=== PATIENT | female | born 1935 | race Caucasian/White ===

== ENCOUNTER 2016-07-10 03:19 | Emergency (ER) | payer MEDICARE ==
[~2016-07-10] VITALS: Ht 149.9 cm; Wt 46.3 kg
[~2016-07-10 03:19] MED LIST: AMLO5TAB2 PO; ASPI325T11 PO; ASPI325T4 PO; CLOP75TA PO; HYDR-2666 PO; LEVO100T5 PO; LEVO88TA4 PO; METO25TA9 PO; NAPR220C4 PO; NITR0.4T SL; POLY17PO5 PO; SIMV40TA3 PO
[2016-07-10 03:57] LABS: BASO % 0 % (0-3); EOS % 5 % (0-3); HEMATOCRIT 32.5 % (36.0-47.0); LYMPH # 1.6 x10^3/uL (1.0-4.8); LYMPH % 15 % (24-48); MEAN CORPUSCULAR HEMOGLOBIN 25 pg (25-35); MEAN CORPUSCULAR HGB CONC 31 g/dL (31-37); MEAN CORPUSCULAR VOLUME 81 fL (79-100); MONO % 12 % (0-9); NEUT % 67 % (31-73); PLATELET COUNT 172 x10^3/uL (140-400); RED BLOOD COUNT 4.02 x10^6/uL (3.50-5.40); RED CELL DISTRIBUTION WIDTH 19.8 % (11.5-14.5); WHITE BLOOD COUNT 10.2 x10^3/uL (4.0-11.0)
[2016-07-10] MEDS ORDERED: IPRATRPIUM/ALBUTEROL 0.5/2.5MG 3 ML NEBU. NEB ONE (04:00)
[2016-07-10 04:09] LABS: CALCIUM 8.9 mg/dL (8.5-10.1); GFR 53.3; POTASSIUM 4.2 mmol/L (3.5-5.1)
--- NOTE | 2016-07-10 04:34 | PHYS DOC ---
Past Medical History Past Medical History: CAD, CHF, COPD, High Cholesterol, Hypertension, Hypothyroid, HI Past Surgical History: Coronary Bypass Surgery Additional Past Surgical Histo: cardiac stents May 2016 Smoking: Cigarettes Alcohol Use: None Drug Use: None Adult General Chief Complaint Chief Complaint: SHORTNESS OF BREATH HPI HPI Patient is a 81 year old female who presents with 2 days of cough with clear sputum, dyspnea, and orthopnea. She also notes mild bilateral lower extremity edema along the same timeline. Symptoms are gradually worsening and constant. She is using her home oxygen more but it helps her breathing. She denies fever or chills, chest pain, palpitations, diaphoresis, hemoptysis, leg pain, abdominal pain, nausea or vomiting, diarrhea. States she is not taking Lasix currently. She has followed up with pulmonology and her primary care doctor since discharge, but she has not seen cardiology. Review of Systems Review of Systems Constitutional: Denies fever or chills [] Eyes: Denies change in visual acuity, redness, or eye pain [] HENT: Denies nasal congestion or sore throat [] Respiratory: Has cough and shortness of breath [] Cardiovascular: No additional information not addressed in HPI [] GI: Denies abdominal pain, nausea, vomiting, bloody stools or diarrhea [] : Denies dysuria or hematuria [] Musculoskeletal: Denies back pain or joint pain [] Integument: Denies rash or skin lesions [] Neurologic: Denies headache, focal weakness or sensory changes [] Endocrine: Denies polyuria or polydipsia [] Current Medications Current Medications Current Medications Medications (Trade) Dose Ordered Sig/[facility] Start Time Stop Time Status Last Admin Dose Admin Albuterol/ Ipratropium (Duoneb) 3 ml 1X ONCE 07/10/16 04:00 07/10/16 04:01 DC 07/10/16 03:44 3 ML Furosemide (Lasix) 40 mg 1X ONCE 07/10/16 05:30 07/10/16 05:31 Allergies Allergies Allergies Coded Allergies Type Severity Reaction Last Updated Verified diphenhydramine Allergy Intermediate rash 05/08/16 Yes hydralazine Allergy Mild Nausea and Vomiting 05/31/16 Yes Physical Exam Physical Exam Constitutional: Well developed, well nourished, no acute distress, non-toxic appearance. [] HENT: Normocephalic, atraumatic, bilateral external ears normal, oropharynx moist, no oral exudates, nose normal. [] Eyes: PERRLA, EOMI. [] Neck: Normal range of motion, supple, no stridor. [] Cardiovascular:Heart rate regular rhythm [] Lungs & Thorax: Bibasilar crackles, upper bilateral wheezing, normal respiratory effort [] Abdomen: Bowel sounds normal, soft, no tenderness. [] Skin: Warm, dry, no erythema, no rash. [] Back: No tenderness, no CVA tenderness. [] Extremities: No tenderness, ROM intact, 2+ bilateral lower extremity edema. [] Neurologic: Alert and oriented X 3, normal motor function, normal sensory function, no focal deficits noted. [] Psychologic: Affect normal, judgement normal, mood normal. [] Current Patient Data Vital Signs Vital Signs Date Time Temp Pulse Resp B/P Pulse Ox O2 Delivery O2 Flow Rate FiO2 07/10/16 03:42 97.4 93 24 210/85 96 Nasal Cannula 2.0 97.4 Lab Values Laboratory Tests Test 07/10/16 03:32 White Blood Count 10.2x10^3/uL (4.0-11.0) Red Blood Count 4.02x10^6/uL (3.50-5.40) Hemoglobin 10.0g/dL (12.0-15.5) L Hematocrit 32.5% (36.0-47.0) L Mean Corpuscular Volume 81fL (79-100) Mean Corpuscular Hemoglobin 25pg (25-35) Mean Corpuscular Hemoglobin Concent 31g/dL (31-37) Red Cell Distribution Width 19.8% (11.5-14.5) H Platelet Count 172x10^3/uL (140-400) Neutrophils (%) (Auto) 67% (31-73) Lymphocytes (%) (Auto) 15% (24-48) L Monocytes (%) (Auto) 12% (0-9) H Eosinophils (%) (Auto) 5% (0-3) H Basophils (%) (Auto) 0% (0-3) Neutrophils # (Auto) 6.9x10^3uL (1.8-7.7) Lymphocytes # (Auto) 1.6x10^3/uL (1.0-4.8) Monocytes # (Auto) 1.3x10^3/uL (0.0-1.1) H Eosinophils # (Auto) 0.5x10^3/uL (0.0-0.7) Basophils # (Auto) 0.0x10^3/uL (0.0-0.2) Sodium Level 135mmol/L (136-145) L Potassium Level 4.2mmol/L (3.5-5.1) Chloride Level 99mmol/L (98-107) Carbon Dioxide Level 27mmol/L (21-32) Anion Gap 9 (6-14) Blood Urea Nitrogen 23mg/dL (7-20) H Creatinine 1.0mg/dL (0.6-1.0) Estimated GFR (Cockcroft-Gault) 53.3 Glucose Level 144mg/dL (70-99) H Calcium Level 8.9mg/dL (8.5-10.1) Troponin I Quantitative 0.017ng/mL (0.000-0.055) FX-Ies-D-Type Natriuretic Peptide 2512pg/mL (0-449) H Laboratory Tests 07/10/16 03:32 Laboratory Tests 07/10/16 03:32 EKG EKG EKG as interpreted by me as normal sinus rhythm with PVCs, rate 93, no ST-T changes, normal intervals, no ectopy Radiology/Procedures Radiology/Procedures Chest x-ray as interpreted by me with small bilateral pleural effusions Course & Med Decision Making Course & Med Decision Making Pertinent Labs and Imaging studies reviewed. (See chart for details) She has lower elevation of proBNP from prior, but she has return of small bilateral pleural effusions. She feels better after neb. Discussed she needs to restart her diuretic. I offered admission for this, but she would prefer to follow up closely as an outpatient. Will give dose of IV Lasix prior to departure. Smoking cessation discussed. Return precautions given. She and daughter understand and agree with plan. Dragon Disclaimer Dragon Disclaimer This electronic medical record was generated, in whole or in part, using a voice recognition dictation system. Departure Departure Impression: Primary Impression: Acute congestive heart failure Disposition: 01 HOME, SELF-CARE Condition: STABLE Referrals: MORGAN ROE Jr, MD (PCP) Patient Instructions: Heart Failure, [id number] Additional Instructions: Follow up with your primary care doctor within 2 days as you need to restart your lasix prescription. Follow up with your Director Corporate Security within 1 week. Return for any concerns. Problem Qualifiers Primary Impression: Acute congestive heart failure Congestive heart failure type: diastolic Qualified Code: I50.31 - Acute diastolic (congestive) heart failure Marco Antonio MANN MD Jul 10, 2016 04:34
[2016-07-10 05:18] VITALS: BP 158/86
[2016-07-10] MEDS ORDERED: FUROSEMIDE 40 MG/4 ML VIAL IVP ONE (05:30)
--- NOTE | 2016-07-10 06:34 | EKG ---
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
--- NOTE | 2016-07-10 07:33 | RAD ---
Indication cough and shortness of breath. A single view of the chest was obtained. Comparison is made to a study 06/15/2016. Postoperative changes are noted. Vascular stent is noted. There is mild cardiomegaly. There are small bilateral pleural effusions. A consolidated pneumonia is not seen. IMPRESSION: Small bilateral pleural effusions
== END 2016-07-10 05:34 | disposition home or self-care (01) ==
LOC: ER 03:19
DX: I11.0 Hypertensive heart disease with heart failure (principal); I50.9 Heart failure, unspecified; E78.00 Pure hypercholesterolemia, unspecified; E03.9 Hypothyroidism, unspecified; I25.10 Atherosclerotic heart disease of native coronary artery without angina pectoris; J44.9 Chronic obstructive pulmonary disease, unspecified; I25.2 Old myocardial infarction; Z95.1 Presence of aortocoronary bypass graft; Z95.5 Presence of coronary angioplasty implant and graft; F17.210 Nicotine dependence, cigarettes, uncomplicated; Z88.8 Allergy status to other drugs, medicaments and biological substances
CPT/HCPCS: 36415; 71010; 80048; 83880; 84484; 85027; 93005; 94640; 96374; 99285; J1940; J7620

== ENCOUNTER 2017-02-08 06:32 | Observation (INO) | payer BC, MEDICARE ==
[~2017-02-08] VITALS: Ht 149.9 cm; Wt 44.0 kg
[2017-02-08] VITALS (13 sets, daily range): BP systolic 152–179; BP diastolic 56–77
[~2017-02-08 06:32] MED LIST changes: -ASPI325T4 PO; +ASPI325T8 PO; -HYDR-2666 PO; +HYDR-2758 PO; +POLY17PO29 PO; -POLY17PO5 PO
[2017-02-08] MEDS ORDERED: IV NORMAL SALINE 1000ML BAG 1,000 ML IV SCH (06:44)
[2017-02-08] MEDS ORDERED: CLOP75TA PO (06:58)
[2017-02-08] MEDS ORDERED: LEVO75TA5 PO (06:58)
[2017-02-08] MEDS ORDERED: LIDOCAINE 2% 20 ML VIAL. ONE (07:28)
[2017-02-08] MEDS ORDERED: IODIXANOL 320 MG/ML 100 ML VIAL. ONE (07:29)
[2017-02-08 07:37] LABS: HEMOGLOBIN 14.5 g/dL (12.0-15.5); RED BLOOD COUNT 4.47 x10^6/uL (3.50-5.40); RED CELL DISTRIBUTION WIDTH 13.9 % (11.5-14.5); WHITE BLOOD COUNT 8.1 x10^3/uL (4.0-11.0)
[2017-02-08 07:45] LABS: CALCIUM 9.2 mg/dL (8.5-10.1); CREATININE 1.1 mg/dL (0.6-1.0); GFR 47.8; POTASSIUM 4.2 mmol/L (3.5-5.1)
[2017-02-08] MEDS ORDERED: fentaNYL PF VIAL 100 MCG/2 ML VIAL ONE ×2 (08:06→08:45)
[2017-02-08] MEDS ORDERED: MIDAZOLAM HCL/PF 2 MG/2 ML VIAL. ONE ×2 (08:06→08:45)
[2017-02-08] MEDS ORDERED: dilTIAZem IV PUSH 25 MG/5 ML VIAL ONE (08:28)
[2017-02-08] MEDS ORDERED: NITROGLYCERIN 4 MG/20 ML SYRINGE for CATH LAB. ONE (08:28)
[2017-02-08] MEDS ORDERED: HEPARIN for IV BOLUS 10,000 UNIT/10 ML VIAL. ONE (08:28)
[2017-02-08] MEDS ORDERED: NITROGLYCERIN 200 MCG/2 ML SYRINGE FOR CATH/VASC LAB. ONE ×2 (08:43→09:41)
[2017-02-08] MEDS ORDERED: VERAPAMIL 5 MG/2 ML VIAL. ONE (08:43)
[2017-02-08] MEDS ORDERED: HEPARIN for IV BOLUS 10,000 UNIT/10 ML VIAL. IART ONE (09:15)
[2017-02-08] MEDS ORDERED: IODIXANOL 320 MG/ML 100 ML VIAL. IART ONE (09:15)
[2017-02-08] MEDS ORDERED: VERAPAMIL 5 MG/2 ML VIAL. IART ONE (09:15)
[2017-02-08] MEDS ORDERED: HEPARIN for IV BOLUS 10,000 UNIT/10 ML VIAL. IV ONE (09:15)
[2017-02-08] MEDS ORDERED: LIDOCAINE 2% 20 ML VIAL. IJ ONE (09:15)
[2017-02-08] MEDS ORDERED: fentaNYL PF VIAL 100 MCG/2 ML VIAL IV ONE (09:15)
[2017-02-08] MEDS ORDERED: NITROGLYCERIN 200 MCG/2 ML SYRINGE FOR CATH/VASC LAB. IART ONE ×2 (09:15)
[2017-02-08] MEDS ORDERED: MIDAZOLAM HCL/PF 2 MG/2 ML VIAL. IV ONE (09:15)
--- NOTE | 2017-02-08 09:35 | PDOC ---
MODERATE SEDATION ASSESSMENT RISKS/ALTERNATIVES Risks/Alternatives Risks and alternatives of this type of sedation and procedure discussed with: RISK/ALTERNATIVES: Patient H & P ON CHART H & P H & P on chart and reviewed for co-morbid conditions and appropriate labs. H&P ON CHART: Yes STATUS PREG STATUS ASSESSED: N/A MEDS/ALLERGIES REVIEWED Meds/Allergies Reviewed Medications and Allergies including time and route of recently administered narcotics and sedatives. MEDS/ALLERGIES REVIEWED: Yes ASA RATING ASA RATING: II AIRWAY ASSESSMENT Airway Assessment Airway patency, oral function limitations, presence of caps, crowns, dentures, partials, and ability to extend neck assessed. AIRWAY ASSESSMENT: Yes MALLAMPATI SCORE MALLAMPATI SCORE: II PRE-SEDATION ASSESSMENT PRE-SEDATION ASSESSMENT: Yes ANGEL SHIELDS MD Feb 08, 2017 09:35
[2017-02-08] MEDS ORDERED: ACETAMINOPHEN 325 MG TABLET. PO PRN (09:45)
--- NOTE | 2017-02-08 11:15 | CARD ---
APPROVED REPORT Patient StatusOUT-PATIENT Quarry Boss: Figueroa Buckner RT (R) Procedure(s) performed: 1. Aortogram with bilateral lower extremity runoff 2. Successful orbital atherectomy/drug coated balloon angioplasty to right superficial femoral arter y via right posterior tibial access Moderate Sedation: 120 Min INDICATION FOR PROCEDURE The indication(s) include : Peripheral vascular disease with claudication. PROCEDURE NARRATIVE After explaining the risks, benefits and alternative options, informed consent was obtained from praveen ent. Patient was brought to the [facility] and her right groin was prepped and draped in the usu al fashion. 15 mL of 2% lidocaine was infiltrated into the skin and subcutaneous tissues for local an esthesia. Arterial access was obtained in the right common femoral artery and a 5 Citizen [place] sheath was i nserted. 5 [place] pigtail catheter was used to perform aortogram with bilateral lower extremity runof f. The following findings were noted. FINDINGS 1. Widely patent aortobifemoral bypass graft. 2. Possible previous endarterectomy bilateral common femoral arteries without any significant stenos is. 3. The left superficial femoral artery showed 80% stenosis in the proximal segment, 60% stenosis in the midsegment and 90% stenosis in the distal segment. The right superficial femoral artery showed ca lcified 90% stenosis in the midsegment and 70% stenosis in the distal segment 4. The right popliteal artery did not show any significant stenosis. The left popliteal artery showe d long 90% stenosis. 5. There is three-vessel runoff below the knee right lower extremity. There is three-vessel runoff b elow the knee left otitis media as well but the left tibioperoneal trunk showed 80% stenosis. INTERVENTION Since patient stated that her symptoms are worse in her right lower extremity, we decided to interven e on the right superficial femoral artery first and plan for staged intervention left lower extremity in 2-4 weeks. Her right foot was then prepped and draped in the usual fashion. Arterial access was obtained in the right posterior tibial artery under vascular ultrasound guidance and 6 Citizen [place] sheath was inserted. The stenosis in the mid and distal segments of the right superficial femoral artery wer e crossed with a 0.014 inch viper guidewire. Multiple orbital atherectomy passes were then performed using CSI 1.5 Stealth atherectomy catheter. The lesions were then dilated with a 4 x 1 20 mm Peterson A rmada balloon. The midsegment stenosis was then successfully treated with a 4.0 x 1 50 mm DigePrinttronic I npact drug-coated balloon. Follow-up angiorrhaphy showed resolution of the stenosis to 0% with good d istal flow. Patient tolerated the procedure well. Hemostasis in the right posterior tibial artery was achieved using TR band. Attempt at achieving hemostasis right groin using manual compression was not successful and hence this was achieved using FemoStop that will be removed at a later time per joel col. There were no immediate complications. Conclusion 1. Severe bilateral lower extremity peripheral vascular disease as described above with patent aorto bifemoral bypass graft. 2. Successful orbital atherectomy/drug coated balloon angioplasty of right superficial femoral arter y. Recommendations Plan for staged atherectomy/METAL MOVER to left superficial femoral, popliteal and tibioperoneal trunk at lat er date.
[2017-02-08] MEDS ORDERED: PROTAMINE 50 MG/5 ML VIAL. IV ONE (11:30)
[2017-02-08] MEDS: IV 1/2 NORMAL SALINE 1,000 ML IV SCH ×2 (12:00→22:00)
[2017-02-08] MEDS ORDERED: NITROGLYCERIN SUBLINGUAL 0.4 MG BOTTLE OF 25. SL PRN (15:15)
[2017-02-08] MEDS ORDERED: HYDROcodone/APAP 5/325MG 1 TAB TABLET PO PRN ×2 (15:15)
[2017-02-08] MEDS ORDERED: ATORVASTATIN CALCIUM 20 MG TABLET PO SCH (21:00)
[2017-02-08] MEDS ORDERED: TEMAZEPAM 15 MG CAPSULE PO PRN (21:30)
[2017-02-09 03:29] VITALS: BP 113/62
[2017-02-09 07:00] VITALS: BP 176/69
[2017-02-09] MEDS ORDERED: LEVOTHYROXINE 75 MCG TABLET PO SCH (07:30)
[2017-02-09] MEDS ORDERED: ASPIRIN ENTERIC COATED 325 MG TABLET.DR. PO SCH (08:00)
[2017-02-09] MEDS: IV 1/2 NORMAL SALINE 1,000 ML IV SCH (08:00)
[2017-02-09] MEDS ORDERED: CLOPIDOGREL BISULFATE 75 MG TABLET PO SCH (09:00)
[2017-02-09] MEDS ORDERED: POLYETHYLENE GLYCOL 3350 17 GM PACKET. PO SCH (09:00)
[2017-02-09] MEDS ORDERED: amLODIPine BESYLATE 5 MG TABLET PO SCH (09:00)
[2017-02-09] MEDS ORDERED: METOPROLOL SUCC 24HR ER 50 MG TAB.ER.24H. PO SCH (09:00)
--- NOTE | 2017-02-09 10:39 | DISCH ---
DISCHARGE INSTRUCTIONS Condition on Discharge Condition on Discharge: Stable Activity After Discharge Activity Instructions for Disc: Activity as tolerated, Avoid exertion (see diagnosis specific handout. ) Bathing Instructions: Shower-keep dressing dry (may leave open to air) Diet after Discharge Diet after Discharge: Cardiac Wound Incision Care Wound/Incision Care: No wound care needed Contacting the DRMatthew after DC Call your doctor for: Concerns you may have NONA DIEGO APRN Feb 09, 2017 10:39
[2017-02-09 11:00] VITALS: BP 182/65
[2017-02-09] MEDS ORDERED: amLODIPine BESYLATE 5 MG TABLET PO ONE (12:00)
[2017-02-09 12:18] VITALS: BP 182/65
--- NOTE | 2017-02-09 14:35 | PDOC3 ---
Discharge Summary Visit Information Date of Admission: Feb 08, 2017 Date of Discharge: Feb 09, 2017 Admitting Diagnosis: peripheral vascular disease with claudication Final Diagnosis Peripheral vascular disease Coronary artery disease Subclavian stenosis Hypertension Hyperlipidemia Brief Hospital Course Allergies Allergies Coded Allergies Type Severity Reaction Last Updated Verified diphenhydramine Allergy Intermediate rash 05/08/16 Yes hydralazine Allergy Mild Nausea and Vomiting 05/31/16 Yes Vital Signs Vital Signs Date Time Temp Pulse Resp B/P (MAP) Pulse Ox O2 Delivery O2 Flow Rate FiO2 02/09/17 12:18 83 182/65 02/09/17 08:00 Room Air 91.0 02/09/17 07:00 98.1 18 93 98.1 Lab Results Laboratory Tests Test 02/08/17 07:15 White Blood Count 8.1 x10^3/uL (4.0-11.0) Red Blood Count 4.47 x10^6/uL (3.50-5.40) Hemoglobin 14.5 g/dL (12.0-15.5) Hematocrit 43.0 % (36.0-47.0) Mean Corpuscular Volume 96 fL (79-100) Mean Corpuscular Hemoglobin 33 pg (25-35) Mean Corpuscular Hemoglobin Concent 34 g/dL (31-37) Red Cell Distribution Width 13.9 % (11.5-14.5) Platelet Count 136 x10^3/uL (140-400) Prothrombin Time 13.0 SEC (11.7-14.0) Prothromb Time International Ratio 1.0 (0.8-1.1) Activated Partial Thromboplast Time 50 SEC (24-38) Sodium Level 138 mmol/L (136-145) Potassium Level 4.2 mmol/L (3.5-5.1) Chloride Level 102 mmol/L (98-107) Carbon Dioxide Level 30 mmol/L (21-32) Anion Gap 6 (6-14) Blood Urea Nitrogen 23 mg/dL (7-20) Creatinine 1.1 mg/dL (0.6-1.0) Estimated GFR (Cockcroft-Gault) 47.8 Glucose Level 99 mg/dL (70-99) Calcium Level 9.2 mg/dL (8.5-10.1) Brief Hospital Course Ms. Guallpa is a 81 old female who was seen in our office recently for claudication was referred to [facility] for aortogram. This showed significant stenoses involving the right superficial femoral artery, left superficial femoral artery, left popliteal artery and tibioperoneal trunk. Since her symptoms were worse in her right lower extremity, we proceeded with orbital atherectomy/drug coated balloon angioplasty to right superficial femoral artery via right posterior tibial access. She remained hemodynamically stable and symptom-free during her hospital stay and her right groin and right posterior tibial access looked good at the time of discharge. She'll follow-up with our office in 2-4 weeks. We will consider staged EMR IMPLEMENTATION SPECIALIST to left lower extremity at a later date. Discharge Information Condition at Discharge: Stable Follow Up: Months (one) Disposition/Orders: D/C to Home Scheduled Amlodipine Besylate (Amlodipine Besylate), 1 TAB PO DAILY, (Reported) Aspirin (Aspirin Ec), 325 MG PO DAILYWBKFT Clopidogrel Bisulfate (Clopidogrel), 75 MG PO DAILY, (Reported) Levothyroxine Sodium (Levothyroxine Sodium), 75 MCG PO DAILYAC, (Reported) Metoprolol Succinate (Metoprolol Succinate ( Xl )), 50 MG PO DAILY, (Reported) Polyethylene Glycol 3350 (Miralax), 1 PACKET PO DAILY, (Reported) Simvastatin (Simvastatin), 1 TAB PO QHS, (Reported) Scheduled PRN Hydrocodone Bit/Acetaminophen (Hydrocodone-Apap 5-325 ), 1 TAB PO PRN Q6HRS PRN for PAIN, (Reported) Hydrocodone Bit/Acetaminophen (Hydrocodone-Apap 5-325 ), 2 TAB PO PRN Q6HRS PRN for PAIN, (Reported) Nitroglycerin (Nitrostat), 0.4 MG SL PRN Q5MIN PRN for CHEST PAIN, (Reported) ANGEL SHIELDS MD Feb 09, 2017 14:35
== END 2017-02-09 12:33 | disposition home or self-care (01) ==
LOC: CCL 06:32 → 2 SOUTH 12:46
PROVIDERS: ADMIT Internal Medicine Cardiovascular Disease; ATTEND Internal Medicine Cardiovascular Disease
DX: I73.9 Peripheral vascular disease, unspecified (principal); I25.10 Atherosclerotic heart disease of native coronary artery without angina pectoris; I10 Essential (primary) hypertension; E78.5 Hyperlipidemia, unspecified; I70.8 Atherosclerosis of other arteries
CPT/HCPCS: 36415; 37227; 75630; 76937; 80048; 85027; 85610; 85730; 96374; C1724; C1725; C1769; C1887; C1892; C2623; G0378; G0379; J1644; J2001; J2250; J2720; J3010; J3490; J7030; 99152; 99153

== ENCOUNTER → 2017-08-19 | Outpatient (CLI) | payer BC | END | disposition home or self-care (01) | LOC: US 12:09 | DX: I73.9 Peripheral vascular disease, unspecified (principal); I25.708 Atherosclerosis of coronary artery bypass graft(s), unspecified, with other forms of angina pectoris; I34.0 Nonrheumatic mitral (valve) insufficiency; I42.2 Other hypertrophic cardiomyopathy; I51.9 Heart disease, unspecified; I74.3 Embolism and thrombosis of arteries of the lower extremities | CPT/HCPCS: 93306; 93925 ==

== ENCOUNTER 2017-09-20 06:21 | Observation (INO) | payer BC ==
[2017-09-20 07:02] LABS: HEMATOCRIT 46.1 % (36.0-47.0); HEMOGLOBIN 15.1 g/dL (12.0-15.5); MEAN CORPUSCULAR HEMOGLOBIN 31 pg (25-35); MEAN CORPUSCULAR HGB CONC 33 g/dL (31-37); MEAN CORPUSCULAR VOLUME 95 fL (79-100); PLATELET COUNT 166 x10^3/uL (140-400); RED BLOOD COUNT 4.83 x10^6/uL (3.50-5.40); RED CELL DISTRIBUTION WIDTH 14.4 % (11.5-14.5); WHITE BLOOD COUNT 9.6 x10^3/uL (4.0-11.0)
[2017-09-20 07:16] LABS: ANION GAP 10 (6-14); BLOOD UREA NITROGEN 21 mg/dL (7-20); CALCIUM 8.8 mg/dL (8.5-10.1); CARBON DIOXIDE 28 mmol/L (21-32); CHLORIDE 101 mmol/L (98-107); CREATININE 1.1 mg/dL (0.6-1.0); GFR 47.7; GLUCOSE 96 mg/dL (70-99); POTASSIUM 3.7 mmol/L (3.5-5.1); PROTHROMBIN TIME PATIENT 12.7 SEC (11.7-14.0); SODIUM 139 mmol/L (136-145)
[2017-09-20] MEDS ORDERED: IODIXANOL 320 MG/ML 100 ML VIAL. (07:16)
[2017-09-20] MEDS ORDERED: LIDOCAINE 2% 20 ML VIAL. (07:16)
[2017-09-20 07:17] LABS: PARTIAL THROMBOPLASTIN TIME 41 SEC (24-38)
[2017-09-20] MEDS ORDERED: fentaNYL PF VIAL 250 MCG/5 ML VIAL (08:06)
[2017-09-20] MEDS ORDERED: MIDAZOLAM HCL/PF 5 MG/5 ML VIAL. (08:06)
[2017-09-20] MEDS ORDERED: HEPARIN for IV BOLUS 10,000 UNIT/10 ML VIAL. ×2 (08:31→08:53)
[2017-09-20] MEDS ORDERED: NITROGLYCERIN 200 MCG/2 ML SYRINGE FOR CATH/VASC LAB. (09:00)
[2017-09-20] MEDS: fentaNYL PF VIAL 100 MCG/2 ML VIAL IV ×2 (09:15→11:15)
[2017-09-20] MEDS: MIDAZOLAM HCL/PF 5 MG/5 ML VIAL. IV (09:15)
[2017-09-20] MEDS: HEPARIN for IV BOLUS 10,000 UNIT/10 ML VIAL. IV (09:15)
[2017-09-20] MEDS: IODIXANOL 320 MG/ML 100 ML VIAL. IART (09:15)
[2017-09-20] MEDS: LIDOCAINE 2% 20 ML VIAL. IJ (09:15)
[2017-09-20] MEDS: NITROGLYCERIN 4 MG/20 ML SYRINGE for CATH LAB. IV (09:15)
[2017-09-20] MEDS: NITROGLYCERIN 200 MCG/2 ML SYRINGE FOR CATH/VASC LAB. IART (09:15)
[2017-09-20] MEDS: fentaNYL PF VIAL 250 MCG/5 ML VIAL IV (10:33)
[2017-09-20] MEDS: IV 1/2 NORMAL SALINE 1,000 ML IV ×2 (11:05→20:14)
[2017-09-20] MEDS ORDERED: NITROGLYCERIN SUBLINGUAL 0.4 MG BOTTLE OF 25. SL (11:15)
[2017-09-20] MEDS ORDERED: MAGNESIUM HYDROXIDE 2,400 MG/30 ML ORAL.SUSP. PO (11:15)
[2017-09-20] MEDS ORDERED: ACETAMINOPHEN 325 MG TABLET. PO (11:15)
[2017-09-20] MEDS: MIDAZOLAM HCL/PF 2 MG/2 ML VIAL. IV (11:15)
[2017-09-20 15:46] LABS: ISTAT ACT 233 sec (92-181)
[2017-09-20] MEDS ORDERED: HYDROcodone/APAP 5/325MG 1 TAB TABLET PO (16:30)
[2017-09-20] MEDS: HYDROcodone/APAP 5/325MG 1 TAB TABLET PO (16:34)
[2017-09-20 17:14] LABS: ISTAT ACT 184 sec (92-181)
[2017-09-20] MEDS: IV NORMAL SALINE 500ML BAG 500 ML IV (18:00)
[2017-09-20] MEDS: NITROGLYCERIN SUBLINGUAL 0.4 MG BOTTLE OF 25. SL (18:36)
[2017-09-20] MEDS: ATORVASTATIN CALCIUM 20 MG TABLET PO (20:13)
[2017-09-21] MEDS: IV 1/2 NORMAL SALINE 1,000 ML IV (04:50)
[2017-09-21] MEDS ORDERED: CLOPIDOGREL BISULFATE 75 MG TABLET PO (08:00)
[2017-09-21] MEDS ORDERED: ASPIRIN ENTERIC COATED 325 MG TABLET.DR. PO (08:00)
[2017-09-21] MEDS: ASPIRIN ENTERIC COATED 325 MG TABLET.DR. PO (08:55)
[2017-09-21] MEDS: LEVOTHYROXINE 75 MCG TABLET PO (08:55)
[2017-09-21] MEDS: METOPROLOL SUCC 24HR ER 50 MG TAB.ER.24H. PO (08:56)
[2017-09-21] MEDS: CLOPIDOGREL BISULFATE 75 MG TABLET PO (08:56)
[2017-09-21] MEDS: amLODIPine BESYLATE 5 MG TABLET PO (08:57)
[2017-09-21] MEDS: POLYETHYLENE GLYCOL 3350 17 GM PACKET. PO (09:00)
[2017-09-21 14:19] LABS: ISTAT ACT 631 sec (92-181)
== END 2017-09-21 16:09 | disposition home or self-care (01) ==
LOC: CCL 06:21 → 2 SOUTH 09:02 → 2 NORTH 09:02 → 2 SOUTH 09:02
DX: I73.9 Peripheral vascular disease, unspecified (principal); I70.8 Atherosclerosis of other arteries; I25.10 Atherosclerotic heart disease of native coronary artery without angina pectoris; I10 Essential (primary) hypertension; E78.5 Hyperlipidemia, unspecified; Z79.82 Long term (current) use of aspirin; Z79.02 Long term (current) use of antithrombotics/antiplatelets
CPT/HCPCS: 36415; 37227; 37229; 75630; 80048; 85027; 85347; 85610; 85730; 96365; 96375; 99152; 99153; 99406; C1725; C1769; C1877; C1892; G0378; G0379; J1644; J2250; J3010; J3490; J7030; J7040

== ENCOUNTER 2017-11-01 06:24 | Observation (INO) | payer BC ==
[2017-11-01 06:45] LABS: HEMATOCRIT 43.9 % (36.0-47.0); HEMOGLOBIN 14.8 g/dL (12.0-15.5); MEAN CORPUSCULAR HEMOGLOBIN 32 pg (25-35); MEAN CORPUSCULAR HGB CONC 34 g/dL (31-37); MEAN CORPUSCULAR VOLUME 95 fL (79-100); PLATELET COUNT 173 x10^3/uL (140-400); RED BLOOD COUNT 4.63 x10^6/uL (3.50-5.40); RED CELL DISTRIBUTION WIDTH 15.8 % (11.5-14.5); WHITE BLOOD COUNT 11.9 x10^3/uL (4.0-11.0)
[2017-11-01 06:54] LABS: INR 0.9 (0.8-1.1); PROTHROMBIN TIME PATIENT 11.5 SEC (11.7-14.0)
[2017-11-01 06:58] LABS: ANION GAP 11 (6-14); BLOOD UREA NITROGEN 27 mg/dL (7-20); CALCIUM 8.6 mg/dL (8.5-10.1); CARBON DIOXIDE 25 mmol/L (21-32); CHLORIDE 101 mmol/L (98-107); GFR 53.2; GLUCOSE 117 mg/dL (70-99); POTASSIUM 4.3 mmol/L (3.5-5.1); SODIUM 137 mmol/L (136-145)
[2017-11-01] MEDS ORDERED: LIDOCAINE 2% 20 ML VIAL. (07:07)
[2017-11-01] MEDS ORDERED: IODIXANOL 320 MG/ML 100 ML VIAL. ×2 (07:07→08:47)
[2017-11-01] MEDS ORDERED: fentaNYL PF VIAL 100 MCG/2 ML VIAL ×2 (08:00→10:03)
[2017-11-01] MEDS ORDERED: NITROGLYCERIN 200 MCG/2 ML SYRINGE FOR CATH/VASC LAB. (08:00)
[2017-11-01] MEDS ORDERED: HEPARIN for IV BOLUS 10,000 UNIT/10 ML VIAL. ×2 (08:00→08:16)
[2017-11-01] MEDS ORDERED: MIDAZOLAM HCL/PF 2 MG/2 ML VIAL. ×2 (08:00→10:03)
[2017-11-01] MEDS ORDERED: CONTRAST GIVEN. MC (08:15)
[2017-11-01] MEDS ORDERED: NITROGLYCERIN 4 MG/20 ML SYRINGE for CATH LAB. ×2 (08:39→09:00)
[2017-11-01] MEDS ORDERED: dilTIAZem IV PUSH 25 MG/5 ML VIAL (08:39)
[2017-11-01] MEDS: dilTIAZem INJ 10 MG, NITROGLYCERIN 4MG SYRINGE 4 MG, HEPARIN SODIUM 10,000 UNIT, VIPERS... INT CAT (09:00)
[2017-11-01] MEDS: LIDOCAINE 2% 20 ML VIAL. IJ (10:09)
[2017-11-01] MEDS: fentaNYL PF VIAL 100 MCG/2 ML VIAL IV ×2 (10:10→10:30)
[2017-11-01] MEDS: HEPARIN for IV BOLUS 10,000 UNIT/10 ML VIAL. IV (10:12)
[2017-11-01] MEDS: IODIXANOL 320 MG/ML 100 ML VIAL. IART (10:13)
[2017-11-01] MEDS: MIDAZOLAM HCL/PF 2 MG/2 ML VIAL. IV (10:13)
[2017-11-01] MEDS: NITROGLYCERIN 200 MCG/2 ML SYRINGE FOR CATH/VASC LAB. IART (10:14)
[2017-11-01] MEDS ORDERED: ACETAMINOPHEN 325 MG TABLET. PO (10:30)
[2017-11-01] MEDS: IV 1/2 NORMAL SALINE 1,000 ML IV ×2 (11:14→19:11)
[2017-11-01] MEDS ORDERED: PNEUMOCOCCAL VAX SCREEN BY RX. MC (11:45)
[2017-11-01] MEDS: ISOSORBIDE MONONITRATE ER 30 MG TAB.ER.24H PO (12:06)
[2017-11-01] MEDS: oxyCODONE/APAP 5/325 1 TAB TABLET PO (21:12)
[2017-11-01] MEDS: SIMVASTATIN 40 MG TABLET. PO (21:12)
[2017-11-01] MEDS: FAMOTIDINE 20 MG TABLET. PO (21:12)
[2017-11-02] MEDS: LEVOTHYROXINE 75 MCG TABLET PO (06:07)
[2017-11-02] MEDS: PNEUMOC CONJ VACC 23-VALENT 0.5 ML VIAL. VAX IM (08:14)
[2017-11-02] MEDS: CLOPIDOGREL BISULFATE 75 MG TABLET PO (08:14)
[2017-11-02] MEDS: METOPROLOL SUCC 24HR ER 25 MG TAB.ER.24H. PO (08:14)
[2017-11-02] MEDS: ASPIRIN ENTERIC COATED 325 MG TABLET.DR. PO (08:14)
[2017-11-02] MEDS: POLYETHYLENE GLYCOL 3350 17 GM PACKET. PO (08:15)
[2017-11-02] MEDS: amLODIPine BESYLATE 5 MG TABLET PO (08:15)
[2017-11-02] MEDS: oxyCODONE/APAP 5/325 1 TAB TABLET PO (10:17)
== END 2017-11-02 11:32 | disposition home or self-care (01) ==
LOC: CCL 06:24 → 2 NORTH 07:15
DX: I70.292 Other atherosclerosis of native arteries of extremities, left leg (principal); I25.10 Atherosclerotic heart disease of native coronary artery without angina pectoris; I50.32 Chronic diastolic (congestive) heart failure; E78.5 Hyperlipidemia, unspecified; I11.0 Hypertensive heart disease with heart failure; G89.29 Other chronic pain; I77.1 Stricture of artery; E11.9 Type 2 diabetes mellitus without complications; J44.9 Chronic obstructive pulmonary disease, unspecified; Z82.49 Family history of ischemic heart disease and other diseases of the circulatory system; Z23 Encounter for immunization; Z95.820 Peripheral vascular angioplasty status with implants and grafts
CPT/HCPCS: 36415; 37227; 80048; 85027; 85610; 90471; 90732; 96365; 96375; 99152; 99153; 99406; C1724; C1725; C1769; C1771; C1877; C1892; G0269; G0378; G0379; J1644; J2250; J3010; J3490; J7030

== ENCOUNTER → 2018-03-31 | Outpatient (CLI) | payer BC ==
[2017-11-02 08:15] VITALS: BP 157/63
[~2018-03-31] MED LIST changes: -AMLO5TAB2 PO; +AMLO5TAB7 PO; +FAMO-63 PO; +IOHEXOL 300 MG/ML 100ML VIAL. IV ONE; +LEVO75TA5 PO; +METO-239 PO; -METO25TA9 PO
[2018-03-31 11:33] LABS: CREATININE 0.9 mg/dL (0.6-1.0); GFR 60.1
--- NOTE | 2018-04-01 09:15 | RAD ---
CT angiography of the abdomen, pelvis, and lower extremities 03/31/2018 Indication: Atherosclerosis with lower extremity gangrene. Comparison study: CTA of the abdomen and pelvis December 09, 2011 Discussion: Imaging of the abdomen and pelvis was obtained following the administration of IV contrast. 3-D reconstructions of abdominal, pelvic, large vasculature appear uninterrupted workstation reviewed. Findings: Inferior thoracic aorta demonstrates irregular soft and calcified plaque with mild luminal narrowing. There is severe diffuse atherosclerotic vascular disease. Small penetrating ulcers noted posteriorly involving the distal descending thoracic aorta. There is high-grade stenosis of the splenic artery which arises directly from the abdominal aorta. This supplies the left gastric artery and left hepatic artery. The celiac artery is also highly stenosis which supplies blood flow to the right liver, and gastroduodenal arcade. Mild narrowing is seen at the ostium of the SMA. There is a small focal aneurysm versus dissection seen in the proximal SMA with associated moderate narrowing. The right renal artery is patent. There is moderate stenosis of the left renal artery near the ostium. The inferior mesenteric artery is not visualized. There is an aortobifemoral bypass graft. The graft appears to be widely patent. Right common femoral artery is patent. The right profunda artery is patent. There is high-grade stenosis in the proximal right SFA. Multiple tandem high-grade stenoses possibly some spectral segment occlusions are seen throughout the proximal right superficial femoral artery. There is occlusion of the right SFA in the mid thigh just above a superficial femoral artery stent that extends just above the knee. Areas of reconstitution are present within the stent. The popliteal artery is reconstituted but is extremely small in caliber. The anterior tibial and dorsalis pedis artery are small but appear grossly patent. The peroneal artery appears smaller grossly patent. The posterior tibial artery is not visualized likely chronically occluded. Left common femoral artery is patent. Left profunda artery is patent there is similar multifocal near occlusion seen throughout the proximal left SFA. The left SFA is occluded in the mid thigh which extends to a popliteal artery stent. The proximal infra geniculate popliteal artery is occluded. There is reconstitution of the more distal popliteal artery which supplies the anterior tibial artery which and dorsalis pedis artery which appear to be patent. The posterior tibial artery is patent to the foot. The peroneal artery appears to be occluded in the mid leg. Nonvascular findings: Multifocal scarring is seen in the lung bases bilaterally. There is a small subpleural nodular opacity in the right lower lobe measuring [address] surveillance recommended. Cholelithiasis noted. Small renal cyst noted on the left. 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 There is no bowel obstruction. No pneumoperitoneum or significant free fluid is seen in the abdomen or pelvis. Mildly increased stool is noted throughout the colon. Correlate with evidence of constipation. Degenerative changes of the spine are noted. No acute osseous abnormality is seen. Impression: 1. Severe diffuse atherosclerotic vascular disease 2. Patent aorto femoral bypass graft. Severe femoropopliteal disease including multifocal short segment high-grade stenoses and occlusions of the superficial femoral artery and popliteal arteries occlusions include previously stented portions of these vessels as described above in detail. 3. Occlusion of the right posterior tibial artery. Occlusion of the left peroneal artery 4. Variant celiac axis anatomy is described above including multifocal high-grade stenoses. 5. Moderate stenoses of the proximal superior mesenteric artery. Nonvisualization of the inferior mesenteric artery. Correlate with clinical evidence of mesenteric ischemia. 6. Moderate left renal artery stenosis. Interval left inferior renal infarct, which appears chronic. 7. 8 mm noncalcified pulmonary nodule, right lower lobe. 3-6 month follow-up CT chest recommended. PQRS Compliance Statement: One or more of the following individualized dose reduction techniques were utilized for this examination: 1. Automated exposure control 2. Adjustment of the mA and/or kV according to patient size 3. Use of iterative reconstruction technique
== END | disposition home or self-care (01) ==
LOC: CT 15:15
PROVIDERS: ATTEND Registered Nurse Medical-Surgical
DX: I70.263 Atherosclerosis of native arteries of extremities with gangrene, bilateral legs (principal); E11.22 Type 2 diabetes mellitus with diabetic chronic kidney disease; I13.0 Hypertensive heart and chronic kidney disease with heart failure and stage 1 through stage 4 chronic kidney disease, or unspecified chronic kidney disease; I50.32 Chronic diastolic (congestive) heart failure; N18.1 Chronic kidney disease, stage 1; F17.210 Nicotine dependence, cigarettes, uncomplicated
CPT/HCPCS: 36415; 75635; 82565; Q9967

== ENCOUNTER 2018-05-31 05:44 | Inpatient (IN) | payer BC ==
[~2018-05-31] VITALS: Ht 149.9 cm; Wt 56.3 kg
[~2018-05-31 05:44] MED LIST changes: -HYDR-2758 PO; +HYDR-2761 PO; -IOHEXOL 300 MG/ML 100ML VIAL. IV ONE; +VENTOLIN HFA18 GM INH
[2018-05-31] MEDS ORDERED: HEPARIN SODIUM 5,000 UNIT in IV NORMAL SALINE 500ML BAG 500 ML IRR ONE (06:00)
[2018-05-31 06:39] LABS: BASO # 0.1 x10^3/uL (0.0-0.2); BASO % 1 % (0-3); EOS # 0.3 x10^3/uL (0.0-0.7); EOS % 3 % (0-3); HEMATOCRIT 43.1 % (36.0-47.0); HEMOGLOBIN 14.4 g/dL (12.0-15.5); LYMPH # 1.3 x10^3/uL (1.0-4.8); LYMPH % 13 % (24-48); MEAN CORPUSCULAR HEMOGLOBIN 32 pg (25-35); MEAN CORPUSCULAR HGB CONC 34 g/dL (31-37); MEAN CORPUSCULAR VOLUME 94 fL (79-100); MONO # 1.2 x10^3/uL (0.0-1.1); MONO % 12 % (0-9); NEUT # 7.1 x10^3uL (1.8-7.7); NEUT % 72 % (31-73); PLATELET COUNT 164 x10^3/uL (140-400); RED BLOOD COUNT 4.57 x10^6/uL (3.50-5.40); RED CELL DISTRIBUTION WIDTH 14.8 % (11.5-14.5)
[2018-05-31] MEDS ORDERED: IOHEXOL 300 MG/ML 100ML VIAL. ONE (06:45)
[2018-05-31] MEDS ORDERED: SURGICEL FIBRILLAR 1X2 EACH. ONE (06:45)
[2018-05-31 06:51] LABS: CALCIUM 9.1 mg/dL (8.5-10.1); CREATININE 0.9 mg/dL (0.6-1.0); GFR 60.1; POTASSIUM 4.1 mmol/L (3.5-5.1)
[2018-05-31 06:53] LABS: PROTHROMBIN TIME PATIENT 12.7 SEC (11.7-14.0)
[2018-05-31] MEDS ORDERED: PROPOFOL 20 ML IV ONE (07:00)
[2018-05-31] MEDS ORDERED: fentaNYL PF VIAL 100 MCG/2 ML VIAL ONE ×2 (07:00→10:14)
[2018-05-31] MEDS ORDERED: HYDROmorphone 2 MG/ML VIAL IV PRN (07:00)
[2018-05-31] MEDS ORDERED: ROCURONIUM 50 MG/5 ML VIAL. ONE (07:00)
[2018-05-31] MEDS ORDERED: IV RINGERS,LACTATED 1000ML 1,000 ML IV SCH (07:00)
[2018-05-31] MEDS ORDERED: fentaNYL PF VIAL 100 MCG/2 ML VIAL IV PRN ×2 (07:00)
[2018-05-31] MEDS ORDERED: ONDANSETRON PF 4 MG/2 ML VIAL. IV PRN ×2 (07:00→07:45)
[2018-05-31] MEDS ORDERED: LIDOCAINE 1% PF 2 ML VIAL. ID PRN (07:00)
[2018-05-31] MEDS ORDERED: LIDOCAINE 2% PF Vial for OR 5 ML VIAL. ONE (07:00)
[2018-05-31] MEDS ORDERED: PROCHLORPERAZINE 10 MG/2 ML VIAL. IV PRN ×2 (07:00→07:45)
[2018-05-31] MEDS ORDERED: LIDOCAINE 1% PF 30ML 48 ML, SODIUM BICARBONATE VIAL 12 MEQ in TOTAL VOLUME SYRINGE 60 ML ID ONE (07:07)
[2018-05-31] MEDS ORDERED: GELATIN SPONGE SIZE 100. ONE (07:19)
[2018-05-31] MEDS ORDERED: PAPAVERINE 60 MG/2 ML VIAL FOR OR ONLY. ONE (07:19)
[2018-05-31] MEDS ORDERED: THROMBIN TOPICAL 20,000 UNIT SPRAY.SYRN KIT TP ONE (07:19)
[2018-05-31] MEDS ORDERED: MAG HYDROX/ALUMINUM HYD/SIMETH 30 ML ORAL.SUSP PO PRN (07:45)
[2018-05-31] MEDS ORDERED: diphenhydrAMINE HCL 25 MG CAPSULE PO PRN (07:45)
[2018-05-31] MEDS ORDERED: 0.9 % SODIUM CHLORIDE 10 ML DISP.SYRIN. IV PRN (07:45)
[2018-05-31] MEDS ORDERED: LABETALOL 20 MG/4 ML DISP.SYRIN. IVP PRN (07:45)
[2018-05-31] MEDS ORDERED: CALCIUM CARBONATE 500 MG TAB.CHEW PO PRN (07:45)
[2018-05-31] MEDS ORDERED: NALOXONE 0.4 MG/ML VIAL. IV PRN (07:45)
[2018-05-31] MEDS ORDERED: ceFAZolin SODIUM 1 GM in IV DEXTROSE 5% 50 ML IV SCH (07:45)
[2018-05-31] MEDS ORDERED: HEPARIN for IV BOLUS 10,000 UNIT/10 ML VIAL. ONE (08:19)
[2018-05-31] MEDS ORDERED: PHENYLEPHRINE in 0.9% NACL PF 1 MG/10 ML SYRINGE. IV ONE (08:19)
[2018-05-31] MEDS ORDERED: DEXAMETHASONE SOD PHOS 20 MG/5 ML VIAL. ONE (08:19)
[2018-05-31] MEDS ORDERED: DESFLURANE > 120 MINUTES IH ONE (08:19)
[2018-05-31] MEDS ORDERED: ePHEDrine PF IN SALINE 50 MG/5 ML DISP.SYRIN IV ONE (08:28)
[2018-05-31] MEDS: SENNOSIDES/DOCUSATE 8.6/50MG TABLET. PO SCH ×2 (09:00→20:15)
[2018-05-31] MEDS: METOPROLOL SUCC 24HR ER 25 MG TAB.ER.24H. PO SCH (09:00)
[2018-05-31] MEDS ORDERED: GLYCOPYRROLATE 1 MG/5 ML VIAL. ONE (09:08)
[2018-05-31] MEDS ORDERED: NEOSTIGMINE METHYLSULFATE 5 MG/5 ML SYRINGE. ONE (09:08)
[2018-05-31] MEDS ORDERED: PROTAMINE 50 MG/5 ML VIAL. IV ONE ×2 (10:41→10:53)
--- NOTE | 2018-05-31 11:46 | PDOC ---
BRIEF OPERATIVE NOTE Date: May 31, 2018 Pre-Op Diagnosis PVD with Left leg claudication Post-Op Diagnosis same Procedure Performed Left femoral to popliteal bypass using greater saphenous vein Surgeon Dr. Hatfield Cone Cleaner Pelon Bagley NP Anesthesia Type: General Blood Loss 150cc Specimens Obtained none Findings Doppler DP and PT Complications none Operative Note see dictated note PELON BAGLEY SHANK CARRIER May 31, 2018 11:46
--- NOTE | 2018-05-31 11:52 | RAD ---
Right femur, single view, 05/31/2018: HISTORY: Postop evaluation, incorrect needle count Multiple surgical clips are present medially from the level of the groin down below the knee. A vascular stent is present extending from the mid thigh down to the proximal popliteal level. No retained surgical instrument, needle or radiopaque sponge is identified. Electronically signed by: Judah Proctor MD (05/31/2018 11:48 AM) [facility]
--- NOTE | 2018-05-31 12:23 | OP ---
DATE OF SURGERY: 05/31/2018 PREOPERATIVE DIAGNOSIS: Ischemic rest pain, right foot. POSTOPERATIVE DIAGNOSIS: Ischemic rest pain, right foot. PROCEDURE PERFORMED: Right femoral to tibioperoneal trunk bypass graft using ipsilateral greater saphenous vein. SURGEON: Surinder Hatfield M.D. VOCATIONAL PLACEMENT SPECIALIST: Claudia Rocha, certified nurse practitioner. INDICATIONS: This is an 82-year-old female with severe peripheral vascular disease. She has had previous aortofemoral bypass graft and percutaneous interventions of her infrainguinal vessels. She represents with ischemic rest pain of her right foot and her previously performed right leg intervention with angioplasty and stent placements have failed. This was confirmed by CT angiography. Reviewing her previous arteriographic evaluation, she did have a below-knee popliteal, which appeared to be an excellent target vessel and recommendation was for vascular reconstruction. She has similar symptoms in the left leg and similar findings. DESCRIPTION OF PROCEDURE: The patient was given a general anesthetic. Jefferson catheter was placed in the urinary bladder and she was prepped and draped in a sterile fashion. A curvilinear incision was begun at the inguinal ligament extending down the medial aspect of the right leg, exposing the saphenous vein in its entirety. This was taken all the way down to the below knee position. Side branches were isolated, ligated with 3-0 silk suture, clipped distally and divided. Saphenofemoral junction was clamped. The vessel was amputated and the stump was oversewn with a running 5-0 Prolene suture. Distal vessel was clamped and divided. The vein was distended with heparinized saline solution. Retrograde valve lysis was performed with a Rocha valvulotome. The below-knee popliteal artery was isolated, doubly surrounded with vessel loops. The common femoral artery and the previously placed bypass graft were isolated. The circumflex femoral branch was isolated. The superficial femoral artery was isolated and the patient received 5000 units of intravenous heparin. Clamps were placed on the common femoral artery and the superficial femoral artery. A longitudinal arteriotomy was begun on the superficial femoral artery and extended up into the common femoral artery. There was some intimal hyperplasia in the proximal superficial femoral artery, which was gently removed with fine pickups, a right angle clamp and a Nunda dissector. Once a lumen was widely patent, any additional debris was flushed. The vein was trimmed and spatulated. End-to-side anastomosis was completed here with a running 6-0 Prolene suture. There was excellent pulsatile flow through the vein conduit. The vein was then brought down the below knee position. Popliteal artery was occluded proximally and distally. Longitudinal arteriotomy was made with an 11 blade, extended with Pemberton scissors. The vein was trimmed and spatulated. End-to-side anastomosis was completed here with a running 6-0 Prolene suture. A 2 mm dilator was passed through the distal vessel prior to completion of the anastomosis. The suture line was completed and blood flow was instituted in the right lower extremity. There was no Doppler signal in the posterior tibial artery prior to yarsani of blood flow and there was excellent Doppler signal once blood flow had been reinitiated. Some fibrillar Surgicel was utilized to assist with hemostasis. The wound was closed in layers with 2-0 Vicryl in deep subcutaneous tissue and a running 2-0 Vicryl approximating the subcuticular tissues. Steri-Strips and sterile dressings were applied and the patient was moved from the operating room to recovery in satisfactory stable condition. Estimated blood loss was 150 mL. No blood replacement required. Prevena wound VAC placed on the right groin. SURINDER HATFIELD MD DR: NIXON/ramila JOB#: [id number] / [id number]
[2018-05-31] MEDS: MORPHINE SULFATE 2 MG/ML VIAL. IV PRN ×3 (13:06→18:04)
[2018-05-31 13:30] VITALS: BP 126/58
[2018-05-31 15:24] VITALS: BP 129/57
[2018-05-31] MEDS: IV NORMAL SALINE 1000ML BAG 1,000 ML IV SCH (15:27)
[2018-05-31] MEDS: ceFAZolin SODIUM 1 GM in IV DEXTROSE 5% 50 ML IV SCH ×2 (18:05→22:07)
[2018-05-31 19:00] VITALS: BP 128/60
[2018-05-31] MEDS: SIMVASTATIN 40 MG TABLET. PO SCH (20:15)
[2018-05-31] MEDS: HYDROcodone/APAP 5/325MG 1 TAB TABLET PO PRN (20:15)
[2018-05-31 23:00] VITALS: BP 147/63
[2018-06-01] MEDS: IV NORMAL SALINE 1000ML BAG 1,000 ML IV SCH ×2 (00:02→11:00)
[2018-06-01] MEDS: HYDROcodone/APAP 5/325MG 1 TAB TABLET PO PRN ×3 (00:14→15:44)
[2018-06-01 03:20] VITALS: BP 123/43
[2018-06-01 04:30] LABS: BASO % 0 % (0-3); EOS % 0 % (0-3); HEMATOCRIT 30.3 % (36.0-47.0); HEMOGLOBIN 10.4 g/dL (12.0-15.5); LYMPH # 1.2 x10^3/uL (1.0-4.8); LYMPH % 12 % (24-48); MEAN CORPUSCULAR HEMOGLOBIN 32 pg (25-35); MEAN CORPUSCULAR HGB CONC 34 g/dL (31-37); MEAN CORPUSCULAR VOLUME 94 fL (79-100); MONO # 1.8 x10^3/uL (0.0-1.1); MONO % 17 % (0-9); NEUT # 7.8 x10^3uL (1.8-7.7); NEUT % 72 % (31-73); PLATELET COUNT 148 x10^3/uL (140-400); RED BLOOD COUNT 3.22 x10^6/uL (3.50-5.40); RED CELL DISTRIBUTION WIDTH 14.5 % (11.5-14.5); WHITE BLOOD COUNT 10.9 x10^3/uL (4.0-11.0)
[2018-06-01 04:50] LABS: CREATININE 0.9 mg/dL (0.6-1.0); GFR 60.1; MAGNESIUM 1.7 mg/dL (1.8-2.4); PHOSPHORUS 3.1 mg/dL (2.6-4.7)
[2018-06-01] MEDS: ceFAZolin SODIUM 1 GM in IV DEXTROSE 5% 50 ML IV SCH (04:55)
[2018-06-01 07:00] VITALS: BP 152/53
[2018-06-01] MEDS: NITROGLYCERIN SUBLINGUAL 0.4 MG BOTTLE OF 25. SL PRN (07:10)
--- NOTE | 2018-06-01 07:44 | EKG ---
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 Electronically Signed On 06-01-2018 9:54:50 INDOOR LANDSCAPE ARCHITECT by Fan Sumner
[2018-06-01] MEDS: ASPIRIN ENTERIC COATED 325 MG TABLET.DR. PO SCH (08:22)
[2018-06-01] MEDS: LEVOTHYROXINE 75 MCG TABLET PO SCH (08:22)
[2018-06-01] MEDS: CLOPIDOGREL BISULFATE 75 MG TABLET PO SCH (08:22)
[2018-06-01] MEDS: FAMOTIDINE 20 MG TABLET. PO SCH (08:23)
[2018-06-01] MEDS: amLODIPine BESYLATE 5 MG TABLET PO SCH (08:23)
[2018-06-01] MEDS: METOPROLOL SUCC 24HR ER 25 MG TAB.ER.24H. PO SCH (08:24)
[2018-06-01] MEDS: ELECTROLYTE (NON-ICU) PROTOCOL MC SCH (09:00)
[2018-06-01] MEDS: SENNOSIDES/DOCUSATE 8.6/50MG TABLET. PO SCH ×2 (09:00→20:28)
--- NOTE | 2018-06-01 09:50 | PDOC ---
Provider Note Provider Note Vascular S: Patient sitting up in chair, complains of right leg incisional pain. Complained of chest pain, relieved with Nitro. Tolerating diet. Dr. Kaur present during examination. Nurse at bedside. O: Awake and alert VSS, afebrile RLE: dressings intact, mild drainage noted, Prevena to groin. Biphasic Doppler DP and PT. Foot warm. Lab reviewed A/P: Left leg claudication POD #1 Left femoral to popliteal bypass with greater saphenous vein. Progressing as expected. Chest pain-resolved with Nirto, will check cardiac enzymes, Hospitalist consulted for admission, discussed with Nurse to notify them of this event. D/C escobedo Saline lock IV Ambulate today Repeat labs in am PELON BAGLEY APRN Jun 01, 2018 09:50
[2018-06-01] MEDS: oxyCODONE IR 5 MG TABLET PO PRN ×2 (10:16→20:28)
[2018-06-01 11:19] VITALS: BP 140/52
--- NOTE | 2018-06-01 11:43 | HP ---
ADMIT DATE: 06/01/2018 CHIEF COMPLAINT: Vascular disease. HISTORY OF PRESENT ILLNESS: The patient is a pleasant elderly female who presented last night with a right lower extremity arterial occlusion. She went for an emergent femoral popliteal bypass. She rates her symptoms at 9/10. She has associated pain that has been occurring for several days. She tried to increase her home meds, but that was not working. Moving made it worse. She is now postop. She has been admitted to the telemetry floor. She is being examined in room 202. PAST MEDICAL HISTORY: Vascular disease and she has had bypass surgery on her heart. She has had bypass surgery on her lower extremities. She has had endarterectomies on her neck. She has also had AAA repair and cardiac stents, myocardial infarction, hypertension, hyperlipidemia, chronic pain, arthritis, GERD, hypothyroidism. ALLERGIES: DIPHENHYDRAMINE AND HYDRALAZINE. FAMILY HISTORY: Coronary artery disease. Her dad at 58. SOCIAL HISTORY: She does not drink, smoke or take drugs. MEDICATIONS: She is on Plavix, simvastatin, Nitrostat, metoprolol, amlodipine, aspirin, hydrocodone, Pepcid, and Synthroid. REVIEW OF SYSTEMS: GENERAL: No history of weight change, weakness or fevers. SKIN: No bruising, hair changes or rashes. EYES: No blurred, double or loss of vision. NOSE AND THROAT: No history of nosebleeds, hoarseness or sore throat. HEART: No history of palpitations, chest pain or shortness of breath on exertion. LUNGS: Denies cough, hemoptysis, wheezing or shortness of breath. GASTROINTESTINAL: Denies changes in appetite, nausea, vomiting, diarrhea or constipation. GENITOURINARY: No history of frequency, urgency, hesitancy or nocturia. NEUROLOGIC: Denies history of numbness, tingling, tremor or weakness. PSYCHIATRIC: No history of panic, anxiety or depression. ENDOCRINE: No history of heat or cold intolerance, polyuria or polydipsia. EXTREMITIES: She complains of right leg pain, although it is improving. PHYSICAL EXAMINATION: VITAL SIGNS: Temperature 98, pulse 69, respirations 16, blood pressure 140/52, O2 sat 100% on room air. GENERAL: She is alert, cooperative. HEART: Normal S1, S2. LUNGS: Clear to auscultation. ABDOMEN: Soft, positive bowel sounds. EXTREMITIES: The right leg has extensive wound. There is clean, dry and intact bandaging. ENDOCRINE: No thyromegaly. LYMPHATICS: No cervical nodes. HEMATOPOIETIC: No bruising. NEUROLOGICAL: She is moving all extremities. PSYCHIATRIC: She is stable and smiling. LABORATORY DATA: Hemoglobin is 10.4, white count 10.9, platelets 148. Electrolytes: Sodium 133, potassium 5, chloride 102, bicarbonate 26, BUN 19, creatinine 0.9, glucose 119. PTT is 42. ASSESSMENT AND PLAN: Postop day 1 right femoral popliteal bypass with hyponatremia, hypocalcemia, hyperglycemia and coagulopathy The patient is being admitted. We have consulted the vascular surgeon who did the emergent surgery and we certainly appreciate their input. For now, we are going to do wound care, PT, OT, home meds, frequent labs. Suspect she will need to go to jail after this. PROGNOSIS: Guarded. JOEY JONES DO DR: RIMA/ramila JOB#: [id number] / [id number]
[2018-06-01 15:00] VITALS: BP 143/58
[2018-06-01 19:00] VITALS: BP 173/67
[2018-06-01] MEDS: SIMVASTATIN 40 MG TABLET. PO SCH (20:28)
[2018-06-01 22:35] VITALS: BP 142/62
[2018-06-02] MEDS: HYDROcodone/APAP 5/325MG 1 TAB TABLET PO PRN ×4 (00:25→21:27)
[2018-06-02 02:50] VITALS: BP 97/37
[2018-06-02 04:54] LABS: BASO % 0 % (0-3); EOS # 0.1 x10^3/uL (0.0-0.7); EOS % 1 % (0-3); HEMOGLOBIN 9.6 g/dL (12.0-15.5); LYMPH # 1.3 x10^3/uL (1.0-4.8); LYMPH % 13 % (24-48); MEAN CORPUSCULAR HEMOGLOBIN 32 pg (25-35); MEAN CORPUSCULAR HGB CONC 34 g/dL (31-37); MEAN CORPUSCULAR VOLUME 94 fL (79-100); MONO # 1.6 x10^3/uL (0.0-1.1); MONO % 16 % (0-9); NEUT # 6.9 x10^3uL (1.8-7.7); NEUT % 69 % (31-73); PLATELET COUNT 138 x10^3/uL (140-400); RED BLOOD COUNT 2.99 x10^6/uL (3.50-5.40); RED CELL DISTRIBUTION WIDTH 14.7 % (11.5-14.5); WHITE BLOOD COUNT 9.9 x10^3/uL (4.0-11.0)
[2018-06-02 05:07] LABS: CALCIUM 8.6 mg/dL (8.5-10.1); GFR 53.2; POTASSIUM 4.5 mmol/L (3.5-5.1)
[2018-06-02 07:00] VITALS: BP 131/67
[2018-06-02] MEDS: amLODIPine BESYLATE 5 MG TABLET PO SCH (08:00)
[2018-06-02] MEDS: SENNOSIDES/DOCUSATE 8.6/50MG TABLET. PO SCH ×2 (08:00→21:26)
[2018-06-02] MEDS: LEVOTHYROXINE 75 MCG TABLET PO SCH (08:00)
[2018-06-02] MEDS: FAMOTIDINE 20 MG TABLET. PO SCH (08:00)
[2018-06-02] MEDS: ASPIRIN ENTERIC COATED 325 MG TABLET.DR. PO SCH (08:01)
[2018-06-02] MEDS: CLOPIDOGREL BISULFATE 75 MG TABLET PO SCH (08:01)
[2018-06-02] MEDS: METOPROLOL SUCC 24HR ER 25 MG TAB.ER.24H. PO SCH (08:02)
[2018-06-02] MEDS: ELECTROLYTE (NON-ICU) PROTOCOL MC SCH (08:34)
[2018-06-02 11:00] VITALS: BP 144/60
--- NOTE | 2018-06-02 11:09 | PDOC ---
PROGRESS NOTES Chief Complaint Chief Complaint S/P R Fem pop History of Present Illness History of Present Illness POD 2 R Fem pop. Patient seen and examined this morning. She is doing better and states she will be ready to go home once she gets a little more PT. Discussed possibility of rehab, but patient expressed no interest and it was clear she wanted to only be discharged home. She states she has a very small home and could get out in case of a fire. Her daughter lives nearby and can check on her. Vitals Vitals Vital Signs Date Time Temp Pulse Resp B/P (MAP) Pulse Ox O2 Delivery O2 Flow Rate FiO2 06/02/18 08:02 81 131/67 06/02/18 08:01 18 Nasal Cannula 2.0 06/02/18 07:00 98.1 94 98.1 Physical Exam General: Alert, Oriented X3 Heart: Regular rate, Normal S1, Normal S2, No murmurs Lungs: Clear Abdomen: Normal bowel sounds Extremities: No clubbing, No edema Skin: No rashes Labs LABS Laboratory Tests Test 06/01/18 15:05 06/01/18 21:00 06/02/18 04:00 Troponin I Quantitative < 0.017 ng/mL (0.000-0.055) 0.018 ng/mL (0.000-0.055) White Blood Count 9.9 x10^3/uL (4.0-11.0) Red Blood Count 2.99 x10^6/uL (3.50-5.40) Hemoglobin 9.6 g/dL (12.0-15.5) Hematocrit 28.0 % (36.0-47.0) Mean Corpuscular Volume 94 fL (79-100) Mean Corpuscular Hemoglobin 32 pg (25-35) Mean Corpuscular Hemoglobin Concent 34 g/dL (31-37) Red Cell Distribution Width 14.7 % (11.5-14.5) Platelet Count 138 x10^3/uL (140-400) Neutrophils (%) (Auto) 69 % (31-73) Lymphocytes (%) (Auto) 13 % (24-48) Monocytes (%) (Auto) 16 % (0-9) Eosinophils (%) (Auto) 1 % (0-3) Basophils (%) (Auto) 0 % (0-3) Neutrophils # (Auto) 6.9 x10^3uL (1.8-7.7) Lymphocytes # (Auto) 1.3 x10^3/uL (1.0-4.8) Monocytes # (Auto) 1.6 x10^3/uL (0.0-1.1) Eosinophils # (Auto) 0.1 x10^3/uL (0.0-0.7) Basophils # (Auto) 0.0 x10^3/uL (0.0-0.2) Sodium Level 136 mmol/L (136-145) Potassium Level 4.5 mmol/L (3.5-5.1) Chloride Level 102 mmol/L (98-107) Carbon Dioxide Level 29 mmol/L (21-32) Anion Gap 5 (6-14) Blood Urea Nitrogen 22 mg/dL (7-20) Creatinine 1.0 mg/dL (0.6-1.0) Estimated GFR (Cockcroft-Gault) 53.2 Glucose Level 117 mg/dL (70-99) Calcium Level 8.6 mg/dL (8.5-10.1) Magnesium Level 1.9 mg/dL (1.8-2.4) Review of Systems Review of Systems General: denies lethargy GI: denies nausea/vomiting Lung: denies soa Heart: denies chest pain Assessment and Plan Assessmemt and Plan Assessment: 1. S/p R FEM pop Plan: 1. PT/OT 2. Discharge home when ok with vascular, likely tomorrow 3. labs 4. home meds 5. appreciate subspecialty input Comment Review of Relevant I have reviewed the following items corwin (where applicable) has been applied. Labs Laboratory Tests Test 06/01/18 04:10 06/01/18 15:05 06/01/18 21:00 06/02/18 04:00 White Blood Count 10.9 x10^3/uL (4.0-11.0) 9.9 x10^3/uL (4.0-11.0) Red Blood Count 3.22 x10^6/uL (3.50-5.40) 2.99 x10^6/uL (3.50-5.40) Hemoglobin 10.4 g/dL (12.0-15.5) 9.6 g/dL (12.0-15.5) Hematocrit 30.3 % (36.0-47.0) 28.0 % (36.0-47.0) Mean Corpuscular Volume 94 fL (79-100) 94 fL (79-100) Mean Corpuscular Hemoglobin 32 pg (25-35) 32 pg (25-35) Mean Corpuscular Hemoglobin Concent 34 g/dL (31-37) 34 g/dL (31-37) Red Cell Distribution Width 14.5 % (11.5-14.5) 14.7 % (11.5-14.5) Platelet Count 148 x10^3/uL (140-400) 138 x10^3/uL (140-400) Neutrophils (%) (Auto) 72 % (31-73) 69 % (31-73) Lymphocytes (%) (Auto) 12 % (24-48) 13 % (24-48) Monocytes (%) (Auto) 17 % (0-9) 16 % (0-9) Eosinophils (%) (Auto) 0 % (0-3) 1 % (0-3) Basophils (%) (Auto) 0 % (0-3) 0 % (0-3) Neutrophils # (Auto) 7.8 x10^3uL (1.8-7.7) 6.9 x10^3uL (1.8-7.7) Lymphocytes # (Auto) 1.2 x10^3/uL (1.0-4.8) 1.3 x10^3/uL (1.0-4.8) Monocytes # (Auto) 1.8 x10^3/uL (0.0-1.1) 1.6 x10^3/uL (0.0-1.1) Eosinophils # (Auto) 0.0 x10^3/uL (0.0-0.7) 0.1 x10^3/uL (0.0-0.7) Basophils # (Auto) 0.0 x10^3/uL (0.0-0.2) 0.0 x10^3/uL (0.0-0.2) Sodium Level 133 mmol/L (136-145) 136 mmol/L (136-145) Potassium Level 5.0 mmol/L (3.5-5.1) 4.5 mmol/L (3.5-5.1) Chloride Level 102 mmol/L (98-107) 102 mmol/L (98-107) Carbon Dioxide Level 26 mmol/L (21-32) 29 mmol/L (21-32) Anion Gap 5 (6-14) 5 (6-14) Blood Urea Nitrogen 19 mg/dL (7-20) 22 mg/dL (7-20) Creatinine 0.9 mg/dL (0.6-1.0) 1.0 mg/dL (0.6-1.0) Estimated GFR (Cockcroft-Gault) 60.1 53.2 Glucose Level 119 mg/dL (70-99) 117 mg/dL (70-99) Calcium Level 8.0 mg/dL (8.5-10.1) 8.6 mg/dL (8.5-10.1) Phosphorus Level 3.1 mg/dL (2.6-4.7) Magnesium Level 1.7 mg/dL (1.8-2.4) 1.9 mg/dL (1.8-2.4) Troponin I Quantitative < 0.017 ng/mL (0.000-0.055) < 0.017 ng/mL (0.000-0.055) 0.018 ng/mL (0.000-0.055) Laboratory Tests Test 06/01/18 15:05 06/01/18 21:00 06/02/18 04:00 Troponin I Quantitative < 0.017 ng/mL (0.000-0.055) 0.018 ng/mL (0.000-0.055) White Blood Count 9.9 x10^3/uL (4.0-11.0) Red Blood Count 2.99 x10^6/uL (3.50-5.40) Hemoglobin 9.6 g/dL (12.0-15.5) Hematocrit 28.0 % (36.0-47.0) Mean Corpuscular Volume 94 fL (79-100) Mean Corpuscular Hemoglobin 32 pg (25-35) Mean Corpuscular Hemoglobin Concent 34 g/dL (31-37) Red Cell Distribution Width 14.7 % (11.5-14.5) Platelet Count 138 x10^3/uL (140-400) Neutrophils (%) (Auto) 69 % (31-73) Lymphocytes (%) (Auto) 13 % (24-48) Monocytes (%) (Auto) 16 % (0-9) Eosinophils (%) (Auto) 1 % (0-3) Basophils (%) (Auto) 0 % (0-3) Neutrophils # (Auto) 6.9 x10^3uL (1.8-7.7) Lymphocytes # (Auto) 1.3 x10^3/uL (1.0-4.8) Monocytes # (Auto) 1.6 x10^3/uL (0.0-1.1) Eosinophils # (Auto) 0.1 x10^3/uL (0.0-0.7) Basophils # (Auto) 0.0 x10^3/uL (0.0-0.2) Sodium Level 136 mmol/L (136-145) Potassium Level 4.5 mmol/L (3.5-5.1) Chloride Level 102 mmol/L (98-107) Carbon Dioxide Level 29 mmol/L (21-32) Anion Gap 5 (6-14) Blood Urea Nitrogen 22 mg/dL (7-20) Creatinine 1.0 mg/dL (0.6-1.0) Estimated GFR (Cockcroft-Gault) 53.2 Glucose Level 117 mg/dL (70-99) Calcium Level 8.6 mg/dL (8.5-10.1) Magnesium Level 1.9 mg/dL (1.8-2.4) Medications Current Medications Heparin Sodium (Porcine) 5000 unit/Sodium Chloride 505 ml @ 505 mls/hr 1X ONCE IRR Last administered on 05/31/18at 08:53; Start 05/31/18 at 06:00; Stop 05/31/18 at 06:59; Status DC Ondansetron HCl (Zofran) 4 mg PRN Q6HRS PRN IV NAUSEA/VOMITING; Start at 07:00; Stop 05/31/18 at 18:00; Status DC Fentanyl Citrate (Fentanyl 2ml Vial) 25 mcg PRN Q5MIN PRN IV MILD PAIN; Start 05/31/18 at 07:00; Stop 05/31/18 at 18:00; Status DC Fentanyl Citrate (Fentanyl 2ml Vial) 50 mcg PRN Q5MIN PRN IV MODERATE TO SEVERE PAIN; Start 05/31/18 at 07:00; Stop 05/31/18 at 18:00; Status DC Morphine Sulfate (Morphine Sulfate) 1 mg PRN Q10MIN PRN IV SEVERE PAIN Last administered on 05/31/18at 18:04; Start 05/31/18 at 07:00; Stop 05/31/18 at 18 :00; Status DC Ringer's Solution 1,000 ml @ 30 mls/hr Q24H IV Last administered on at 06:33; Start 05/31/18 at 07:00; Stop 05/31/18 at 18:59; Status DC Lidocaine HCl (Xylocaine-Mpf 1% 2ml Vial) 2 ml PRN 1X PRN ID IV START; Start 05/31/18 at 07:00; Stop 05/31/18 at 18:00; Status DC Hydromorphone HCl (Dilaudid) 0.5 mg PRN Q10MIN PRN IV SEV PAIN, Second choice; Start 05/31/18 at 07:00; Stop 05/31/18 at 18:00; Status DC Prochlorperazine Edisylate (Compazine) 5 mg PACU PRN PRN IV NAUSEA, MRX1; Start 05/31/18 at 07:00; Stop 05/31/18 at 18:00; Status DC Cefazolin Sodium/ Dextrose 50 ml @ 100 mls/hr 1X PREOP PRN IV PRIOR TO PROCEDURE Last administered on 05/31/18at 08:00; Start 05/31/18 at 06:00; Stop 05/31/18 at 18:00; Status DC Iohexol (Omnipaque 300 Mg/ml) 100 ml STK-MED ONCE .ROUTE ; Start 05/31/18 at 06 :45; Stop 05/31/18 at 06:46; Status DC Cellulose (Surgicel Fibrillar 1x2) 1 each STK-MED ONCE .ROUTE Last administered on 05/31/18at 10:48; Start 05/31/18 at 06:45; Stop 05/31/18 at 06 :46; Status DC Propofol 20 ml @ As Directed STK-MED ONCE IV ; Start 05/31/18 at 07:00; Stop 05/31/18 at 07:01; Status DC Lidocaine HCl (Lidocaine Pf 2% Vial) 5 ml STK-MED ONCE .ROUTE ; Start 05/31/18 at 07:00; Stop 05/31/18 at 07:01; Status DC Fentanyl Citrate (Fentanyl 2ml Vial) 100 mcg STK-MED ONCE .ROUTE ; Start at 07:00; Stop 05/31/18 at 07:01; Status DC Rocuronium [place] (Zemuron) 50 mg STK-MED ONCE .ROUTE ; Start 05/31/18 at 07: 00; Stop 05/31/18 at 07:01; Status DC Cefazolin Sodium 1 gm/Sodium Chloride 500 ml @ 500 mls/hr 1X ONCE IRR Last administered on 05/31/18at 08:51; Start 05/31/18 at 07:30; Stop 05/31/18 at 08 :29; Status DC Lidocaine HCl 48 ml/Sodium Bicarbonate 12 meq/Miscellaneous 60 ml @ 60 mls/hr 1X ONCE ID ; Start 05/31/18 at 07:07; Stop 05/31/18 at 08:06; Status DC Gelatin (Gelfoam Size 100) 1 each STK-MED ONCE .ROUTE ; Start 05/31/18 at 07: 19; Stop 05/31/18 at 07:20; Status DC Papaverine HCl 60 mg STK-MED ONCE .ROUTE ; Start 05/31/18 at 07:19; Stop 05/31 at 07:20; Status DC Thrombin 20,000 unit STK-MED ONCE TP ; Start 05/31/18 at 07:19; Stop 05/31/18 at 07:20; Status DC Amlodipine Besylate (Norvasc) 5 mg DAILY PO Last administered on 06/02/18at 08: 00; Start 06/01/18 at 09:00 Aspirin (Ecotrin) 325 mg DAILYWBKFT PO Last administered on 06/02/18at 08:01; Start 06/01/18 at 08:00 Clopidogrel Bisulfate (Plavix) 75 mg DAILY PO Last administered on 06/02/18at 08:01; Start 06/01/18 at 09:00 Famotidine (Pepcid) 20 mg DAILY PO Last administered on 06/02/18at 08:00; Start 06/01/18 at 09:00 Acetaminophen/ Hydrocodone Bitart (Lortab 5/325) 1 tab PRN Q6HRS PRN PO PAIN MILD Last administered on 06/02/18 08:01; Start 05/31/18 at 07:45 Acetaminophen/ Hydrocodone Bitart (Lortab 5/325) 2 tab PRN Q6HRS PRN PO PAIN MODERATE Last administered on 06/02/18at 00:25; Start 05/31/18 at 07:45 Levothyroxine Sodium (Synthroid) 75 mcg DAILYAC PO Last administered on at 08:00; Start 06/01/18 at 07:30 Metoprolol Succinate (Toprol Xl) 50 mg DAILY PO Last administered on 08:02; Start 05/31/18 at 09:00 Nitroglycerin (Nitrostat) 0.4 mg PRN Q5MIN PRN SL CHEST PAIN Last administered on 06/01/18 07:10; Start 05/31/18 at 07:45 Simvastatin (Zocor) 40 mg QHS PO Last administered on 06/01/18at 20:28; Start 05/31/18 at 21:00 Oxycodone HCl (Roxicodone) 5 mg PRN Q3HRS PRN PO PAIN SEVERE Last administered on 06/01/18at 20:28; Start 05/31/18 at 07:45 Al Hydroxide/Mg Hydroxide (Mylanta Plus Xs) 30 ml PRN Q3HRS PRN PO HEARTBURN / GAS; Start 05/31/18 at 07:45 Calcium Carbonate/ Glycine (Tums) 500 mg PRN Q3HRS PRN PO INDIGESTION; Start 05/31/18 at 07:45 Diphenhydramine HCl (Benadryl) 25 mg PRN Q6HRS PRN PO ITCHING; Start 05/31/18 at 07:45 Info (Non-Icu Electrolyte Protocol) 1 ea DAILY MC Last administered on at 09:00; Start 06/01/18 at 09:00 Naloxone HCl (Narcan) 0.1 mg PRN Q2MIN PRN IV ADMIN; Start 05/31/18 at 07:45 Sodium Chloride (Normal Saline Flush) 3 ml QSHIFT PRN IV AFTER MEDS AND BLOOD DRAWS; Start 05/31/18 at 07:45 Sodium Chloride 1,000 ml @ 100 mls/hr Q10H IV Last administered on 06/01/18at 00:02; Start 05/31/18 at 15:00; Stop 06/01/18 at 17:47; Status DC Morphine Sulfate (Morphine Sulfate) 2 mg PRN Q1HR PRN IV PAIN MILD; Start at 07:45 Senna/Docusate Sodium (Senna Plus) 1 tab BID PO Last administered on at 08:00; Start 05/31/18 at 09:00 Ondansetron HCl (Zofran) 4 mg PRN Q6HRS PRN IV NAUESA, 1ST CHOICE; Start 05/31 at 07:45 Prochlorperazine Edisylate (Compazine) 5 mg PRN Q6HRS PRN IV N/V, 2nd Choice, MR X1; Start 05/31/18 at 07:45 Cefazolin Sodium 1 gm/Dextrose 50 ml @ 100 mls/hr Q6H IV ; Start 05/31/18 at 07:45; Stop 05/31/18 at 16:44; Status DC Labetalol HCl (Normodyne Iv Push) 20 mg PRN Q2HR PRN IVP HYPERTENSION, SEE COMMENTS; Start 05/31/18 at 07:45 Dexamethasone Sodium Phosphate (Decadron) 20 mg STK-MED ONCE .ROUTE ; Start at 08:19; Stop 05/31/18 at 08:20; Status DC Phenylephrine HCl (PHENYLEPHRINE in 0.9% NACL PF) 1 mg STK-MED ONCE IV ; Start 05/31/18 at 08:19; Stop 05/31/18 at 08:20; Status DC Heparin Sodium (Porcine) (Heparin Sodium) 10,000 unit STK-MED ONCE .ROUTE ; Start 05/31/18 at 08:19; Stop 05/31/18 at 08:20; Status DC Desflurane (Suprane) 90 ml STK-MED ONCE IH ; Start 05/31/18 at 08:19; Stop at 08:20; Status DC Ephedrine Sulfate (ePHEDrine PF IN SALINE SYRINGE) 50 mg STK-MED ONCE IV ; Start 05/31/18 at 08:28; Stop 05/31/18 at 08:29; Status DC Nicardipine HCl (Cardene) 25 mg STK-MED ONCE IV ; Start 05/31/18 at 08:37; Stop 05/31/18 at 08:38; Status DC Glycopyrrolate (Robinul) 1 mg STK-MED ONCE .ROUTE ; Start 05/31/18 at 09:08; Stop 05/31/18 at 09:09; Status DC Neostigmine Methylsulfate (Neostigmine Methylsulfate) 5 mg STK-MED ONCE .ROUTE ; Start 05/31/18 at 09:08; Stop 05/31/18 at 09:09; Status DC Fentanyl Citrate (Fentanyl 2ml Vial) 100 mcg STK-MED ONCE .ROUTE ; Start at 10:14; Stop 05/31/18 at 10:15; Status DC Protamine Sulfate (Protamine) 50 mg STK-MED ONCE IV ; Start 05/31/18 at 10:41; Stop 05/31/18 at 10:42; Status DC Protamine Sulfate (Protamine) 50 mg STK-MED ONCE IV ; Start 05/31/18 at 10:53; Stop 05/31/18 at 10:54; Status DC Cefazolin Sodium 1 gm/Dextrose 50 ml @ 100 mls/hr Q6H IV Last administered on 06/01/18at 04:55; Start 05/31/18 at 17:00; Stop 06/01/18 at 05:29; Status DC Active Scripts Active Aspirin Ec (Aspirin) 325 Mg Tablet. 325 Mg PO DAILYWBKFT Reported Pepcid (Famotidine) 20 Mg Tablet 20 Mg PO DAILY Pepcid (Famotidine) 20 Mg Tablet 20 Mg PO HS Clopidogrel (Clopidogrel Bisulfate) 75 Mg Tablet 75 Mg PO DAILY Levothyroxine Sodium 75 Mcg Tablet 75 Mcg PO DAILYAC Hydrocodone-Apap 5-325 (Hydrocodone Bit/Acetaminophen) 1 Each Tablet 2 Tab PO PRN Q6HRS PRN Nitrostat (Nitroglycerin) 0.4 Mg Tab.subl 0.4 Mg SL PRN Q5MIN PRN Hydrocodone-Apap 5-325 (Hydrocodone Bit/Acetaminophen) 1 Each Tablet 1 Tab PO PRN Q6HRS PRN Amlodipine Besylate 5 Mg Tablet 1 Tab PO DAILY Simvastatin 40 Mg Tablet 1 Tab PO QHS Metoprolol Succinate ( Xl ) (Metoprolol Succinate) 25 Mg Tab.er.24h 50 Mg PO DAILY Vitals/I & O Vital Sign - Last 24 Hours 06/01/18 06/01/18 06/01/18 06/01/18 11:19 15:00 15:44 17:46 Temp 98.1 98.0 98.1 98.0 Pulse 69 77 Resp 16 18 B/P (MAP) 140/52 (81) 143/58 (86) Pulse Ox 100 90 100 100 O2 Delivery Nasal Cannula Nasal Cannula Nasal Cannula Nasal Cannula O2 Flow Rate 2.0 2.0 2.0 2.0 06/01/18 06/01/18 06/01/18 06/01/18 19:00 20:00 20:28 21:30 Temp 98.0 98.0 Pulse 70 Resp 18 18 18 B/P (MAP) 173/67 (102) Pulse Ox 96 96 93 O2 Delivery Nasal Cannula Nasal Cannula Nasal Cannula Nasal Cannula O2 Flow Rate 2.0 2.0 2.0 2.0 06/01/18 06/02/18 06/02/18 06/02/18 22:35 00:25 01:25 02:50 Temp 98.2 98.4 98.2 98.4 Pulse 78 80 Resp 18 18 18 17 B/P (MAP) 142/62 (88) 97/37 (57) Pulse Ox 93 93 93 92 O2 Delivery Nasal Cannula Nasal Cannula Nasal Cannula Nasal Cannula O2 Flow Rate 2.0 2.0 2.0 2.0 06/02/18 06/02/18 06/02/18 06/02/18 07:00 08:00 08:01 08:02 Temp 98.1 98.1 Pulse 81 87 81 Resp 18 18 B/P (MAP) 131/67 (88) 131/67 131/67 Pulse Ox 94 O2 Delivery Room Air Nasal Cannula O2 Flow Rate 2.0 Intake and Output 06/01/18 06/01/18 06/02/18 15:00 23:00 07:00 Intake Total 720 ml 240 ml Output Total 1900 ml 0 ml 1300 ml Balance -1180 ml 240 ml -1300 ml JOEY JONES III DO Jun 02, 2018 11:09
--- NOTE | 2018-06-02 11:17 | PDOC ---
PROGRESS NOTES Subjective Subjective "I want to walk more but I need help and help is hard to find." Objective Objective Vascular Surgery - POD#2 Right femoral to tibioperoneal trunk bypass graft using ipsilateral greater saphenous vein. GENERAL: Lying in bed watching TV. Has eaten breakfast. Complains of pain to incisional areas with mobility. Denies any further chest pains after yesterday. NEURO: Awake and alert VSS, afebrile RESP: unlabored. Supplemental oxygen intact 2L. Bilaterally clear. ABD: soft and flat. Active bowel sounds. States occ nausea but not bad enough to have medications and does not keep her from eating. RLE: Special surgical dressings intact to entire leg. Old mild drainage noted. Prevena incisional vac dressing to groin. Biphasic Doppler DP and PT. Foot warm. Calf soft. A/P: 1. Right leg claudication with PAD. POD#2 Right femoral to tibioperoneal trunk bypass graft using ipsilateral greater saphenous vein. 2. Needs to ambulate more. Uses a cane at home. Will consult PT to assist. Patient states she only walked x1 yesterday. 3. Rediscussed appropriate expectations for post op pain. Patient states current pain meds work and that she tries to space them out. 4. Chest pain. Cardiac enzymes negative as was EKG. GERD? 5. Acute anemia related to surgical blood loss. Stable but still drifting somewhat. Recheck CBC in a.m. 6. Anticipate discharge to home next 1-2 days if able to ambulate. Vital Signs Date Time Temp Pulse Resp B/P (MAP) Pulse Ox O2 Delivery O2 Flow Rate FiO2 06/02/18 08:02 81 131/67 06/02/18 08:01 18 Nasal Cannula 2.0 06/02/18 07:00 98.1 94 98.1 Intake and Output 06/02/18 07:00 Intake Total 960 ml Output Total 3200 ml Balance -2240 ml Intake Oral 960 ml Output Urine Total 3200 ml # Voids 1 Comment Review of Relevant I have reviewed the following items corwin (where applicable) has been applied. Labs Laboratory Tests Test 06/01/18 04:10 06/01/18 15:05 06/01/18 21:00 06/02/18 04:00 White Blood Count 10.9 x10^3/uL (4.0-11.0) 9.9 x10^3/uL (4.0-11.0) Red Blood Count 3.22 x10^6/uL (3.50-5.40) 2.99 x10^6/uL (3.50-5.40) Hemoglobin 10.4 g/dL (12.0-15.5) 9.6 g/dL (12.0-15.5) Hematocrit 30.3 % (36.0-47.0) 28.0 % (36.0-47.0) Mean Corpuscular Volume 94 fL (79-100) 94 fL (79-100) Mean Corpuscular Hemoglobin 32 pg (25-35) 32 pg (25-35) Mean Corpuscular Hemoglobin Concent 34 g/dL (31-37) 34 g/dL (31-37) Red Cell Distribution Width 14.5 % (11.5-14.5) 14.7 % (11.5-14.5) Platelet Count 148 x10^3/uL (140-400) 138 x10^3/uL (140-400) Neutrophils (%) (Auto) 72 % (31-73) 69 % (31-73) Lymphocytes (%) (Auto) 12 % (24-48) 13 % (24-48) Monocytes (%) (Auto) 17 % (0-9) 16 % (0-9) Eosinophils (%) (Auto) 0 % (0-3) 1 % (0-3) Basophils (%) (Auto) 0 % (0-3) 0 % (0-3) Neutrophils # (Auto) 7.8 x10^3uL (1.8-7.7) 6.9 x10^3uL (1.8-7.7) Lymphocytes # (Auto) 1.2 x10^3/uL (1.0-4.8) 1.3 x10^3/uL (1.0-4.8) Monocytes # (Auto) 1.8 x10^3/uL (0.0-1.1) 1.6 x10^3/uL (0.0-1.1) Eosinophils # (Auto) 0.0 x10^3/uL (0.0-0.7) 0.1 x10^3/uL (0.0-0.7) Basophils # (Auto) 0.0 x10^3/uL (0.0-0.2) 0.0 x10^3/uL (0.0-0.2) Sodium Level 133 mmol/L (136-145) 136 mmol/L (136-145) Potassium Level 5.0 mmol/L (3.5-5.1) 4.5 mmol/L (3.5-5.1) Chloride Level 102 mmol/L (98-107) 102 mmol/L (98-107) Carbon Dioxide Level 26 mmol/L (21-32) 29 mmol/L (21-32) Anion Gap 5 (6-14) 5 (6-14) Blood Urea Nitrogen 19 mg/dL (7-20) 22 mg/dL (7-20) Creatinine 0.9 mg/dL (0.6-1.0) 1.0 mg/dL (0.6-1.0) Estimated GFR (Cockcroft-Gault) 60.1 53.2 Glucose Level 119 mg/dL (70-99) 117 mg/dL (70-99) Calcium Level 8.0 mg/dL (8.5-10.1) 8.6 mg/dL (8.5-10.1) Phosphorus Level 3.1 mg/dL (2.6-4.7) Magnesium Level 1.7 mg/dL (1.8-2.4) 1.9 mg/dL (1.8-2.4) Troponin I Quantitative < 0.017 ng/mL (0.000-0.055) < 0.017 ng/mL (0.000-0.055) 0.018 ng/mL (0.000-0.055) Laboratory Tests Test 06/01/18 15:05 06/01/18 21:00 06/02/18 04:00 Troponin I Quantitative < 0.017 ng/mL (0.000-0.055) 0.018 ng/mL (0.000-0.055) White Blood Count 9.9 x10^3/uL (4.0-11.0) Red Blood Count 2.99 x10^6/uL (3.50-5.40) Hemoglobin 9.6 g/dL (12.0-15.5) Hematocrit 28.0 % (36.0-47.0) Mean Corpuscular Volume 94 fL (79-100) Mean Corpuscular Hemoglobin 32 pg (25-35) Mean Corpuscular Hemoglobin Concent 34 g/dL (31-37) Red Cell Distribution Width 14.7 % (11.5-14.5) Platelet Count 138 x10^3/uL (140-400) Neutrophils (%) (Auto) 69 % (31-73) Lymphocytes (%) (Auto) 13 % (24-48) Monocytes (%) (Auto) 16 % (0-9) Eosinophils (%) (Auto) 1 % (0-3) Basophils (%) (Auto) 0 % (0-3) Neutrophils # (Auto) 6.9 x10^3uL (1.8-7.7) Lymphocytes # (Auto) 1.3 x10^3/uL (1.0-4.8) Monocytes # (Auto) 1.6 x10^3/uL (0.0-1.1) Eosinophils # (Auto) 0.1 x10^3/uL (0.0-0.7) Basophils # (Auto) 0.0 x10^3/uL (0.0-0.2) Sodium Level 136 mmol/L (136-145) Potassium Level 4.5 mmol/L (3.5-5.1) Chloride Level 102 mmol/L (98-107) Carbon Dioxide Level 29 mmol/L (21-32) Anion Gap 5 (6-14) Blood Urea Nitrogen 22 mg/dL (7-20) Creatinine 1.0 mg/dL (0.6-1.0) Estimated GFR (Cockcroft-Gault) 53.2 Glucose Level 117 mg/dL (70-99) Calcium Level 8.6 mg/dL (8.5-10.1) Magnesium Level 1.9 mg/dL (1.8-2.4) Medications Current Medications Heparin Sodium (Porcine) 5000 unit/Sodium Chloride 505 ml @ 505 mls/hr 1X ONCE IRR Last administered on 05/31/18at 08:53; Start 05/31/18 at 06:00; Stop 05/31/18 at 06:59; Status DC Ondansetron HCl (Zofran) 4 mg PRN Q6HRS PRN IV NAUSEA/VOMITING; Start at 07:00; Stop 05/31/18 at 18:00; Status DC Fentanyl Citrate (Fentanyl 2ml Vial) 25 mcg PRN Q5MIN PRN IV MILD PAIN; Start 05/31/18 at 07:00; Stop 05/31/18 at 18:00; Status DC Fentanyl Citrate (Fentanyl 2ml Vial) 50 mcg PRN Q5MIN PRN IV MODERATE TO SEVERE PAIN; Start 05/31/18 at 07:00; Stop 05/31/18 at 18:00; Status DC Morphine Sulfate (Morphine Sulfate) 1 mg PRN Q10MIN PRN IV SEVERE PAIN Last administered on 05/31/18at 18:04; Start 05/31/18 at 07:00; Stop 05/31/18 at 18 :00; Status DC Ringer's Solution 1,000 ml @ 30 mls/hr Q24H IV Last administered on at 06:33; Start 05/31/18 at 07:00; Stop 05/31/18 at 18:59; Status DC Lidocaine HCl (Xylocaine-Mpf 1% 2ml Vial) 2 ml PRN 1X PRN ID IV START; Start 05/31/18 at 07:00; Stop 05/31/18 at 18:00; Status DC Hydromorphone HCl (Dilaudid) 0.5 mg PRN Q10MIN PRN IV SEV PAIN, Second choice; Start 05/31/18 at 07:00; Stop 05/31/18 at 18:00; Status DC Prochlorperazine Edisylate (Compazine) 5 mg PACU PRN PRN IV NAUSEA, MRX1; Start 05/31/18 at 07:00; Stop 05/31/18 at 18:00; Status DC Cefazolin Sodium/ Dextrose 50 ml @ 100 mls/hr 1X PREOP PRN IV PRIOR TO PROCEDURE Last administered on 05/31/18at 08:00; Start 05/31/18 at 06:00; Stop 05/31/18 at 18:00; Status DC Iohexol (Omnipaque 300 Mg/ml) 100 ml STK-MED ONCE .ROUTE ; Start 05/31/18 at 06 :45; Stop 05/31/18 at 06:46; Status DC Cellulose (Surgicel Fibrillar 1x2) 1 each STK-MED ONCE .ROUTE Last administered on 05/31/18at 10:48; Start 05/31/18 at 06:45; Stop 05/31/18 at 06 :46; Status DC Propofol 20 ml @ As Directed STK-MED ONCE IV ; Start 05/31/18 at 07:00; Stop 05/31/18 at 07:01; Status DC Lidocaine HCl (Lidocaine Pf 2% Vial) 5 ml STK-MED ONCE .ROUTE ; Start 05/31/18 at 07:00; Stop 05/31/18 at 07:01; Status DC Fentanyl Citrate (Fentanyl 2ml Vial) 100 mcg STK-MED ONCE .ROUTE ; Start at 07:00; Stop 05/31/18 at 07:01; Status DC Rocuronium [place] (Zemuron) 50 mg STK-MED ONCE .ROUTE ; Start 05/31/18 at 07: 00; Stop 05/31/18 at 07:01; Status DC Cefazolin Sodium 1 gm/Sodium Chloride 500 ml @ 500 mls/hr 1X ONCE IRR Last administered on 05/31/18at 08:51; Start 05/31/18 at 07:30; Stop 05/31/18 at 08 :29; Status DC Lidocaine HCl 48 ml/Sodium Bicarbonate 12 meq/Miscellaneous 60 ml @ 60 mls/hr 1X ONCE ID ; Start 05/31/18 at 07:07; Stop 05/31/18 at 08:06; Status DC Gelatin (Gelfoam Size 100) 1 each STK-MED ONCE .ROUTE ; Start 05/31/18 at 07: 19; Stop 05/31/18 at 07:20; Status DC Papaverine HCl 60 mg STK-MED ONCE .ROUTE ; Start 05/31/18 at 07:19; Stop 05/31 at 07:20; Status DC Thrombin 20,000 unit STK-MED ONCE TP ; Start 05/31/18 at 07:19; Stop 05/31/18 at 07:20; Status DC Amlodipine Besylate (Norvasc) 5 mg DAILY PO Last administered on 06/02/18at 08: 00; Start 06/01/18 at 09:00 Aspirin (Ecotrin) 325 mg DAILYWBKFT PO Last administered on 06/02/18at 08:01; Start 06/01/18 at 08:00 Clopidogrel Bisulfate (Plavix) 75 mg DAILY PO Last administered on 06/02/18 08:01; Start 06/01/18 at 09:00 Famotidine (Pepcid) 20 mg DAILY PO Last administered on 06/02/18 08:00; Start 06/01/18 at 09:00 Acetaminophen/ Hydrocodone Bitart (Lortab 5/325) 1 tab PRN Q6HRS PRN PO PAIN MILD Last administered on 06/02/18 08:01; Start 05/31/18 at 07:45 Acetaminophen/ Hydrocodone Bitart (Lortab 5/325) 2 tab PRN Q6HRS PRN PO PAIN MODERATE Last administered on 06/02/18 00:25; Start 05/31/18 at 07:45 Levothyroxine Sodium (Synthroid) 75 mcg DAILYAC PO Last administered on 08:00; Start 06/01/18 at 07:30 Metoprolol Succinate (Toprol Xl) 50 mg DAILY PO Last administered on 08:02; Start 05/31/18 at 09:00 Nitroglycerin (Nitrostat) 0.4 mg PRN Q5MIN PRN SL CHEST PAIN Last administered on 06/01/18 07:10; Start 05/31/18 at 07:45 Simvastatin (Zocor) 40 mg QHS PO Last administered on 06/01/18 20:28; Start 05/31/18 at 21:00 Oxycodone HCl (Roxicodone) 5 mg PRN Q3HRS PRN PO PAIN SEVERE Last administered on 06/01/18 20:28; Start 05/31/18 at 07:45 Al Hydroxide/Mg Hydroxide (Mylanta Plus Xs) 30 ml PRN Q3HRS PRN PO HEARTBURN / GAS; Start 05/31/18 at 07:45 Calcium Carbonate/ Glycine (Tums) 500 mg PRN Q3HRS PRN PO INDIGESTION; Start 05/31/18 at 07:45 Diphenhydramine HCl (Benadryl) 25 mg PRN Q6HRS PRN PO ITCHING; Start 05/31/18 at 07:45 Info (Non-Icu Electrolyte Protocol) 1 ea DAILY MC Last administered on 09:00; Start 06/01/18 at 09:00 Naloxone HCl (Narcan) 0.1 mg PRN Q2MIN PRN IV ADMIN; Start 05/31/18 at 07:45 Sodium Chloride (Normal Saline Flush) 3 ml QSHIFT PRN IV AFTER MEDS AND BLOOD DRAWS; Start 05/31/18 at 07:45 Sodium Chloride 1,000 ml @ 100 mls/hr Q10H IV Last administered on 06/01/18at 00:02; Start 05/31/18 at 15:00; Stop 06/01/18 at 17:47; Status DC Morphine Sulfate (Morphine Sulfate) 2 mg PRN Q1HR PRN IV PAIN MILD; Start at 07:45 Senna/Docusate Sodium (Senna Plus) 1 tab BID PO Last administered on at 08:00; Start 05/31/18 at 09:00 Ondansetron HCl (Zofran) 4 mg PRN Q6HRS PRN IV NAUESA, 1ST CHOICE; Start 05/31 at 07:45 Prochlorperazine Edisylate (Compazine) 5 mg PRN Q6HRS PRN IV N/V, 2nd Choice, MR X1; Start 05/31/18 at 07:45 Cefazolin Sodium 1 gm/Dextrose 50 ml @ 100 mls/hr Q6H IV ; Start 05/31/18 at 07:45; Stop 05/31/18 at 16:44; Status DC Labetalol HCl (Normodyne Iv Push) 20 mg PRN Q2HR PRN IVP HYPERTENSION, SEE COMMENTS; Start 05/31/18 at 07:45 Dexamethasone Sodium Phosphate (Decadron) 20 mg STK-MED ONCE .ROUTE ; Start at 08:19; Stop 05/31/18 at 08:20; Status DC Phenylephrine HCl (PHENYLEPHRINE in 0.9% NACL PF) 1 mg STK-MED ONCE IV ; Start 05/31/18 at 08:19; Stop 05/31/18 at 08:20; Status DC Heparin Sodium (Porcine) (Heparin Sodium) 10,000 unit STK-MED ONCE .ROUTE ; Start 05/31/18 at 08:19; Stop 05/31/18 at 08:20; Status DC Desflurane (Suprane) 90 ml STK-MED ONCE IH ; Start 05/31/18 at 08:19; Stop at 08:20; Status DC Ephedrine Sulfate (ePHEDrine PF IN SALINE SYRINGE) 50 mg STK-MED ONCE IV ; Start 05/31/18 at 08:28; Stop 05/31/18 at 08:29; Status DC Nicardipine HCl (Cardene) 25 mg STK-MED ONCE IV ; Start 05/31/18 at 08:37; Stop 05/31/18 at 08:38; Status DC Glycopyrrolate (Robinul) 1 mg STK-MED ONCE .ROUTE ; Start 05/31/18 at 09:08; Stop 05/31/18 at 09:09; Status DC Neostigmine Methylsulfate (Neostigmine Methylsulfate) 5 mg STK-MED ONCE .ROUTE ; Start 05/31/18 at 09:08; Stop 05/31/18 at 09:09; Status DC Fentanyl Citrate (Fentanyl 2ml Vial) 100 mcg STK-MED ONCE .ROUTE ; Start at 10:14; Stop 05/31/18 at 10:15; Status DC Protamine Sulfate (Protamine) 50 mg STK-MED ONCE IV ; Start 05/31/18 at 10:41; Stop 05/31/18 at 10:42; Status DC Protamine Sulfate (Protamine) 50 mg STK-MED ONCE IV ; Start 05/31/18 at 10:53; Stop 05/31/18 at 10:54; Status DC Cefazolin Sodium 1 gm/Dextrose 50 ml @ 100 mls/hr Q6H IV Last administered on 06/01/18at 04:55; Start 05/31/18 at 17:00; Stop 06/01/18 at 05:29; Status DC Active Scripts Active Aspirin Ec (Aspirin) 325 Mg Tablet. 325 Mg PO DAILYWBKFT Reported Pepcid (Famotidine) 20 Mg Tablet 20 Mg PO DAILY Pepcid (Famotidine) 20 Mg Tablet 20 Mg PO HS Clopidogrel (Clopidogrel Bisulfate) 75 Mg Tablet 75 Mg PO DAILY Levothyroxine Sodium 75 Mcg Tablet 75 Mcg PO DAILYAC Hydrocodone-Apap 5-325 (Hydrocodone Bit/Acetaminophen) 1 Each Tablet 2 Tab PO PRN Q6HRS PRN Nitrostat (Nitroglycerin) 0.4 Mg Tab.subl 0.4 Mg SL PRN Q5MIN PRN Hydrocodone-Apap 5-325 (Hydrocodone Bit/Acetaminophen) 1 Each Tablet 1 Tab PO PRN Q6HRS PRN Amlodipine Besylate 5 Mg Tablet 1 Tab PO DAILY Simvastatin 40 Mg Tablet 1 Tab PO QHS Metoprolol Succinate ( Xl ) (Metoprolol Succinate) 25 Mg Tab.er.24h 50 Mg PO DAILY Vitals/I & O Vital Sign - Last 24 Hours 06/01/18 06/01/18 06/01/18 06/01/18 11 15:00 15:44 17:46 Temp 98.1 98.0 98.1 98.0 Pulse 69 77 Resp 16 18 B/P (MAP) 140/52 (81) 143/58 (86) Pulse Ox 100 90 100 100 O2 Delivery Nasal Cannula Nasal Cannula Nasal Cannula Nasal Cannula O2 Flow Rate 2.0 2.0 2.0 2.0 06/01/18 06/01/18 06/01/18 06/01/18 19:00 20:00 20:28 21:30 Temp 98.0 98.0 Pulse 70 Resp 18 18 18 B/P (MAP) 173/67 (102) Pulse Ox 96 96 93 O2 Delivery Nasal Cannula Nasal Cannula Nasal Cannula Nasal Cannula O2 Flow Rate 2.0 2.0 2.0 2.0 06/01/18 06/02/18 06/02/18 06/02/18 22:35 00:25 01:25 02:50 Temp 98.2 98.4 98.2 98.4 Pulse 78 80 Resp 18 18 18 17 B/P (MAP) 142/62 (88) 97/37 (57) Pulse Ox 93 93 93 92 O2 Delivery Nasal Cannula Nasal Cannula Nasal Cannula Nasal Cannula O2 Flow Rate 2.0 2.0 2.0 2.0 06/02/18 06/02/18 06/02/18 06/02/18 07:00 08:00 08:01 08:02 Temp 98.1 98.1 Pulse 81 87 81 Resp 18 18 B/P (MAP) 131/67 (88) 131/67 131/67 Pulse Ox 94 O2 Delivery Room Air Nasal Cannula O2 Flow Rate 2.0 Intake and Output 11/28/18 11/28/18 11/29/18 15:00 23:00 07:00 Intake Total 720 ml 240 ml Output Total 1900 ml 0 ml 1300 ml Balance -1180 ml 240 ml -1300 ml PIERO RICHEY APRN Jun 02, 2018 11:17
[2018-06-02 14:52] VITALS: BP 130/42
[2018-06-02 21:24] VITALS: BP 142/66
[2018-06-02] MEDS: SIMVASTATIN 40 MG TABLET. PO SCH (21:26)
[2018-06-02 23:33] VITALS: BP 140/49
[2018-06-03] MEDS: oxyCODONE IR 5 MG TABLET PO PRN ×4 (00:40→18:32)
[2018-06-03 03:10] VITALS: BP 143/54
[2018-06-03 04:08] LABS: HEMOGLOBIN 9.1 g/dL (12.0-15.5); RED BLOOD COUNT 2.79 x10^6/uL (3.50-5.40); RED CELL DISTRIBUTION WIDTH 14.5 % (11.5-14.5); WHITE BLOOD COUNT 9.3 x10^3/uL (4.0-11.0)
[2018-06-03 04:22] LABS: CALCIUM 8.4 mg/dL (8.5-10.1); CREATININE 0.9 mg/dL (0.6-1.0); GFR 60.1; POTASSIUM 4.4 mmol/L (3.5-5.1)
[2018-06-03 07:10] VITALS: BP 151/60
[2018-06-03] MEDS: ELECTROLYTE (NON-ICU) PROTOCOL MC SCH (08:58)
[2018-06-03] MEDS: ASPIRIN ENTERIC COATED 325 MG TABLET.DR. PO SCH (09:07)
[2018-06-03] MEDS: LEVOTHYROXINE 75 MCG TABLET PO SCH (09:07)
[2018-06-03] MEDS: CLOPIDOGREL BISULFATE 75 MG TABLET PO SCH (09:07)
--- NOTE | 2018-06-03 09:07 | PDOC ---
PROGRESS NOTES Subjective Subjective Patient seen and examined in room, she is sitting in chair eating breakfast. Tolerating diet. Has ambulated with walker. Voiding without difficulty. Dr. Jose present for examination. Nurse at bedside. Objective Objective Vital Signs Date Time Temp Pulse Resp B/P (MAP) Pulse Ox O2 Delivery O2 Flow Rate FiO2 06/03/18 07:10 98.3 84 18 151/60 (90) 95 Nasal Cannula 2.0 98.3 Intake and Output 06/03/18 07:00 Intake Total 1000 ml Output Total 1775 ml Balance -775 ml Intake Oral 1000 ml Output Urine Total 1775 ml Physical Exam Physical Exam Awake and alert HRR Non-labored respirations Abdomen soft, NTND RLE: Dressing saturated, removed along with prevena, incision intact, no active bleeding, moderate ecchymosis. Foot warm. Calf soft. Assessment Assessment Atherosclerosis with lower extremity claudication POD #2 Right femoral to popliteal bypass with greater saphenous vein. Progressing. Will hold discharge until tomorrow and monitor RLE for any additional bleeding. Acute Anemia due to post op blood loss, H/H stable with monitor and continue with dual antiplatelet therapy. Continue to increase activity. Will add Nicotine patch. Comment Review of Relevant I have reviewed the following items corwin (where applicable) has been applied. Labs Laboratory Tests Test 06/01/18 15:05 06/01/18 21:00 06/02/18 04:00 06/03/18 03:30 Troponin I Quantitative < 0.017 ng/mL (0.000-0.055) 0.018 ng/mL (0.000-0.055) White Blood Count 9.9 x10^3/uL (4.0-11.0) 9.3 x10^3/uL (4.0-11.0) Red Blood Count 2.99 x10^6/uL (3.50-5.40) 2.79 x10^6/uL (3.50-5.40) Hemoglobin 9.6 g/dL (12.0-15.5) 9.1 g/dL (12.0-15.5) Hematocrit 28.0 % (36.0-47.0) 26.0 % (36.0-47.0) Mean Corpuscular Volume 94 fL (79-100) 93 fL (79-100) Mean Corpuscular Hemoglobin 32 pg (25-35) 33 pg (25-35) Mean Corpuscular Hemoglobin Concent 34 g/dL (31-37) 35 g/dL (31-37) Red Cell Distribution Width 14.7 % (11.5-14.5) 14.5 % (11.5-14.5) Platelet Count 138 x10^3/uL (140-400) 136 x10^3/uL (140-400) Neutrophils (%) (Auto) 69 % (31-73) Lymphocytes (%) (Auto) 13 % (24-48) Monocytes (%) (Auto) 16 % (0-9) Eosinophils (%) (Auto) 1 % (0-3) Basophils (%) (Auto) 0 % (0-3) Neutrophils # (Auto) 6.9 x10^3uL (1.8-7.7) Lymphocytes # (Auto) 1.3 x10^3/uL (1.0-4.8) Monocytes # (Auto) 1.6 x10^3/uL (0.0-1.1) Eosinophils # (Auto) 0.1 x10^3/uL (0.0-0.7) Basophils # (Auto) 0.0 x10^3/uL (0.0-0.2) Sodium Level 136 mmol/L (136-145) 136 mmol/L (136-145) Potassium Level 4.5 mmol/L (3.5-5.1) 4.4 mmol/L (3.5-5.1) Chloride Level 102 mmol/L (98-107) 100 mmol/L (98-107) Carbon Dioxide Level 29 mmol/L (21-32) 31 mmol/L (21-32) Anion Gap 5 (6-14) 5 (6-14) Blood Urea Nitrogen 22 mg/dL (7-20) 21 mg/dL (7-20) Creatinine 1.0 mg/dL (0.6-1.0) 0.9 mg/dL (0.6-1.0) Estimated GFR (Cockcroft-Gault) 53.2 60.1 Glucose Level 117 mg/dL (70-99) 118 mg/dL (70-99) Calcium Level 8.6 mg/dL (8.5-10.1) 8.4 mg/dL (8.5-10.1) Magnesium Level 1.9 mg/dL (1.8-2.4) Laboratory Tests Test 06/03/18 03:30 White Blood Count 9.3 x10^3/uL (4.0-11.0) Red Blood Count 2.79 x10^6/uL (3.50-5.40) Hemoglobin 9.1 g/dL (12.0-15.5) Hematocrit 26.0 % (36.0-47.0) Mean Corpuscular Volume 93 fL (79-100) Mean Corpuscular Hemoglobin 33 pg (25-35) Mean Corpuscular Hemoglobin Concent 35 g/dL (31-37) Red Cell Distribution Width 14.5 % (11.5-14.5) Platelet Count 136 x10^3/uL (140-400) Sodium Level 136 mmol/L (136-145) Potassium Level 4.4 mmol/L (3.5-5.1) Chloride Level 100 mmol/L (98-107) Carbon Dioxide Level 31 mmol/L (21-32) Anion Gap 5 (6-14) Blood Urea Nitrogen 21 mg/dL (7-20) Creatinine 0.9 mg/dL (0.6-1.0) Estimated GFR (Cockcroft-Gault) 60.1 Glucose Level 118 mg/dL (70-99) Calcium Level 8.4 mg/dL (8.5-10.1) Medications Current Medications Heparin Sodium (Porcine) 5000 unit/Sodium Chloride 505 ml @ 505 mls/hr 1X ONCE IRR Last administered on 05/31/18at 08:53; Start 05/31/18 at 06:00; Stop 05/31/18 at 06:59; Status DC Ondansetron HCl (Zofran) 4 mg PRN Q6HRS PRN IV NAUSEA/VOMITING; Start at 07:00; Stop 05/31/18 at 18:00; Status DC Fentanyl Citrate (Fentanyl 2ml Vial) 25 mcg PRN Q5MIN PRN IV MILD PAIN; Start 05/31/18 at 07:00; Stop 05/31/18 at 18:00; Status DC Fentanyl Citrate (Fentanyl 2ml Vial) 50 mcg PRN Q5MIN PRN IV MODERATE TO SEVERE PAIN; Start 05/31/18 at 07:00; Stop 05/31/18 at 18:00; Status DC Morphine Sulfate (Morphine Sulfate) 1 mg PRN Q10MIN PRN IV SEVERE PAIN Last administered on 05/31/18at 18:04; Start 05/31/18 at 07:00; Stop 05/31/18 at 18 :00; Status DC Ringer's Solution 1,000 ml @ 30 mls/hr Q24H IV Last administered on at 06:33; Start 05/31/18 at 07:00; Stop 05/31/18 at 18:59; Status DC Lidocaine HCl (Xylocaine-Mpf 1% 2ml Vial) 2 ml PRN 1X PRN ID IV START; Start 05/31/18 at 07:00; Stop 05/31/18 at 18:00; Status DC Hydromorphone HCl (Dilaudid) 0.5 mg PRN Q10MIN PRN IV SEV PAIN, Second choice; Start 05/31/18 at 07:00; Stop 05/31/18 at 18:00; Status DC Prochlorperazine Edisylate (Compazine) 5 mg PACU PRN PRN IV NAUSEA, MRX1; Start 05/31/18 at 07:00; Stop 05/31/18 at 18:00; Status DC Cefazolin Sodium/ Dextrose 50 ml @ 100 mls/hr 1X PREOP PRN IV PRIOR TO PROCEDURE Last administered on 05/31/18at 08:00; Start 05/31/18 at 06:00; Stop 05/31/18 at 18:00; Status DC Iohexol (Omnipaque 300 Mg/ml) 100 ml STK-MED ONCE .ROUTE ; Start 05/31/18 at 06 :45; Stop 05/31/18 at 06:46; Status DC Cellulose (Surgicel Fibrillar 1x2) 1 each STK-MED ONCE .ROUTE Last administered on 05/31/18at 10:48; Start 05/31/18 at 06:45; Stop 05/31/18 at 06 :46; Status DC Propofol 20 ml @ As Directed STK-MED ONCE IV ; Start 05/31/18 at 07:00; Stop 05/31/18 at 07:01; Status DC Lidocaine HCl (Lidocaine Pf 2% Vial) 5 ml STK-MED ONCE .ROUTE ; Start 05/31/18 at 07:00; Stop 05/31/18 at 07:01; Status DC Fentanyl Citrate (Fentanyl 2ml Vial) 100 mcg STK-MED ONCE .ROUTE ; Start at 07:00; Stop 05/31/18 at 07:01; Status DC Rocuronium Mimbres (Zemuron) 50 mg STK-MED ONCE .ROUTE ; Start 05/31/18 at 07: 00; Stop 05/31/18 at 07:01; Status DC Cefazolin Sodium 1 gm/Sodium Chloride 500 ml @ 500 mls/hr 1X ONCE IRR Last administered on 05/31/18at 08:51; Start 05/31/18 at 07:30; Stop 05/31/18 at 08 :29; Status DC Lidocaine HCl 48 ml/Sodium Bicarbonate 12 meq/Miscellaneous 60 ml @ 60 mls/hr 1X ONCE ID ; Start 05/31/18 at 07:07; Stop 05/31/18 at 08:06; Status DC Gelatin (Gelfoam Size 100) 1 each STK-MED ONCE .ROUTE ; Start 05/31/18 at 07: 19; Stop 05/31/18 at 07:20; Status DC Papaverine HCl 60 mg STK-MED ONCE .ROUTE ; Start 05/31/18 at 07:19; Stop 05/31 at 07:20; Status DC Thrombin 20,000 unit STK-MED ONCE TP ; Start 05/31/18 at 07:19; Stop 05/31/18 at 07:20; Status DC Amlodipine Besylate (Norvasc) 5 mg DAILY PO Last administered on 06/02/18at 08: 00; Start 06/01/18 at 09:00 Aspirin (Ecotrin) 325 mg DAILYWBKFT PO Last administered on 06/02/18at 08:01; Start 06/01/18 at 08:00 Clopidogrel Bisulfate (Plavix) 75 mg DAILY PO Last administered on 06/02/18at 08:01; Start 06/01/18 at 09:00 Famotidine (Pepcid) 20 mg DAILY PO Last administered on 06/02/18at 08:00; Start 06/01/18 at 09:00 Acetaminophen/ Hydrocodone Bitart (Lortab 5/325) 1 tab PRN Q6HRS PRN PO PAIN MILD Last administered on 06/02/18at 13:38; Start 05/31/18 at 07:45 Acetaminophen/ Hydrocodone Bitart (Lortab 5/325) 2 tab PRN Q6HRS PRN PO PAIN MODERATE Last administered on 06/02/18 21:27; Start 05/31/18 at 07:45 Levothyroxine Sodium (Synthroid) 75 mcg DAILYAC PO Last administered on 08:00; Start 06/01/18 at 07:30 Metoprolol Succinate (Toprol Xl) 50 mg DAILY PO Last administered on 08:02; Start 05/31/18 at 09:00 Nitroglycerin (Nitrostat) 0.4 mg PRN Q5MIN PRN SL CHEST PAIN Last administered on 06/01/18 07:10; Start 05/31/18 at 07:45 Simvastatin (Zocor) 40 mg QHS PO Last administered on 06/02/18 21:26; Start 05/31/18 at 21:00 Oxycodone HCl (Roxicodone) 5 mg PRN Q3HRS PRN PO PAIN SEVERE Last administered on 06/03/18at 00:40; Start 05/31/18 at 07:45 Al Hydroxide/Mg Hydroxide (Mylanta Plus Xs) 30 ml PRN Q3HRS PRN PO HEARTBURN / GAS; Start 05/31/18 at 07:45 Calcium Carbonate/ Glycine (Tums) 500 mg PRN Q3HRS PRN PO INDIGESTION; Start 05/31/18 at 07:45 Diphenhydramine HCl (Benadryl) 25 mg PRN Q6HRS PRN PO ITCHING; Start 05/31/18 at 07:45 Info (Non-Icu Electrolyte Protocol) 1 ea DAILY MC Last administered on at 09:00; Start 06/01/18 at 09:00 Naloxone HCl (Narcan) 0.1 mg PRN Q2MIN PRN IV ADMIN; Start 05/31/18 at 07:45 Sodium Chloride (Normal Saline Flush) 3 ml QSHIFT PRN IV AFTER MEDS AND BLOOD DRAWS; Start 05/31/18 at 07:45 Sodium Chloride 1,000 ml @ 100 mls/hr Q10H IV Last administered on 06/01/18at 00:02; Start 05/31/18 at 15:00; Stop 06/01/18 at 17:47; Status DC Morphine Sulfate (Morphine Sulfate) 2 mg PRN Q1HR PRN IV PAIN MILD; Start at 07:45 Senna/Docusate Sodium (Senna Plus) 1 tab BID PO Last administered on at 21:26; Start 05/31/18 at 09:00 Ondansetron HCl (Zofran) 4 mg PRN Q6HRS PRN IV NAUESA, 1ST CHOICE; Start 05/31 at 07:45 Prochlorperazine Edisylate (Compazine) 5 mg PRN Q6HRS PRN IV N/V, 2nd Choice, MR X1; Start 05/31/18 at 07:45 Cefazolin Sodium 1 gm/Dextrose 50 ml @ 100 mls/hr Q6H IV ; Start 05/31/18 at 07:45; Stop 05/31/18 at 16:44; Status DC Labetalol HCl (Normodyne Iv Push) 20 mg PRN Q2HR PRN IVP HYPERTENSION, SEE COMMENTS; Start 05/31/18 at 07:45 Dexamethasone Sodium Phosphate (Decadron) 20 mg STK-MED ONCE .ROUTE ; Start at 08:19; Stop 05/31/18 at 08:20; Status DC Phenylephrine HCl (PHENYLEPHRINE in 0.9% NACL PF) 1 mg STK-MED ONCE IV ; Start 05/31/18 at 08:19; Stop 05/31/18 at 08:20; Status DC Heparin Sodium (Porcine) (Heparin Sodium) 10,000 unit STK-MED ONCE .ROUTE ; Start 05/31/18 at 08:19; Stop 05/31/18 at 08:20; Status DC Desflurane (Suprane) 90 ml STK-MED ONCE IH ; Start 05/31/18 at 08:19; Stop at 08:20; Status DC Ephedrine Sulfate (ePHEDrine PF IN SALINE SYRINGE) 50 mg STK-MED ONCE IV ; Start 05/31/18 at 08:28; Stop 05/31/18 at 08:29; Status DC Nicardipine HCl (Cardene) 25 mg STK-MED ONCE IV ; Start 05/31/18 at 08:37; Stop 05/31/18 at 08:38; Status DC Glycopyrrolate (Robinul) 1 mg STK-MED ONCE .ROUTE ; Start 05/31/18 at 09:08; Stop 05/31/18 at 09:09; Status DC Neostigmine Methylsulfate (Neostigmine Methylsulfate) 5 mg STK-MED ONCE .ROUTE ; Start 05/31/18 at 09:08; Stop 05/31/18 at 09:09; Status DC Fentanyl Citrate (Fentanyl 2ml Vial) 100 mcg STK-MED ONCE .ROUTE ; Start at 10:14; Stop 05/31/18 at 10:15; Status DC Protamine Sulfate (Protamine) 50 mg STK-MED ONCE IV ; Start 05/31/18 at 10:41; Stop 05/31/18 at 10:42; Status DC Protamine Sulfate (Protamine) 50 mg STK-MED ONCE IV ; Start 05/31/18 at 10:53; Stop 05/31/18 at 10:54; Status DC Cefazolin Sodium 1 gm/Dextrose 50 ml @ 100 mls/hr Q6H IV Last administered on 06/01/18at 04:55; Start 05/31/18 at 17:00; Stop 06/01/18 at 05:29; Status DC Active Scripts Active Aspirin Ec (Aspirin) 325 Mg Tablet. 325 Mg PO DAILYWBKFT Reported Pepcid (Famotidine) 20 Mg Tablet 20 Mg PO DAILY Pepcid (Famotidine) 20 Mg Tablet 20 Mg PO HS Clopidogrel (Clopidogrel Bisulfate) 75 Mg Tablet 75 Mg PO DAILY Levothyroxine Sodium 75 Mcg Tablet 75 Mcg PO DAILYAC Hydrocodone-Apap 5-325 (Hydrocodone Bit/Acetaminophen) 1 Each Tablet 2 Tab PO PRN Q6HRS PRN Nitrostat (Nitroglycerin) 0.4 Mg Tab.subl 0.4 Mg SL PRN Q5MIN PRN Hydrocodone-Apap 5-325 (Hydrocodone Bit/Acetaminophen) 1 Each Tablet 1 Tab PO PRN Q6HRS PRN Amlodipine Besylate 5 Mg Tablet 1 Tab PO DAILY Simvastatin 40 Mg Tablet 1 Tab PO QHS Metoprolol Succinate ( Xl ) (Metoprolol Succinate) 25 Mg Tab.er.24h 50 Mg PO DAILY Vitals/I & O Vital Sign - Last 24 Hours 06/02/18 06/02/18 06/02/18 06/02/18 11:00 13:38 14:38 14:52 Temp 98.2 97.7 98.2 97.7 Pulse 72 69 Resp 20 16 16 19 B/P (MAP) 144/60 (88) 130/42 (71) Pulse Ox 95 97 O2 Delivery Room Air Nasal Cannula Nasal Cannula Nasal Cannula O2 Flow Rate 2.0 06/02/18 06/02/18 06/02/18 06/02/18 20:00 21:24 21:27 22:30 Temp 98.5 98.5 Pulse 93 Resp 18 18 18 B/P (MAP) 142/66 (91) Pulse Ox 94 94 95 O2 Delivery Nasal Cannula Nasal Cannula Nasal Cannula Nasal Cannula O2 Flow Rate 2.0 2.0 2.0 2.0 06/02/18 06/03/18 06/03/18 06/03/18 23:33 00:40 01:45 03:10 Temp 98.9 98.4 98.9 98.4 Pulse 90 88 Resp 18 20 18 18 B/P (MAP) 140/49 (79) 143/54 (83) Pulse Ox 95 95 95 94 O2 Delivery Nasal Cannula Nasal Cannula Nasal Cannula Nasal Cannula O2 Flow Rate 2.0 2.0 2.0 2.0 06/03/18 07:10 Temp 98.3 98.3 Pulse 84 Resp 18 B/P (MAP) 151/60 (90) Pulse Ox 95 O2 Delivery Nasal Cannula O2 Flow Rate 2.0 Intake and Output 06/02/18 06/02/18 06/03/18 15:00 23:00 07:00 Intake Total 500 ml 500 ml Output Total 700 ml 700 ml 375 ml Balance -700 ml -200 ml 125 ml PELON BAGLEY APRN Jun 03, 2018 09:07
[2018-06-03] MEDS: METOPROLOL SUCC 24HR ER 25 MG TAB.ER.24H. PO SCH (09:08)
[2018-06-03] MEDS: SENNOSIDES/DOCUSATE 8.6/50MG TABLET. PO SCH ×2 (09:08→21:44)
[2018-06-03] MEDS: amLODIPine BESYLATE 5 MG TABLET PO SCH (09:08)
[2018-06-03] MEDS: FAMOTIDINE 20 MG TABLET. PO SCH (09:09)
--- NOTE | 2018-06-03 11:41 | PDOC ---
PROGRESS NOTES Chief Complaint Chief Complaint S/P R Fem pop History of Present Illness History of Present Illness POD 3 R Fem pop. Patient seen and examined this morning. Explained to patient that she is ok to discharge home from an internal medicine standpoint. Vitals Vitals Vital Signs Date Time Temp Pulse Resp B/P (MAP) Pulse Ox O2 Delivery O2 Flow Rate FiO2 06/03/18 10:09 17 95 Room Air 06/03/18 09:08 84 151/60 06/03/18 07:10 98.3 2.0 98.3 Physical Exam General: Alert, Oriented X3 Heart: Regular rate, Normal S1, Normal S2, No murmurs Lungs: Clear Abdomen: Normal bowel sounds Extremities: No clubbing, No edema Skin: No rashes Labs LABS Laboratory Tests Test 06/03/18 03:30 White Blood Count 9.3 x10^3/uL (4.0-11.0) Red Blood Count 2.79 x10^6/uL (3.50-5.40) Hemoglobin 9.1 g/dL (12.0-15.5) Hematocrit 26.0 % (36.0-47.0) Mean Corpuscular Volume 93 fL (79-100) Mean Corpuscular Hemoglobin 33 pg (25-35) Mean Corpuscular Hemoglobin Concent 35 g/dL (31-37) Red Cell Distribution Width 14.5 % (11.5-14.5) Platelet Count 136 x10^3/uL (140-400) Sodium Level 136 mmol/L (136-145) Potassium Level 4.4 mmol/L (3.5-5.1) Chloride Level 100 mmol/L (98-107) Carbon Dioxide Level 31 mmol/L (21-32) Anion Gap 5 (6-14) Blood Urea Nitrogen 21 mg/dL (7-20) Creatinine 0.9 mg/dL (0.6-1.0) Estimated GFR (Cockcroft-Gault) 60.1 Glucose Level 118 mg/dL (70-99) Calcium Level 8.4 mg/dL (8.5-10.1) Review of Systems Review of Systems General: patient denies fatigue Heart: denies chest pain Lung: denies soa Assessment and Plan Assessmemt and Plan Assessment: 1. s/p R fem pop 2. history of cardiac disease 3. HTN Plan: 1. PT/OT 2. Ok to discharge from internal medicine standpoint 3. home meds 4. labs 5. recommended follow up with PCP in 1 mo. Patient states she has appointment on 19DE Comment Review of Relevant I have reviewed the following items corwin (where applicable) has been applied. Labs Laboratory Tests Test 06/01/18 15:05 06/01/18 21:00 06/02/18 04:00 06/03/18 03:30 Troponin I Quantitative < 0.017 ng/mL (0.000-0.055) 0.018 ng/mL (0.000-0.055) White Blood Count 9.9 x10^3/uL (4.0-11.0) 9.3 x10^3/uL (4.0-11.0) Red Blood Count 2.99 x10^6/uL (3.50-5.40) 2.79 x10^6/uL (3.50-5.40) Hemoglobin 9.6 g/dL (12.0-15.5) 9.1 g/dL (12.0-15.5) Hematocrit 28.0 % (36.0-47.0) 26.0 % (36.0-47.0) Mean Corpuscular Volume 94 fL (79-100) 93 fL (79-100) Mean Corpuscular Hemoglobin 32 pg (25-35) 33 pg (25-35) Mean Corpuscular Hemoglobin Concent 34 g/dL (31-37) 35 g/dL (31-37) Red Cell Distribution Width 14.7 % (11.5-14.5) 14.5 % (11.5-14.5) Platelet Count 138 x10^3/uL (140-400) 136 x10^3/uL (140-400) Neutrophils (%) (Auto) 69 % (31-73) Lymphocytes (%) (Auto) 13 % (24-48) Monocytes (%) (Auto) 16 % (0-9) Eosinophils (%) (Auto) 1 % (0-3) Basophils (%) (Auto) 0 % (0-3) Neutrophils # (Auto) 6.9 x10^3uL (1.8-7.7) Lymphocytes # (Auto) 1.3 x10^3/uL (1.0-4.8) Monocytes # (Auto) 1.6 x10^3/uL (0.0-1.1) Eosinophils # (Auto) 0.1 x10^3/uL (0.0-0.7) Basophils # (Auto) 0.0 x10^3/uL (0.0-0.2) Sodium Level 136 mmol/L (136-145) 136 mmol/L (136-145) Potassium Level 4.5 mmol/L (3.5-5.1) 4.4 mmol/L (3.5-5.1) Chloride Level 102 mmol/L (98-107) 100 mmol/L (98-107) Carbon Dioxide Level 29 mmol/L (21-32) 31 mmol/L (21-32) Anion Gap 5 (6-14) 5 (6-14) Blood Urea Nitrogen 22 mg/dL (7-20) 21 mg/dL (7-20) Creatinine 1.0 mg/dL (0.6-1.0) 0.9 mg/dL (0.6-1.0) Estimated GFR (Cockcroft-Gault) 53.2 60.1 Glucose Level 117 mg/dL (70-99) 118 mg/dL (70-99) Calcium Level 8.6 mg/dL (8.5-10.1) 8.4 mg/dL (8.5-10.1) Magnesium Level 1.9 mg/dL (1.8-2.4) Laboratory Tests Test 06/03/18 03:30 White Blood Count 9.3 x10^3/uL (4.0-11.0) Red Blood Count 2.79 x10^6/uL (3.50-5.40) Hemoglobin 9.1 g/dL (12.0-15.5) Hematocrit 26.0 % (36.0-47.0) Mean Corpuscular Volume 93 fL (79-100) Mean Corpuscular Hemoglobin 33 pg (25-35) Mean Corpuscular Hemoglobin Concent 35 g/dL (31-37) Red Cell Distribution Width 14.5 % (11.5-14.5) Platelet Count 136 x10^3/uL (140-400) Sodium Level 136 mmol/L (136-145) Potassium Level 4.4 mmol/L (3.5-5.1) Chloride Level 100 mmol/L (98-107) Carbon Dioxide Level 31 mmol/L (21-32) Anion Gap 5 (6-14) Blood Urea Nitrogen 21 mg/dL (7-20) Creatinine 0.9 mg/dL (0.6-1.0) Estimated GFR (Cockcroft-Gault) 60.1 Glucose Level 118 mg/dL (70-99) Calcium Level 8.4 mg/dL (8.5-10.1) Medications Current Medications Heparin Sodium (Porcine) 5000 unit/Sodium Chloride 505 ml @ 505 mls/hr 1X ONCE IRR Last administered on 05/31/18at 08:53; Start 05/31/18 at 06:00; Stop 05/31/18 at 06:59; Status DC Ondansetron HCl (Zofran) 4 mg PRN Q6HRS PRN IV NAUSEA/VOMITING; Start at 07:00; Stop 05/31/18 at 18:00; Status DC Fentanyl Citrate (Fentanyl 2ml Vial) 25 mcg PRN Q5MIN PRN IV MILD PAIN; Start 05/31/18 at 07:00; Stop 05/31/18 at 18:00; Status DC Fentanyl Citrate (Fentanyl 2ml Vial) 50 mcg PRN Q5MIN PRN IV MODERATE TO SEVERE PAIN; Start 05/31/18 at 07:00; Stop 05/31/18 at 18:00; Status DC Morphine Sulfate (Morphine Sulfate) 1 mg PRN Q10MIN PRN IV SEVERE PAIN Last administered on 05/31/18at 18:04; Start 05/31/18 at 07:00; Stop 05/31/18 at 18 :00; Status DC Ringer's Solution 1,000 ml @ 30 mls/hr Q24H IV Last administered on at 06:33; Start 05/31/18 at 07:00; Stop 05/31/18 at 18:59; Status DC Lidocaine HCl (Xylocaine-Mpf 1% 2ml Vial) 2 ml PRN 1X PRN ID IV START; Start 05/31/18 at 07:00; Stop 05/31/18 at 18:00; Status DC Hydromorphone HCl (Dilaudid) 0.5 mg PRN Q10MIN PRN IV SEV PAIN, Second choice; Start 05/31/18 at 07:00; Stop 05/31/18 at 18:00; Status DC Prochlorperazine Edisylate (Compazine) 5 mg PACU PRN PRN IV NAUSEA, MRX1; Start 05/31/18 at 07:00; Stop 05/31/18 at 18:00; Status DC Cefazolin Sodium/ Dextrose 50 ml @ 100 mls/hr 1X PREOP PRN IV PRIOR TO PROCEDURE Last administered on 05/31/18at 08:00; Start 05/31/18 at 06:00; Stop 05/31/18 at 18:00; Status DC Iohexol (Omnipaque 300 Mg/ml) 100 ml STK-MED ONCE .ROUTE ; Start 05/31/18 at 06 :45; Stop 05/31/18 at 06:46; Status DC Cellulose (Surgicel Fibrillar 1x2) 1 each STK-MED ONCE .ROUTE Last administered on 05/31/18at 10:48; Start 05/31/18 at 06:45; Stop 05/31/18 at 06 :46; Status DC Propofol 20 ml @ As Directed STK-MED ONCE IV ; Start 05/31/18 at 07:00; Stop 05/31/18 at 07:01; Status DC Lidocaine HCl (Lidocaine Pf 2% Vial) 5 ml STK-MED ONCE .ROUTE ; Start 05/31/18 at 07:00; Stop 05/31/18 at 07:01; Status DC Fentanyl Citrate (Fentanyl 2ml Vial) 100 mcg STK-MED ONCE .ROUTE ; Start at 07:00; Stop 05/31/18 at 07:01; Status DC Rocuronium [place] (Zemuron) 50 mg STK-MED ONCE .ROUTE ; Start 05/31/18 at 07: 00; Stop 05/31/18 at 07:01; Status DC Cefazolin Sodium 1 gm/Sodium Chloride 500 ml @ 500 mls/hr 1X ONCE IRR Last administered on 05/31/18at 08:51; Start 05/31/18 at 07:30; Stop 05/31/18 at 08 :29; Status DC Lidocaine HCl 48 ml/Sodium Bicarbonate 12 meq/Miscellaneous 60 ml @ 60 mls/hr 1X ONCE ID ; Start 05/31/18 at 07:07; Stop 11/27/18 at 08:06; Status DC Gelatin (Gelfoam Size 100) 1 each STK-MED ONCE .ROUTE ; Start 05/31/18 at 07: 19; Stop 05/31/18 at 07:20; Status DC Papaverine HCl 60 mg STK-MED ONCE .ROUTE ; Start 05/31/18 at 07:19; Stop 05/31 at 07:20; Status DC Thrombin 20,000 unit STK-MED ONCE TP ; Start 05/31/18 at 07:19; Stop 05/31/18 at 07:20; Status DC Amlodipine Besylate (Norvasc) 5 mg DAILY PO Last administered on 06/03/18 09: 08; Start 06/01/18 at 09:00 Aspirin (Ecotrin) 325 mg DAILYWBKFT PO Last administered on 06/03/18 09:07; Start 06/01/18 at 08:00 Clopidogrel Bisulfate (Plavix) 75 mg DAILY PO Last administered on 06/03/18 09:07; Start 06/01/18 at 09:00 Famotidine (Pepcid) 20 mg DAILY PO Last administered on 06/03/18 09:09; Start 06/01/18 at 09:00 Acetaminophen/ Hydrocodone Bitart (Lortab 5/325) 1 tab PRN Q6HRS PRN PO PAIN MILD Last administered on 06/02/18 13:38; Start 05/31/18 at 07:45 Acetaminophen/ Hydrocodone Bitart (Lortab 5/325) 2 tab PRN Q6HRS PRN PO PAIN MODERATE Last administered on 06/02/18 21:27; Start 05/31/18 at 07:45 Levothyroxine Sodium (Synthroid) 75 mcg DAILYAC PO Last administered on 09:07; Start 06/01/18 at 07:30 Metoprolol Succinate (Toprol Xl) 50 mg DAILY PO Last administered on 09:08; Start 05/31/18 at 09:00 Nitroglycerin (Nitrostat) 0.4 mg PRN Q5MIN PRN SL CHEST PAIN Last administered on 06/01/18 07:10; Start 05/31/18 at 07:45 Simvastatin (Zocor) 40 mg QHS PO Last administered on 11/29/18at 21:26; Start 05/31/18 at 21:00 Oxycodone HCl (Roxicodone) 5 mg PRN Q3HRS PRN PO PAIN SEVERE Last administered on 06/03/18at 09:09; Start 05/31/18 at 07:45 Al Hydroxide/Mg Hydroxide (Mylanta Plus Xs) 30 ml PRN Q3HRS PRN PO HEARTBURN / GAS; Start 05/31/18 at 07:45 Calcium Carbonate/ Glycine (Tums) 500 mg PRN Q3HRS PRN PO INDIGESTION; Start 05/31/18 at 07:45 Diphenhydramine HCl (Benadryl) 25 mg PRN Q6HRS PRN PO ITCHING; Start 05/31/18 at 07:45 Info (Non-Icu Electrolyte Protocol) 1 ea DAILY MC Last administered on at 09:00; Start 06/01/18 at 09:00 Naloxone HCl (Narcan) 0.1 mg PRN Q2MIN PRN IV ADMIN; Start 05/31/18 at 07:45 Sodium Chloride (Normal Saline Flush) 3 ml QSHIFT PRN IV AFTER MEDS AND BLOOD DRAWS; Start 05/31/18 at 07:45 Sodium Chloride 1,000 ml @ 100 mls/hr Q10H IV Last administered on 06/01/18at 00:02; Start 05/31/18 at 15:00; Stop 06/01/18 at 17:47; Status DC Morphine Sulfate (Morphine Sulfate) 2 mg PRN Q1HR PRN IV PAIN MILD; Start at 07:45 Senna/Docusate Sodium (Senna Plus) 1 tab BID PO Last administered on at 09:08; Start 05/31/18 at 09:00 Ondansetron HCl (Zofran) 4 mg PRN Q6HRS PRN IV NAUESA, 1ST CHOICE; Start 05/31 at 07:45 Prochlorperazine Edisylate (Compazine) 5 mg PRN Q6HRS PRN IV N/V, 2nd Choice, MR X1; Start 05/31/18 at 07:45 Cefazolin Sodium 1 gm/Dextrose 50 ml @ 100 mls/hr Q6H IV ; Start 05/31/18 at 07:45; Stop 05/31/18 at 16:44; Status DC Labetalol HCl (Normodyne Iv Push) 20 mg PRN Q2HR PRN IVP HYPERTENSION, SEE COMMENTS; Start 05/31/18 at 07:45 Dexamethasone Sodium Phosphate (Decadron) 20 mg STK-MED ONCE .ROUTE ; Start at 08:19; Stop 05/31/18 at 08:20; Status DC Phenylephrine HCl (PHENYLEPHRINE in 0.9% NACL PF) 1 mg STK-MED ONCE IV ; Start 05/31/18 at 08:19; Stop 05/31/18 at 08:20; Status DC Heparin Sodium (Porcine) (Heparin Sodium) 10,000 unit STK-MED ONCE .ROUTE ; Start 05/31/18 at 08:19; Stop 05/31/18 at 08:20; Status DC Desflurane (Suprane) 90 ml STK-MED ONCE IH ; Start 05/31/18 at 08:19; Stop at 08:20; Status DC Ephedrine Sulfate (ePHEDrine PF IN SALINE SYRINGE) 50 mg STK-MED ONCE IV ; Start 05/31/18 at 08:28; Stop 05/31/18 at 08:29; Status DC Nicardipine HCl (Cardene) 25 mg STK-MED ONCE IV ; Start 05/31/18 at 08:37; Stop 05/31/18 at 08:38; Status DC Glycopyrrolate (Robinul) 1 mg STK-MED ONCE .ROUTE ; Start 05/31/18 at 09:08; Stop 05/31/18 at 09:09; Status DC Neostigmine Methylsulfate (Neostigmine Methylsulfate) 5 mg STK-MED ONCE .ROUTE ; Start 05/31/18 at 09:08; Stop 05/31/18 at 09:09; Status DC Fentanyl Citrate (Fentanyl 2ml Vial) 100 mcg STK-MED ONCE .ROUTE ; Start at 10:14; Stop 05/31/18 at 10:15; Status DC Protamine Sulfate (Protamine) 50 mg STK-MED ONCE IV ; Start 05/31/18 at 10:41; Stop 05/31/18 at 10:42; Status DC Protamine Sulfate (Protamine) 50 mg STK-MED ONCE IV ; Start 05/31/18 at 10:53; Stop 05/31/18 at 10:54; Status DC Cefazolin Sodium 1 gm/Dextrose 50 ml @ 100 mls/hr Q6H IV Last administered on 06/01/18at 04:55; Start 05/31/18 at 17:00; Stop 06/01/18 at 05:29; Status DC Nicotine (Nicoderm Cq 21mg) 1 patch DAILY TD ; Start 06/03/18 at 09:00 Active Scripts Active Aspirin Ec (Aspirin) 325 Mg Tablet.dr 325 Mg PO DAILYWBKFT Reported Pepcid (Famotidine) 20 Mg Tablet 20 Mg PO DAILY Pepcid (Famotidine) 20 Mg Tablet 20 Mg PO HS Clopidogrel (Clopidogrel Bisulfate) 75 Mg Tablet 75 Mg PO DAILY Levothyroxine Sodium 75 Mcg Tablet 75 Mcg PO DAILYAC Hydrocodone-Apap 5-325 (Hydrocodone Bit/Acetaminophen) 1 Each Tablet 2 Tab PO PRN Q6HRS PRN Nitrostat (Nitroglycerin) 0.4 Mg Tab.subl 0.4 Mg SL PRN Q5MIN PRN Hydrocodone-Apap 5-325 (Hydrocodone Bit/Acetaminophen) 1 Each Tablet 1 Tab PO PRN Q6HRS PRN Amlodipine Besylate 5 Mg Tablet 1 Tab PO DAILY Simvastatin 40 Mg Tablet 1 Tab PO QHS Metoprolol Succinate ( Xl ) (Metoprolol Succinate) 25 Mg Tab.er.24h 50 Mg PO DAILY Vitals/I & O Vital Sign - Last 24 Hours 06/02/18 06/02/18 06/02/18 06/02/18 13:38 14:38 14:52 20:00 Temp 97.7 97.7 Pulse 69 Resp 16 16 19 B/P (MAP) 130/42 (71) Pulse Ox 97 O2 Delivery Nasal Cannula Nasal Cannula Nasal Cannula Nasal Cannula O2 Flow Rate 2.0 2.0 06/02/18 06/02/18 06/02/18 06/02/18 21:24 21:27 22:30 23:33 Temp 98.5 98.9 98.5 98.9 Pulse 93 90 Resp 18 18 18 18 B/P (MAP) 142/66 (91) 140/49 (79) Pulse Ox 94 94 95 95 O2 Delivery Nasal Cannula Nasal Cannula Nasal Cannula Nasal Cannula O2 Flow Rate 2.0 2.0 2.0 2.0 06/03/18 06/03/18 06/03/18 06/03/18 00:40 01:45 03:10 07:10 Temp 98.4 98.3 98.4 98.3 Pulse 88 84 Resp 20 18 18 B/P (MAP) 143/54 (83) 151/60 (90) Pulse Ox 95 94 95 O2 Delivery Nasal Cannula Nasal Cannula Nasal Cannula O2 Flow Rate 2.0 2.0 2.0 2.0 06/03/18 06/03/18 06/03/18 06/03/18 09:08 09:08 09:09 10:09 Pulse 84 84 Resp 18 17 B/P (MAP) 151/60 151/60 Pulse Ox 95 95 O2 Delivery Room Air Room Air Intake and Output 06/02/18 06/02/18 06/03/18 15:00 23:00 07:00 Intake Total 500 ml 500 ml Output Total 700 ml 700 ml 375 ml Balance -700 ml -200 ml 125 ml Nutrition Consultation Dietary Evaluation: Recommendations by RD: Protein supplementation Comments: Continue w/cardaic diet Add Ensure BID (breakfast and dinner, chocolate flavor) Expected Outcomes/Goals: PO intake to meet >75% est needs Malnutrition Findings: Food and Nutrition Intake (Mod: <75% est energy req 7days Weight Status: Appropriate JOEY JONES III DO Jun 03, 2018 11:41
[2018-06-03 11:46] VITALS: BP 127/49
[2018-06-03] MEDS: NICOTINE 21MG PATCH. TD SCH (12:44)
[2018-06-03 14:55] VITALS: BP 135/49
[2018-06-03 19:45] VITALS: BP 144/47
[2018-06-03] MEDS: MORPHINE SULFATE 2 MG/ML VIAL. IV PRN (21:43)
[2018-06-03] MEDS: SIMVASTATIN 40 MG TABLET. PO SCH (21:44)
[2018-06-03 23:34] VITALS: BP 109/46
[2018-06-04] MEDS: HYDROcodone/APAP 5/325MG 1 TAB TABLET PO PRN ×2 (02:29→21:09)
[2018-06-04 02:33] VITALS: BP 113/45
[2018-06-04 04:14] LABS: HEMOGLOBIN 8.9 g/dL (12.0-15.5); RED BLOOD COUNT 2.76 x10^6/uL (3.50-5.40); RED CELL DISTRIBUTION WIDTH 14.3 % (11.5-14.5); WHITE BLOOD COUNT 10.4 x10^3/uL (4.0-11.0)
[2018-06-04 04:32] LABS: CALCIUM 8.7 mg/dL (8.5-10.1); CREATININE 0.9 mg/dL (0.6-1.0); GFR 60.1; POTASSIUM 4.7 mmol/L (3.5-5.1)
[2018-06-04 07:00] VITALS: BP 145/49
[2018-06-04] MEDS: FAMOTIDINE 20 MG TABLET. PO SCH (08:36)
[2018-06-04] MEDS: ASPIRIN ENTERIC COATED 325 MG TABLET.DR. PO SCH (08:36)
[2018-06-04] MEDS: LEVOTHYROXINE 75 MCG TABLET PO SCH (08:36)
[2018-06-04] MEDS: CLOPIDOGREL BISULFATE 75 MG TABLET PO SCH (08:36)
[2018-06-04] MEDS: SENNOSIDES/DOCUSATE 8.6/50MG TABLET. PO SCH ×2 (08:36→21:09)
[2018-06-04] MEDS: METOPROLOL SUCC 24HR ER 25 MG TAB.ER.24H. PO SCH (08:37)
[2018-06-04] MEDS: amLODIPine BESYLATE 5 MG TABLET PO SCH (08:37)
[2018-06-04] MEDS: NICOTINE 21MG PATCH. TD SCH (08:37)
[2018-06-04] MEDS: ELECTROLYTE (NON-ICU) PROTOCOL MC SCH (08:39)
--- NOTE | 2018-06-04 10:54 | PDOC ---
PROGRESS NOTES Chief Complaint Chief Complaint PVD S/P R Fem pop pod 4 History of Present Illness History of Present Illness POD 4 R Fem pop. Patient seen and examined this morning. Pt is sitting up with 2LNC, reports doing well, has small cough, no acute overnight events and no new complaints. Incision CDI with bruising. IV fluids and IV antibiotics on hanging Explained to patient that she is ok to discharge home from an internal medicine standpoint. Probable DC today if no bleeding from RLE- per vasc surg note Pt being followed by Vasc surgery Vitals Vitals Vital Signs Date Time Temp Pulse Resp B/P (MAP) Pulse Ox O2 Delivery O2 Flow Rate FiO2 06/04/18 08:37 80 145/49 06/04/18 08:00 Nasal Cannula 2.0 06/04/18 07:00 98.0 18 91 98.0 Physical Exam General: Alert, Oriented X3, No acute distress Heart: Regular rate, Normal S1, Normal S2, No murmurs Lungs: Clear Abdomen: Normal bowel sounds Extremities: No clubbing, No edema Skin: No rashes, Other (incision CDI with some bruising) Labs LABS Laboratory Tests Test 06/04/18 04:00 White Blood Count 10.4 x10^3/uL (4.0-11.0) Red Blood Count 2.76 x10^6/uL (3.50-5.40) Hemoglobin 8.9 g/dL (12.0-15.5) Hematocrit 26.0 % (36.0-47.0) Mean Corpuscular Volume 94 fL (79-100) Mean Corpuscular Hemoglobin 32 pg (25-35) Mean Corpuscular Hemoglobin Concent 34 g/dL (31-37) Red Cell Distribution Width 14.3 % (11.5-14.5) Platelet Count 150 x10^3/uL (140-400) Sodium Level 135 mmol/L (136-145) Potassium Level 4.7 mmol/L (3.5-5.1) Chloride Level 97 mmol/L (98-107) Carbon Dioxide Level 34 mmol/L (21-32) Anion Gap 4 (6-14) Blood Urea Nitrogen 22 mg/dL (7-20) Creatinine 0.9 mg/dL (0.6-1.0) Estimated GFR (Cockcroft-Gault) 60.1 Glucose Level 131 mg/dL (70-99) Calcium Level 8.7 mg/dL (8.5-10.1) Magnesium Level 1.7 mg/dL (1.8-2.4) Review of Systems Review of Systems General: Denies fever, fatigue, chills Cardio: Denies chest pain, palpitations Pulm: Admits cough, denies soa currently on 2Lnc Assessment and Plan Assessmemt and Plan Assessment: s/p R fem pop history of cardiac disease HTN PVD Plan: CBC BMP Wound Care Oxygen supplementation PT/OT Ok to discharge from internal medicine standpoint [facility] meds Appreciate vascular surgery input recommended follow up with PCP in 1 mo. Patient states she has appointment on 19DEC Comment Review of Relevant I have reviewed the following items corwin (where applicable) has been applied. Labs Laboratory Tests Test 06/03/18 03:30 06/04/18 04:00 White Blood Count 9.3 x10^3/uL (4.0-11.0) 10.4 x10^3/uL (4.0-11.0) Red Blood Count 2.79 x10^6/uL (3.50-5.40) 2.76 x10^6/uL (3.50-5.40) Hemoglobin 9.1 g/dL (12.0-15.5) 8.9 g/dL (12.0-15.5) Hematocrit 26.0 % (36.0-47.0) 26.0 % (36.0-47.0) Mean Corpuscular Volume 93 fL (79-100) 94 fL (79-100) Mean Corpuscular Hemoglobin 33 pg (25-35) 32 pg (25-35) Mean Corpuscular Hemoglobin Concent 35 g/dL (31-37) 34 g/dL (31-37) Red Cell Distribution Width 14.5 % (11.5-14.5) 14.3 % (11.5-14.5) Platelet Count 136 x10^3/uL (140-400) 150 x10^3/uL (140-400) Sodium Level 136 mmol/L (136-145) 135 mmol/L (136-145) Potassium Level 4.4 mmol/L (3.5-5.1) 4.7 mmol/L (3.5-5.1) Chloride Level 100 mmol/L (98-107) 97 mmol/L (98-107) Carbon Dioxide Level 31 mmol/L (21-32) 34 mmol/L (21-32) Anion Gap 5 (6-14) 4 (6-14) Blood Urea Nitrogen 21 mg/dL (7-20) 22 mg/dL (7-20) Creatinine 0.9 mg/dL (0.6-1.0) 0.9 mg/dL (0.6-1.0) Estimated GFR (Cockcroft-Gault) 60.1 60.1 Glucose Level 118 mg/dL (70-99) 131 mg/dL (70-99) Calcium Level 8.4 mg/dL (8.5-10.1) 8.7 mg/dL (8.5-10.1) Magnesium Level 1.7 mg/dL (1.8-2.4) Laboratory Tests Test 06/04/18 04:00 White Blood Count 10.4 x10^3/uL (4.0-11.0) Red Blood Count 2.76 x10^6/uL (3.50-5.40) Hemoglobin 8.9 g/dL (12.0-15.5) Hematocrit 26.0 % (36.0-47.0) Mean Corpuscular Volume 94 fL (79-100) Mean Corpuscular Hemoglobin 32 pg (25-35) Mean Corpuscular Hemoglobin Concent 34 g/dL (31-37) Red Cell Distribution Width 14.3 % (11.5-14.5) Platelet Count 150 x10^3/uL (140-400) Sodium Level 135 mmol/L (136-145) Potassium Level 4.7 mmol/L (3.5-5.1) Chloride Level 97 mmol/L (98-107) Carbon Dioxide Level 34 mmol/L (21-32) Anion Gap 4 (6-14) Blood Urea Nitrogen 22 mg/dL (7-20) Creatinine 0.9 mg/dL (0.6-1.0) Estimated GFR (Cockcroft-Gault) 60.1 Glucose Level 131 mg/dL (70-99) Calcium Level 8.7 mg/dL (8.5-10.1) Magnesium Level 1.7 mg/dL (1.8-2.4) Medications Current Medications Heparin Sodium (Porcine) 5000 unit/Sodium Chloride 505 ml @ 505 mls/hr 1X ONCE IRR Last administered on 05/31/18at 08:53; Start 05/31/18 at 06:00; Stop 05/31/18 at 06:59; Status DC Ondansetron HCl (Zofran) 4 mg PRN Q6HRS PRN IV NAUSEA/VOMITING; Start at 07:00; Stop 05/31/18 at 18:00; Status DC Fentanyl Citrate (Fentanyl 2ml Vial) 25 mcg PRN Q5MIN PRN IV MILD PAIN; Start 05/31/18 at 07:00; Stop 05/31/18 at 18:00; Status DC Fentanyl Citrate (Fentanyl 2ml Vial) 50 mcg PRN Q5MIN PRN IV MODERATE TO SEVERE PAIN; Start 05/31/18 at 07:00; Stop 05/31/18 at 18:00; Status DC Morphine Sulfate (Morphine Sulfate) 1 mg PRN Q10MIN PRN IV SEVERE PAIN Last administered on 05/31/18at 18:04; Start 05/31/18 at 07:00; Stop 05/31/18 at 18 :00; Status DC Ringer's Solution 1,000 ml @ 30 mls/hr Q24H IV Last administered on at 06:33; Start 05/31/18 at 07:00; Stop 05/31/18 at 18:59; Status DC Lidocaine HCl (Xylocaine-Mpf 1% 2ml Vial) 2 ml PRN 1X PRN ID IV START; Start 05/31/18 at 07:00; Stop 05/31/18 at 18:00; Status DC Hydromorphone HCl (Dilaudid) 0.5 mg PRN Q10MIN PRN IV SEV PAIN, Second choice; Start 05/31/18 at 07:00; Stop 05/31/18 at 18:00; Status DC Prochlorperazine Edisylate (Compazine) 5 mg PACU PRN PRN IV NAUSEA, MRX1; Start 05/31/18 at 07:00; Stop 05/31/18 at 18:00; Status DC Cefazolin Sodium/ Dextrose 50 ml @ 100 mls/hr 1X PREOP PRN IV PRIOR TO PROCEDURE Last administered on 05/31/18at 08:00; Start 05/31/18 at 06:00; Stop 05/31/18 at 18:00; Status DC Iohexol (Omnipaque 300 Mg/ml) 100 ml STK-MED ONCE .ROUTE ; Start 05/31/18 at 06 :45; Stop 05/31/18 at 06:46; Status DC Cellulose (Surgicel Fibrillar 1x2) 1 each STK-MED ONCE .ROUTE Last administered on 05/31/18at 10:48; Start 05/31/18 at 06:45; Stop 05/31/18 at 06 :46; Status DC Propofol 20 ml @ As Directed STK-MED ONCE IV ; Start 05/31/18 at 07:00; Stop 05/31/18 at 07:01; Status DC Lidocaine HCl (Lidocaine Pf 2% Vial) 5 ml STK-MED ONCE .ROUTE ; Start 05/31/18 at 07:00; Stop 05/31/18 at 07:01; Status DC Fentanyl Citrate (Fentanyl 2ml Vial) 100 mcg STK-MED ONCE .ROUTE ; Start at 07:00; Stop 05/31/18 at 07:01; Status DC Rocuronium [place] (Zemuron) 50 mg STK-MED ONCE .ROUTE ; Start 05/31/18 at 07: 00; Stop 05/31/18 at 07:01; Status DC Cefazolin Sodium 1 gm/Sodium Chloride 500 ml @ 500 mls/hr 1X ONCE IRR Last administered on 05/31/18at 08:51; Start 05/31/18 at 07:30; Stop 05/31/18 at 08 :29; Status DC Lidocaine HCl 48 ml/Sodium Bicarbonate 12 meq/Miscellaneous 60 ml @ 60 mls/hr 1X ONCE ID ; Start 05/31/18 at 07:07; Stop 05/31/18 at 08:06; Status DC Gelatin (Gelfoam Size 100) 1 each STK-MED ONCE .ROUTE ; Start 05/31/18 at 07: 19; Stop 05/31/18 at 07:20; Status DC Papaverine HCl 60 mg STK-MED ONCE .ROUTE ; Start 05/31/18 at 07:19; Stop 05/31 at 07:20; Status DC Thrombin 20,000 unit STK-MED ONCE TP ; Start 05/31/18 at 07:19; Stop 05/31/18 at 07:20; Status DC Amlodipine Besylate (Norvasc) 5 mg DAILY PO Last administered on 06/04/18 08: 37; Start 06/01/18 at 09:00 Aspirin (Ecotrin) 325 mg DAILYWBKFT PO Last administered on 06/04/18 08:36; Start 06/01/18 at 08:00 Clopidogrel Bisulfate (Plavix) 75 mg DAILY PO Last administered on 06/04/18 08 :36; Start 06/01/18 at 09:00 Famotidine (Pepcid) 20 mg DAILY PO Last administered on 06/04/18 08:36; Start 06/01/18 at 09:00 Acetaminophen/ Hydrocodone Bitart (Lortab 5/325) 1 tab PRN Q6HRS PRN PO PAIN MILD Last administered on 06/02/18 13:38; Start 05/31/18 at 07:45 Acetaminophen/ Hydrocodone Bitart (Lortab 5/325) 2 tab PRN Q6HRS PRN PO PAIN MODERATE Last administered on 06/04/18 02:29; Start 05/31/18 at 07:45 Levothyroxine Sodium (Synthroid) 75 mcg DAILYAC PO Last administered on 08:36; Start 06/01/18 at 07:30 Metoprolol Succinate (Toprol Xl) 50 mg DAILY PO Last administered on 06/04/18 08:37; Start 05/31/18 at 09:00 Nitroglycerin (Nitrostat) 0.4 mg PRN Q5MIN PRN SL CHEST PAIN Last administered on 06/01/18at 07:10; Start 05/31/18 at 07:45 Simvastatin (Zocor) 40 mg QHS PO Last administered on 06/03/18 21:44; Start 05/31/18 at 21:00 Oxycodone HCl (Roxicodone) 5 mg PRN Q3HRS PRN PO PAIN SEVERE Last administered on 06/03/18 18:32; Start 05/31/18 at 07:45 Al Hydroxide/Mg Hydroxide (Mylanta Plus Xs) 30 ml PRN Q3HRS PRN PO HEARTBURN / GAS; Start 05/31/18 at 07:45 Calcium Carbonate/ Glycine (Tums) 500 mg PRN Q3HRS PRN PO INDIGESTION; Start 05/31/18 at 07:45 Diphenhydramine HCl (Benadryl) 25 mg PRN Q6HRS PRN PO ITCHING; Start 05/31/18 at 07:45 Info (Non-Icu Electrolyte Protocol) 1 ea DAILY MC Last administered on at 09:00; Start 06/01/18 at 09:00 Naloxone HCl (Narcan) 0.1 mg PRN Q2MIN PRN IV ADMIN; Start 05/31/18 at 07:45 Sodium Chloride (Normal Saline Flush) 3 ml QSHIFT PRN IV AFTER MEDS AND BLOOD DRAWS; Start 05/31/18 at 07:45 Sodium Chloride 1,000 ml @ 100 mls/hr Q10H IV Last administered on 06/01/18at 00:02; Start 05/31/18 at 15:00; Stop 06/01/18 at 17:47; Status DC Morphine Sulfate (Morphine Sulfate) 2 mg PRN Q1HR PRN IV PAIN MILD Last administered on 06/03/18at 21:43; Start 05/31/18 at 07:45 Senna/Docusate Sodium (Senna Plus) 1 tab BID PO Last administered on 06/04/18at 08:36; Start 05/31/18 at 09:00 Ondansetron HCl (Zofran) 4 mg PRN Q6HRS PRN IV NAUESA, 1ST CHOICE Last administered on 06/03/18at 18:32; Start 05/31/18 at 07:45 Prochlorperazine Edisylate (Compazine) 5 mg PRN Q6HRS PRN IV N/V, 2nd Choice, MR X1; Start 05/31/18 at 07:45 Cefazolin Sodium 1 gm/Dextrose 50 ml @ 100 mls/hr Q6H IV ; Start 05/31/18 at 07:45; Stop 05/31/18 at 16:44; Status DC Labetalol HCl (Normodyne Iv Push) 20 mg PRN Q2HR PRN IVP HYPERTENSION, SEE COMMENTS; Start 05/31/18 at 07:45 Dexamethasone Sodium Phosphate (Decadron) 20 mg STK-MED ONCE .ROUTE ; Start at 08:19; Stop 05/31/18 at 08:20; Status DC Phenylephrine HCl (PHENYLEPHRINE in 0.9% NACL PF) 1 mg STK-MED ONCE IV ; Start 05/31/18 at 08:19; Stop 05/31/18 at 08:20; Status DC Heparin Sodium (Porcine) (Heparin Sodium) 10,000 unit STK-MED ONCE .ROUTE ; Start 05/31/18 at 08:19; Stop 05/31/18 at 08:20; Status DC Desflurane (Suprane) 90 ml STK-MED ONCE IH ; Start 05/31/18 at 08:19; Stop at 08:20; Status DC Ephedrine Sulfate (ePHEDrine PF IN SALINE SYRINGE) 50 mg STK-MED ONCE IV ; Start 05/31/18 at 08:28; Stop 05/31/18 at 08:29; Status DC Nicardipine HCl (Cardene) 25 mg STK-MED ONCE IV ; Start 05/31/18 at 08:37; Stop 05/31/18 at 08:38; Status DC Glycopyrrolate (Robinul) 1 mg STK-MED ONCE .ROUTE ; Start 05/31/18 at 09:08; Stop 05/31/18 at 09:09; Status DC Neostigmine Methylsulfate (Neostigmine Methylsulfate) 5 mg STK-MED ONCE .ROUTE ; Start 05/31/18 at 09:08; Stop 05/31/18 at 09:09; Status DC Fentanyl Citrate (Fentanyl 2ml Vial) 100 mcg STK-MED ONCE .ROUTE ; Start at 10:14; Stop 05/31/18 at 10:15; Status DC Protamine Sulfate (Protamine) 50 mg STK-MED ONCE IV ; Start 05/31/18 at 10:41; Stop 05/31/18 at 10:42; Status DC Protamine Sulfate (Protamine) 50 mg STK-MED ONCE IV ; Start 05/31/18 at 10:53; Stop 05/31/18 at 10:54; Status DC Cefazolin Sodium 1 gm/Dextrose 50 ml @ 100 mls/hr Q6H IV Last administered on 06/01/18at 04:55; Start 05/31/18 at 17:00; Stop 06/01/18 at 05:29; Status DC Nicotine (Nicoderm Cq 21mg) 1 patch DAILY TD Last administered on 06/03/18at 12 :44; Start 06/03/18 at 09:00 Active Scripts Active Aspirin Ec (Aspirin) 325 Mg Tablet. 325 Mg PO DAILYWBKFT Reported Pepcid (Famotidine) 20 Mg Tablet 20 Mg PO DAILY Pepcid (Famotidine) 20 Mg Tablet 20 Mg PO HS Clopidogrel (Clopidogrel Bisulfate) 75 Mg Tablet 75 Mg PO DAILY Levothyroxine Sodium 75 Mcg Tablet 75 Mcg PO DAILYAC Hydrocodone-Apap 5-325 (Hydrocodone Bit/Acetaminophen) 1 Each Tablet 2 Tab PO PRN Q6HRS PRN Nitrostat (Nitroglycerin) 0.4 Mg Tab.subl 0.4 Mg SL PRN Q5MIN PRN Hydrocodone-Apap 5-325 (Hydrocodone Bit/Acetaminophen) 1 Each Tablet 1 Tab PO PRN Q6HRS PRN Amlodipine Besylate 5 Mg Tablet 1 Tab PO DAILY Simvastatin 40 Mg Tablet 1 Tab PO QHS Metoprolol Succinate ( Xl ) (Metoprolol Succinate) 25 Mg Tab.er.24h 50 Mg PO DAILY Vitals/I & O Vital Sign - Last 24 Hours 06/03/18 06/03/18 06/03/18 06/03/18 11:46 12:44 13:44 14:55 Temp 98.1 98.6 98.1 98.6 Pulse 87 94 Resp 18 18 B/P (MAP) 127/49 (75) 135/49 (77) Pulse Ox 95 95 95 95 O2 Delivery Nasal Cannula Nasal Cannula Nasal Cannula Nasal Cannula O2 Flow Rate 2.0 2.0 2.0 2.0 06/03/18 06/03/18 06/03/18 06/03/18 14:58 18:32 19:45 20:00 Temp 99.3 99.3 Pulse 88 Resp 17 16 B/P (MAP) 144/47 (79) Pulse Ox 95 92 O2 Delivery Nasal Cannula Nasal Cannula Nasal Cannula Nasal Cannula O2 Flow Rate 2.0 2.0 2.0 2.0 06/03/18 06/04/18 06/04/18 06/04/18 23:34 02:33 07:00 08:00 Temp 98.9 98.3 98.0 98.9 98.3 98.0 Pulse 85 105 80 Resp 16 18 B/P (MAP) 109/46 (67) 113/45 (67) 145/49 (81) Pulse Ox 95 91 91 O2 Delivery Nasal Cannula Nasal Cannula Nasal Cannula Nasal Cannula O2 Flow Rate 2.0 2.0 2.0 2.0 06/04/18 06/04/18 08:37 08:37 Pulse 80 80 B/P (MAP) 145/49 145/49 Intake and Output 06/03/18 06/03/18 06/04/18 15:00 23:00 07:00 Intake Total 560 ml 540 ml Output Total 500 ml 500 ml Balance 60 ml 40 ml Nutrition Consultation Dietary Evaluation: Recommendations by RD: Protein supplementation Comments: Continue w/cardaic diet Add Ensure BID (breakfast and dinner, chocolate flavor) Expected Outcomes/Goals: PO intake to meet >75% est needs Malnutrition Findings: Food and Nutrition Intake (Mod: <75% est energy req 7days Weight Status: Appropriate JOEY JONES III DO Jun 04, 2018 10:54
[2018-06-04 11:13] VITALS: BP 133/49
--- NOTE | 2018-06-04 11:16 | PDOC ---
Provider Note Provider Note S: pt without complaints. Ambulating some O: vss, afebrile right fem pop incision ok, dressing removed 1+ DP pulse A: stable P: wean oxygen, cont. ambulation. likely discharge tomorrow. TALIA DE GUZMAN II, MD Jun 04, 2018 11:16
[2018-06-04] MEDS: NITROGLYCERIN SUBLINGUAL 0.4 MG BOTTLE OF 25. SL PRN (11:50)
[2018-06-04] MEDS: MORPHINE SULFATE 2 MG/ML VIAL. IV PRN (12:18)
--- NOTE | 2018-06-04 13:05 | EKG ---
[facility] [address] [place] [address] Test Date: 2018-06-04 Test Time: 13:58:28 Pat Name: ZOE KEARNS Department: Room: 205 1 Gender: F Behavior Clinician: JOSE : 1935 Requested By: JOEY JONES Order Number: [id number] Reading MD: Ryley Jimenez Measurements Intervals [place] Rate: 82 P: 53 DC: 128 QRS: 34 QRSD: 84 T: 129 QT: 342 QTc: 402 Interpretive Statements SINUS RHYTHM ST & T ABNORMALITY, CONSIDER ANTERIOR ISCHEMIA OR LEFT VENTRICULAR STRAIN LATERAL ISCHEMIA OR LEFT VENTRICULAR STRAIN T ABNORMALITY IN INFEROLATERAL LEADS ABNORMAL ECG Electronically Signed On 06-06-2018 8:55:42 METAL FURRER by Ryley Jimenez
--- NOTE | 2018-06-04 14:22 | CONS ---
DATE OF CONSULTATION: 06/04/2018 REASON FOR CONSULTATION: Chest pain. HISTORY OF PRESENT ILLNESS: The patient is an 82-year-old woman with significant vascular history coming into the hospital for a planned right fem-pop bypass, which was completed successfully and she was planned for being discharged in the next 24 hours but unfortunately, she had sudden episode of significant chest pain, which prompted this consult. In talking to the patient, she reports that she has had intermittent episodes of chest pain like this and she had a similar episode after surgery a couple days ago and states that this is similar to her normal cardiac pains. Of note, please see below for her extensive vascular history and interventions. At home, she denies any specific cardiac limitations such as exertional dyspnea, orthopnea, PND or significant lower extremity edema. PAST MEDICAL HISTORY: 1. Coronary artery disease status post bypass remotely with a known occlusion of the saphenous vein graft to the RCA and in-stent restenosis of the left circumflex vessels and a patent HANDY to the LAD as well as a left subclavian stenosis. 2. 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 3. Significant lower extremity arterial disease with bilateral aortobifemoral bypass and most recently a right femoral to tibioperoneal trunk bypass with ipsilateral greater saphenous vein. 4. Hypertension. 5. Dyslipidemia. SOCIAL HISTORY: The patient denies any excessive alcohol use. She does not smoke or take any illicit drugs. FAMILY HISTORY: Noncontributory. CURRENT CARDIAC MEDICATIONS: 1. Aspirin 325 mg daily. 2. Plavix 75 mg daily. 3. Amlodipine 5 mg daily. 4. Simvastatin 40 mg daily. 5. Metoprolol 50 mg XL daily. REVIEW OF SYSTEMS: Negative for 10 out of 14 systems reviewed unless otherwise mentioned above in the HPI. ALLERGIES: HYDRALAZINE AND BENADRYL. PHYSICAL EXAMINATION: VITAL SIGNS: Afebrile, 91, 133/49, 93% on nasal cannula at 2 liters. GENERAL: She is alert and in no acute distress. HEAD AND NECK: Unremarkable. CARDIAC: Regular rate and rhythm without any murmurs, rubs or gallops. LUNGS: Fairly clear to auscultation bilaterally anteriorly. ABDOMEN: Soft without any obvious bruits or masses. EXTREMITIES: Diminished pulses in the pedal area with mild right lower extremity swelling, 1+ right radial and 2+ left radial pulses. NEUROLOGIC: No focal deficits. MUSCULOSKELETAL: No trauma. DIAGNOSTIC STUDIES: EKG is notable for sinus rhythm with diffuse ischemic T-wave inversions. Hemoglobin is 8.9 with a platelet count of 150. Initial cardiac enzymes 2 days ago when the patient had chest pain were unremarkable. Echocardiogram from 08/2017 demonstrates normal LV systolic function. IMPRESSION: 1. Typical unstable angina with a mild EKG changes suggestive of ischemia in a patient who is a known vasculopath. 2. Multiple cardiac and vascular comorbidities as noted above. RECOMMENDATIONS: Given the patient's significant complication history, I had a long conversation with her and we will plan for conservative management with beta blockers, Ranexa, and calcium channel blockers for her chest pain including long-acting nitrates. If this does not significantly improve her chest discomfort or if there is significant troponin elevation with persistent EKG changes could at that time consider cardiac catheterization. Thank you for this consultation. MARIAH STILES MD DR: GEETA/ramila JOB#: [id number] / [id number]
[2018-06-04 14:43] VITALS: BP 109/45
--- NOTE | 2018-06-04 15:57 | EKG ---
[facility] [address] [place] [address] Test Date: 2018-06-04 Test Time: 15:52:16 Pat Name: ZOE KEARNS Department: Room: 205 1 Gender: F Animation Artist: JOSE : 1935 Requested By: MARIAH STILES Order Number: [id number] Reading MD: Mariah Stiles MD Measurements Intervals [place] Rate: 72 P: 45 DE: 120 QRS: 27 QRSD: 86 T: 114 QT: 382 QTc: 420 Interpretive Statements SINUS RHYTHM NON-SPECIFIC ST/T CHANGES Electronically Signed On 06-05-2018 10:13:39 THERMODYNAMICIST by Mariah Stiles MD
[2018-06-04] MEDS: ISOSORBIDE MONONITRATE ER 30 MG TAB.ER.24H PO SCH (16:17)
[2018-06-04 19:15] VITALS: BP 141/54
[2018-06-04] MEDS: SIMVASTATIN 40 MG TABLET. PO SCH (21:09)
[2018-06-04] MEDS: RANOLAZINE 500 MG TAB.ER.12H PO SCH (21:09)
[2018-06-04 23:25] VITALS: BP 103/47
[2018-06-05] VITALS (8 sets, daily range): BP systolic 111–175; BP diastolic 44–61
[2018-06-05 05:42] LABS: CALCIUM 8.9 mg/dL (8.5-10.1); CREATININE 0.7 mg/dL (0.6-1.0); GFR 80.3; POTASSIUM 4.6 mmol/L (3.5-5.1)
[2018-06-05] MEDS: NICOTINE 21MG PATCH. TD SCH (09:00)
[2018-06-05] MEDS: ELECTROLYTE (NON-ICU) PROTOCOL MC SCH (09:00)
[2018-06-05] MEDS: SENNOSIDES/DOCUSATE 8.6/50MG TABLET. PO SCH ×2 (10:23→20:59)
[2018-06-05] MEDS: LEVOTHYROXINE 75 MCG TABLET PO SCH (10:23)
[2018-06-05] MEDS: FAMOTIDINE 20 MG TABLET. PO SCH (10:23)
[2018-06-05] MEDS: amLODIPine BESYLATE 5 MG TABLET PO SCH (10:23)
[2018-06-05] MEDS: ASPIRIN ENTERIC COATED 325 MG TABLET.DR. PO SCH (10:23)
[2018-06-05] MEDS: CLOPIDOGREL BISULFATE 75 MG TABLET PO SCH (10:23)
[2018-06-05] MEDS: ISOSORBIDE MONONITRATE ER 30 MG TAB.ER.24H PO SCH (10:23)
--- NOTE | 2018-06-05 10:23 | PDOC ---
CARDIOLOGY PROGRESS NOTE SUBJECTIVE: No acute events. Mild chest pain last night. Wants to go home. OBJECTIVE: Vital SIgns: Vital Signs Date Time Temp Pulse Resp B/P (MAP) Pulse Ox O2 Delivery O2 Flow Rate FiO2 06/05/18 08:00 Nasal Cannula 2.0 06/05/18 07:25 98.3 87 16 143/59 (87) 94 98.3 I & O I/O: Negative 520 ml Objective: a/o x 3. NAD CVS: RRR. PULM: CTA EXT: Mild RLE edema. Warm to touch. Wound stable. CURRENT MEDICATIONS: amlodipine, asa, plavix, statin, imdur and ranolazine Toprol XL ASSESSMENT: 1. Elevated troponin in the setting of severe CAD 2. Unstable angina - improved on medical therapy 3. Anemia of chronic disease 4. PAD s/p R lower ext surgical bypass. PLAN: 1. Monitor for another 24 hours to ensure no recurrent CP on current medical therapy 2. Check echo. 3. Plan for DC tomorrow. Thanks. MARIAH STILES MD Jun 05, 2018 10:23
[2018-06-05] MEDS: METOPROLOL SUCC 24HR ER 25 MG TAB.ER.24H. PO SCH (10:24)
[2018-06-05] MEDS: RANOLAZINE 500 MG TAB.ER.12H PO SCH ×2 (10:24→20:59)
--- NOTE | 2018-06-05 13:02 | PDOC ---
PROGRESS NOTES Chief Complaint Chief Complaint PVD S/P R Fem pop pod 5 History of Present Illness History of Present Illness POD 5 R Fem pop. Patient seen and examined this morning. Pt is sitting up with 2LNC, reports doing well, no new complaints. Incision CDI, not currently complaining of chest pain Events over past 24 hrs include Chest pain, cardiology consulted for unstable angina with ekg changes indicating ischemia, conservative management currently with BB, CCB, nitrates. If worsening condition or no resolution consider Cardiac Cath- per cardiology note Probable DC in AM if ok with cardiology Pt being followed by [facility] surgery ok to DC from their standpoint, cardiology following Vitals Vitals Vital Signs Date Time Temp Pulse Resp B/P (MAP) Pulse Ox O2 Delivery O2 Flow Rate FiO2 06/05/18 11:10 98.4 101 18 131/46 (74) 95 Nasal Cannula 2.0 98.4 Physical Exam General: Alert, Oriented X3, No acute distress Heart: Regular rate, Normal S1, Normal S2, No murmurs Lungs: Clear, Other (2L nc) Abdomen: Normal bowel sounds Extremities: No clubbing, No edema Skin: No rashes, Other (incision CDI) Labs LABS Laboratory Tests Test 06/04/18 13:15 06/04/18 16:00 06/05/18 04:00 Troponin I Quantitative 0.083 ng/mL (0.000-0.055) 0.108 ng/mL (0.000-0.055) Sodium Level 132 mmol/L (136-145) Potassium Level 4.6 mmol/L (3.5-5.1) Chloride Level 96 mmol/L (98-107) Carbon Dioxide Level 32 mmol/L (21-32) Anion Gap 4 (6-14) Blood Urea Nitrogen 21 mg/dL (7-20) Creatinine 0.7 mg/dL (0.6-1.0) Estimated GFR (Cockcroft-Gault) 80.3 Glucose Level 107 mg/dL (70-99) Calcium Level 8.9 mg/dL (8.5-10.1) Review of Systems Review of Systems General: denies fever, chills Cardio: unstable angina, denies current chest pain, palpitations Pulm: Denies soa, cough, on 2LNC Assessment and Plan Assessmemt and Plan Assessment: s/p R fem pop history of cardiac disease HTN PVD Unstable angina with mild ekg changes, probably due to ischemia Plan: CBC BMP Conservative management of unstable angina per cardiology Wound Care Oxygen supplementation PT/OT Probable discharge in AM if OK with cardiology Brayan meds Appreciate vascular surgery input Appreciate Cardiology input recommended follow up with PCP in 1 mo. Patient states she has appointment on 19DEC Comment Review of Relevant I have reviewed the following items corwin (where applicable) has been applied. Labs Laboratory Tests Test 06/04/18 04:00 06/04/18 13:15 06/04/18 16:00 06/05/18 04:00 White Blood Count 10.4 x10^3/uL (4.0-11.0) Red Blood Count 2.76 x10^6/uL (3.50-5.40) Hemoglobin 8.9 g/dL (12.0-15.5) Hematocrit 26.0 % (36.0-47.0) Mean Corpuscular Volume 94 fL (79-100) Mean Corpuscular Hemoglobin 32 pg (25-35) Mean Corpuscular Hemoglobin Concent 34 g/dL (31-37) Red Cell Distribution Width 14.3 % (11.5-14.5) Platelet Count 150 x10^3/uL (140-400) Sodium Level 135 mmol/L (136-145) 132 mmol/L (136-145) Potassium Level 4.7 mmol/L (3.5-5.1) 4.6 mmol/L (3.5-5.1) Chloride Level 97 mmol/L (98-107) 96 mmol/L (98-107) Carbon Dioxide Level 34 mmol/L (21-32) 32 mmol/L (21-32) Anion Gap 4 (6-14) 4 (6-14) Blood Urea Nitrogen 22 mg/dL (7-20) 21 mg/dL (7-20) Creatinine 0.9 mg/dL (0.6-1.0) 0.7 mg/dL (0.6-1.0) Estimated GFR (Cockcroft-Gault) 60.1 80.3 Glucose Level 131 mg/dL (70-99) 107 mg/dL (70-99) Calcium Level 8.7 mg/dL (8.5-10.1) 8.9 mg/dL (8.5-10.1) Magnesium Level 1.7 mg/dL (1.8-2.4) Troponin I Quantitative 0.083 ng/mL (0.000-0.055) 0.108 ng/mL (0.000-0.055) Laboratory Tests Test 06/04/18 13:15 06/04/18 16:00 06/05/18 04:00 Troponin I Quantitative 0.083 ng/mL (0.000-0.055) 0.108 ng/mL (0.000-0.055) Sodium Level 132 mmol/L (136-145) Potassium Level 4.6 mmol/L (3.5-5.1) Chloride Level 96 mmol/L (98-107) Carbon Dioxide Level 32 mmol/L (21-32) Anion Gap 4 (6-14) Blood Urea Nitrogen 21 mg/dL (7-20) Creatinine 0.7 mg/dL (0.6-1.0) Estimated GFR (Cockcroft-Gault) 80.3 Glucose Level 107 mg/dL (70-99) Calcium Level 8.9 mg/dL (8.5-10.1) Medications Current Medications Heparin Sodium (Porcine) 5000 unit/Sodium Chloride 505 ml @ 505 mls/hr 1X ONCE IRR Last administered on 05/31/18at 08:53; Start 05/31/18 at 06:00; Stop 05/31/18 at 06:59; Status DC Ondansetron HCl (Zofran) 4 mg PRN Q6HRS PRN IV NAUSEA/VOMITING; Start at 07:00; Stop 05/31/18 at 18:00; Status DC Fentanyl Citrate (Fentanyl 2ml Vial) 25 mcg PRN Q5MIN PRN IV MILD PAIN; Start 05/31/18 at 07:00; Stop 05/31/18 at 18:00; Status DC Fentanyl Citrate (Fentanyl 2ml Vial) 50 mcg PRN Q5MIN PRN IV MODERATE TO SEVERE PAIN; Start 05/31/18 at 07:00; Stop 05/31/18 at 18:00; Status DC Morphine Sulfate (Morphine Sulfate) 1 mg PRN Q10MIN PRN IV SEVERE PAIN Last administered on 05/31/18at 18:04; Start 05/31/18 at 07:00; Stop 05/31/18 at 18 :00; Status DC Ringer's Solution 1,000 ml @ 30 mls/hr Q24H IV Last administered on at 06:33; Start 05/31/18 at 07:00; Stop 05/31/18 at 18:59; Status DC Lidocaine HCl (Xylocaine-Mpf 1% 2ml Vial) 2 ml PRN 1X PRN ID IV START; Start 05/31/18 at 07:00; Stop 05/31/18 at 18:00; Status DC Hydromorphone HCl (Dilaudid) 0.5 mg PRN Q10MIN PRN IV SEV PAIN, Second choice; Start 05/31/18 at 07:00; Stop 05/31/18 at 18:00; Status DC Prochlorperazine Edisylate (Compazine) 5 mg PACU PRN PRN IV NAUSEA, MRX1; Start 05/31/18 at 07:00; Stop 05/31/18 at 18:00; Status DC Cefazolin Sodium/ Dextrose 50 ml @ 100 mls/hr 1X PREOP PRN IV PRIOR TO PROCEDURE Last administered on 05/31/18at 08:00; Start 05/31/18 at 06:00; Stop 05/31/18 at 18:00; Status DC Iohexol (Omnipaque 300 Mg/ml) 100 ml STK-MED ONCE .ROUTE ; Start 05/31/18 at 06 :45; Stop 05/31/18 at 06:46; Status DC Cellulose (Surgicel Fibrillar 1x2) 1 each STK-MED ONCE .ROUTE Last administered on 05/31/18at 10:48; Start 05/31/18 at 06:45; Stop 05/31/18 at 06 :46; Status DC Propofol 20 ml @ As Directed STK-MED ONCE IV ; Start 05/31/18 at 07:00; Stop 05/31/18 at 07:01; Status DC Lidocaine HCl (Lidocaine Pf 2% Vial) 5 ml STK-MED ONCE .ROUTE ; Start 05/31/18 at 07:00; Stop 05/31/18 at 07:01; Status DC Fentanyl Citrate (Fentanyl 2ml Vial) 100 mcg STK-MED ONCE .ROUTE ; Start at 07:00; Stop 05/31/18 at 07:01; Status DC Rocuronium Quincy (Zemuron) 50 mg STK-MED ONCE .ROUTE ; Start 05/31/18 at 07: 00; Stop 05/31/18 at 07:01; Status DC Cefazolin Sodium 1 gm/Sodium Chloride 500 ml @ 500 mls/hr 1X ONCE IRR Last administered on 05/31/18at 08:51; Start 05/31/18 at 07:30; Stop 05/31/18 at 08 :29; Status DC Lidocaine HCl 48 ml/Sodium Bicarbonate 12 meq/Miscellaneous 60 ml @ 60 mls/hr 1X ONCE ID ; Start 05/31/18 at 07:07; Stop 05/31/18 at 08:06; Status DC Gelatin (Gelfoam Size 100) 1 each STK-MED ONCE .ROUTE ; Start 05/31/18 at 07: 19; Stop 05/31/18 at 07:20; Status DC Papaverine HCl 60 mg STK-MED ONCE .ROUTE ; Start 05/31/18 at 07:19; Stop 05/31 at 07:20; Status DC Thrombin 20,000 unit STK-MED ONCE TP ; Start 05/31/18 at 07:19; Stop 05/31/18 at 07:20; Status DC Amlodipine Besylate (Norvasc) 5 mg DAILY PO Last administered on 06/05/18 10: 23; Start 06/01/18 at 09:00 Aspirin (Ecotrin) 325 mg DAILYWBKFT PO Last administered on 06/05/18at 10:23; Start 06/01/18 at 08:00 Clopidogrel Bisulfate (Plavix) 75 mg DAILY PO Last administered on 06/05/18at 10 :23; Start 06/01/18 at 09:00 Famotidine (Pepcid) 20 mg DAILY PO Last administered on 06/05/18at 10:23; Start 06/01/18 at 09:00 Acetaminophen/ Hydrocodone Bitart (Lortab 5/325) 1 tab PRN Q6HRS PRN PO PAIN MILD Last administered on 06/02/18at 13:38; Start 05/31/18 at 07:45 Acetaminophen/ Hydrocodone Bitart (Lortab 5/325) 2 tab PRN Q6HRS PRN PO PAIN MODERATE Last administered on 06/04/18at 21:09; Start 05/31/18 at 07:45 Levothyroxine Sodium (Synthroid) 75 mcg DAILYAC PO Last administered on at 10:23; Start 06/01/18 at 07:30 Metoprolol Succinate (Toprol Xl) 50 mg DAILY PO Last administered on 06/05/18at 10:24; Start 05/31/18 at 09:00 Nitroglycerin (Nitrostat) 0.4 mg PRN Q5MIN PRN SL CHEST PAIN Last administered on 06/04/18at 11:50; Start 05/31/18 at 07:45 Simvastatin (Zocor) 40 mg QHS PO Last administered on 06/04/18at 21:09; Start 05/31/18 at 21:00 Oxycodone HCl (Roxicodone) 5 mg PRN Q3HRS PRN PO PAIN SEVERE Last administered on 06/03/18at 18:32; Start 05/31/18 at 07:45 Al Hydroxide/Mg Hydroxide (Mylanta Plus Xs) 30 ml PRN Q3HRS PRN PO HEARTBURN / GAS; Start 05/31/18 at 07:45 Calcium Carbonate/ Glycine (Tums) 500 mg PRN Q3HRS PRN PO INDIGESTION; Start 05/31/18 at 07:45 Diphenhydramine HCl (Benadryl) 25 mg PRN Q6HRS PRN PO ITCHING; Start 05/31/18 at 07:45 Info (Non-Icu Electrolyte Protocol) 1 ea DAILY MC Last administered on at 09:00; Start 06/01/18 at 09:00 Naloxone HCl (Narcan) 0.1 mg PRN Q2MIN PRN IV ADMIN; Start 05/31/18 at 07:45 Sodium Chloride (Normal Saline Flush) 3 ml QSHIFT PRN IV AFTER MEDS AND BLOOD DRAWS; Start 05/31/18 at 07:45 Sodium Chloride 1,000 ml @ 100 mls/hr Q10H IV Last administered on 06/01/18at 00:02; Start 05/31/18 at 15:00; Stop 06/01/18 at 17:47; Status DC Morphine Sulfate (Morphine Sulfate) 2 mg PRN Q1HR PRN IV PAIN MILD Last administered on 06/04/18at 12:18; Start 05/31/18 at 07:45 Senna/Docusate Sodium (Senna Plus) 1 tab BID PO Last administered on 06/05/18at 10:23; Start 05/31/18 at 09:00 Ondansetron HCl (Zofran) 4 mg PRN Q6HRS PRN IV NAUESA, 1ST CHOICE Last administered on 06/03/18at 18:32; Start 05/31/18 at 07:45 Prochlorperazine Edisylate (Compazine) 5 mg PRN Q6HRS PRN IV N/V, 2nd Choice, MR X1; Start 05/31/18 at 07:45 Cefazolin Sodium 1 gm/Dextrose 50 ml @ 100 mls/hr Q6H IV ; Start 05/31/18 at 07:45; Stop 05/31/18 at 16:44; Status DC Labetalol HCl (Normodyne Iv Push) 20 mg PRN Q2HR PRN IVP HYPERTENSION, SEE COMMENTS; Start 05/31/18 at 07:45 Dexamethasone Sodium Phosphate (Decadron) 20 mg STK-MED ONCE .ROUTE ; Start at 08:19; Stop 05/31/18 at 08:20; Status DC Phenylephrine HCl (PHENYLEPHRINE in 0.9% NACL PF) 1 mg STK-MED ONCE IV ; Start 05/31/18 at 08:19; Stop 05/31/18 at 08:20; Status DC Heparin Sodium (Porcine) (Heparin Sodium) 10,000 unit STK-MED ONCE .ROUTE ; Start 05/31/18 at 08:19; Stop 05/31/18 at 08:20; Status DC Desflurane (Suprane) 90 ml STK-MED ONCE IH ; Start 05/31/18 at 08:19; Stop at 08:20; Status DC Ephedrine Sulfate (ePHEDrine PF IN SALINE SYRINGE) 50 mg STK-MED ONCE IV ; Start 05/31/18 at 08:28; Stop 05/31/18 at 08:29; Status DC Nicardipine HCl (Cardene) 25 mg STK-MED ONCE IV ; Start 05/31/18 at 08:37; Stop 05/31/18 at 08:38; Status DC Glycopyrrolate (Robinul) 1 mg STK-MED ONCE .ROUTE ; Start 05/31/18 at 09:08; Stop 05/31/18 at 09:09; Status DC Neostigmine Methylsulfate (Neostigmine Methylsulfate) 5 mg STK-MED ONCE .ROUTE ; Start 05/31/18 at 09:08; Stop 05/31/18 at 09:09; Status DC Fentanyl Citrate (Fentanyl 2ml Vial) 100 mcg STK-MED ONCE .ROUTE ; Start at 10:14; Stop 05/31/18 at 10:15; Status DC Protamine Sulfate (Protamine) 50 mg STK-MED ONCE IV ; Start 05/31/18 at 10:41; Stop 05/31/18 at 10:42; Status DC Protamine Sulfate (Protamine) 50 mg STK-MED ONCE IV ; Start 05/31/18 at 10:53; Stop 05/31/18 at 10:54; Status DC Cefazolin Sodium 1 gm/Dextrose 50 ml @ 100 mls/hr Q6H IV Last administered on 06/01/18at 04:55; Start 05/31/18 at 17:00; Stop 06/01/18 at 05:29; Status DC Nicotine (Nicoderm Cq 21mg) 1 patch DAILY TD Last administered on 06/03/18at 12 :44; Start 06/03/18 at 09:00 Isosorbide Mononitrate (Imdur) 30 mg DAILY PO Last administered on 06/05/18at 10 :23; Start 06/04/18 at 13:45 Ranolazine (Ranexa) 500 mg BID PO Last administered on 06/05/18at 10:24; Start 06/04/18 at 21:00 Active Scripts Active Aspirin Ec (Aspirin) 325 Mg Tablet. 325 Mg PO DAILYWBKFT Reported Pepcid (Famotidine) 20 Mg Tablet 20 Mg PO DAILY Pepcid (Famotidine) 20 Mg Tablet 20 Mg PO HS Clopidogrel (Clopidogrel Bisulfate) 75 Mg Tablet 75 Mg PO DAILY Levothyroxine Sodium 75 Mcg Tablet 75 Mcg PO DAILYAC Hydrocodone-Apap 5-325 (Hydrocodone Bit/Acetaminophen) 1 Each Tablet 2 Tab PO PRN Q6HRS PRN Nitrostat (Nitroglycerin) 0.4 Mg Tab.subl 0.4 Mg SL PRN Q5MIN PRN Hydrocodone-Apap 5-325 (Hydrocodone Bit/Acetaminophen) 1 Each Tablet 1 Tab PO PRN Q6HRS PRN Amlodipine Besylate 5 Mg Tablet 1 Tab PO DAILY Simvastatin 40 Mg Tablet 1 Tab PO QHS Metoprolol Succinate ( Xl ) (Metoprolol Succinate) 25 Mg Tab.er.24h 50 Mg PO DAILY Vitals/I & O Vital Sign - Last 24 Hours 06/04/18 06/04/18 06/04/18 06/04/18 12:57 14:43 16:17 19:15 Temp 98.8 98.9 98.8 98.9 Pulse 71 71 86 Resp 18 18 B/P (MAP) 109/45 (66) 109/45 141/54 (83) Pulse Ox 93 93 89 O2 Delivery Nasal Cannula Nasal Cannula Nasal Cannula O2 Flow Rate 2.0 2.0 06/04/18 06/04/18 06/04/18 06/05/18 20:23 21:09 23:25 03:48 Temp 98.3 98.0 98.3 98.0 Pulse 89 85 91 Resp 18 B/P (MAP) 141/54 103/47 (65) 135/53 (80) Pulse Ox 97 96 O2 Delivery Nasal Cannula Nasal Cannula Nasal Cannula O2 Flow Rate 2.0 2.0 2.0 06/05/18 06/05/18 06/05/18 06/05/18 07:25 08:00 10:23 10:23 Temp 98.3 98.3 Pulse 87 87 87 Resp 16 B/P (MAP) 143/59 (87) 143/59 143/59 Pulse Ox 94 O2 Delivery Nasal Cannula Nasal Cannula O2 Flow Rate 2.0 2.0 06/05/18 06/05/18 06/05/18 10:24 10:24 11:10 Temp 98.4 98.4 Pulse 87 87 101 Resp 18 B/P (MAP) 143/59 143/59 131/46 (74) Pulse Ox 95 O2 Delivery Nasal Cannula O2 Flow Rate 2.0 Intake and Output 06/04/18 06/04/18 06/05/18 15:00 23:00 07:00 Intake Total 480 ml 0 ml Output Total 700 ml 300 ml Balance -220 ml -300 ml Nutrition Consultation Dietary Evaluation: Recommendations by RD: Protein supplementation Comments: Continue w/cardaic diet Add Ensure BID (breakfast and dinner, chocolate flavor) Expected Outcomes/Goals: PO intake to meet >75% est needs Malnutrition Findings: Food and Nutrition Intake (Mod: <75% est energy req 7days Weight Status: Appropriate JOEY JONES III DO Jun 05, 2018 13:02
--- NOTE | 2018-06-05 13:26 | PDOC ---
Provider Note Provider Note S: pt without complaints. No further chest pain O: vss 2+ graft pulse right medial leg A: chest pain with elevated troponin. Cardiology consulted P: per cardiology. ok to discharge from surgical standpoint. TALIA DE GUZMAN II, MD Jun 05, 2018 13:26
[2018-06-05] MEDS: SIMVASTATIN 40 MG TABLET. PO SCH (20:59)
[2018-06-05] MEDS: HYDROcodone/APAP 5/325MG 1 TAB TABLET PO PRN (21:00)
[2018-06-05] MEDS: NITROGLYCERIN SUBLINGUAL 0.4 MG BOTTLE OF 25. SL PRN ×2 (23:21→23:29)
[2018-06-06 03:00] VITALS: BP 130/51
[2018-06-06 06:18] LABS: BASO % 1 % (0-3); EOS # 0.4 x10^3/uL (0.0-0.7); EOS % 5 % (0-3); HEMATOCRIT 24.7 % (36.0-47.0); HEMOGLOBIN 8.5 g/dL (12.0-15.5); LYMPH # 1.1 x10^3/uL (1.0-4.8); LYMPH % 15 % (24-48); MEAN CORPUSCULAR HEMOGLOBIN 32 pg (25-35); MEAN CORPUSCULAR HGB CONC 34 g/dL (31-37); MEAN CORPUSCULAR VOLUME 93 fL (79-100); MONO # 1.4 x10^3/uL (0.0-1.1); MONO % 19 % (0-9); NEUT # 4.4 x10^3uL (1.8-7.7); NEUT % 60 % (31-73); PLATELET COUNT 192 x10^3/uL (140-400); RED BLOOD COUNT 2.65 x10^6/uL (3.50-5.40); RED CELL DISTRIBUTION WIDTH 14.6 % (11.5-14.5); WHITE BLOOD COUNT 7.4 x10^3/uL (4.0-11.0)
[2018-06-06 06:43] LABS: CALCIUM 8.6 mg/dL (8.5-10.1); CREATININE 0.8 mg/dL (0.6-1.0); GFR 68.8; POTASSIUM 4.1 mmol/L (3.5-5.1)
[2018-06-06 07:25] VITALS: BP 136/48
[2018-06-06 08:17] LABS: % EOS 3 % (0-5); % LYMPHS 25 % (24-48); % METAS 1 % (0-0); % MONOS 15 % (0-10); % SEGS 56 % (35-66)
[2018-06-06 08:18] LABS: PLT ESTIMATE ADEQUATE (ADEQUATE)
[2018-06-06] MEDS: NICOTINE 21MG PATCH. TD SCH (09:00)
[2018-06-06] MEDS: ELECTROLYTE (NON-ICU) PROTOCOL MC SCH (09:00)
--- NOTE | 2018-06-06 10:11 | CARD ---
MR#: [id number] Date of Study: 06/06/2018 Ordering Physician: MARIAH STILES, Referring Physician: ANGELIA POP, Tech: Vicki Toth NICHOL APPROVED REPORT EXAM: Two-dimensional and M-mode echocardiogram with Doppler and color Doppler. Other Information Quality : Technically LimitedHR: 90bpm Rhythm : NSRTechnically limited study due to smoking. INDICATION CAD 2D DIMENSIONS IVSd1.2 (0.7-1.1cm)Aortic Root(2D)2.6 (2.0-3.7cm) LVDd3.1 (3.9-5.9cm)LVOT Diameter1.7 (1.8-2.4cm) PWd1.0 (0.7-1.1cm)LVDs2.2 (2.5-4.0cm) FS (%) 27.9 %SV20.4 ml LVEF(%)55.6 (>50%) Aortic Valve AoV Peak Landen.174.4cm/sAoV VTI38.7cm AO Peak GR.12.2mmHgLVOT Peak Landen.77.3cm/s AO Mean GR.7mmHgAVA (VMAX)0.98cm2 AI P 1/2 Vdcp126eo Mitral Valve MV E Cfrsrcbd288.2cm/sMV DECEL [id number] MV A Nrgqwrbz84.2cm/sE/A Ratio1.2 MV A [id number] Planimetry1.30cm2 Pulmonary Valve PV Peak Zkxzoddl801.2cm/s Tricuspid Valve TR P. [id number]/sRAP [id number] TR Peak Gr.95msZwGDLZ50deWu LEFT VENTRICLE The left ventricle cavity is small. Proximal septal thickening is noted. The left ventricular systoli c function is normal and the ejection fraction is within normal range. The Ejection Fraction is 55-60 %. The mid to distal septum is akinetic. Transmitral Doppler flow pattern is Grade II-pseudonormal fi lling dynamics. RIGHT VENTRICLE The right ventricle is normal size. There is normal right ventricular wall thickness. The right ventr icular systolic function is normal. ATRIA The left atrium size is normal. The right atrium is mildly dilated. The interatrial septum is intact with no evidence for an atrial septal defect or patent foramen ovale as noted on 2-D or Doppler imagi ng. AORTIC VALVE Not well visualized. Doppler and Color Flow revealed mild aortic regurgitation. There is no significa nt aortic valvular stenosis. MITRAL VALVE Mitral annular calcification is mild. There is no evidence of mitral valve prolapse. There is no mitr al valve stenosis. Doppler and Color-flow revealed mild mitral regurgitation. TRICUSPID VALVE The tricuspid valve is normal in structure and function. Doppler and Color Flow revealed mild to mode rate tricuspid regurgitation. There is moderate pulmonary hypertension. The PA pressure was estimated at 64 mmHg. There is no tricuspid valve prolapse or vegetation. There is no tricuspid valve stenosis . PULMONIC VALVE Pulmonic valve not well visualized. GREAT VESSELS The aortic root is normal in size. The ascending aorta is normal in size. The IVC is normal in size a nd collapses >50% with inspiration. PERICARDIAL EFFUSION There is a trace pericardial effusion. Critical Notification Critical Value: No <Conclusion> The left ventricular systolic function is normal and the ejection fraction is within normal range. Th e Ejection Fraction is 55-60%. The mid to distal septum is akinetic. Doppler and Color Flow revealed mild to moderate tricuspid regurgitation. There is moderate pulmonary hypertension. The PA pressure was estimated at 64 mmHg. Signed by : Mariah Stiles, Electronically Approved : 06/06/2018 10:10:05
[2018-06-06] MEDS: METOPROLOL SUCC 24HR ER 25 MG TAB.ER.24H. PO SCH (10:30)
[2018-06-06] MEDS: RANOLAZINE 500 MG TAB.ER.12H PO SCH ×2 (10:31→21:06)
[2018-06-06] MEDS: FAMOTIDINE 20 MG TABLET. PO SCH (10:32)
[2018-06-06] MEDS: LEVOTHYROXINE 75 MCG TABLET PO SCH (10:32)
[2018-06-06] MEDS: HYDROcodone/APAP 5/325MG 1 TAB TABLET PO PRN ×2 (10:32→18:00)
[2018-06-06] MEDS: ISOSORBIDE MONONITRATE ER 30 MG TAB.ER.24H PO SCH (10:33)
[2018-06-06] MEDS: SENNOSIDES/DOCUSATE 8.6/50MG TABLET. PO SCH ×2 (10:33→21:08)
[2018-06-06] MEDS: CLOPIDOGREL BISULFATE 75 MG TABLET PO SCH (10:34)
[2018-06-06] MEDS: ASPIRIN ENTERIC COATED 325 MG TABLET.DR. PO SCH (10:34)
[2018-06-06] MEDS: amLODIPine BESYLATE 5 MG TABLET PO SCH (10:35)
[2018-06-06 11:15] VITALS: BP 121/53
--- NOTE | 2018-06-06 11:17 | PDOC ---
PROGRESS NOTES Chief Complaint Chief Complaint PVD S/P R Fem pop pod 6 History of Present Illness History of Present Illness POD 6 R Fem pop. Patient seen and examined this morning. She is doing well and desires to discharge home. She is scheduled for an echo this morning. Discharge pending results. Vitals Vitals Vital Signs Date Time Temp Pulse Resp B/P (MAP) Pulse Ox O2 Delivery O2 Flow Rate FiO2 06/06/18 10:35 87 126/53 06/06/18 10:32 18 92 Room Air 06/06/18 07:25 98.2 3.0 98.2 Physical Exam General: Alert, Oriented X3, No acute distress Heart: Regular rate, Normal S1, Normal S2, No murmurs Lungs: Clear, Other (2L nc) Abdomen: Normal bowel sounds Extremities: No clubbing, No edema Skin: No rashes, Other (incision CDI) Labs LABS Laboratory Tests Test 06/06/18 05:05 White Blood Count 7.4 x10^3/uL (4.0-11.0) Red Blood Count 2.65 x10^6/uL (3.50-5.40) Hemoglobin 8.5 g/dL (12.0-15.5) Hematocrit 24.7 % (36.0-47.0) Mean Corpuscular Volume 93 fL (79-100) Mean Corpuscular Hemoglobin 32 pg (25-35) Mean Corpuscular Hemoglobin Concent 34 g/dL (31-37) Red Cell Distribution Width 14.6 % (11.5-14.5) Platelet Count 192 x10^3/uL (140-400) Neutrophils (%) (Auto) 60 % (31-73) Lymphocytes (%) (Auto) 15 % (24-48) Monocytes (%) (Auto) 19 % (0-9) Eosinophils (%) (Auto) 5 % (0-3) Basophils (%) (Auto) 1 % (0-3) Neutrophils # (Auto) 4.4 x10^3uL (1.8-7.7) Lymphocytes # (Auto) 1.1 x10^3/uL (1.0-4.8) Monocytes # (Auto) 1.4 x10^3/uL (0.0-1.1) Eosinophils # (Auto) 0.4 x10^3/uL (0.0-0.7) Basophils # (Auto) 0.0 x10^3/uL (0.0-0.2) Segmented Neutrophils % 56 % (35-66) Lymphocytes % 25 % (24-48) Monocytes % 15 % (0-10) Eosinophils % 3 % (0-5) Metamyelocytes % 1 % (0-0) Platelet Estimate Adequate (ADEQUATE) Sodium Level 137 mmol/L (136-145) Potassium Level 4.1 mmol/L (3.5-5.1) Chloride Level 99 mmol/L (98-107) Carbon Dioxide Level 34 mmol/L (21-32) Anion Gap 4 (6-14) Blood Urea Nitrogen 21 mg/dL (7-20) Creatinine 0.8 mg/dL (0.6-1.0) Estimated GFR (Cockcroft-Gault) 68.8 Glucose Level 105 mg/dL (70-99) Calcium Level 8.6 mg/dL (8.5-10.1) Review of Systems Review of Systems General: patient appears well and at baseline Heart: denies chest pain Lung: denies soa Assessment and Plan Assessmemt and Plan Assessment: 1. s/p R fem pop 2. CHF Plan: 1. Wound care 2. OK to discharge from internal medicine standpoint if ok with cardiology and pending echo results 3. Echo today 4. labs 5. home meds 6. PT/OT Comment Review of Relevant I have reviewed the following items corwin (where applicable) has been applied. Labs Laboratory Tests Test 06/04/18 13:15 06/04/18 16:00 06/05/18 04:00 06/06/18 05:05 Troponin I Quantitative 0.083 ng/mL (0.000-0.055) 0.108 ng/mL (0.000-0.055) Sodium Level 132 mmol/L (136-145) 137 mmol/L (136-145) Potassium Level 4.6 mmol/L (3.5-5.1) 4.1 mmol/L (3.5-5.1) Chloride Level 96 mmol/L (98-107) 99 mmol/L (98-107) Carbon Dioxide Level 32 mmol/L (21-32) 34 mmol/L (21-32) Anion Gap 4 (6-14) 4 (6-14) Blood Urea Nitrogen 21 mg/dL (7-20) 21 mg/dL (7-20) Creatinine 0.7 mg/dL (0.6-1.0) 0.8 mg/dL (0.6-1.0) Estimated GFR (Cockcroft-Gault) 80.3 68.8 Glucose Level 107 mg/dL (70-99) 105 mg/dL (70-99) Calcium Level 8.9 mg/dL (8.5-10.1) 8.6 mg/dL (8.5-10.1) White Blood Count 7.4 x10^3/uL (4.0-11.0) Red Blood Count 2.65 x10^6/uL (3.50-5.40) Hemoglobin 8.5 g/dL (12.0-15.5) Hematocrit 24.7 % (36.0-47.0) Mean Corpuscular Volume 93 fL (79-100) Mean Corpuscular Hemoglobin 32 pg (25-35) Mean Corpuscular Hemoglobin Concent 34 g/dL (31-37) Red Cell Distribution Width 14.6 % (11.5-14.5) Platelet Count 192 x10^3/uL (140-400) Neutrophils (%) (Auto) 60 % (31-73) Lymphocytes (%) (Auto) 15 % (24-48) Monocytes (%) (Auto) 19 % (0-9) Eosinophils (%) (Auto) 5 % (0-3) Basophils (%) (Auto) 1 % (0-3) Neutrophils # (Auto) 4.4 x10^3uL (1.8-7.7) Lymphocytes # (Auto) 1.1 x10^3/uL (1.0-4.8) Monocytes # (Auto) 1.4 x10^3/uL (0.0-1.1) Eosinophils # (Auto) 0.4 x10^3/uL (0.0-0.7) Basophils # (Auto) 0.0 x10^3/uL (0.0-0.2) Segmented Neutrophils % 56 % (35-66) Lymphocytes % 25 % (24-48) Monocytes % 15 % (0-10) Eosinophils % 3 % (0-5) Metamyelocytes % 1 % (0-0) Platelet Estimate Adequate (ADEQUATE) Laboratory Tests Test 06/06/18 05:05 White Blood Count 7.4 x10^3/uL (4.0-11.0) Red Blood Count 2.65 x10^6/uL (3.50-5.40) Hemoglobin 8.5 g/dL (12.0-15.5) Hematocrit 24.7 % (36.0-47.0) Mean Corpuscular Volume 93 fL (79-100) Mean Corpuscular Hemoglobin 32 pg (25-35) Mean Corpuscular Hemoglobin Concent 34 g/dL (31-37) Red Cell Distribution Width 14.6 % (11.5-14.5) Platelet Count 192 x10^3/uL (140-400) Neutrophils (%) (Auto) 60 % (31-73) Lymphocytes (%) (Auto) 15 % (24-48) Monocytes (%) (Auto) 19 % (0-9) Eosinophils (%) (Auto) 5 % (0-3) Basophils (%) (Auto) 1 % (0-3) Neutrophils # (Auto) 4.4 x10^3uL (1.8-7.7) Lymphocytes # (Auto) 1.1 x10^3/uL (1.0-4.8) Monocytes # (Auto) 1.4 x10^3/uL (0.0-1.1) Eosinophils # (Auto) 0.4 x10^3/uL (0.0-0.7) Basophils # (Auto) 0.0 x10^3/uL (0.0-0.2) Segmented Neutrophils % 56 % (35-66) Lymphocytes % 25 % (24-48) Monocytes % 15 % (0-10) Eosinophils % 3 % (0-5) Metamyelocytes % 1 % (0-0) Platelet Estimate Adequate (ADEQUATE) Sodium Level 137 mmol/L (136-145) Potassium Level 4.1 mmol/L (3.5-5.1) Chloride Level 99 mmol/L (98-107) Carbon Dioxide Level 34 mmol/L (21-32) Anion Gap 4 (6-14) Blood Urea Nitrogen 21 mg/dL (7-20) Creatinine 0.8 mg/dL (0.6-1.0) Estimated GFR (Cockcroft-Gault) 68.8 Glucose Level 105 mg/dL (70-99) Calcium Level 8.6 mg/dL (8.5-10.1) Medications Current Medications Heparin Sodium (Porcine) 5000 unit/Sodium Chloride 505 ml @ 505 mls/hr 1X ONCE IRR Last administered on 05/31/18at 08:53; Start 05/31/18 at 06:00; Stop 05/31/18 at 06:59; Status DC Ondansetron HCl (Zofran) 4 mg PRN Q6HRS PRN IV NAUSEA/VOMITING; Start at 07:00; Stop 05/31/18 at 18:00; Status DC Fentanyl Citrate (Fentanyl 2ml Vial) 25 mcg PRN Q5MIN PRN IV MILD PAIN; Start 05/31/18 at 07:00; Stop 05/31/18 at 18:00; Status DC Fentanyl Citrate (Fentanyl 2ml Vial) 50 mcg PRN Q5MIN PRN IV MODERATE TO SEVERE PAIN; Start 05/31/18 at 07:00; Stop 05/31/18 at 18:00; Status DC Morphine Sulfate (Morphine Sulfate) 1 mg PRN Q10MIN PRN IV SEVERE PAIN Last administered on 05/31/18at 18:04; Start 05/31/18 at 07:00; Stop 05/31/18 at 18 :00; Status DC Ringer's Solution 1,000 ml @ 30 mls/hr Q24H IV Last administered on at 06:33; Start 05/31/18 at 07:00; Stop 05/31/18 at 18:59; Status DC Lidocaine HCl (Xylocaine-Mpf 1% 2ml Vial) 2 ml PRN 1X PRN ID IV START; Start 05/31/18 at 07:00; Stop 05/31/18 at 18:00; Status DC Hydromorphone HCl (Dilaudid) 0.5 mg PRN Q10MIN PRN IV SEV PAIN, Second choice; Start 05/31/18 at 07:00; Stop 05/31/18 at 18:00; Status DC Prochlorperazine Edisylate (Compazine) 5 mg PACU PRN PRN IV NAUSEA, MRX1; Start 05/31/18 at 07:00; Stop 05/31/18 at 18:00; Status DC Cefazolin Sodium/ Dextrose 50 ml @ 100 mls/hr 1X PREOP PRN IV PRIOR TO PROCEDURE Last administered on 05/31/18at 08:00; Start 05/31/18 at 06:00; Stop 05/31/18 at 18:00; Status DC Iohexol (Omnipaque 300 Mg/ml) 100 ml STK-MED ONCE .ROUTE ; Start 05/31/18 at 06 :45; Stop 05/31/18 at 06:46; Status DC Cellulose (Surgicel Fibrillar 1x2) 1 each STK-MED ONCE .ROUTE Last administered on 05/31/18at 10:48; Start 05/31/18 at 06:45; Stop 05/31/18 at 06 :46; Status DC Propofol 20 ml @ As Directed STK-MED ONCE IV ; Start 05/31/18 at 07:00; Stop 05/31/18 at 07:01; Status DC Lidocaine HCl (Lidocaine Pf 2% Vial) 5 ml STK-MED ONCE .ROUTE ; Start 05/31/18 at 07:00; Stop 05/31/18 at 07:01; Status DC Fentanyl Citrate (Fentanyl 2ml Vial) 100 mcg STK-MED ONCE .ROUTE ; Start at 07:00; Stop 05/31/18 at 07:01; Status DC Rocuronium [place] (Zemuron) 50 mg STK-MED ONCE .ROUTE ; Start 05/31/18 at 07: 00; Stop 05/31/18 at 07:01; Status DC Cefazolin Sodium 1 gm/Sodium Chloride 500 ml @ 500 mls/hr 1X ONCE IRR Last administered on 05/31/18at 08:51; Start 05/31/18 at 07:30; Stop 05/31/18 at 08 :29; Status DC Lidocaine HCl 48 ml/Sodium Bicarbonate 12 meq/Miscellaneous 60 ml @ 60 mls/hr 1X ONCE ID ; Start 05/31/18 at 07:07; Stop 05/31/18 at 08:06; Status DC Gelatin (Gelfoam Size 100) 1 each STK-MED ONCE .ROUTE ; Start 05/31/18 at 07: 19; Stop 05/31/18 at 07:20; Status DC Papaverine HCl 60 mg STK-MED ONCE .ROUTE ; Start 05/31/18 at 07:19; Stop 05/31 at 07:20; Status DC Thrombin 20,000 unit STK-MED ONCE TP ; Start 05/31/18 at 07:19; Stop 05/31/18 at 07:20; Status DC Amlodipine Besylate (Norvasc) 5 mg DAILY PO Last administered on 06/06/18 10: 35; Start 06/01/18 at 09:00 Aspirin (Ecotrin) 325 mg DAILYWBKFT PO Last administered on 06/06/18 10:34; Start 06/01/18 at 08:00 Clopidogrel Bisulfate (Plavix) 75 mg DAILY PO Last administered on 06/06/18 10 :34; Start 06/01/18 at 09:00 Famotidine (Pepcid) 20 mg DAILY PO Last administered on 06/06/18 10:32; Start 06/01/18 at 09:00 Acetaminophen/ Hydrocodone Bitart (Lortab 5/325) 1 tab PRN Q6HRS PRN PO PAIN MILD Last administered on 06/02/18at 13:38; Start 05/31/18 at 07:45 Acetaminophen/ Hydrocodone Bitart (Lortab 5/325) 2 tab PRN Q6HRS PRN PO PAIN MODERATE Last administered on 06/06/18 10:32; Start 05/31/18 at 07:45 Levothyroxine Sodium (Synthroid) 75 mcg DAILYAC PO Last administered on 10:32; Start 06/01/18 at 07:30 Metoprolol Succinate (Toprol Xl) 50 mg DAILY PO Last administered on 06/06/18 10:30; Start 05/31/18 at 09:00 Nitroglycerin (Nitrostat) 0.4 mg PRN Q5MIN PRN SL CHEST PAIN Last administered on 06/05/18 23:29; Start 05/31/18 at 07:45 Simvastatin (Zocor) 40 mg QHS PO Last administered on 06/05/18 20:59; Start 05/31/18 at 21:00 Oxycodone HCl (Roxicodone) 5 mg PRN Q3HRS PRN PO PAIN SEVERE Last administered on 06/03/18 18:32; Start 05/31/18 at 07:45 Al Hydroxide/Mg Hydroxide (Mylanta Plus Xs) 30 ml PRN Q3HRS PRN PO HEARTBURN / GAS; Start 05/31/18 at 07:45 Calcium Carbonate/ Glycine (Tums) 500 mg PRN Q3HRS PRN PO INDIGESTION; Start 05/31/18 at 07:45 Diphenhydramine HCl (Benadryl) 25 mg PRN Q6HRS PRN PO ITCHING; Start 05/31/18 at 07:45 Info (Non-Icu Electrolyte Protocol) 1 ea DAILY MC Last administered on at 09:00; Start 06/01/18 at 09:00 Naloxone HCl (Narcan) 0.1 mg PRN Q2MIN PRN IV ADMIN; Start 05/31/18 at 07:45 Sodium Chloride (Normal Saline Flush) 3 ml QSHIFT PRN IV AFTER MEDS AND BLOOD DRAWS; Start 05/31/18 at 07:45 Sodium Chloride 1,000 ml @ 100 mls/hr Q10H IV Last administered on 06/01/18at 00:02; Start 05/31/18 at 15:00; Stop 06/01/18 at 17:47; Status DC Morphine Sulfate (Morphine Sulfate) 2 mg PRN Q1HR PRN IV PAIN MILD Last administered on 06/04/18at 12:18; Start 05/31/18 at 07:45 Senna/Docusate Sodium (Senna Plus) 1 tab BID PO Last administered on 06/06/18at 10:33; Start 05/31/18 at 09:00 Ondansetron HCl (Zofran) 4 mg PRN Q6HRS PRN IV NAUESA, 1ST CHOICE Last administered on 06/03/18at 18:32; Start 05/31/18 at 07:45 Prochlorperazine Edisylate (Compazine) 5 mg PRN Q6HRS PRN IV N/V, 2nd Choice, MR X1; Start 05/31/18 at 07:45 Cefazolin Sodium 1 gm/Dextrose 50 ml @ 100 mls/hr Q6H IV ; Start 05/31/18 at 07:45; Stop 05/31/18 at 16:44; Status DC Labetalol HCl (Normodyne Iv Push) 20 mg PRN Q2HR PRN IVP HYPERTENSION, SEE COMMENTS; Start 05/31/18 at 07:45 Dexamethasone Sodium Phosphate (Decadron) 20 mg STK-MED ONCE .ROUTE ; Start at 08:19; Stop 05/31/18 at 08:20; Status DC Phenylephrine HCl (PHENYLEPHRINE in 0.9% NACL PF) 1 mg STK-MED ONCE IV ; Start 05/31/18 at 08:19; Stop 05/31/18 at 08:20; Status DC Heparin Sodium (Porcine) (Heparin Sodium) 10,000 unit STK-MED ONCE .ROUTE ; Start 05/31/18 at 08:19; Stop 05/31/18 at 08:20; Status DC Desflurane (Suprane) 90 ml STK-MED ONCE IH ; Start 05/31/18 at 08:19; Stop at 08:20; Status DC Ephedrine Sulfate (ePHEDrine PF IN SALINE SYRINGE) 50 mg STK-MED ONCE IV ; Start 05/31/18 at 08:28; Stop 05/31/18 at 08:29; Status DC Nicardipine HCl (Cardene) 25 mg STK-MED ONCE IV ; Start 05/31/18 at 08:37; Stop 05/31/18 at 08:38; Status DC Glycopyrrolate (Robinul) 1 mg STK-MED ONCE .ROUTE ; Start 05/31/18 at 09:08; Stop 05/31/18 at 09:09; Status DC Neostigmine Methylsulfate (Neostigmine Methylsulfate) 5 mg STK-MED ONCE .ROUTE ; Start 05/31/18 at 09:08; Stop 05/31/18 at 09:09; Status DC Fentanyl Citrate (Fentanyl 2ml Vial) 100 mcg STK-MED ONCE .ROUTE ; Start at 10:14; Stop 05/31/18 at 10:15; Status DC Protamine Sulfate (Protamine) 50 mg STK-MED ONCE IV ; Start 05/31/18 at 10:41; Stop 05/31/18 at 10:42; Status DC Protamine Sulfate (Protamine) 50 mg STK-MED ONCE IV ; Start 05/31/18 at 10:53; Stop 05/31/18 at 10:54; Status DC Cefazolin Sodium 1 gm/Dextrose 50 ml @ 100 mls/hr Q6H IV Last administered on 06/01/18at 04:55; Start 05/31/18 at 17:00; Stop 06/01/18 at 05:29; Status DC Nicotine (Nicoderm Cq 21mg) 1 patch DAILY TD Last administered on 06/03/18at 12 :44; Start 06/03/18 at 09:00 Isosorbide Mononitrate (Imdur) 30 mg DAILY PO Last administered on 06/06/18at 10 :33; Start 06/04/18 at 13:45 Ranolazine (Ranexa) 500 mg BID PO Last administered on 06/06/18at 10:31; Start 06/04/18 at 21:00 Active Scripts Active Aspirin Ec (Aspirin) 325 Mg Tablet.dr 325 Mg PO DAILYWBKFT Reported Pepcid (Famotidine) 20 Mg Tablet 20 Mg PO DAILY Pepcid (Famotidine) 20 Mg Tablet 20 Mg PO HS Clopidogrel (Clopidogrel Bisulfate) 75 Mg Tablet 75 Mg PO DAILY Levothyroxine Sodium 75 Mcg Tablet 75 Mcg PO DAILYAC Hydrocodone-Apap 5-325 (Hydrocodone Bit/Acetaminophen) 1 Each Tablet 2 Tab PO PRN Q6HRS PRN Nitrostat (Nitroglycerin) 0.4 Mg Tab.subl 0.4 Mg SL PRN Q5MIN PRN Hydrocodone-Apap 5-325 (Hydrocodone Bit/Acetaminophen) 1 Each Tablet 1 Tab PO PRN Q6HRS PRN Amlodipine Besylate 5 Mg Tablet 1 Tab PO DAILY Simvastatin 40 Mg Tablet 1 Tab PO QHS Metoprolol Succinate ( Xl ) (Metoprolol Succinate) 25 Mg Tab.er.24h 50 Mg PO DAILY Vitals/I & O Vital Sign - Last 24 Hours 06/05/18 06/05/18 06/05/18 06/05/18 15:00 19:00 19:20 20:59 Temp 98.7 98.8 98.7 98.8 Pulse 76 96 94 Resp 18 16 B/P (MAP) 111/44 (66) 117/61 (79) 117/61 Pulse Ox 95 91 O2 Delivery Nasal Cannula Nasal Cannula Nasal Cannula O2 Flow Rate 2.0 2.0 2.0 06/05/18 06/05/18 06/05/18 06/05/18 21:00 22:00 23:21 23:22 Temp 98.4 98.4 Pulse 105 105 Resp 16 16 18 B/P (MAP) 175/54 175/54 (94) Pulse Ox 92 92 87 O2 Delivery Nasal Cannula Nasal Cannula Nasal Cannula O2 Flow Rate 2.0 3.0 06/05/18 06/05/18 06/06/18 06/06/18 23:29 23:30 03:00 07:25 Temp 98.2 98.2 98.2 98.2 Pulse 102 101 92 54 Resp 18 18 18 B/P (MAP) 116/57 116/57 (76) 130/51 (77) 136/48 (77) Pulse Ox 90 96 95 O2 Delivery Nasal Cannula Nasal Cannula Nasal Cannula O2 Flow Rate 3.0 3.0 3.0 06/06/18 06/06/18 06/06/18 06/06/18 10:30 10:31 10:32 10:33 Pulse 89 97 83 Resp 18 B/P (MAP) 121/53 121/53 126/53 Pulse Ox 92 O2 Delivery Room Air 06/06/18 10:35 Pulse 87 B/P (MAP) 126/53 Intake and Output 06/05/18 06/05/18 06/06/18 15:00 23:00 07:00 Intake Total 510 ml 200 ml Output Total 400 ml 400 ml Balance -400 ml 110 ml 200 ml Nutrition Consultation Dietary Evaluation: Recommendations by RD: Protein supplementation Comments: Continue w/cardaic diet Add Ensure BID (breakfast and dinner, chocolate flavor) Expected Outcomes/Goals: PO intake to meet >75% est needs Malnutrition Findings: Food and Nutrition Intake (Mod: <75% est energy req 7days Weight Status: Appropriate JOEY JONES III DO Jun 06, 2018 11:17
--- NOTE | 2018-06-06 13:32 | PDOC ---
PROGRESS NOTES Subjective Subjective "I had chest pain again lasts night but I have chest pain a lot even at home. I don't want a heart cath and that's what they tell me I need." Objective Objective Vascular Surgery - POD #6 Right fem-pop bypass General: Sitting comfortably in bed. No complaints at rest but does still complain of incisional pain with ambulation. Denies chest pain at this time. CV: NSR with PAC's. No murmur auscultated. Resp: Unlabored. Does have a persistent, dry cough. Breath sounds diminished on right. No wheezes. Cannot wean oxygen to off. Desaturates to 85% with conversation. RN reports patient desaturates at HS to low 80's while sleeping. Abd: Soft. + sounds. Non-distended RLE: Palpable DP and PT pulses into foot. Right foot warm and pink. Incisions to right groin, thigh and calf are intact. Slight superficial separation noted to thigh incision area. No drainage. Noted erythema to incision at the knee area. Mild swelling noted in thigh. Calf is soft. Assessment/Plan: 1. Right leg claudication with PAD. POD #6 Right femoral to tibioperoneal trunk bypass graft using ipsilateral greater saphenous vein. 2. Needs to continue to ambulate more. 3. Needs to shower. 4. CAD with chest pain. Appreciate CV involvement. Echo has been completed this a.m. Normal EF. Anti-anginal meds have been initiated. 5. Acute anemia related to surgical blood loss. Stable but still drifting somewhat. Recheck CBC in a.m. 6. Hypoxemia with desaturation. Will check CXR today. Have also ordered sleep study for tonight. Most likely, patient will need home oxygen therapy upon discharge. Patient states she had home O2 in the past 2 years ago when she had "heart failure." 7. Anticipate discharge to home next 1-2 days pending results of CXR and sleep study. Consider Pulmonary consult if abnormal. 8. Rediscussed need for smoking cessation! Nicotine patch being used here. 9. Will add Keflex for redness noted to part of leg incision. Remains afebrile. Vital Signs Date Time Temp Pulse Resp B/P (MAP) Pulse Ox O2 Delivery O2 Flow Rate FiO2 06/06/18 11:32 17 93 Nasal Cannula 1.0 12/3/18 11:15 97.8 95 121/53 (75) 97.8 Intake and Output 06/06/18 07:00 Intake Total 710 ml Output Total 800 ml Balance -90 ml Intake Oral 710 ml Output Urine Total 800 ml # Bowel Movements 1 Comment Review of Relevant I have reviewed the following items corwin (where applicable) has been applied. Labs Laboratory Tests Test 06/04/18 13:15 06/04/18 16:00 06/05/18 04:00 06/06/18 05:05 Troponin I Quantitative 0.083 ng/mL (0.000-0.055) 0.108 ng/mL (0.000-0.055) Sodium Level 132 mmol/L (136-145) 137 mmol/L (136-145) Potassium Level 4.6 mmol/L (3.5-5.1) 4.1 mmol/L (3.5-5.1) Chloride Level 96 mmol/L (98-107) 99 mmol/L (98-107) Carbon Dioxide Level 32 mmol/L (21-32) 34 mmol/L (21-32) Anion Gap 4 (6-14) 4 (6-14) Blood Urea Nitrogen 21 mg/dL (7-20) 21 mg/dL (7-20) Creatinine 0.7 mg/dL (0.6-1.0) 0.8 mg/dL (0.6-1.0) Estimated GFR (Cockcroft-Gault) 80.3 68.8 Glucose Level 107 mg/dL (70-99) 105 mg/dL (70-99) Calcium Level 8.9 mg/dL (8.5-10.1) 8.6 mg/dL (8.5-10.1) White Blood Count 7.4 x10^3/uL (4.0-11.0) Red Blood Count 2.65 x10^6/uL (3.50-5.40) Hemoglobin 8.5 g/dL (12.0-15.5) Hematocrit 24.7 % (36.0-47.0) Mean Corpuscular Volume 93 fL (79-100) Mean Corpuscular Hemoglobin 32 pg (25-35) Mean Corpuscular Hemoglobin Concent 34 g/dL (31-37) Red Cell Distribution Width 14.6 % (11.5-14.5) Platelet Count 192 x10^3/uL (140-400) Neutrophils (%) (Auto) 60 % (31-73) Lymphocytes (%) (Auto) 15 % (24-48) Monocytes (%) (Auto) 19 % (0-9) Eosinophils (%) (Auto) 5 % (0-3) Basophils (%) (Auto) 1 % (0-3) Neutrophils # (Auto) 4.4 x10^3uL (1.8-7.7) Lymphocytes # (Auto) 1.1 x10^3/uL (1.0-4.8) Monocytes # (Auto) 1.4 x10^3/uL (0.0-1.1) Eosinophils # (Auto) 0.4 x10^3/uL (0.0-0.7) Basophils # (Auto) 0.0 x10^3/uL (0.0-0.2) Segmented Neutrophils % 56 % (35-66) Lymphocytes % 25 % (24-48) Monocytes % 15 % (0-10) Eosinophils % 3 % (0-5) Metamyelocytes % 1 % (0-0) Platelet Estimate Adequate (ADEQUATE) Laboratory Tests Test 06/06/18 05:05 White Blood Count 7.4 x10^3/uL (4.0-11.0) Red Blood Count 2.65 x10^6/uL (3.50-5.40) Hemoglobin 8.5 g/dL (12.0-15.5) Hematocrit 24.7 % (36.0-47.0) Mean Corpuscular Volume 93 fL (79-100) Mean Corpuscular Hemoglobin 32 pg (25-35) Mean Corpuscular Hemoglobin Concent 34 g/dL (31-37) Red Cell Distribution Width 14.6 % (11.5-14.5) Platelet Count 192 x10^3/uL (140-400) Neutrophils (%) (Auto) 60 % (31-73) Lymphocytes (%) (Auto) 15 % (24-48) Monocytes (%) (Auto) 19 % (0-9) Eosinophils (%) (Auto) 5 % (0-3) Basophils (%) (Auto) 1 % (0-3) Neutrophils # (Auto) 4.4 x10^3uL (1.8-7.7) Lymphocytes # (Auto) 1.1 x10^3/uL (1.0-4.8) Monocytes # (Auto) 1.4 x10^3/uL (0.0-1.1) Eosinophils # (Auto) 0.4 x10^3/uL (0.0-0.7) Basophils # (Auto) 0.0 x10^3/uL (0.0-0.2) Segmented Neutrophils % 56 % (35-66) Lymphocytes % 25 % (24-48) Monocytes % 15 % (0-10) Eosinophils % 3 % (0-5) Metamyelocytes % 1 % (0-0) Platelet Estimate Adequate (ADEQUATE) Sodium Level 137 mmol/L (136-145) Potassium Level 4.1 mmol/L (3.5-5.1) Chloride Level 99 mmol/L (98-107) Carbon Dioxide Level 34 mmol/L (21-32) Anion Gap 4 (6-14) Blood Urea Nitrogen 21 mg/dL (7-20) Creatinine 0.8 mg/dL (0.6-1.0) Estimated GFR (Cockcroft-Gault) 68.8 Glucose Level 105 mg/dL (70-99) Calcium Level 8.6 mg/dL (8.5-10.1) Medications Current Medications Heparin Sodium (Porcine) 5000 unit/Sodium Chloride 505 ml @ 505 mls/hr 1X ONCE IRR Last administered on 05/31/18at 08:53; Start 05/31/18 at 06:00; Stop 05/31/18 at 06:59; Status DC Ondansetron HCl (Zofran) 4 mg PRN Q6HRS PRN IV NAUSEA/VOMITING; Start at 07:00; Stop 05/31/18 at 18:00; Status DC Fentanyl Citrate (Fentanyl 2ml Vial) 25 mcg PRN Q5MIN PRN IV MILD PAIN; Start 05/31/18 at 07:00; Stop 05/31/18 at 18:00; Status DC Fentanyl Citrate (Fentanyl 2ml Vial) 50 mcg PRN Q5MIN PRN IV MODERATE TO SEVERE PAIN; Start 05/31/18 at 07:00; Stop 05/31/18 at 18:00; Status DC Morphine Sulfate (Morphine Sulfate) 1 mg PRN Q10MIN PRN IV SEVERE PAIN Last administered on 05/31/18at 18:04; Start 05/31/18 at 07:00; Stop 05/31/18 at 18 :00; Status DC Ringer's Solution 1,000 ml @ 30 mls/hr Q24H IV Last administered on at 06:33; Start 05/31/18 at 07:00; Stop 05/31/18 at 18:59; Status DC Lidocaine HCl (Xylocaine-Mpf 1% 2ml Vial) 2 ml PRN 1X PRN ID IV START; Start 05/31/18 at 07:00; Stop 05/31/18 at 18:00; Status DC Hydromorphone HCl (Dilaudid) 0.5 mg PRN Q10MIN PRN IV SEV PAIN, Second choice; Start 05/31/18 at 07:00; Stop 05/31/18 at 18:00; Status DC Prochlorperazine Edisylate (Compazine) 5 mg PACU PRN PRN IV NAUSEA, MRX1; Start 05/31/18 at 07:00; Stop 05/31/18 at 18:00; Status DC Cefazolin Sodium/ Dextrose 50 ml @ 100 mls/hr 1X PREOP PRN IV PRIOR TO PROCEDURE Last administered on 05/31/18at 08:00; Start 05/31/18 at 06:00; Stop 05/31/18 at 18:00; Status DC Iohexol (Omnipaque 300 Mg/ml) 100 ml STK-MED ONCE .ROUTE ; Start 05/31/18 at 06 :45; Stop 05/31/18 at 06:46; Status DC Cellulose (Surgicel Fibrillar 1x2) 1 each STK-MED ONCE .ROUTE Last administered on 05/31/18at 10:48; Start 05/31/18 at 06:45; Stop 05/31/18 at 06 :46; Status DC Propofol 20 ml @ As Directed STK-MED ONCE IV ; Start 05/31/18 at 07:00; Stop 05/31/18 at 07:01; Status DC Lidocaine HCl (Lidocaine Pf 2% Vial) 5 ml STK-MED ONCE .ROUTE ; Start 05/31/18 at 07:00; Stop 05/31/18 at 07:01; Status DC Fentanyl Citrate (Fentanyl 2ml Vial) 100 mcg STK-MED ONCE .ROUTE ; Start at 07:00; Stop 05/31/18 at 07:01; Status DC Rocuronium [place] (Zemuron) 50 mg STK-MED ONCE .ROUTE ; Start 05/31/18 at 07: 00; Stop 05/31/18 at 07:01; Status DC Cefazolin Sodium 1 gm/Sodium Chloride 500 ml @ 500 mls/hr 1X ONCE IRR Last administered on 05/31/18at 08:51; Start 05/31/18 at 07:30; Stop 05/31/18 at 08 :29; Status DC Lidocaine HCl 48 ml/Sodium Bicarbonate 12 meq/Miscellaneous 60 ml @ 60 mls/hr 1X ONCE ID ; Start 05/31/18 at 07:07; Stop 05/31/18 at 08:06; Status DC Gelatin (Gelfoam Size 100) 1 each STK-MED ONCE .ROUTE ; Start 05/31/18 at 07: 19; Stop 05/31/18 at 07:20; Status DC Papaverine HCl 60 mg STK-MED ONCE .ROUTE ; Start 05/31/18 at 07:19; Stop 05/31 at 07:20; Status DC Thrombin 20,000 unit STK-MED ONCE TP ; Start 05/31/18 at 07:19; Stop 05/31/18 at 07:20; Status DC Amlodipine Besylate (Norvasc) 5 mg DAILY PO Last administered on 06/06/18at 10: 35; Start 06/01/18 at 09:00 Aspirin (Ecotrin) 325 mg DAILYWBKFT PO Last administered on 06/06/18at 10:34; Start 06/01/18 at 08:00 Clopidogrel Bisulfate (Plavix) 75 mg DAILY PO Last administered on 06/06/18at 10 :34; Start 06/01/18 at 09:00 Famotidine (Pepcid) 20 mg DAILY PO Last administered on 06/06/18at 10:32; Start 06/01/18 at 09:00 Acetaminophen/ Hydrocodone Bitart (Lortab 5/325) 1 tab PRN Q6HRS PRN PO PAIN MILD Last administered on 06/02/18at 13:38; Start 05/31/18 at 07:45 Acetaminophen/ Hydrocodone Bitart (Lortab 5/325) 2 tab PRN Q6HRS PRN PO PAIN MODERATE Last administered on 06/06/18 10:32; Start 05/31/18 at 07:45 Levothyroxine Sodium (Synthroid) 75 mcg DAILYAC PO Last administered on 10:32; Start 06/01/18 at 07:30 Metoprolol Succinate (Toprol Xl) 50 mg DAILY PO Last administered on 06/06/18 10:30; Start 05/31/18 at 09:00 Nitroglycerin (Nitrostat) 0.4 mg PRN Q5MIN PRN SL CHEST PAIN Last administered on 06/05/18 23:29; Start 05/31/18 at 07:45 Simvastatin (Zocor) 40 mg QHS PO Last administered on 06/05/18 20:59; Start 05/31/18 at 21:00 Oxycodone HCl (Roxicodone) 5 mg PRN Q3HRS PRN PO PAIN SEVERE Last administered on 06/03/18 18:32; Start 05/31/18 at 07:45 Al Hydroxide/Mg Hydroxide (Mylanta Plus Xs) 30 ml PRN Q3HRS PRN PO HEARTBURN / GAS; Start 05/31/18 at 07:45 Calcium Carbonate/ Glycine (Tums) 500 mg PRN Q3HRS PRN PO INDIGESTION; Start 05/31/18 at 07:45 Diphenhydramine HCl (Benadryl) 25 mg PRN Q6HRS PRN PO ITCHING; Start 05/31/18 at 07:45 Info (Non-Icu Electrolyte Protocol) 1 ea DAILY MC Last administered on at 09:00; Start 06/01/18 at 09:00 Naloxone HCl (Narcan) 0.1 mg PRN Q2MIN PRN IV ADMIN; Start 05/31/18 at 07:45 Sodium Chloride (Normal Saline Flush) 3 ml QSHIFT PRN IV AFTER MEDS AND BLOOD DRAWS; Start 05/31/18 at 07:45 Sodium Chloride 1,000 ml @ 100 mls/hr Q10H IV Last administered on 06/01/18at 00:02; Start 05/31/18 at 15:00; Stop 06/01/18 at 17:47; Status DC Morphine Sulfate (Morphine Sulfate) 2 mg PRN Q1HR PRN IV PAIN MILD Last administered on 06/04/18at 12:18; Start 05/31/18 at 07:45 Senna/Docusate Sodium (Senna Plus) 1 tab BID PO Last administered on 06/06/18at 10:33; Start 05/31/18 at 09:00 Ondansetron HCl (Zofran) 4 mg PRN Q6HRS PRN IV NAUESA, 1ST CHOICE Last administered on 06/03/18at 18:32; Start 05/31/18 at 07:45 Prochlorperazine Edisylate (Compazine) 5 mg PRN Q6HRS PRN IV N/V, 2nd Choice, MR X1; Start 05/31/18 at 07:45 Cefazolin Sodium 1 gm/Dextrose 50 ml @ 100 mls/hr Q6H IV ; Start 05/31/18 at 07:45; Stop 05/31/18 at 16:44; Status DC Labetalol HCl (Normodyne Iv Push) 20 mg PRN Q2HR PRN IVP HYPERTENSION, SEE COMMENTS; Start 05/31/18 at 07:45 Dexamethasone Sodium Phosphate (Decadron) 20 mg STK-MED ONCE .ROUTE ; Start at 08:19; Stop 05/31/18 at 08:20; Status DC Phenylephrine HCl (PHENYLEPHRINE in 0.9% NACL PF) 1 mg STK-MED ONCE IV ; Start 05/31/18 at 08:19; Stop 05/31/18 at 08:20; Status DC Heparin Sodium (Porcine) (Heparin Sodium) 10,000 unit STK-MED ONCE .ROUTE ; Start 05/31/18 at 08:19; Stop 05/31/18 at 08:20; Status DC Desflurane (Suprane) 90 ml STK-MED ONCE IH ; Start 05/31/18 at 08:19; Stop at 08:20; Status DC Ephedrine Sulfate (ePHEDrine PF IN SALINE SYRINGE) 50 mg STK-MED ONCE IV ; Start 05/31/18 at 08:28; Stop 05/31/18 at 08:29; Status DC Nicardipine HCl (Cardene) 25 mg STK-MED ONCE IV ; Start 05/31/18 at 08:37; Stop 05/31/18 at 08:38; Status DC Glycopyrrolate (Robinul) 1 mg STK-MED ONCE .ROUTE ; Start 05/31/18 at 09:08; Stop 05/31/18 at 09:09; Status DC Neostigmine Methylsulfate (Neostigmine Methylsulfate) 5 mg STK-MED ONCE .ROUTE ; Start 05/31/18 at 09:08; Stop 05/31/18 at 09:09; Status DC Fentanyl Citrate (Fentanyl 2ml Vial) 100 mcg STK-MED ONCE .ROUTE ; Start at 10:14; Stop 05/31/18 at 10:15; Status DC Protamine Sulfate (Protamine) 50 mg STK-MED ONCE IV ; Start 05/31/18 at 10:41; Stop 05/31/18 at 10:42; Status DC Protamine Sulfate (Protamine) 50 mg STK-MED ONCE IV ; Start 05/31/18 at 10:53; Stop 05/31/18 at 10:54; Status DC Cefazolin Sodium 1 gm/Dextrose 50 ml @ 100 mls/hr Q6H IV Last administered on 06/01/18at 04:55; Start 05/31/18 at 17:00; Stop 06/01/18 at 05:29; Status DC Nicotine (Nicoderm Cq 21mg) 1 patch DAILY TD Last administered on 06/03/18at 12 :44; Start 06/03/18 at 09:00 Isosorbide Mononitrate (Imdur) 30 mg DAILY PO Last administered on 06/06/18at 10 :33; Start 06/04/18 at 13:45 Ranolazine (Ranexa) 500 mg BID PO Last administered on 06/06/18at 10:31; Start 06/04/18 at 21:00 Active Scripts Active Aspirin Ec (Aspirin) 325 Mg Tablet. 325 Mg PO DAILYWBKFT Reported Pepcid (Famotidine) 20 Mg Tablet 20 Mg PO DAILY Pepcid (Famotidine) 20 Mg Tablet 20 Mg PO HS Clopidogrel (Clopidogrel Bisulfate) 75 Mg Tablet 75 Mg PO DAILY Levothyroxine Sodium 75 Mcg Tablet 75 Mcg PO DAILYAC Hydrocodone-Apap 5-325 (Hydrocodone Bit/Acetaminophen) 1 Each Tablet 2 Tab PO PRN Q6HRS PRN Nitrostat (Nitroglycerin) 0.4 Mg Tab.subl 0.4 Mg SL PRN Q5MIN PRN Hydrocodone-Apap 5-325 (Hydrocodone Bit/Acetaminophen) 1 Each Tablet 1 Tab PO PRN Q6HRS PRN Amlodipine Besylate 5 Mg Tablet 1 Tab PO DAILY Simvastatin 40 Mg Tablet 1 Tab PO QHS Metoprolol Succinate ( Xl ) (Metoprolol Succinate) 25 Mg Tab.er.24h 50 Mg PO DAILY Vitals/I & O Vital Sign - Last 24 Hours 06/05/18 06/05/18 06/05/18 06/05/18 15:00 19:00 19:20 20:59 Temp 98.7 98.8 98.7 98.8 Pulse 76 96 94 Resp 18 16 B/P (MAP) 111/44 (66) 117/61 (79) 117/61 Pulse Ox 95 91 O2 Delivery Nasal Cannula Nasal Cannula Nasal Cannula O2 Flow Rate 2.0 2.0 2.0 06/05/18 06/05/18 06/05/18 06/05/18 21:00 23:21 23:22 23:29 Temp 98.4 98.4 Pulse 105 105 102 Resp 16 18 B/P (MAP) 175/54 175/54 (94) 116/57 Pulse Ox 92 87 O2 Delivery Nasal Cannula Nasal Cannula O2 Flow Rate 3.0 06/05/18 06/06/18 06/06/18 06/06/18 23:30 03:00 07:25 08:00 Temp 98.2 98.2 98.2 98.2 Pulse 101 92 54 Resp 18 18 18 B/P (MAP) 116/57 (76) 130/51 (77) 136/48 (77) Pulse Ox 90 96 95 O2 Delivery Nasal Cannula Nasal Cannula Nasal Cannula Nasal Cannula O2 Flow Rate 3.0 3.0 3.0 2.0 06/06/18 06/06/18 06/06/18 06/06/18 10:30 10:31 10:32 10:33 Pulse 89 97 83 Resp 18 B/P (MAP) 121/53 121/53 126/53 Pulse Ox 92 O2 Delivery Room Air 06/06/18 06/06/18 06/06/18 06/06/18 10:35 11:15 11:25 11:32 Temp 97.8 97.8 Pulse 87 95 Resp 18 17 B/P (MAP) 126/53 121/53 (75) Pulse Ox 93 93 O2 Delivery Nasal Cannula Nasal Cannula Nasal Cannula O2 Flow Rate 3.0 1.0 1.0 Intake and Output 06/05/18 06/05/18 06/06/18 15:00 23:00 07:00 Intake Total 510 ml 200 ml Output Total 400 ml 400 ml Balance -400 ml 110 ml 200 ml Nutrition Consultation Dietary Evaluation: Recommendations by RD: Protein supplementation Comments: Continue w/cardaic diet Add Ensure BID (breakfast and dinner, chocolate flavor) Expected Outcomes/Goals: PO intake to meet >75% est needs Malnutrition Findings: Food and Nutrition Intake (Mod: <75% est energy req 7days Weight Status: Appropriate PIERO RICHEY APRN Jun 06, 2018 13:32
--- NOTE | 2018-06-06 15:03 | PDOC ---
[employer] 06/06/18 1502: CARDIO Progress Notes Date and Time Date of Service 06/06/18 Time of Evaluation 1412 Subjective Subjective: No shortness of breath, No Palpitations, Other Comments: had episode of CP last night; resolved with nitro x2 Vitals Vitals Vital Signs Date Time Temp Pulse Resp B/P (MAP) Pulse Ox O2 Delivery O2 Flow Rate FiO2 06/06/18 11:32 17 93 Nasal Cannula 1.0 06/06/18 11:15 97.8 95 121/53 (75) 97.8 Weight Weight [ ] Input and Output Intake and Output Intake and Output 06/06/18 07:00 Intake Total 710 ml Output Total 800 ml Balance -90 ml Intake Oral 710 ml Output Urine Total 800 ml # Bowel Movements 1 Laboratory Labs Laboratory Tests Test 06/06/18 05:05 White Blood Count 7.4 x10^3/uL (4.0-11.0) Red Blood Count 2.65 x10^6/uL (3.50-5.40) Hemoglobin 8.5 g/dL (12.0-15.5) Hematocrit 24.7 % (36.0-47.0) Mean Corpuscular Volume 93 fL (79-100) Mean Corpuscular Hemoglobin 32 pg (25-35) Mean Corpuscular Hemoglobin Concent 34 g/dL (31-37) Red Cell Distribution Width 14.6 % (11.5-14.5) Platelet Count 192 x10^3/uL (140-400) Neutrophils (%) (Auto) 60 % (31-73) Lymphocytes (%) (Auto) 15 % (24-48) Monocytes (%) (Auto) 19 % (0-9) Eosinophils (%) (Auto) 5 % (0-3) Basophils (%) (Auto) 1 % (0-3) Neutrophils # (Auto) 4.4 x10^3uL (1.8-7.7) Lymphocytes # (Auto) 1.1 x10^3/uL (1.0-4.8) Monocytes # (Auto) 1.4 x10^3/uL (0.0-1.1) Eosinophils # (Auto) 0.4 x10^3/uL (0.0-0.7) Basophils # (Auto) 0.0 x10^3/uL (0.0-0.2) Segmented Neutrophils % 56 % (35-66) Lymphocytes % 25 % (24-48) Monocytes % 15 % (0-10) Eosinophils % 3 % (0-5) Metamyelocytes % 1 % (0-0) Platelet Estimate Adequate (ADEQUATE) Sodium Level 137 mmol/L (136-145) Potassium Level 4.1 mmol/L (3.5-5.1) Chloride Level 99 mmol/L (98-107) Carbon Dioxide Level 34 mmol/L (21-32) Anion Gap 4 (6-14) Blood Urea Nitrogen 21 mg/dL (7-20) Creatinine 0.8 mg/dL (0.6-1.0) Estimated GFR (Cockcroft-Gault) 68.8 Glucose Level 105 mg/dL (70-99) Calcium Level 8.6 mg/dL (8.5-10.1) Physical Exam HEENT: Neck Supple W Full Motion Chest: Symmetric LUNGS: Clear to Auscultation Heart: S1S2, RRR Abdomen: Soft N/T Extremities: No Edema, Other (right medial lef incision well approximated) Neurology: alert, oriented, follow commands Assessment Assessment 1. Unstable angina; Ranexa and Imdur add. Had episode of CP last night; resolved with nitro x2. 2. CAD; s/p previous CABG and multiple subsequent stents. 3. PAD s/p right femoral to tibioperoneal trunk bypass graft; POD #6. Doing well 4. Chronic diastolic heart failure; compensated 5. Hypertension; controlled 6. Hyperlipidemia; statin 7. DM,II Recommendations Discussed potential cardiac cath given unstable angina despite addition of Imdur and Ranexa; patient would like to defer at this time Will re-visit on an outpatient basis Secondary prevention measures. Continue Ranexa, Imdur, and nitro PRN Supportive care. ANGEL SHIELDS MD 06/06/18 8528: CARDIO Progress Notes Assessment Assessment Patient seen and examined. Agree with COMPUTER AIDED DESIGN TECHNICIAN's assessment and plan. Patient had another episode of CP last night but refusing cardiac cath Continue post op care per vascular surgery Continue current medical management for CAD NONA DIEGO APRN Jun 06, 2018 15:02 ANGEL SHIELDS MD Jun 06, 2018 22:17
[2018-06-06 15:08] VITALS: BP 108/40
--- NOTE | 2018-06-06 16:07 | RAD ---
Chest, 2 views, 06/06/2018: HISTORY: Congestive heart failure, desaturation Comparison is made to a study from 07/10/2016. There has been a previous median sternotomy. The heart size is normal. A coronary artery stent is projected over the left side of the heart. There are additional vascular stent is projected over the upper mediastinum on the left. There are scattered parenchymal scars. There is minimal left suprahilar atelectasis/infiltrate. There is blunting of the costophrenic angles bilaterally compatible with a small amount of pleural fluid. Similar findings were present on the previous study. IMPRESSION: 1. Mild left upper lobe perihilar atelectasis/infiltrate. 2. Small chronic or recurrent bilateral pleural effusions. Electronically signed by: Judah Proctor MD (06/06/2018 4:04 PM) [facility]
[2018-06-06] MEDS: CEPHALEXIN 250 MG CAPSULE. PO SCH ×2 (18:00→21:08)
[2018-06-06 18:22] VITALS: BP 109/39
[2018-06-06] MEDS: SIMVASTATIN 40 MG TABLET. PO SCH (21:08)
[2018-06-06 23:00] VITALS: BP 137/60
[2018-06-07 03:00] VITALS: BP 116/61
[2018-06-07] MEDS: LEVOTHYROXINE 75 MCG TABLET PO SCH (06:23)
[2018-06-07 06:43] LABS: BASO # 0.1 x10^3/uL (0.0-0.2); BASO % 1 % (0-3); EOS # 0.5 x10^3/uL (0.0-0.7); EOS % 5 % (0-3); HEMATOCRIT 25.2 % (36.0-47.0); HEMOGLOBIN 8.8 g/dL (12.0-15.5); LYMPH % 11 % (24-48); MEAN CORPUSCULAR HEMOGLOBIN 33 pg (25-35); MEAN CORPUSCULAR HGB CONC 35 g/dL (31-37); MEAN CORPUSCULAR VOLUME 94 fL (79-100); MONO # 1.6 x10^3/uL (0.0-1.1); MONO % 17 % (0-9); NEUT # 6.3 x10^3uL (1.8-7.7); NEUT % 66 % (31-73); PLATELET COUNT 200 x10^3/uL (140-400); RED BLOOD COUNT 2.68 x10^6/uL (3.50-5.40); RED CELL DISTRIBUTION WIDTH 14.4 % (11.5-14.5); WHITE BLOOD COUNT 9.4 x10^3/uL (4.0-11.0)
[2018-06-07 07:00] VITALS: BP 145/52
[2018-06-07 07:01] LABS: CALCIUM 8.6 mg/dL (8.5-10.1); CREATININE 0.9 mg/dL (0.6-1.0); GFR 60.1; MAGNESIUM 1.9 mg/dL (1.8-2.4); POTASSIUM 4.4 mmol/L (3.5-5.1)
[2018-06-07] MEDS: CEPHALEXIN 250 MG CAPSULE. PO SCH ×2 (08:49→13:51)
[2018-06-07] MEDS: ISOSORBIDE MONONITRATE ER 30 MG TAB.ER.24H PO SCH (08:50)
[2018-06-07] MEDS: METOPROLOL SUCC 24HR ER 25 MG TAB.ER.24H. PO SCH (08:50)
[2018-06-07] MEDS: amLODIPine BESYLATE 5 MG TABLET PO SCH (08:51)
[2018-06-07] MEDS: ASPIRIN ENTERIC COATED 325 MG TABLET.DR. PO SCH (08:51)
[2018-06-07] MEDS: SENNOSIDES/DOCUSATE 8.6/50MG TABLET. PO SCH (08:51)
[2018-06-07] MEDS: ELECTROLYTE (NON-ICU) PROTOCOL MC SCH (08:52)
[2018-06-07] MEDS: CLOPIDOGREL BISULFATE 75 MG TABLET PO SCH (08:52)
[2018-06-07] MEDS: FAMOTIDINE 20 MG TABLET. PO SCH (08:52)
[2018-06-07] MEDS: RANOLAZINE 500 MG TAB.ER.12H PO SCH (08:52)
[2018-06-07] MEDS: NICOTINE 21MG PATCH. TD SCH (08:55)
--- NOTE | 2018-06-07 09:25 | PDOC ---
PROGRESS NOTES Subjective Subjective "I didn't have any chest pain last night. I want to go home." Objective Objective Vascular Surgery - POD #7 Right fem-pop bypass General: Sitting comfortably in chair this morning. Denies chest pain at this time. Waiting for breakfast. CV: NSR with PAC's. No murmur auscultated. Resp: Unlabored. Cough seems better this a.m. Breath sounds diminished in right base. No wheezes. Night oxygen sat monitoring does indicate significant desaturation into 80's. Abd: Soft. + sounds. Non-distended RLE: Palpable DP and PT pulses into foot. Right foot warm and pink. Incisions to right groin, thigh and calf are intact. Slight superficial separation noted to thigh incision area yesterday is now scabbed. No drainage. Noted erythema to incision at the knee area remains unchanged. Mild swelling noted in thigh. Calf is soft. Assessment/Plan: 1. Right leg claudication with PAD. POD #7 Right femoral to tibioperoneal trunk bypass graft using ipsilateral greater saphenous vein. 2. Needs to shower today prior to discharge. RN will ensure this happens as patient lives alone. 3. CAD with chest pain. Appreciate CV involvement. Echo has been completed this a.m. Normal EF. Anti-anginal meds have been initiated. Any add'l intervention deferred to out-pt setting 4. Acute anemia related to surgical blood loss. Stable with no further drift. 5. Hypoxemia with desaturation. . Have also ordered sleep study for tonight. Most likely, patient will need home oxygen therapy upon discharge. Patient states she had home O2 in the past 2 years ago when she had "heart failure." 6. Anticipate discharge to home today pending Pulmonary consult recommendations. Will need home oxygen therapy at 1L. Would appreciate Pulm involvement with mgmt and determining if necessary continuous versus HS only. 7. Rediscussed need for smoking cessation! Nicotine patch being used here. 8. Will discharge on short course Keflex for redness noted to part of leg incision. Remains afebrile. 9. Follow up has already been scheduled for Dr. Hatfield 06/22/18. Vital Signs Date Time Temp Pulse Resp B/P (MAP) Pulse Ox O2 Delivery O2 Flow Rate FiO2 06/07/18 08:52 87 142/52 06/07/18 03:00 98.3 16 92 Nasal Cannula 1.0 98.3 Intake and Output 06/07/18 07:00 Intake Total 970 ml Output Total 2300 ml Balance -1330 ml Intake Oral 970 ml Output Urine Total 2300 ml Comment Review of Relevant I have reviewed the following items corwin (where applicable) has been applied. Labs Laboratory Tests Test 06/06/18 05:05 06/07/18 05:55 White Blood Count 7.4 x10^3/uL (4.0-11.0) 9.4 x10^3/uL (4.0-11.0) Red Blood Count 2.65 x10^6/uL (3.50-5.40) 2.68 x10^6/uL (3.50-5.40) Hemoglobin 8.5 g/dL (12.0-15.5) 8.8 g/dL (12.0-15.5) Hematocrit 24.7 % (36.0-47.0) 25.2 % (36.0-47.0) Mean Corpuscular Volume 93 fL (79-100) 94 fL (79-100) Mean Corpuscular Hemoglobin 32 pg (25-35) 33 pg (25-35) Mean Corpuscular Hemoglobin Concent 34 g/dL (31-37) 35 g/dL (31-37) Red Cell Distribution Width 14.6 % (11.5-14.5) 14.4 % (11.5-14.5) Platelet Count 192 x10^3/uL (140-400) 200 x10^3/uL (140-400) Neutrophils (%) (Auto) 60 % (31-73) 66 % (31-73) Lymphocytes (%) (Auto) 15 % (24-48) 11 % (24-48) Monocytes (%) (Auto) 19 % (0-9) 17 % (0-9) Eosinophils (%) (Auto) 5 % (0-3) 5 % (0-3) Basophils (%) (Auto) 1 % (0-3) 1 % (0-3) Neutrophils # (Auto) 4.4 x10^3uL (1.8-7.7) 6.3 x10^3uL (1.8-7.7) Lymphocytes # (Auto) 1.1 x10^3/uL (1.0-4.8) 1.0 x10^3/uL (1.0-4.8) Monocytes # (Auto) 1.4 x10^3/uL (0.0-1.1) 1.6 x10^3/uL (0.0-1.1) Eosinophils # (Auto) 0.4 x10^3/uL (0.0-0.7) 0.5 x10^3/uL (0.0-0.7) Basophils # (Auto) 0.0 x10^3/uL (0.0-0.2) 0.1 x10^3/uL (0.0-0.2) Segmented Neutrophils % 56 % (35-66) Lymphocytes % 25 % (24-48) Monocytes % 15 % (0-10) Eosinophils % 3 % (0-5) Metamyelocytes % 1 % (0-0) Platelet Estimate Adequate (ADEQUATE) Sodium Level 137 mmol/L (136-145) 132 mmol/L (136-145) Potassium Level 4.1 mmol/L (3.5-5.1) 4.4 mmol/L (3.5-5.1) Chloride Level 99 mmol/L (98-107) 96 mmol/L (98-107) Carbon Dioxide Level 34 mmol/L (21-32) 32 mmol/L (21-32) Anion Gap 4 (6-14) 4 (6-14) Blood Urea Nitrogen 21 mg/dL (7-20) 20 mg/dL (7-20) Creatinine 0.8 mg/dL (0.6-1.0) 0.9 mg/dL (0.6-1.0) Estimated GFR (Cockcroft-Gault) 68.8 60.1 Glucose Level 105 mg/dL (70-99) 108 mg/dL (70-99) Calcium Level 8.6 mg/dL (8.5-10.1) 8.6 mg/dL (8.5-10.1) Magnesium Level 1.9 mg/dL (1.8-2.4) Laboratory Tests Test 06/07/18 05:55 White Blood Count 9.4 x10^3/uL (4.0-11.0) Red Blood Count 2.68 x10^6/uL (3.50-5.40) Hemoglobin 8.8 g/dL (12.0-15.5) Hematocrit 25.2 % (36.0-47.0) Mean Corpuscular Volume 94 fL (79-100) Mean Corpuscular Hemoglobin 33 pg (25-35) Mean Corpuscular Hemoglobin Concent 35 g/dL (31-37) Red Cell Distribution Width 14.4 % (11.5-14.5) Platelet Count 200 x10^3/uL (140-400) Neutrophils (%) (Auto) 66 % (31-73) Lymphocytes (%) (Auto) 11 % (24-48) Monocytes (%) (Auto) 17 % (0-9) Eosinophils (%) (Auto) 5 % (0-3) Basophils (%) (Auto) 1 % (0-3) Neutrophils # (Auto) 6.3 x10^3uL (1.8-7.7) Lymphocytes # (Auto) 1.0 x10^3/uL (1.0-4.8) Monocytes # (Auto) 1.6 x10^3/uL (0.0-1.1) Eosinophils # (Auto) 0.5 x10^3/uL (0.0-0.7) Basophils # (Auto) 0.1 x10^3/uL (0.0-0.2) Sodium Level 132 mmol/L (136-145) Potassium Level 4.4 mmol/L (3.5-5.1) Chloride Level 96 mmol/L (98-107) Carbon Dioxide Level 32 mmol/L (21-32) Anion Gap 4 (6-14) Blood Urea Nitrogen 20 mg/dL (7-20) Creatinine 0.9 mg/dL (0.6-1.0) Estimated GFR (Cockcroft-Gault) 60.1 Glucose Level 108 mg/dL (70-99) Calcium Level 8.6 mg/dL (8.5-10.1) Magnesium Level 1.9 mg/dL (1.8-2.4) Medications Current Medications Heparin Sodium (Porcine) 5000 unit/Sodium Chloride 505 ml @ 505 mls/hr 1X ONCE IRR Last administered on 05/31/18at 08:53; Start 05/31/18 at 06:00; Stop 05/31/18 at 06:59; Status DC Ondansetron HCl (Zofran) 4 mg PRN Q6HRS PRN IV NAUSEA/VOMITING; Start at 07:00; Stop 05/31/18 at 18:00; Status DC Fentanyl Citrate (Fentanyl 2ml Vial) 25 mcg PRN Q5MIN PRN IV MILD PAIN; Start 05/31/18 at 07:00; Stop 05/31/18 at 18:00; Status DC Fentanyl Citrate (Fentanyl 2ml Vial) 50 mcg PRN Q5MIN PRN IV MODERATE TO SEVERE PAIN; Start 05/31/18 at 07:00; Stop 05/31/18 at 18:00; Status DC Morphine Sulfate (Morphine Sulfate) 1 mg PRN Q10MIN PRN IV SEVERE PAIN Last administered on 05/31/18at 18:04; Start 05/31/18 at 07:00; Stop 05/31/18 at 18 :00; Status DC Ringer's Solution 1,000 ml @ 30 mls/hr Q24H IV Last administered on at 06:33; Start 05/31/18 at 07:00; Stop 05/31/18 at 18:59; Status DC Lidocaine HCl (Xylocaine-Mpf 1% 2ml Vial) 2 ml PRN 1X PRN ID IV START; Start 05/31/18 at 07:00; Stop 05/31/18 at 18:00; Status DC Hydromorphone HCl (Dilaudid) 0.5 mg PRN Q10MIN PRN IV SEV PAIN, Second choice; Start 05/31/18 at 07:00; Stop 05/31/18 at 18:00; Status DC Prochlorperazine Edisylate (Compazine) 5 mg PACU PRN PRN IV NAUSEA, MRX1; Start 05/31/18 at 07:00; Stop 05/31/18 at 18:00; Status DC Cefazolin Sodium/ Dextrose 50 ml @ 100 mls/hr 1X PREOP PRN IV PRIOR TO PROCEDURE Last administered on 05/31/18at 08:00; Start 05/31/18 at 06:00; Stop 05/31/18 at 18:00; Status DC Iohexol (Omnipaque 300 Mg/ml) 100 ml STK-MED ONCE .ROUTE ; Start 05/31/18 at 06 :45; Stop 05/31/18 at 06:46; Status DC Cellulose (Surgicel Fibrillar 1x2) 1 each STK-MED ONCE .ROUTE Last administered on 05/31/18at 10:48; Start 05/31/18 at 06:45; Stop 05/31/18 at 06 :46; Status DC Propofol 20 ml @ As Directed STK-MED ONCE IV ; Start 05/31/18 at 07:00; Stop 05/31/18 at 07:01; Status DC Lidocaine HCl (Lidocaine Pf 2% Vial) 5 ml STK-MED ONCE .ROUTE ; Start 05/31/18 at 07:00; Stop 05/31/18 at 07:01; Status DC Fentanyl Citrate (Fentanyl 2ml Vial) 100 mcg STK-MED ONCE .ROUTE ; Start at 07:00; Stop 05/31/18 at 07:01; Status DC Rocuronium [place] (Zemuron) 50 mg STK-MED ONCE .ROUTE ; Start 05/31/18 at 07: 00; Stop 05/31/18 at 07:01; Status DC Cefazolin Sodium 1 gm/Sodium Chloride 500 ml @ 500 mls/hr 1X ONCE IRR Last administered on 05/31/18at 08:51; Start 05/31/18 at 07:30; Stop 05/31/18 at 08 :29; Status DC Lidocaine HCl 48 ml/Sodium Bicarbonate 12 meq/Miscellaneous 60 ml @ 60 mls/hr 1X ONCE ID ; Start 05/31/18 at 07:07; Stop 05/31/18 at 08:06; Status DC Gelatin (Gelfoam Size 100) 1 each STK-MED ONCE .ROUTE ; Start 05/31/18 at 07: 19; Stop 05/31/18 at 07:20; Status DC Papaverine HCl 60 mg STK-MED ONCE .ROUTE ; Start 05/31/18 at 07:19; Stop 05/31 at 07:20; Status DC Thrombin 20,000 unit STK-MED ONCE TP ; Start 05/31/18 at 07:19; Stop 05/31/18 at 07:20; Status DC Amlodipine Besylate (Norvasc) 5 mg DAILY PO Last administered on 06/07/18at 08: 51; Start 06/01/18 at 09:00 Aspirin (Ecotrin) 325 mg DAILYWBKFT PO Last administered on 06/07/18 08:51; Start 06/01/18 at 08:00 Clopidogrel Bisulfate (Plavix) 75 mg DAILY PO Last administered on 06/07/18 08 :52; Start 06/01/18 at 09:00 Famotidine (Pepcid) 20 mg DAILY PO Last administered on 06/07/18 08:52; Start 06/01/18 at 09:00 Acetaminophen/ Hydrocodone Bitart (Lortab 5/325) 1 tab PRN Q6HRS PRN PO PAIN MILD Last administered on 06/02/18 13:38; Start 05/31/18 at 07:45 Acetaminophen/ Hydrocodone Bitart (Lortab 5/325) 2 tab PRN Q6HRS PRN PO PAIN MODERATE Last administered on 06/06/18 18:00; Start 05/31/18 at 07:45 Levothyroxine Sodium (Synthroid) 75 mcg DAILYAC PO Last administered on 06:23; Start 06/01/18 at 07:30 Metoprolol Succinate (Toprol Xl) 50 mg DAILY PO Last administered on 06/07/18 08:50; Start 05/31/18 at 09:00 Nitroglycerin (Nitrostat) 0.4 mg PRN Q5MIN PRN SL CHEST PAIN Last administered on 06/05/18 23:29; Start 05/31/18 at 07:45 Simvastatin (Zocor) 40 mg QHS PO Last administered on 06/06/18 21:08; Start 05/31/18 at 21:00 Oxycodone HCl (Roxicodone) 5 mg PRN Q3HRS PRN PO PAIN SEVERE Last administered on 06/03/18 18:32; Start 05/31/18 at 07:45 Al Hydroxide/Mg Hydroxide (Mylanta Plus Xs) 30 ml PRN Q3HRS PRN PO HEARTBURN / GAS; Start 05/31/18 at 07:45 Calcium Carbonate/ Glycine (Tums) 500 mg PRN Q3HRS PRN PO INDIGESTION; Start 05/31/18 at 07:45 Diphenhydramine HCl (Benadryl) 25 mg PRN Q6HRS PRN PO ITCHING; Start 05/31/18 at 07:45 Info (Non-Icu Electrolyte Protocol) 1 ea DAILY MC Last administered on at 09:00; Start 06/01/18 at 09:00 Naloxone HCl (Narcan) 0.1 mg PRN Q2MIN PRN IV ADMIN; Start 05/31/18 at 07:45 Sodium Chloride (Normal Saline Flush) 3 ml QSHIFT PRN IV AFTER MEDS AND BLOOD DRAWS; Start 05/31/18 at 07:45 Sodium Chloride 1,000 ml @ 100 mls/hr Q10H IV Last administered on 06/01/18at 00:02; Start 05/31/18 at 15:00; Stop 06/01/18 at 17:47; Status DC Morphine Sulfate (Morphine Sulfate) 2 mg PRN Q1HR PRN IV PAIN MILD Last administered on 06/04/18at 12:18; Start 05/31/18 at 07:45 Senna/Docusate Sodium (Senna Plus) 1 tab BID PO Last administered on 06/07/18at 08:51; Start 05/31/18 at 09:00 Ondansetron HCl (Zofran) 4 mg PRN Q6HRS PRN IV NAUESA, 1ST CHOICE Last administered on 06/03/18at 18:32; Start 05/31/18 at 07:45 Prochlorperazine Edisylate (Compazine) 5 mg PRN Q6HRS PRN IV N/V, 2nd Choice, MR X1; Start 05/31/18 at 07:45 Cefazolin Sodium 1 gm/Dextrose 50 ml @ 100 mls/hr Q6H IV ; Start 05/31/18 at 07:45; Stop 05/31/18 at 16:44; Status DC Labetalol HCl (Normodyne Iv Push) 20 mg PRN Q2HR PRN IVP HYPERTENSION, SEE COMMENTS; Start 05/31/18 at 07:45 Dexamethasone Sodium Phosphate (Decadron) 20 mg STK-MED ONCE .ROUTE ; Start at 08:19; Stop 05/31/18 at 08:20; Status DC Phenylephrine HCl (PHENYLEPHRINE in 0.9% NACL PF) 1 mg STK-MED ONCE IV ; Start 05/31/18 at 08:19; Stop 05/31/18 at 08:20; Status DC Heparin Sodium (Porcine) (Heparin Sodium) 10,000 unit STK-MED ONCE .ROUTE ; Start 05/31/18 at 08:19; Stop 05/31/18 at 08:20; Status DC Desflurane (Suprane) 90 ml STK-MED ONCE IH ; Start 05/31/18 at 08:19; Stop at 08:20; Status DC Ephedrine Sulfate (ePHEDrine PF IN SALINE SYRINGE) 50 mg STK-MED ONCE IV ; Start 05/31/18 at 08:28; Stop 05/31/18 at 08:29; Status DC Nicardipine HCl (Cardene) 25 mg STK-MED ONCE IV ; Start 05/31/18 at 08:37; Stop 05/31/18 at 08:38; Status DC Glycopyrrolate (Robinul) 1 mg STK-MED ONCE .ROUTE ; Start 05/31/18 at 09:08; Stop 05/31/18 at 09:09; Status DC Neostigmine Methylsulfate (Neostigmine Methylsulfate) 5 mg STK-MED ONCE .ROUTE ; Start 05/31/18 at 09:08; Stop 05/31/18 at 09:09; Status DC Fentanyl Citrate (Fentanyl 2ml Vial) 100 mcg STK-MED ONCE .ROUTE ; Start at 10:14; Stop 05/31/18 at 10:15; Status DC Protamine Sulfate (Protamine) 50 mg STK-MED ONCE IV ; Start 05/31/18 at 10:41; Stop 05/31/18 at 10:42; Status DC Protamine Sulfate (Protamine) 50 mg STK-MED ONCE IV ; Start 05/31/18 at 10:53; Stop 05/31/18 at 10:54; Status DC Cefazolin Sodium 1 gm/Dextrose 50 ml @ 100 mls/hr Q6H IV Last administered on 06/01/18at 04:55; Start 05/31/18 at 17:00; Stop 06/01/18 at 05:29; Status DC Nicotine (Nicoderm Cq 21mg) 1 patch DAILY TD Last administered on 06/03/18at 12 :44; Start 06/03/18 at 09:00 Isosorbide Mononitrate (Imdur) 30 mg DAILY PO Last administered on 06/07/18at 08 :50; Start 06/04/18 at 13:45 Ranolazine (Ranexa) 500 mg BID PO Last administered on 06/07/18at 08:52; Start 06/04/18 at 21:00 Cephalexin HCl (Keflex) 500 mg TID PO Last administered on 06/07/18at 08:49; Start 06/06/18 at 14:00 Active Scripts Active Aspirin Ec (Aspirin) 325 Mg Tablet. 325 Mg PO DAILYWBKFT Reported Pepcid (Famotidine) 20 Mg Tablet 20 Mg PO DAILY Pepcid (Famotidine) 20 Mg Tablet 20 Mg PO HS Clopidogrel (Clopidogrel Bisulfate) 75 Mg Tablet 75 Mg PO DAILY Levothyroxine Sodium 75 Mcg Tablet 75 Mcg PO DAILYAC Hydrocodone-Apap 5-325 (Hydrocodone Bit/Acetaminophen) 1 Each Tablet 2 Tab PO PRN Q6HRS PRN Nitrostat (Nitroglycerin) 0.4 Mg Tab.subl 0.4 Mg SL PRN Q5MIN PRN Hydrocodone-Apap 5-325 (Hydrocodone Bit/Acetaminophen) 1 Each Tablet 1 Tab PO PRN Q6HRS PRN Amlodipine Besylate 5 Mg Tablet 1 Tab PO DAILY Simvastatin 40 Mg Tablet 1 Tab PO QHS Metoprolol Succinate ( Xl ) (Metoprolol Succinate) 25 Mg Tab.er.24h 50 Mg PO DAILY Vitals/I & O Vital Sign - Last 24 Hours 06/06/18 06/06/18 06/06/18 06/06/18 10:30 10:31 10:32 10:33 Pulse 89 97 83 Resp 18 B/P (MAP) 121/53 121/53 126/53 Pulse Ox 92 O2 Delivery Room Air 06/06/18 06/06/18 06/06/18 06/06/18 10:35 11:15 11:25 15:08 Temp 97.8 97.7 97.8 97.7 Pulse 87 95 74 Resp 18 16 B/P (MAP) 126/53 121/53 (75) 108/40 (62) Pulse Ox 93 96 O2 Delivery Nasal Cannula Nasal Cannula Nasal Cannula O2 Flow Rate 3.0 1.0 3.0 06/06/18 06/06/18 06/06/18 06/06/18 18:00 18:22 19:00 19:20 Temp 97.8 97.8 Pulse 87 Resp 18 18 18 B/P (MAP) 109/39 (62) Pulse Ox 96 95 95 O2 Delivery Nasal Cannula Nasal Cannula Nasal Cannula Nasal Cannula O2 Flow Rate 3.0 3.0 3.0 2.0 06/06/18 06/06/18 06/07/18 06/07/18 21:06 23:00 03:00 08:50 Temp 97.6 98.3 97.6 98.3 Pulse 103 81 92 86 Resp 18 16 B/P (MAP) 113/59 137/60 (85) 116/61 (79) 142/52 Pulse Ox 95 92 O2 Delivery Nasal Cannula Nasal Cannula O2 Flow Rate 3.0 1.0 06/07/18 06/07/18 06/07/18 08:50 08:51 08:52 Pulse 91 81 87 B/P (MAP) 142/52 142/52 142/52 Intake and Output 06/06/18 06/06/18 06/07/18 15:00 23:00 07:00 Intake Total 180 ml 690 ml 100 ml Output Total 600 ml 1200 ml 500 ml Balance -420 ml -510 ml -400 ml Nutrition Consultation Dietary Evaluation: Recommendations by RD: Protein supplementation Comments: Continue w/cardaic diet Add Ensure BID (breakfast and dinner, chocolate flavor) Expected Outcomes/Goals: PO intake to meet >75% est needs Malnutrition Findings: Food and Nutrition Intake (Mod: <75% est energy req 7days Weight Status: Appropriate PIERO RICHEY APRN Jun 07, 2018 09:25
--- NOTE | 2018-06-07 09:31 | DISCH ---
DISCHARGE INSTRUCTIONS Condition on Discharge Condition on Discharge: Stable Activity After Discharge Activity Instructions for Disc: Activity as tolerated Bathing Instructions: No Tub Bath until see (May shower and get incision wet. Cleanse lightly then pat dry.) Lifting Instructions after Dis: No heavy lifting Exercise Instruction after Dis: Walk 15 min, 3 x per day, Progress as tolerated Driving Instructions after Dis: Do not drive today, No driving for 2 weeks Weight Bearing Status after Di: Full weight bearing Diet after Discharge Diet after Discharge: Cardiac Diet Texture: Regular Liquid Texture: Thin Liquid Wound Incision Care Wound/Incision Care: May get incision wet, No wound care needed, Other, see below (Allow steri-strip bandages to fall off naturally. No need to reapply. Elevate right leg to help reduce sweling when not ambulating.) Checks after Discharge Checks after discharge: Check blood press - daily Contacting the DRMatthew after DC Call your doctor for: Concerns you may have (Worsening of incision appearance) Follow-Up Follow up with: Dr. Hatfield on Wednesday, June 22 at 9:00 a.m. at the [facility] Treatment/Equipment after DC Adaptive Equipment Issued: None Discharge Respiratory Equipmen: Oxygen PIERO RICHEY APRN Jun 07, 2018 09:31
--- NOTE | 2018-06-07 10:53 | PDOC ---
PROGRESS NOTES Chief Complaint Chief Complaint PVD S/P R Fem pop pod 7 History of Present Illness History of Present Illness POD 7 R Fem pop. Patient seen and examined this morning. She is doing well and desires to discharge home. Patient given script for O2 at home. Vitals Vitals Vital Signs Date Time Temp Pulse Resp B/P (MAP) Pulse Ox O2 Delivery O2 Flow Rate FiO2 06/07/18 08:52 87 142/52 06/07/18 07:00 97.9 18 91 Nasal Cannula 97.9 06/07/18 03:00 1.0 Physical Exam General: Alert, Oriented X3, No acute distress Heart: Regular rate, Normal S1, Normal S2, No murmurs Lungs: Clear, Other (2L nc) Abdomen: Normal bowel sounds Extremities: No clubbing, No edema Skin: No rashes, Other (incision CDI) Labs LABS Laboratory Tests Test 06/07/18 05:55 White Blood Count 9.4 x10^3/uL (4.0-11.0) Red Blood Count 2.68 x10^6/uL (3.50-5.40) Hemoglobin 8.8 g/dL (12.0-15.5) Hematocrit 25.2 % (36.0-47.0) Mean Corpuscular Volume 94 fL (79-100) Mean Corpuscular Hemoglobin 33 pg (25-35) Mean Corpuscular Hemoglobin Concent 35 g/dL (31-37) Red Cell Distribution Width 14.4 % (11.5-14.5) Platelet Count 200 x10^3/uL (140-400) Neutrophils (%) (Auto) 66 % (31-73) Lymphocytes (%) (Auto) 11 % (24-48) Monocytes (%) (Auto) 17 % (0-9) Eosinophils (%) (Auto) 5 % (0-3) Basophils (%) (Auto) 1 % (0-3) Neutrophils # (Auto) 6.3 x10^3uL (1.8-7.7) Lymphocytes # (Auto) 1.0 x10^3/uL (1.0-4.8) Monocytes # (Auto) 1.6 x10^3/uL (0.0-1.1) Eosinophils # (Auto) 0.5 x10^3/uL (0.0-0.7) Basophils # (Auto) 0.1 x10^3/uL (0.0-0.2) Sodium Level 132 mmol/L (136-145) Potassium Level 4.4 mmol/L (3.5-5.1) Chloride Level 96 mmol/L (98-107) Carbon Dioxide Level 32 mmol/L (21-32) Anion Gap 4 (6-14) Blood Urea Nitrogen 20 mg/dL (7-20) Creatinine 0.9 mg/dL (0.6-1.0) Estimated GFR (Cockcroft-Gault) 60.1 Glucose Level 108 mg/dL (70-99) Calcium Level 8.6 mg/dL (8.5-10.1) Magnesium Level 1.9 mg/dL (1.8-2.4) Review of Systems Review of Systems Heart: patient states she had some chest pain the night before but nothing new Lung: reports some soa, but feels better with oxygen Integument: reports wounds healing well. Assessment and Plan Assessmemt and Plan Assessment: 1. POD7 R Fempop 2. CAD 3. Unstable angina 4. HTN 5. Hyperlipidemia 6. DM2 7. CHF 8. anemia 9. tobacco use Plan: 1. Continue wound care 2. ok to discharge home from an internal medicine standpoint. 3. 2L O2 script given for O2 sat 4. home meds 5. follow up PCP in 2 weeks for chronic medical management 6. counseled patient on tobacco cessation Comment Review of Relevant I have reviewed the following items corwin (where applicable) has been applied. Labs Laboratory Tests Test 06/06/18 05:05 06/07/18 05:55 White Blood Count 7.4 x10^3/uL (4.0-11.0) 9.4 x10^3/uL (4.0-11.0) Red Blood Count 2.65 x10^6/uL (3.50-5.40) 2.68 x10^6/uL (3.50-5.40) Hemoglobin 8.5 g/dL (12.0-15.5) 8.8 g/dL (12.0-15.5) Hematocrit 24.7 % (36.0-47.0) 25.2 % (36.0-47.0) Mean Corpuscular Volume 93 fL (79-100) 94 fL (79-100) Mean Corpuscular Hemoglobin 32 pg (25-35) 33 pg (25-35) Mean Corpuscular Hemoglobin Concent 34 g/dL (31-37) 35 g/dL (31-37) Red Cell Distribution Width 14.6 % (11.5-14.5) 14.4 % (11.5-14.5) Platelet Count 192 x10^3/uL (140-400) 200 x10^3/uL (140-400) Neutrophils (%) (Auto) 60 % (31-73) 66 % (31-73) Lymphocytes (%) (Auto) 15 % (24-48) 11 % (24-48) Monocytes (%) (Auto) 19 % (0-9) 17 % (0-9) Eosinophils (%) (Auto) 5 % (0-3) 5 % (0-3) Basophils (%) (Auto) 1 % (0-3) 1 % (0-3) Neutrophils # (Auto) 4.4 x10^3uL (1.8-7.7) 6.3 x10^3uL (1.8-7.7) Lymphocytes # (Auto) 1.1 x10^3/uL (1.0-4.8) 1.0 x10^3/uL (1.0-4.8) Monocytes # (Auto) 1.4 x10^3/uL (0.0-1.1) 1.6 x10^3/uL (0.0-1.1) Eosinophils # (Auto) 0.4 x10^3/uL (0.0-0.7) 0.5 x10^3/uL (0.0-0.7) Basophils # (Auto) 0.0 x10^3/uL (0.0-0.2) 0.1 x10^3/uL (0.0-0.2) Segmented Neutrophils % 56 % (35-66) Lymphocytes % 25 % (24-48) Monocytes % 15 % (0-10) Eosinophils % 3 % (0-5) Metamyelocytes % 1 % (0-0) Platelet Estimate Adequate (ADEQUATE) Sodium Level 137 mmol/L (136-145) 132 mmol/L (136-145) Potassium Level 4.1 mmol/L (3.5-5.1) 4.4 mmol/L (3.5-5.1) Chloride Level 99 mmol/L (98-107) 96 mmol/L (98-107) Carbon Dioxide Level 34 mmol/L (21-32) 32 mmol/L (21-32) Anion Gap 4 (6-14) 4 (6-14) Blood Urea Nitrogen 21 mg/dL (7-20) 20 mg/dL (7-20) Creatinine 0.8 mg/dL (0.6-1.0) 0.9 mg/dL (0.6-1.0) Estimated GFR (Cockcroft-Gault) 68.8 60.1 Glucose Level 105 mg/dL (70-99) 108 mg/dL (70-99) Calcium Level 8.6 mg/dL (8.5-10.1) 8.6 mg/dL (8.5-10.1) Magnesium Level 1.9 mg/dL (1.8-2.4) Laboratory Tests Test 06/07/18 05:55 White Blood Count 9.4 x10^3/uL (4.0-11.0) Red Blood Count 2.68 x10^6/uL (3.50-5.40) Hemoglobin 8.8 g/dL (12.0-15.5) Hematocrit 25.2 % (36.0-47.0) Mean Corpuscular Volume 94 fL (79-100) Mean Corpuscular Hemoglobin 33 pg (25-35) Mean Corpuscular Hemoglobin Concent 35 g/dL (31-37) Red Cell Distribution Width 14.4 % (11.5-14.5) Platelet Count 200 x10^3/uL (140-400) Neutrophils (%) (Auto) 66 % (31-73) Lymphocytes (%) (Auto) 11 % (24-48) Monocytes (%) (Auto) 17 % (0-9) Eosinophils (%) (Auto) 5 % (0-3) Basophils (%) (Auto) 1 % (0-3) Neutrophils # (Auto) 6.3 x10^3uL (1.8-7.7) Lymphocytes # (Auto) 1.0 x10^3/uL (1.0-4.8) Monocytes # (Auto) 1.6 x10^3/uL (0.0-1.1) Eosinophils # (Auto) 0.5 x10^3/uL (0.0-0.7) Basophils # (Auto) 0.1 x10^3/uL (0.0-0.2) Sodium Level 132 mmol/L (136-145) Potassium Level 4.4 mmol/L (3.5-5.1) Chloride Level 96 mmol/L (98-107) Carbon Dioxide Level 32 mmol/L (21-32) Anion Gap 4 (6-14) Blood Urea Nitrogen 20 mg/dL (7-20) Creatinine 0.9 mg/dL (0.6-1.0) Estimated GFR (Cockcroft-Gault) 60.1 Glucose Level 108 mg/dL (70-99) Calcium Level 8.6 mg/dL (8.5-10.1) Magnesium Level 1.9 mg/dL (1.8-2.4) Medications Current Medications Heparin Sodium (Porcine) 5000 unit/Sodium Chloride 505 ml @ 505 mls/hr 1X ONCE IRR Last administered on 05/31/18at 08:53; Start 05/31/18 at 06:00; Stop 05/31/18 at 06:59; Status DC Ondansetron HCl (Zofran) 4 mg PRN Q6HRS PRN IV NAUSEA/VOMITING; Start at 07:00; Stop 05/31/18 at 18:00; Status DC Fentanyl Citrate (Fentanyl 2ml Vial) 25 mcg PRN Q5MIN PRN IV MILD PAIN; Start 05/31/18 at 07:00; Stop 05/31/18 at 18:00; Status DC Fentanyl Citrate (Fentanyl 2ml Vial) 50 mcg PRN Q5MIN PRN IV MODERATE TO SEVERE PAIN; Start 05/31/18 at 07:00; Stop 05/31/18 at 18:00; Status DC Morphine Sulfate (Morphine Sulfate) 1 mg PRN Q10MIN PRN IV SEVERE PAIN Last administered on 05/31/18at 18:04; Start 05/31/18 at 07:00; Stop 05/31/18 at 18 :00; Status DC Ringer's Solution 1,000 ml @ 30 mls/hr Q24H IV Last administered on at 06:33; Start 05/31/18 at 07:00; Stop 05/31/18 at 18:59; Status DC Lidocaine HCl (Xylocaine-Mpf 1% 2ml Vial) 2 ml PRN 1X PRN ID IV START; Start 05/31/18 at 07:00; Stop 05/31/18 at 18:00; Status DC Hydromorphone HCl (Dilaudid) 0.5 mg PRN Q10MIN PRN IV SEV PAIN, Second choice; Start 05/31/18 at 07:00; Stop 05/31/18 at 18:00; Status DC Prochlorperazine Edisylate (Compazine) 5 mg PACU PRN PRN IV NAUSEA, MRX1; Start 05/31/18 at 07:00; Stop 05/31/18 at 18:00; Status DC Cefazolin Sodium/ Dextrose 50 ml @ 100 mls/hr 1X PREOP PRN IV PRIOR TO PROCEDURE Last administered on 05/31/18at 08:00; Start 05/31/18 at 06:00; Stop 05/31/18 at 18:00; Status DC Iohexol (Omnipaque 300 Mg/ml) 100 ml STK-MED ONCE .ROUTE ; Start 05/31/18 at 06 :45; Stop 05/31/18 at 06:46; Status DC Cellulose (Surgicel Fibrillar 1x2) 1 each STK-MED ONCE .ROUTE Last administered on 05/31/18at 10:48; Start 05/31/18 at 06:45; Stop 05/31/18 at 06 :46; Status DC Propofol 20 ml @ As Directed STK-MED ONCE IV ; Start 05/31/18 at 07:00; Stop 05/31/18 at 07:01; Status DC Lidocaine HCl (Lidocaine Pf 2% Vial) 5 ml STK-MED ONCE .ROUTE ; Start 05/31/18 at 07:00; Stop 05/31/18 at 07:01; Status DC Fentanyl Citrate (Fentanyl 2ml Vial) 100 mcg STK-MED ONCE .ROUTE ; Start at 07:00; Stop 05/31/18 at 07:01; Status DC Rocuronium [place] (Zemuron) 50 mg STK-MED ONCE .ROUTE ; Start 05/31/18 at 07: 00; Stop 05/31/18 at 07:01; Status DC Cefazolin Sodium 1 gm/Sodium Chloride 500 ml @ 500 mls/hr 1X ONCE IRR Last administered on 05/31/18at 08:51; Start 05/31/18 at 07:30; Stop 05/31/18 at 08 :29; Status DC Lidocaine HCl 48 ml/Sodium Bicarbonate 12 meq/Miscellaneous 60 ml @ 60 mls/hr 1X ONCE ID ; Start 05/31/18 at 07:07; Stop 05/31/18 at 08:06; Status DC Gelatin (Gelfoam Size 100) 1 each STK-MED ONCE .ROUTE ; Start 05/31/18 at 07: 19; Stop 05/31/18 at 07:20; Status DC Papaverine HCl 60 mg STK-MED ONCE .ROUTE ; Start 05/31/18 at 07:19; Stop 05/31 at 07:20; Status DC Thrombin 20,000 unit STK-MED ONCE TP ; Start 05/31/18 at 07:19; Stop 05/31/18 at 07:20; Status DC Amlodipine Besylate (Norvasc) 5 mg DAILY PO Last administered on 06/07/18 08: 51; Start 06/01/18 at 09:00 Aspirin (Ecotrin) 325 mg DAILYWBKFT PO Last administered on 06/07/18 08:51; Start 06/01/18 at 08:00 Clopidogrel Bisulfate (Plavix) 75 mg DAILY PO Last administered on 06/07/18 08 :52; Start 06/01/18 at 09:00 Famotidine (Pepcid) 20 mg DAILY PO Last administered on 06/07/18at 08:52; Start 06/01/18 at 09:00 Acetaminophen/ Hydrocodone Bitart (Lortab 5/325) 1 tab PRN Q6HRS PRN PO PAIN MILD Last administered on 06/02/18at 13:38; Start 05/31/18 at 07:45 Acetaminophen/ Hydrocodone Bitart (Lortab 5/325) 2 tab PRN Q6HRS PRN PO PAIN MODERATE Last administered on 06/06/18 18:00; Start 05/31/18 at 07:45 Levothyroxine Sodium (Synthroid) 75 mcg DAILYAC PO Last administered on 06:23; Start 06/01/18 at 07:30 Metoprolol Succinate (Toprol Xl) 50 mg DAILY PO Last administered on 06/07/18 08:50; Start 05/31/18 at 09:00 Nitroglycerin (Nitrostat) 0.4 mg PRN Q5MIN PRN SL CHEST PAIN Last administered on 06/05/18at 23:29; Start 05/31/18 at 07:45 Simvastatin (Zocor) 40 mg QHS PO Last administered on 06/06/18at 21:08; Start 05/31/18 at 21:00 Oxycodone HCl (Roxicodone) 5 mg PRN Q3HRS PRN PO PAIN SEVERE Last administered on 06/03/18at 18:32; Start 05/31/18 at 07:45 Al Hydroxide/Mg Hydroxide (Mylanta Plus Xs) 30 ml PRN Q3HRS PRN PO HEARTBURN / GAS; Start 05/31/18 at 07:45 Calcium Carbonate/ Glycine (Tums) 500 mg PRN Q3HRS PRN PO INDIGESTION; Start 05/31/18 at 07:45 Diphenhydramine HCl (Benadryl) 25 mg PRN Q6HRS PRN PO ITCHING; Start 05/31/18 at 07:45 Info (Non-Icu Electrolyte Protocol) 1 ea DAILY MC Last administered on at 09:00; Start 06/01/18 at 09:00 Naloxone HCl (Narcan) 0.1 mg PRN Q2MIN PRN IV ADMIN; Start 05/31/18 at 07:45 Sodium Chloride (Normal Saline Flush) 3 ml QSHIFT PRN IV AFTER MEDS AND BLOOD DRAWS; Start 05/31/18 at 07:45 Sodium Chloride 1,000 ml @ 100 mls/hr Q10H IV Last administered on 06/01/18at 00:02; Start 05/31/18 at 15:00; Stop 06/01/18 at 17:47; Status DC Morphine Sulfate (Morphine Sulfate) 2 mg PRN Q1HR PRN IV PAIN MILD Last administered on 06/04/18at 12:18; Start 05/31/18 at 07:45 Senna/Docusate Sodium (Senna Plus) 1 tab BID PO Last administered on 06/07/18at 08:51; Start 05/31/18 at 09:00 Ondansetron HCl (Zofran) 4 mg PRN Q6HRS PRN IV NAUESA, 1ST CHOICE Last administered on 06/03/18at 18:32; Start 05/31/18 at 07:45 Prochlorperazine Edisylate (Compazine) 5 mg PRN Q6HRS PRN IV N/V, 2nd Choice, MR X1; Start 05/31/18 at 07:45 Cefazolin Sodium 1 gm/Dextrose 50 ml @ 100 mls/hr Q6H IV ; Start 05/31/18 at 07:45; Stop 05/31/18 at 16:44; Status DC Labetalol HCl (Normodyne Iv Push) 20 mg PRN Q2HR PRN IVP HYPERTENSION, SEE COMMENTS; Start 05/31/18 at 07:45 Dexamethasone Sodium Phosphate (Decadron) 20 mg STK-MED ONCE .ROUTE ; Start at 08:19; Stop 05/31/18 at 08:20; Status DC Phenylephrine HCl (PHENYLEPHRINE in 0.9% NACL PF) 1 mg STK-MED ONCE IV ; Start 05/31/18 at 08:19; Stop 05/31/18 at 08:20; Status DC Heparin Sodium (Porcine) (Heparin Sodium) 10,000 unit STK-MED ONCE .ROUTE ; Start 05/31/18 at 08:19; Stop 05/31/18 at 08:20; Status DC Desflurane (Suprane) 90 ml STK-MED ONCE IH ; Start 05/31/18 at 08:19; Stop at 08:20; Status DC Ephedrine Sulfate (ePHEDrine PF IN SALINE SYRINGE) 50 mg STK-MED ONCE IV ; Start 05/31/18 at 08:28; Stop 05/31/18 at 08:29; Status DC Nicardipine HCl (Cardene) 25 mg STK-MED ONCE IV ; Start 05/31/18 at 08:37; Stop 05/31/18 at 08:38; Status DC Glycopyrrolate (Robinul) 1 mg STK-MED ONCE .ROUTE ; Start 05/31/18 at 09:08; Stop 05/31/18 at 09:09; Status DC Neostigmine Methylsulfate (Neostigmine Methylsulfate) 5 mg STK-MED ONCE .ROUTE ; Start 05/31/18 at 09:08; Stop 05/31/18 at 09:09; Status DC Fentanyl Citrate (Fentanyl 2ml Vial) 100 mcg STK-MED ONCE .ROUTE ; Start at 10:14; Stop 05/31/18 at 10:15; Status DC Protamine Sulfate (Protamine) 50 mg STK-MED ONCE IV ; Start 05/31/18 at 10:41; Stop 05/31/18 at 10:42; Status DC Protamine Sulfate (Protamine) 50 mg STK-MED ONCE IV ; Start 05/31/18 at 10:53; Stop 05/31/18 at 10:54; Status DC Cefazolin Sodium 1 gm/Dextrose 50 ml @ 100 mls/hr Q6H IV Last administered on 06/01/18at 04:55; Start 05/31/18 at 17:00; Stop 06/01/18 at 05:29; Status DC Nicotine (Nicoderm Cq 21mg) 1 patch DAILY TD Last administered on 06/03/18at 12 :44; Start 06/03/18 at 09:00 Isosorbide Mononitrate (Imdur) 30 mg DAILY PO Last administered on 06/07/18at 08 :50; Start 06/04/18 at 13:45 Ranolazine (Ranexa) 500 mg BID PO Last administered on 06/07/18at 08:52; Start 06/04/18 at 21:00 Cephalexin HCl (Keflex) 500 mg TID PO Last administered on 06/07/18at 08:49; Start 06/06/18 at 14:00 Active Scripts Active Aspirin Ec (Aspirin) 325 Mg Tablet.dr 325 Mg PO DAILYWBKFT Reported Pepcid (Famotidine) 20 Mg Tablet 20 Mg PO DAILY Pepcid (Famotidine) 20 Mg Tablet 20 Mg PO HS Clopidogrel (Clopidogrel Bisulfate) 75 Mg Tablet 75 Mg PO DAILY Levothyroxine Sodium 75 Mcg Tablet 75 Mcg PO DAILYAC Hydrocodone-Apap 5-325 (Hydrocodone Bit/Acetaminophen) 1 Each Tablet 2 Tab PO PRN Q6HRS PRN Nitrostat (Nitroglycerin) 0.4 Mg Tab.subl 0.4 Mg SL PRN Q5MIN PRN Hydrocodone-Apap 5-325 (Hydrocodone Bit/Acetaminophen) 1 Each Tablet 1 Tab PO PRN Q6HRS PRN Amlodipine Besylate 5 Mg Tablet 1 Tab PO DAILY Simvastatin 40 Mg Tablet 1 Tab PO QHS Metoprolol Succinate ( Xl ) (Metoprolol Succinate) 25 Mg Tab.er.24h 50 Mg PO DAILY Vitals/I & O Vital Sign - Last 24 Hours 06/06/18 06/06/18 06/06/18 06/06/18 11:15 11:25 15:08 18:00 Temp 97.8 97.7 97.8 97.7 Pulse 95 74 Resp 18 18 B/P (MAP) 121/53 (75) 108/40 (62) Pulse Ox 93 96 96 O2 Delivery Nasal Cannula Nasal Cannula Nasal Cannula Nasal Cannula O2 Flow Rate 3.0 1.0 3.0 3.0 06/06/18 06/06/18 06/06/18 06/06/18 18:22 19:00 19:20 21:06 Temp 97.8 97.8 Pulse 87 103 Resp 18 18 B/P (MAP) 109/39 (62) 113/59 Pulse Ox 95 95 O2 Delivery Nasal Cannula Nasal Cannula Nasal Cannula O2 Flow Rate 3.0 3.0 2.0 06/06/18 06/07/18 06/07/18 06/07/18 23:00 03:00 07:00 08:50 Temp 97.6 98.3 97.9 97.6 98.3 97.9 Pulse 81 92 85 86 Resp 18 16 18 B/P (MAP) 137/60 (85) 116/61 (79) 145/52 (83) 142/52 Pulse Ox 95 92 91 O2 Delivery Nasal Cannula Nasal Cannula Nasal Cannula O2 Flow Rate 3.0 1.0 06/07/18 06/07/18 06/07/18 08:50 08:51 08:52 Pulse 91 81 87 B/P (MAP) 142/52 142/52 142/52 Intake and Output 06/06/18 06/06/18 06/07/18 15:00 23:00 07:00 Intake Total 180 ml 690 ml 100 ml Output Total 600 ml 1200 ml 500 ml Balance -420 ml -510 ml -400 ml Nutrition Consultation Dietary Evaluation: Recommendations by RD: Protein supplementation Comments: Continue w/cardaic diet Add Ensure BID (breakfast and dinner, chocolate flavor) Expected Outcomes/Goals: PO intake to meet >75% est needs Malnutrition Findings: Food and Nutrition Intake (Mod: <75% est energy req 7days Weight Status: Appropriate JOEY JONES III DO Jun 07, 2018 10:53
[2018-06-07] MEDS: HYDROcodone/APAP 5/325MG 1 TAB TABLET PO PRN ×2 (11:15→15:00)
[2018-06-07 11:45] VITALS: BP 130/37
[2018-06-07] MEDS ORDERED: CEPH250C PO (12:43)
--- NOTE | 2018-06-07 14:15 | PDOC ---
PULMONARY PROGRESS NOTES Vitals Vital Signs Date Time Temp Pulse Resp B/P (MAP) Pulse Ox O2 Delivery O2 Flow Rate FiO2 06/07/18 12:15 Nasal Cannula 1.0 06/07/18 11:45 97.5 79 14 130/37 (68) 93 97.5 Lungs: Clear, Other (2L nc) Cardiovascular: S1, S2 Abdomen: Soft Extremities: No Edema Labs Laboratory Tests Test 06/06/18 05:05 06/07/18 05:55 06/07/18 11:20 White Blood Count 7.4 x10^3/uL (4.0-11.0) 9.4 x10^3/uL (4.0-11.0) Red Blood Count 2.65 x10^6/uL (3.50-5.40) 2.68 x10^6/uL (3.50-5.40) Hemoglobin 8.5 g/dL (12.0-15.5) 8.8 g/dL (12.0-15.5) Hematocrit 24.7 % (36.0-47.0) 25.2 % (36.0-47.0) Mean Corpuscular Volume 93 fL (79-100) 94 fL (79-100) Mean Corpuscular Hemoglobin 32 pg (25-35) 33 pg (25-35) Mean Corpuscular Hemoglobin Concent 34 g/dL (31-37) 35 g/dL (31-37) Red Cell Distribution Width 14.6 % (11.5-14.5) 14.4 % (11.5-14.5) Platelet Count 192 x10^3/uL (140-400) 200 x10^3/uL (140-400) Neutrophils (%) (Auto) 60 % (31-73) 66 % (31-73) Lymphocytes (%) (Auto) 15 % (24-48) 11 % (24-48) Monocytes (%) (Auto) 19 % (0-9) 17 % (0-9) Eosinophils (%) (Auto) 5 % (0-3) 5 % (0-3) Basophils (%) (Auto) 1 % (0-3) 1 % (0-3) Neutrophils # (Auto) 4.4 x10^3uL (1.8-7.7) 6.3 x10^3uL (1.8-7.7) Lymphocytes # (Auto) 1.1 x10^3/uL (1.0-4.8) 1.0 x10^3/uL (1.0-4.8) Monocytes # (Auto) 1.4 x10^3/uL (0.0-1.1) 1.6 x10^3/uL (0.0-1.1) Eosinophils # (Auto) 0.4 x10^3/uL (0.0-0.7) 0.5 x10^3/uL (0.0-0.7) Basophils # (Auto) 0.0 x10^3/uL (0.0-0.2) 0.1 x10^3/uL (0.0-0.2) Segmented Neutrophils % 56 % (35-66) Lymphocytes % 25 % (24-48) Monocytes % 15 % (0-10) Eosinophils % 3 % (0-5) Metamyelocytes % 1 % (0-0) Platelet Estimate Adequate (ADEQUATE) Sodium Level 137 mmol/L (136-145) 132 mmol/L (136-145) Potassium Level 4.1 mmol/L (3.5-5.1) 4.4 mmol/L (3.5-5.1) Chloride Level 99 mmol/L (98-107) 96 mmol/L (98-107) Carbon Dioxide Level 34 mmol/L (21-32) 32 mmol/L (21-32) Anion Gap 4 (6-14) 4 (6-14) Blood Urea Nitrogen 21 mg/dL (7-20) 20 mg/dL (7-20) Creatinine 0.8 mg/dL (0.6-1.0) 0.9 mg/dL (0.6-1.0) Estimated GFR (Cockcroft-Gault) 68.8 60.1 Glucose Level 105 mg/dL (70-99) 108 mg/dL (70-99) Calcium Level 8.6 mg/dL (8.5-10.1) 8.6 mg/dL (8.5-10.1) Magnesium Level 1.9 mg/dL (1.8-2.4) Glucose (Fingerstick) 121 mg/dL (70-99) Laboratory Tests Test 06/07/18 05:55 06/07/18 11:20 White Blood Count 9.4 x10^3/uL (4.0-11.0) Red Blood Count 2.68 x10^6/uL (3.50-5.40) Hemoglobin 8.8 g/dL (12.0-15.5) Hematocrit 25.2 % (36.0-47.0) Mean Corpuscular Volume 94 fL (79-100) Mean Corpuscular Hemoglobin 33 pg (25-35) Mean Corpuscular Hemoglobin Concent 35 g/dL (31-37) Red Cell Distribution Width 14.4 % (11.5-14.5) Platelet Count 200 x10^3/uL (140-400) Neutrophils (%) (Auto) 66 % (31-73) Lymphocytes (%) (Auto) 11 % (24-48) Monocytes (%) (Auto) 17 % (0-9) Eosinophils (%) (Auto) 5 % (0-3) Basophils (%) (Auto) 1 % (0-3) Neutrophils # (Auto) 6.3 x10^3uL (1.8-7.7) Lymphocytes # (Auto) 1.0 x10^3/uL (1.0-4.8) Monocytes # (Auto) 1.6 x10^3/uL (0.0-1.1) Eosinophils # (Auto) 0.5 x10^3/uL (0.0-0.7) Basophils # (Auto) 0.1 x10^3/uL (0.0-0.2) Sodium Level 132 mmol/L (136-145) Potassium Level 4.4 mmol/L (3.5-5.1) Chloride Level 96 mmol/L (98-107) Carbon Dioxide Level 32 mmol/L (21-32) Anion Gap 4 (6-14) Blood Urea Nitrogen 20 mg/dL (7-20) Creatinine 0.9 mg/dL (0.6-1.0) Estimated GFR (Cockcroft-Gault) 60.1 Glucose Level 108 mg/dL (70-99) Calcium Level 8.6 mg/dL (8.5-10.1) Magnesium Level 1.9 mg/dL (1.8-2.4) Glucose (Fingerstick) 121 mg/dL (70-99) Medications Active Scripts Medications Dose Route/Sig Max Daily Dose Days Date Category Cephalexin 250 Mg Capsule 500 Mg PO TID 10 06/07/18 Rx Pepcid (Famotidine) 20 Mg Tablet 20 Mg PO DAILY 05/30/18 Reported Clopidogrel (Clopidogrel Bisulfate) 75 Mg Tablet 75 Mg PO DAILY 02/08/17 Reported Levothyroxine Sodium 75 Mcg Tablet 75 Mcg PO DAILYAC 02/08/17 Reported Nitrostat (Nitroglycerin) 0.4 Mg Tab.subl 0.4 Mg SL PRN Q5MIN PRN 04/21/16 Reported Aspirin Ec (Aspirin) 325 Mg Tablet.dr 325 Mg PO DAILYWBKFT 04/21/16 Rx Hydrocodone-Apap 5-325 (Hydrocodone Bit/Acetaminophen) 1 Each Tablet 1 Tab PO PRN Q6HRS PRN 04/22/15 Reported Amlodipine Besylate 5 Mg Tablet 1 Tab PO DAILY 02/22/15 Reported Simvastatin 40 Mg Tablet 1 Tab PO QHS 02/22/15 Reported Metoprolol Succinate ( Xl ) (Metoprolol Succinate) 25 Mg Tab.er.24h 50 Mg PO DAILY 02/22/15 Reported Impression . NOTE DICTATED OK TO D/C HOME FOLLOW UP ON JUN 29 NEEDED QHS 6 MIN WALK ALPESH GUTIERRES MD Jun 07, 2018 14:15
[2018-06-07 15:00] VITALS: BP 141/67
[2018-06-07] MEDS ORDERED: RANO500T2 PO (15:20)
[2018-06-07] MEDS ORDERED: ISOS30TA4 PO (15:22)
--- NOTE | 2018-06-07 15:34 | RESP ---
DATE OF SERVICE: 06/06/2018 The patient underwent a nocturnal desaturation study dated 06/06/2018 on room air. The patient had periods of oxyhemoglobin desaturation below 88%. IMPRESSION: Abnormal nocturnal desaturation study. PLAN: Recommend 2 liters of oxygen supplementation at bedtime if clinically warranted, polysomnogram. ALPESH GUTIERRES MD DR: PALLAVI/ramila JOB#: [id number] / [id number]
--- NOTE | 2018-06-07 16:18 | CONS ---
DATE OF CONSULTATION: 06/07/2018 ATTENDING PHYSICIAN: Vika Alcala DO. CONSULTING PHYSICIAN: Alpesh Gutierres MD. REASON FOR CONSULTATION: The patient seen in pulmonary consultation at the request of Dr. Alcala for positive nocturnal desaturation study, COPD, possibly requiring oxygen. HISTORY OF PRESENT ILLNESS: The patient is an 82-year-old female that presented with ischemic right foot pain. She underwent a right femoral to tibioperoneal trunk bypass grafting using ipsilateral greater saphenous vein. She was found to be hypoxic. She underwent a nocturnal desaturation study, which was positive. She is due to be discharged today. I was asked to see her in consultation for the hypoxemia. The patient last time seen was back in 2016. She had acute respiratory failure secondary to acute diastolic heart failure and acute COPD exacerbation, failed outpatient therapy. She continues to smoke. She has a cough, mostly nonproductive. No fever, chills or night sweats. PAST MEDICAL HISTORY: 1. COPD, tobacco dependence. 2. Peripheral vascular disease as indicated above. 3. Coronary artery disease with previous cardiac stenting. 4. Hypertension, hyperlipidemia. 5. Chronic pain. 6. Gastroesophageal reflux. 7. Hypothyroidism. ALLERGIES: DIPHENHYDRAMINE AND HYDRALAZINE. MEDICATIONS: List was reviewed. REVIEW OF SYSTEMS: As indicated above, otherwise, a 10-point system was reviewed and negative. CURRENT MEDICATION: List was likewise reviewed. PHYSICAL EXAMINATION: VITAL SIGNS: The patient was in no respiratory distress. O2 saturation currently on 1 liter was 91% to 93%. HEENT: Eyes, the sclerae were nonicteric. NECK: Jugular venous distention was not elevated. No lymphadenopathy. CHEST: Full expansion. LUNGS: Poor airway flow with no wheezes. CARDIOVASCULAR: Regular rate and rhythm with S1, S2, no S3. ABDOMEN: Soft, nontender, nondistended. EXTREMITIES: No clubbing, cyanosis or edema. NEUROLOGIC: The patient was awake, alert, following commands. A detailed neuro exam was not performed. LABORATORY DATA: Reviewed. White count was normal. Hemoglobin and hematocrit were noted. Electrolytes were noted. Chest x-ray on 06/06 revealed some chronic changes. She also had mild left upper lobe perihilar atelectasis. IMPRESSION: 1. Hypoxemia secondary to chronic obstructive pulmonary disease. 2. Abnormal x-ray revealing some chronic basilar changes. 3. Tobacco dependence. 4. Chronic obstructive pulmonary disease. 5. Peripheral vascular disease, status post right femoral to tibioperoneal trunk bypass. 6. Other comorbidities as indicated above. PLAN: 1. The patient will be set up with oxygen at home. She underwent nocturnal desaturation study, which was positive. Clinically, it does not appear that she has obstructive sleep apnea. 2. We will set her up with oxygen at home, have her followup in the office on 06/29. 3. The patient is instructed on the importance of discontinuing tobacco use. She currently utilizes no bronchodilators at home. She will undergo full pulmonary function testing as an outpatient. I do appreciate the privilege in sharing in the patient's care. ALPESH GUTIERRES MD DR: PALLAVI/ramila JOB#: [id number] / [id number]
== END 2018-06-07 18:15 | disposition home or self-care (01) | DRG 252 ==
LOC: OPSVCIP 05:44 → 2 NORTH 13:30
PROC: 06BP0ZZ Excision of Right Saphenous Vein, Open Approach (ICD-10-PCS; 2018-05-31)
PROC: 041K09L Bypass Right Femoral Artery to Popliteal Artery with Autologous Venous Tissue, Open Approach (ICD-10-PCS; principal; 2018-05-31 07:30)
DX: E11.51 Type 2 diabetes mellitus with diabetic peripheral angiopathy without gangrene (principal); I50.43 Acute on chronic combined systolic (congestive) and diastolic (congestive) heart failure; E87.1 Hypo-osmolality and hyponatremia; D62 Acute posthemorrhagic anemia; D68.9 Coagulation defect, unspecified; I25.110 Atherosclerotic heart disease of native coronary artery with unstable angina pectoris; D63.8 Anemia in other chronic diseases classified elsewhere; E03.9 Hypothyroidism, unspecified; E11.65 Type 2 diabetes mellitus with hyperglycemia; E78.5 Hyperlipidemia, unspecified; E83.51 Hypocalcemia; F17.200 Nicotine dependence, unspecified, uncomplicated; I11.0 Hypertensive heart disease with heart failure; I25.2 Old myocardial infarction; R09.02 Hypoxemia; G89.29 Other chronic pain; M19.90 Unspecified osteoarthritis, unspecified site; I70.201 Unspecified atherosclerosis of native arteries of extremities, right leg; I99.8 Other disorder of circulatory system; J44.9 Chronic obstructive pulmonary disease, unspecified; Z53.29 Procedure and treatment not carried out because of patient's decision for other reasons; K21.9 Gastro-esophageal reflux disease without esophagitis; I77.1 Stricture of artery; F17.210 Nicotine dependence, cigarettes, uncomplicated; Z79.899 Other long term (current) drug therapy; Z82.49 Family history of ischemic heart disease and other diseases of the circulatory system; Z86.79 Personal history of other diseases of the circulatory system; Z99.81 Dependence on supplemental oxygen; Z95.5 Presence of coronary angioplasty implant and graft; Z79.4 Long term (current) use of insulin; Z95.1 Presence of aortocoronary bypass graft; Z88.8 Allergy status to other drugs, medicaments and biological substances; Z71.6 Tobacco abuse counseling
CPT/HCPCS: 36415; 71046; 73552; 80048; 82962; 83735; 84100; 84484; 85007; 85025; 85027; 85347; 85610; 85730; 93005; 93306; 94618; 94799; A7015; J0690; J1100; J1644; J2001; J2270; J2370; J2405; J2440; J2704; J2710; J3010; J3490; J7030; J7040; J7120; Q9967; 97110; 97116; 97530; 97535

== ENCOUNTER → 2018-07-14 | Outpatient (CLI) | payer BC ==
[2018-06-14 13:17] VITALS: BP 137/57
[~2018-07-14] MED LIST changes: +ALBU2.5V8 INH; +AMLO5TAB10 PO; -AMLO5TAB7 PO; +CEFD300C PO; +CEPH250C PO; +GADOBUTROL 7.5 MMOL/7.5 ML VIAL IV ONE; +ISOS30TA4 PO; +RANO500T2 PO
--- NOTE | 2018-07-14 12:41 | RAD ---
MRI Brain with and without contrast History: Lung cancer, metastasis evaluation Technique: Multiplanar, multi sequential pre and postcontrast MR imaging was performed of the brain. Comparison: None Findings: There is no evidence of recent infarct or cytotoxic edema. Ventricular size is proportionate to sulcal spaces, mild to moderate generalized supratentorial atrophy.There is no significant midline shift, intraaxial mass effect, or focal abnormal extra-axial fluid collection. There is scattered [id number] T2 and FLAIR hyperintense signal abnormality of the supratentorial parenchyma bilaterally and mauricio. There is tiny old lacunar infarct right cerebellum. There is no nodular parenchymal or leptomeningeal enhancement. Left intradural vertebral artery flow-void is not well-visualized and may be occluded. The cerebellar tonsils are normal in location. There is no significant abnormality of the pineal gland or pituitary gland. Paranasal sinuses are overall aerated. There has been lens surgery bilaterally. There is moderate to severe fluid and thickening right mastoid air cells, mild thickening on the left. There is preserved marrow signal of the clivus. There is degenerative disc disease of visualized superior cervical spine. Impression: 1. There is no abnormal intracranial enhancement 2. There is generalized supratentorial atrophy. Scattered T2 and FLAIR hyperintense signal abnormality of the mauricio and supratentorial parenchyma is nonspecific although most commonly due to chronic microvascular ischemic disease in a patient this age. 3. There is fluid in the right mastoid air cells, uncertain sterility. 4. Left intradural vertebral artery flow-void is not well-visualized and may be occluded. Electronically signed by: Christ Norris MD (07/14/2018 12:37 PM) [id number]
--- NOTE | 2018-07-14 13:40 | RAD ---
FDG tumor localization scan, PET/CT, 07/14/2018: History: Lung cancer staging Following IV injection of 13.4 mCi of 18 F-FDG, imaging was performed from the skull base to the proximal thighs. The noncontrast component was performed for attenuation correction and anatomic localization purposes rather than for primary diagnosis. The patient's blood glucose level the time of injection was 134 MG/DL. There is a 3.5 cm irregular mass in the posterior aspect of the left upper lobe which is hypermetabolic demonstrating a maximum SUV of approximately 21. There are at least 5 additional smaller hypermetabolic foci in the right lung corresponding to irregular pulmonary opacities. The largest of these lies posteromedially in the right upper lobe adjacent to the superior aspect of the oblique fissure and measures approximately 13 mm with a maximum SUV of 5.7. Similar small hypermetabolic nodules are also present along the lateral aspect of the right hilum and in the superior segment of the right lower lobe. There are enlarged hypermetabolic mediastinal lymph nodes including an 11 x 18 mm AP window lymph node which demonstrates a maximum SUV of 4.4. Similar hypermetabolic foci are present in the right paratracheal and subcarinal regions. Mildly increased activity at both alvarado demonstrates activity only slightly greater than the mediastinal background, with a maximum SUV of 3.5. Normal GI tract and urinary tract activity is present in the abdomen and pelvis. No hypermetabolic intra-abdominal lesion is seen. There is increased activity at the right groin level. This corresponds in location to the inferior insertion of an aortobifemoral graft. There are surgical clips in this region as well as streaky increased density in the adjacent soft tissues. This increased activity is likely on an inflammatory basis due to previous intervention or surgery. Physiologic activity is present in the neck. No hypermetabolic neck lesion is seen. Incidental CT findings include the presence of small gallstones. There is extensive arterial calcifications including the coronary arteries. A trace amount of free fluid is noted in the pelvis. There are moderate multilevel degenerative changes in the spine. IMPRESSION: 1. Hypermetabolic left upper lobe mass compatible with a primary lung malignancy. 2. Hypermetabolic mediastinal adenopathy most prominent at the AP window level, likely on a metastatic basis. 3. Borderline increased activity at both alvarado which may be on a reactive or metastatic basis. 4. Several smaller hypermetabolic right lung lesions are likely on a metastatic basis. An infectious etiology is less likely. 5. Mildly increased activity at the right groin is probably inflammatory, related to recent intervention or surgery.
== END | disposition home or self-care (01) ==
LOC: PETSC 09:19
PROVIDERS: ATTEND Internal Medicine Hematology & Oncology
DX: G31.9 Degenerative disease of nervous system, unspecified (principal); R91.8 Other nonspecific abnormal finding of lung field
CPT/HCPCS: 70553; 78815; A9552; A9585

== ENCOUNTER 2018-08-27 22:19 | Inpatient (IN) | payer BC ==
[~2018-08-27] VITALS: Ht 152.4 cm; Wt 45.9 kg
[~2018-08-27 22:19] MED LIST changes: -CEFD300C PO; -GADOBUTROL 7.5 MMOL/7.5 ML VIAL IV ONE
[2018-08-27 22:51] LABS: BASO # 0.1 x10^3/uL (0.0-0.2); BASO % 0 % (0-3); EOS # 0.1 x10^3/uL (0.0-0.7); EOS % 1 % (0-3); HEMATOCRIT 33.6 % (36.0-47.0); HEMOGLOBIN 10.8 g/dL (12.0-15.5); LYMPH # 0.4 x10^3/uL (1.0-4.8); LYMPH % 3 % (24-48); MEAN CORPUSCULAR HEMOGLOBIN 29 pg (25-35); MEAN CORPUSCULAR HGB CONC 32 g/dL (31-37); MEAN CORPUSCULAR VOLUME 91 fL (79-100); MONO # 0.7 x10^3/uL (0.0-1.1); MONO % 5 % (0-9); NEUT # 14.3 x10^3uL (1.8-7.7); NEUT % 92 % (31-73); PLATELET COUNT 138 x10^3/uL (140-400); RED BLOOD COUNT 3.71 x10^6/uL (3.50-5.40); RED CELL DISTRIBUTION WIDTH 18.9 % (11.5-14.5); WHITE BLOOD COUNT 15.5 x10^3/uL (4.0-11.0)
[2018-08-27] MEDS ORDERED: IPRATRPIUM/ALBUTEROL 0.5/2.5MG 3 ML NEBU. NEB ONE (23:00)
[2018-08-27] MEDS ORDERED: methylPREDNISolone SOD SUCC PF 40 MG/ML VIAL. IV ONE (23:00)
[2018-08-27 23:13] LABS: % BANDS 21 % (0-9); % BASOS 1 % (0-3); % EOS 1 % (0-5); % LYMPHS 1 % (24-48); % MONOS 1 % (0-10); % SEGS 75 % (35-66); ANISOCYTOSIS SLIGHT; PLT ESTIMATE DECREASED (ADEQUATE); POIKILOCYTOSIS SLIGHT
[2018-08-27 23:19] LABS: CALCIUM 8.9 mg/dL (8.5-10.1); CREATININE 1.4 mg/dL (0.6-1.0); POTASSIUM 4.7 mmol/L (3.5-5.1)
[2018-08-27 23:24] LABS: ALBUMIN 2.4 g/dL (3.4-5.0); ALBUMIN/GLOBULIN RATIO 0.6 (1.0-1.7); TOTAL BILIRUBIN 0.5 mg/dL (0.2-1.0); TOTAL PROTEIN 6.7 g/dL (6.4-8.2)
[2018-08-27 23:37] LABS: INFLUENZA A PATIENT NEGATIVE (NEGATIVE); INFLUENZA B PATIENT NEGATIVE (NEGATIVE)
[2018-08-28] VITALS (7 sets, daily range): BP systolic 115–198; BP diastolic 48–70
--- NOTE | 2018-08-28 00:28 | PHYS DOC ---
Past Medical History Past Medical History: COPD, Hypertension Additional Past Medical Histor: BYPASS 1986, STENTS 2011 Past Surgical History: Coronary Bypass Surgery, TURP Additional Past Surgical Histo: cardiac stents May 2016, R Femoral artery bypass Alcohol Use: None Drug Use: None Adult General Chief Complaint Chief Complaint: SHORTNESS OF BREATH HPI HPI Patient is a 83 year old female with history of COPD, and lung cancer, currently on immunotherapy last dose 5 days ago who presents with increased cough, shortness of air and fever 100.3 this evening. Patient reports productive cough with greenish yellow sputum for the past week. Reports increased shortness breath during this time. No chills, nausea vomiting or sweats. Denies increased leg pain or swelling. No other acute symptoms or complaints.[] Review of Systems Review of Systems Review symptoms as per history of present illness. All other review symptoms are negative. All other systems were reviewed and found to be within normal limits, except as documented in this note. Current Medications Current Medications Current Medications Medications (Trade) Dose Ordered Sig/Lui Start Time Stop Time Status Last Admin Dose Admin Albuterol/ Ipratropium (Duoneb) 3 ml 1X ONCE 08/27/18 23:00 2 23:01 DC 08/27/18 23:19 3 ML Methylprednisolone Sodium Succinate (SOLU-Medrol 40MG VIAL) 40 mg 1X ONCE 08/27/18 23:00 08/27/18 23:01 DC 08/27/18 23:06 40 MG Allergies Allergies Allergies Coded Allergies Type Severity Reaction Last Updated Verified diphenhydramine Allergy Intermediate rash 08/27/18 Yes hydralazine Allergy Mild Nausea and Vomiting 08/27/18 Yes Physical Exam Physical Exam Constitutional: Well developed, well nourished, no acute distress, non-toxic appearance. [] HENT: Normocephalic, atraumatic, bilateral external ears normal, oropharynx moist, nose normal. [] Eyes: PERRLA, EOMI, conjunctiva normal. [] Neck: Normal range of motion, no tenderness. [] Cardiovascular:Heart rate regular rhythm, no murmur [] Lungs & Thorax: Respirations diminished bilaterally, coarse breath sounds throughout.[] Abdomen: Bowel sounds normal, soft, no tenderness. [] Skin: Warm, dry, no erythema, no rash. [] Back: No tenderness. [] Extremities: Negative Braeden's sign. [] Neurologic: Alert and oriented X 3, normal motor function, normal sensory function, no focal deficits noted. [] Psychologic: Affect normal, judgement normal, mood normal. [] Current Patient Data Vital Signs Vital Signs Date Time Temp Pulse Resp B/P (MAP) Pulse Ox O2 Delivery O2 Flow Rate FiO2 08/27/18 23:28 79 20 123/56 (78) 93 4.0 08/27/18 23:19 Nasal Cannula 08/27/18 22:31 98.3 98.3 Lab Values Laboratory Tests Test 08/27/18 22:35 08/27/18 22:50 White Blood Count 15.5 x10^3/uL (4.0-11.0) H Red Blood Count 3.71 x10^6/uL (3.50-5.40) Hemoglobin 10.8 g/dL (12.0-15.5) L Hematocrit 33.6 % (36.0-47.0) L Mean Corpuscular Volume 91 fL (79-100) Mean Corpuscular Hemoglobin 29 pg (25-35) Mean Corpuscular Hemoglobin Concent 32 g/dL (31-37) Red Cell Distribution Width 18.9 % (11.5-14.5) H Platelet Count 138 x10^3/uL (140-400) L Neutrophils (%) (Auto) 92 % (31-73) H Lymphocytes (%) (Auto) 3 % (24-48) L Monocytes (%) (Auto) 5 % (0-9) Eosinophils (%) (Auto) 1 % (0-3) Basophils (%) (Auto) 0 % (0-3) Neutrophils # (Auto) 14.3 x10^3uL (1.8-7.7) H Lymphocytes # (Auto) 0.4 x10^3/uL (1.0-4.8) L Monocytes # (Auto) 0.7 x10^3/uL (0.0-1.1) Eosinophils # (Auto) 0.1 x10^3/uL (0.0-0.7) Basophils # (Auto) 0.1 x10^3/uL (0.0-0.2) Segmented Neutrophils % 75 % (35-66) H Band Neutrophils % 21 % (0-9) H Lymphocytes % 1 % (24-48) L Monocytes % 1 % (0-10) Eosinophils % 1 % (0-5) Basophils % 1 % (0-3) Platelet Estimate Decreased (ADEQUATE) Poikilocytosis Slight Anisocytosis Slight Crenated Cell Present Lactic Acid Level 2.0 mmol/L (0.4-2.0) Sodium Level 134 mmol/L (136-145) L Potassium Level 4.7 mmol/L (3.5-5.1) Chloride Level 99 mmol/L (98-107) Carbon Dioxide Level 27 mmol/L (21-32) Anion Gap 8 (6-14) Blood Urea Nitrogen 39 mg/dL (7-20) H Creatinine 1.4 mg/dL (0.6-1.0) H Estimated GFR (Cockcroft-Gault) 36.0 BUN/Creatinine Ratio 28 (6-20) H Glucose Level 168 mg/dL (70-99) H Calcium Level 8.9 mg/dL (8.5-10.1) Total Bilirubin 0.5 mg/dL (0.2-1.0) Aspartate Amino Transferase (AST) 60 U/L (15-37) H Alanine Aminotransferase (ALT) 66 U/L (14-59) H Alkaline Phosphatase 293 U/L (46-116) H Troponin I Quantitative 0.043 ng/mL (0.000-0.055) KN-Uwv-D-Type Natriuretic Peptide 67047 pg/mL (0-449) H Total Protein 6.7 g/dL (6.4-8.2) Albumin 2.4 g/dL (3.4-5.0) L Albumin/Globulin Ratio 0.6 (1.0-1.7) L Influenza Type A Antigen Negative (NEGATIVE) Influenza Type B Antigen Negative (NEGATIVE) Laboratory Tests 08/27/18 22:35 Laboratory Tests 08/27/18 22:50 EKG EKG [EKG: reviewed] Radiology/Procedures Radiology/Procedures [Chest x-ray: Increased pulmonary vascular congestion, ? infiltrates] Course & Med Decision Making Course & Med Decision Making Pertinent Labs and Imaging studies reviewed. (See chart for details) [Fever, productive cough shortness of breath. Findings of congestive heart failure suspected pneumonia with areas lab abnormalities. Empiric antibiotics started, breathing treatments given. Will admit to the hospitalist service. ] Dragon Disclaimer Dragon Disclaimer This electronic medical record was generated, in whole or in part, using a voice recognition dictation system. Departure Departure Impression: Primary Impression: Acute congestive heart failure Additional Impressions: Pneumonia Lung cancer Disposition: ADMITTED INPATIENT Admitting Physician: Other (Dr. Hood) Condition: STABLE Referrals: SCOT GOMES MD (PCP) Problem Qualifiers KJ ESPITIA DO Aug 28, 2018 00:27
[2018-08-28] MEDS ORDERED: FUROSEMIDE 40 MG/4 ML VIAL. IVP ONE (00:30)
[2018-08-28] MEDS ORDERED: VANCOMYCIN PER PHARMACY MC PRN (00:30)
[2018-08-28] MEDS ORDERED: ONDANSETRON PF 4 MG/2 ML VIAL. IV PRN (00:30)
[2018-08-28] MEDS ORDERED: CEFEPIME HCL IV Push 2 GM VIAL. IVP ONE (00:45)
--- NOTE | 2018-08-28 00:45 | NUR ---
The patient, ZOE KEARNS I, 83 y/o, F admitted by MARINA ADRIAN MD, was given written information regarding hospital policies, unit procedures and contact persons. Valuables were checked and left with patient.
[2018-08-28] MEDS ORDERED: VANCOMYCIN 1.25 GM in IV NORMAL SALINE 250ML 250 ML IV ONE (01:30)
--- NOTE | 2018-08-28 02:01 | NUR ---
Pharmacy Vancomycin Dosing Note S:Consulted to monitor and dose vancomycin started 08/28/18. O:ZOE KEARNS I is a 83 year old F with Pneumonia LUNG CA . Height: 5 feet, 0 inches Weight: 45.048241 kg [place] Body Weight: 45.50 Adjusted Body Weight: 45.46 Dosing Weight: Actual Other Antibiotics: LABS: Last BUN: 39 Last Creatinine: 1.4 Creatinine Clearance: 22 mL/min Last WBC: 15.5 Last Procalcitonin: Tmax (past 24 hours): Microbiology: I/O: Drug Levels: Last level: on at Last dose given at Vancomycin Dosing: Loading Dose: 1250 mg x1 08/28/18 013 Dosing Weight: Actual Target Trough: 15-20 A: Based on: Actual Wt and CrCl P: 1. 08/30/18 013 Vancomycin 750 mg IV q48h 2. Follow up Trough level on 09/01/18 at 0100 3. Pharmacy will continue to monitor, follow and adjust therapy as needed. ROSITA VAZQUEZ RPH, 08/28/18 020 Signed: 08/28/18 at 0202 by ROSITA VAZQUEZ RPH PHA
[2018-08-28] MEDS ORDERED: ALBUTEROL SULFATE 2.5 MG/3 ML NEBU. NEB ONE (02:45)
[2018-08-28] MEDS ORDERED: ALBUTEROL SULFATE 2.5 MG/3 ML NEBU. NEB PRN (03:00)
[2018-08-28 05:31] LABS: CREATININE 1.5 mg/dL (0.6-1.0); GFR 33.2
[2018-08-28] MEDS: methylPREDNISolone SOD SUCC PF 40 MG/ML VIAL. IV SCH ×3 (05:48→21:02)
--- NOTE | 2018-08-28 07:52 | RAD ---
CHEST AP ONLY History: Cough and short of breath Comparison: June 14, 2018 Cardiomediastinal silhouette is unchanged. Left endovascular stent is again identified. No pneumothorax. Density at the left costophrenic angle is unchanged compatible with pleural thickening or effusion. There has increased interstitial markings in both lung bases, compatible with mild infiltrate or atelectasis. No dense lobar consolidation. IMPRESSION: 1. Mild increase in markings in both lung bases, compatible with mild infiltrate or atelectasis. No dense lobar consolidation. 2. Pleural thickening or effusion on the left is unchanged. Electronically signed by: Lam Wilkes MD (08/28/2018 7:49 AM) [facility]
[2018-08-28] MEDS ORDERED: ALBUTEROL SULFATE 2.5 MG/3 ML NEBU. INH PRN ×2 (08:10→08:15)
--- NOTE | 2018-08-28 08:14 | PDOC1 ---
History and Physical Date of Admission Date of Admission DATE: 08/28/18 TIME: 07:59 Identification/Chief Complaint Chief Complaint Shortness of breath Source Source: Chart review, Patient History of Present Illness History of Present Illness Ms Guallpa is a very pleasant 83 yo female with history of COPD, and newly diagnosed lung cancer, currently on new immunotherapy last dose 5 days ago who presents with increased cough, shortness of breath and temp of 100.3F yesterday evening. Patient reports productive cough with greenish yellow sputum for the past few days. Reports increased shortness breath during this time. No chills, nausea vomiting or sweats. Denies increased leg pain or swelling. No other acute symptoms or complaints. She underwent CTPA that was negative, but showed bibasilar infiltrates, no lobar consolidation. Noted with tachycardia and leukocytosis 15K with left shift as well as elevated O2 requirement from baseline. Past Medical History Cardiovascular: CAD, HTN, SC, Hyperlipidemia Pulmonary: No pertinent hx, COPD CENTRAL NERVOUS SYSTEM: Other GI: No pertinent hx Heme/Onc: No pertinent hx Hepatobiliary: No pertinent hx Psych: No pertinent hx Musculoskeletal: low back pain, Osteoarthritis Rheumatologic: No pertinent hx Infectious disease: No pertinent hx Renal/: No pertinent hx Endocrine: Hypothyroidism Past Surgical History Past Surgical History: CABG, Other Family History Family History: Coronary Artery Disease, High Cholestrol Social History Smoke: <1 pack per day ALCOHOL: none Drugs: None Current Problem List Problem List Problems Medical Problems: (1) Acute congestive heart failure Status: Acute (2) Lung cancer Status: Acute (3) Pneumonia Status: Acute Current Medications Current Medications Current Medications Methylprednisolone Sodium Succinate (SOLU-Medrol 40MG VIAL) 40 mg 1X ONCE IV Last administered on 08/27/18at 23:06; Start 08/27/18 at 23:00; Stop 08/27/18 at 23:01; Status DC Albuterol/ Ipratropium (Duoneb) 3 ml 1X ONCE NEB Last administered on at 23:19; Start 08/27/18 at 23:00; Stop 08/27/18 at 23:01; Status DC Furosemide (Lasix) 40 mg 1X ONCE IVP Last administered on 08/28/18at 01:23; Start 08/28/18 at 00:30; Stop 08/28/18 at 00:36; Status DC Cefepime HCl (Maxipime) 2 gm 1X ONCE IVP Last administered on 08/28/18at 01:28 ; Start 08/28/18 at 00:45; Stop 08/28/18 at 00:46; Status DC Vancomycin HCl (Vanco Per Pharmacy) 1 each PRN DAILY PRN MC SEE COMMENTS Last administered on 08/28/18at 01:43; Start 08/28/18 at 00:30 Ondansetron HCl (Zofran) 4 mg PRN Q8HRS PRN IV NAUSEA/VOMITING; Start 08/28/18 at 00:30; Stop 08/29/18 at 00:29 Albuterol/ Ipratropium (Duoneb) 3 ml RTQID NEB ; Start 08/28/18 at 08:00; Stop 08/29/18 at 07:59 Furosemide (Lasix) 40 mg BID92 IVP ; Start 08/28/18 at 09:00 Methylprednisolone Sodium Succinate (SOLU-Medrol 40MG VIAL) 40 mg Q8HRS IV Last administered on 08/28/18at 05:48; Start 08/28/18 at 06:00 Vancomycin HCl 1.25 gm/Sodium Chloride 250 ml @ 166.667 mls/hr 1X ONCE IV Last administered on 08/28/18at 01:24; Start 08/28/18 at 01:30; Stop 08/28/18 at 02:59; Status DC Vancomycin HCl 750 mg/Sodium Chloride 250 ml @ 250 mls/hr Q48H IV ; Start 08/30 at 01:30 Vancomycin HCl (Vancomycin Trough Level) 1 each 1X ONCE MC ; Start 09/01/18 at 01:00; Stop 09/01/18 at 01:01 Albuterol Sulfate (Ventolin Neb Soln) 2.5 mg 1X ONCE NEB Last administered on 08/28/18at 02:45; Start 08/28/18 at 02:45; Stop 08/28/18 at 02:46; Status DC Albuterol Sulfate (Ventolin Neb Soln) 2.5 mg PRN Q3HRS PRN NEB SHORTNESS OF BREATH; Start 08/28/18 at 03:00 Acetaminophen/ Hydrocodone Bitart (Lortab 5/325) 1 tab PRN Q6HRS PRN PO PAIN; Start 08/28/18 at 07:15 Active Scripts Active Proair Hfa Inhaler (Albuterol Sulfate) 8.5 Gm Hfa.aer.ad 1 Puff INH PRN Q6HRS PRN 14 Days Aspirin Ec (Aspirin) 325 Mg Tablet.dr 325 Mg PO DAILYWBKFT Reported Miralax (Polyethylene Glycol 3350) 17 Gm Powd.pack 1 Packet PO DAILY Isosorbide Mononitrate Er (Isosorbide Mononitrate) 30 Mg Tab.er.24h 30 Mg PO DAILY Pepcid (Famotidine) 20 Mg Tablet 20 Mg PO DAILY Clopidogrel (Clopidogrel Bisulfate) 75 Mg Tablet 75 Mg PO DAILY Levothyroxine Sodium 75 Mcg Tablet 75 Mcg PO DAILYAC Nitrostat (Nitroglycerin) 0.4 Mg Tab.subl 0.4 Mg SL PRN Q5MIN PRN Hydrocodone-Apap 5-325 (Hydrocodone Bit/Acetaminophen) 1 Each Tablet 1 Tab PO PRN Q6HRS PRN Amlodipine Besylate 5 Mg Tablet 1 Tab PO DAILY Simvastatin 40 Mg Tablet 1 Tab PO QHS Metoprolol Succinate ( Xl ) (Metoprolol Succinate) 25 Mg Tab.er.24h 50 Mg PO DAILY Allergies Allergies: Coded Allergies: diphenhydramine (Verified Allergy, Intermediate, rash, 08/27/18) hydralazine (Verified Allergy, Mild, Nausea and Vomiting, 08/27/18) ROS General: YES: Fatigue, Malaise, Appetite; No: Chills, Night Sweats, Other PSYCHOLOGICAL ROS: No: Anxiety, Behavioral Disorder, Concentration difficultie , Decreased libido, Depression, Disorientation, Hallucinations, Hostility, Irritablity, Memory difficulties, Mood Swings, Obsessive thoughts, Physical abuse, Sexual abuse, Sleep disturbances, Suicidal ideation, Other Eyes: No Blurry vision, No Decreased vision, No Double vision, No Dry eyes, No Excessive tearing, No Eye Pain, No Itchy Eyes, No Loss of vision, No Photophobia , No Scotomata, No Uses contacts, No Uses glasses, No Other HEENT: No: Heacaches, Visual Changes, Hearing change, Nasal congestion, Nasal discharge, Oral lesions, Sinus pain, Sore Throat, Epistaxis, Sneezing, Snoring, Tinnitus, Vertigo, Vocal changes, Other ALLERGY AND IMMUNOLOGY: No: Hives, Insect Bite Sensitivity, Itchy/Watery Eyes, Nasal Congestion, Post Nasal Drip, Seasonal Allergies, Other Hematological and Lymphatic: No: Bleeding Problems, Blood Clots, Blood Transfusions, Brusing, Night Sweats, Pallor, Swollen Lymph Nodes, Other ENDOCRINE: No: Breast Changes, Galactorrhea, Hair Pattern Changes, Hot Flashes , Malaise/lethargy, Mood Swings, Palpitations, Polydipsia/polyuria, Skin Changes , Temperature Intolerance, Unexpected Weight Changes, Other Breast: No New/Changing Breast Lumps, No Nipple changes, No Nipple discharge, No Other Respiratory: YES: Cough, Shortness of breath, SOB with excertion, Sputum Changes, Tachypnea, Wheezing; No: Hemoptysis, Orthopnea, Pleuritic Pain, Stridor, Other Cardiovascular: yes Chest Pain; No Palpitations, No Orthopnea, No Paroxysmal Noc. Dyspnea, No Edema, No Lt Headedness, No Other Gastrointestinal: Yes Nausea; No Vomiting, No Abdominal Pain, No Diarrhea, No Constipation, No Melena, No Hematochezia, No Other Genitourinary: No Dysuria, No Frequency, No Incontinence, No Hematuria, No Retention, No Discharge, No Urgency, No Pain, No Flank Pain, No Other, No , No , No , No , No , No , No Musculoskeletal: No Gait Disturbance, No Joint Pain, No Joint Stiffness, No Joint Swelling, No Muscle Pain, No Muscular Weakness, No Pain In:, No Swelling In:, No Other Neurological: No Behavorial Changes, No Bowel/Bladder ControlChng, No Confusion , No Dizziness, No Gait Disturbance, No Headaches, No Impaired Coord/balance, No Memory Loss, No Numbness/Tingling, No Seizures, No Speech Problems, No Tremors, No Visual Changes, No Weakness, No Other Skin: No Dry Skin, No Eczema, No Hair Changes, No Lumps, No Mole Changes, No Mottling, No Nail Changes, No Pruritus, No Rash, No Skin Lesion Changes, No Other, No Acne Physical Exam General: Alert, Oriented X3, Cooperative, mild distress HEENT: Atraumatic, PERRLA, EOMI, Mucous membr. moist/pink, Other (Cachectic appearing) Lungs: Other (Bibasilar rhonci, wheezes) Heart: S1S2, no gallops, no murmurs Abdomen: Normal bowel sounds, Soft, No tenderness, No hepatosplenomegaly, No masses Extremities: No clubbing, No cyanosis, No edema, Normal pulses, No tenderness/ swelling Skin: No rashes, No breakdown, No significant lesion Neuro: Normal gait, Normal speech, Strength at 5/5 X4 ext, Normal tone, Sensation intact, Cranial nerves 3-12 NL, Reflexes 2+ Psych/Mental Status: Mental status NL, Mood NL Vitals Vitals Vital Signs Date Time Temp Pulse Resp B/P (MAP) Pulse Ox O2 Delivery O2 Flow Rate FiO2 08/28/18 03:00 98.0 95 16 148/70 (96) 84 Nasal Cannula 4.0 98.0 Labs Labs Laboratory Tests Test 08/27/18 22:35 08/27/18 22:50 08/28/18 03:30 08/28/18 04:45 White Blood Count 15.5 x10^3/uL (4.0-11.0) Red Blood Count 3.71 x10^6/uL (3.50-5.40) Hemoglobin 10.8 g/dL (12.0-15.5) Hematocrit 33.6 % (36.0-47.0) Mean Corpuscular Volume 91 fL (79-100) Mean Corpuscular Hemoglobin 29 pg (25-35) Mean Corpuscular Hemoglobin Concent 32 g/dL (31-37) Red Cell Distribution Width 18.9 % (11.5-14.5) Platelet Count 138 x10^3/uL (140-400) Neutrophils (%) (Auto) 92 % (31-73) Lymphocytes (%) (Auto) 3 % (24-48) Monocytes (%) (Auto) 5 % (0-9) Eosinophils (%) (Auto) 1 % (0-3) Basophils (%) (Auto) 0 % (0-3) Neutrophils # (Auto) 14.3 x10^3uL (1.8-7.7) Lymphocytes # (Auto) 0.4 x10^3/uL (1.0-4.8) Monocytes # (Auto) 0.7 x10^3/uL (0.0-1.1) Eosinophils # (Auto) 0.1 x10^3/uL (0.0-0.7) Basophils # (Auto) 0.1 x10^3/uL (0.0-0.2) Segmented Neutrophils % 75 % (35-66) Band Neutrophils % 21 % (0-9) Lymphocytes % 1 % (24-48) Monocytes % 1 % (0-10) Eosinophils % 1 % (0-5) Basophils % 1 % (0-3) Platelet Estimate Decreased (ADEQUATE) Poikilocytosis Slight Anisocytosis Slight Crenated Cell Present Lactic Acid Level 2.0 mmol/L (0.4-2.0) 0.9 mmol/L (0.4-2.0) Sodium Level 134 mmol/L (136-145) Potassium Level 4.7 mmol/L (3.5-5.1) Chloride Level 99 mmol/L (98-107) Carbon Dioxide Level 27 mmol/L (21-32) Anion Gap 8 (6-14) Blood Urea Nitrogen 39 mg/dL (7-20) 42 mg/dL (7-20) Creatinine 1.4 mg/dL (0.6-1.0) 1.5 mg/dL (0.6-1.0) Estimated GFR (Cockcroft-Gault) 36.0 33.2 BUN/Creatinine Ratio 28 (6-20) Glucose Level 168 mg/dL (70-99) Calcium Level 8.9 mg/dL (8.5-10.1) Total Bilirubin 0.5 mg/dL (0.2-1.0) Aspartate Amino Transf (AST/SGOT) 60 U/L (15-37) Alanine Aminotransferase (ALT/SGPT) 66 U/L (14-59) Alkaline Phosphatase 293 U/L (46-116) Troponin I Quantitative 0.043 ng/mL (0.000-0.055) 0.042 ng/mL (0.000-0.055) IR-Tno-M-Type Natriuretic Peptide 20832 pg/mL (0-449) Total Protein 6.7 g/dL (6.4-8.2) Albumin 2.4 g/dL (3.4-5.0) Albumin/Globulin Ratio 0.6 (1.0-1.7) Influenza Type A Antigen Negative (NEGATIVE) Influenza Type B Antigen Negative (NEGATIVE) Procalcitonin 27.84 ng/mL (0.00-0.10) Laboratory Tests Test 08/27/18 22:35 08/27/18 22:50 08/28/18 03:30 08/28/18 04:45 White Blood Count 15.5 x10^3/uL (4.0-11.0) Red Blood Count 3.71 x10^6/uL (3.50-5.40) Hemoglobin 10.8 g/dL (12.0-15.5) Hematocrit 33.6 % (36.0-47.0) Mean Corpuscular Volume 91 fL (79-100) Mean Corpuscular Hemoglobin 29 pg (25-35) Mean Corpuscular Hemoglobin Concent 32 g/dL (31-37) Red Cell Distribution Width 18.9 % (11.5-14.5) Platelet Count 138 x10^3/uL (140-400) Neutrophils (%) (Auto) 92 % (31-73) Lymphocytes (%) (Auto) 3 % (24-48) Monocytes (%) (Auto) 5 % (0-9) Eosinophils (%) (Auto) 1 % (0-3) Basophils (%) (Auto) 0 % (0-3) Neutrophils # (Auto) 14.3 x10^3uL (1.8-7.7) Lymphocytes # (Auto) 0.4 x10^3/uL (1.0-4.8) Monocytes # (Auto) 0.7 x10^3/uL (0.0-1.1) Eosinophils # (Auto) 0.1 x10^3/uL (0.0-0.7) Basophils # (Auto) 0.1 x10^3/uL (0.0-0.2) Segmented Neutrophils % 75 % (35-66) Band Neutrophils % 21 % (0-9) Lymphocytes % 1 % (24-48) Monocytes % 1 % (0-10) Eosinophils % 1 % (0-5) Basophils % 1 % (0-3) Platelet Estimate Decreased (ADEQUATE) Poikilocytosis Slight Anisocytosis Slight Crenated Cell Present Lactic Acid Level 2.0 mmol/L (0.4-2.0) 0.9 mmol/L (0.4-2.0) Sodium Level 134 mmol/L (136-145) Potassium Level 4.7 mmol/L (3.5-5.1) Chloride Level 99 mmol/L (98-107) Carbon Dioxide Level 27 mmol/L (21-32) Anion Gap 8 (6-14) Blood Urea Nitrogen 39 mg/dL (7-20) 42 mg/dL (7-20) Creatinine 1.4 mg/dL (0.6-1.0) 1.5 mg/dL (0.6-1.0) Estimated GFR (Cockcroft-Gault) 36.0 33.2 BUN/Creatinine Ratio 28 (6-20) Glucose Level 168 mg/dL (70-99) Calcium Level 8.9 mg/dL (8.5-10.1) Total Bilirubin 0.5 mg/dL (0.2-1.0) Aspartate Amino Transf (AST/SGOT) 60 U/L (15-37) Alanine Aminotransferase (ALT/SGPT) 66 U/L (14-59) Alkaline Phosphatase 293 U/L (46-116) Troponin I Quantitative 0.043 ng/mL (0.000-0.055) 0.042 ng/mL (0.000-0.055) TX-Lea-J-Type Natriuretic Peptide 37762 pg/mL (0-449) Total Protein 6.7 g/dL (6.4-8.2) Albumin 2.4 g/dL (3.4-5.0) Albumin/Globulin Ratio 0.6 (1.0-1.7) Influenza Type A Antigen Negative (NEGATIVE) Influenza Type B Antigen Negative (NEGATIVE) Procalcitonin 27.84 ng/mL (0.00-0.10) Images Images CXR - 1. Mild increase in markings in both lung bases, compatible with mild infiltrate or atelectasis. No dense lobar consolidation. 2. Pleural thickening or effusion on the left is unchanged. PET 07/14/18 - 1. Hypermetabolic left upper lobe mass compatible with a primary lung malignancy. 2. Hypermetabolic mediastinal adenopathy most prominent at the AP window level , likely on a metastatic basis. 3. Borderline increased activity at both alvarado which may be on a reactive or metastatic basis. 4. Several smaller hypermetabolic right lung lesions are likely on a metastatic basis. An infectious etiology is less likely. 5. Mildly increased activity at the right groin is probably inflammatory, related to recent intervention or surgery. VTE Prophylaxis Ordered VTE Prophylaxis Devices: Contraindicated VTE Pharmacological Prophylaxi: Yes Assessment/Plan Assessment/Plan A/P: Pneumonia - HCAP - will cover with vancomycin given bilateral early infiltrates , cefepime for HCAP as well. Consult pulmonology. Blood and sputum cultures Adenocarcinoma of left lung - s/p biopsy 06/2018 - primary lung neoplasm, recent PET scan. Consult hematology/oncology for admission after initiating chemotherapy DSAIA - likely vasomotor, will give IVF Sepsis - likely 2/2 pneumonia with tachycardia and leukocytosis, given fluids based on weight and HCAP antibiotic coverage Elevated troponin and elevated BNP - likely related to sepsis, DASIA, chemo. Cardiology was consulted by ED. Troponins trended down, likely this is not a direct cardiac insult. F/u recs Transaminitis - possibly 2/2 chemotherapy, will monitor trend TOBACCO ABUSE - counseled COPD - on O2, with higher requirement. Will defer to pulm for steroids +/- and given nebulizer treatments Severe protein calorie malnutrition - likely cancer cachexia, will get nutrition involved, supplements Hypoxia - worse from baseline, likely from pneumonia, negative for PE Normocytic anemia - likely chronic disease vs chemo Thrombocytopenia - likely chronic disease vs chemo as well, will watch platelets as she needs lovenox for PPX FEN - General diet + supplements PPX - lovenox 30mg daily FULL CODE Inpatient for sepsis/HCAP will be inpatient for at least 2 midnights. MARINA ADRIAN MD Aug 28, 2018 08:14
[2018-08-28] MEDS ORDERED: ENOXAPARIN 30 MG/0.3 ML SYRINGE. SQ SCH (08:15)
[2018-08-28] MEDS: IPRATRPIUM/ALBUTEROL 0.5/2.5MG 3 ML NEBU. NEB SCH ×4 (08:21→18:54)
--- NOTE | 2018-08-28 08:23 | PDOC ---
Provider Note Provider Note [id number] acute on chronic resp fail ae of copd acute chf pneumonia see orders GILES GARCIA MD Aug 28, 2018 08:23
[2018-08-28] MEDS: ISOSORBIDE MONONITRATE ER 30 MG TAB.ER.24H PO SCH (08:33)
[2018-08-28] MEDS: CLOPIDOGREL BISULFATE 75 MG TABLET PO SCH (08:33)
[2018-08-28] MEDS: PANTOPRAZOLE 40 MG TABLET.DR. PO SCH (08:34)
[2018-08-28] MEDS: ASPIRIN ENTERIC COATED 325 MG TABLET.DR. PO SCH (08:34)
[2018-08-28] MEDS: amLODIPine BESYLATE 5 MG TABLET PO SCH (08:34)
[2018-08-28] MEDS: HYDROcodone/APAP 5/325MG 1 TAB TABLET PO PRN ×2 (08:34→19:45)
[2018-08-28] MEDS: METOPROLOL SUCC 24HR ER 50 MG TAB.ER.24H. PO SCH (08:34)
[2018-08-28] MEDS: POLYETHYLENE GLYCOL 3350 17 GM PACKET. PO SCH (08:35)
[2018-08-28] MEDS: LEVOTHYROXINE 75 MCG TABLET PO SCH (08:35)
[2018-08-28] MEDS: ENOXAPARIN 30 MG/0.3 ML SYRINGE. SQ SCH (08:35)
[2018-08-28] MEDS: FUROSEMIDE 40 MG/4 ML VIAL. IVP SCH ×2 (08:35→13:59)
[2018-08-28] MEDS ORDERED: FAMOTIDINE 20 MG TABLET. PO SCH (09:00)
--- NOTE | 2018-08-28 09:04 | CONS ---
DATE OF CONSULTATION: 08/28/2018 REASON FOR CONSULTATION: I was asked to see this 83-year-old lady for acute on chronic respiratory failure. HISTORY OF PRESENT ILLNESS: She does have a history of [id number] smoking, continues to smoke a few cigarettes per day. She has been on oxygen continuously. She had a CT-guided biopsy of the left upper lobe lung mass in June, which was consistent with adenocarcinoma. She had her first dose of chemotherapy on Wednesday (today is Wednesday). She has had increased shortness of breath, cough and wheezing for the past few days. She also has had fever. She has nasal congestion. She denied chest pain. PAST MEDICAL HISTORY: COPD, lung cancer, hypertension, coronary artery disease, CABG, stent and peripheral vascular disease. ALLERGIES: DIPHENHYDRAMINE AND HYDRALAZINE. MEDICATIONS: Currently, she is on vancomycin, cefepime, Imdur, Pepcid, Plavix, aspirin, amlodipine, Lasix, nitro, DuoNeb. SOCIAL HISTORY: History of [id number] smoking and continues to smoke a few cigarettes per day. FAMILY HISTORY: Hypertension. REVIEW OF SYSTEMS: As mentioned as above. Other systems are otherwise negative. PHYSICAL EXAMINATION: GENERAL: This is an elderly lady. VITAL SIGNS: Her O2 saturation on 4 liters of oxygen is 95%, respiratory rate 18, heart rate 95, blood pressure 148/70 and temperature 98. HEENT: Normocephalic and atraumatic. Pupils are equal, round and reactive to light. Throat is clear. Nose is clear. NECK: There is no lymphadenopathy or thyromegaly. CARDIOVASCULAR: Regular rate and rhythm. PMI is not displaced. CHEST: Inspection is normal. LUNGS: There is bilateral end expiratory wheezing. Percussion is within normal limits. ABDOMEN: Soft. Bowel sounds are good. There is no mass. EXTREMITIES: There is edema. LYMPHATICS: There is no lymphadenopathy. SKIN: Chronic changes. NEUROLOGIC: Alert and oriented. LABORATORY DATA: I reviewed the following lab data: Chest x-ray shows left upper lobe mass and lower lobe infiltrate/atelectasis. WBC 15.5, hemoglobin 10.8 and platelet 138. Influenza A and B are negative. Sodium 134, potassium 4.7, chloride 99, CO2 of 27, glucose 168, BUN 42, creatinine 1.5 and lactic acid 0.9. Troponin is 0.04. BNP 12,252. Procalcitonin 27.8. IMPRESSION: 1. Acute on chronic respiratory failure secondary to acute bronchitis vs pneumonia, acute exacerbation of chronic obstructive pulmonary disease, congestive heart failure versus others. 2. Abnormal chest x-ray. 3. Acute exacerbation of chronic obstructive pulmonary disease. 4. acute bronchitis vs Pneumonia. 5. Acute diastolic versus systolic congestive heart failure. 6. Acute kidney injury. 7. Lung cancer, status post immunotherapy x 1, immunocompromised 8. Hypertension. 9. Coronary artery disease. 10. Peripheral vascular disease. 11. Tobacco habituation. RECOMMENDATIONS: 1. Titrate FiO2 to keep the O2 saturation 92%. 2. Bronchodilator. 3. Continue Solu-Medrol 40 mg IV q. 8. 4. Continue antibiotic. 5. add Lovenox for DVT prophylaxis. 6. Protonix for stress ulcer prophylaxis. 7. She has lower extremity edema and lung cancer. We will do a lower extremity venous Doppler to rule out DVT. 8. Agree with Lasix. monitor k, cr 9. She may require repeat CT of the chest. 10. The findings and recommendations were discussed with the patient. She understood and agreed to proceed with the plan. I have answered all of her questions. Thank you very much for allowing me to participate in the care of this very nice lady. GILES GARCIA M.D. : FREDO/ramila JOB#: [id number] / [id number] DELMI
--- NOTE | 2018-08-28 10:01 | PDOC2 ---
CONSULT Date of Consult Date of Consult DATE: 08/28/18 TIME: 09:56 Reason for Consult Reason for Consult: Shortness of breath Referring Physician Referring Physician: Dr. Hood Identification/Chief Complaint Chief Complaint Shortness of breath Source Source: Chart review, Patient History of Present Illness Reason for Visit: 83-year-old female with history of coronary artery disease s/p CABG, peripheral vascular disease, COPD and lung cancer, currently on immunotherapy presented complaining of fever, cough and progressive shortness of breath. She was diagnosed with acute COPD exacerbation and pneumonia and admitted for further management. She denied any chest pain, palpitations or syncope. Past Medical History Cardiovascular: CAD, HTN, MD, Hyperlipidemia Pulmonary: No pertinent hx, COPD CENTRAL NERVOUS SYSTEM: Other GI: No pertinent hx Heme/Onc: No pertinent hx Hepatobiliary: No pertinent hx Psych: No pertinent hx Musculoskeletal: low back pain, Osteoarthritis Rheumatologic: No pertinent hx Infectious disease: No pertinent hx Renal/: No pertinent hx Endocrine: Hypothyroidism Past Surgical History Past Surgical History: CABG, Other Family History Family History: Coronary Artery Disease, High Cholestrol Social History ALCOHOL: none Drugs: None Lives: with Family Current Problem List Problem List Problems Medical Problems: (1) Acute congestive heart failure Status: Acute (2) Lung cancer Status: Acute (3) Pneumonia Status: Acute Current Medications Current Medications Current Medications Methylprednisolone Sodium Succinate (SOLU-Medrol 40MG VIAL) 40 mg 1X ONCE IV Last administered on 08/27/18at 23:06; Start 08/27/18 at 23:00; Stop 08/27/18 at 23:01; Status DC Albuterol/ Ipratropium (Duoneb) 3 ml 1X ONCE NEB Last administered on at 23:19; Start 08/27/18 at 23:00; Stop 08/27/18 at 23:01; Status DC Furosemide (Lasix) 40 mg 1X ONCE IVP Last administered on 08/28/18at 01:23; Start 08/28/18 at 00:30; Stop 08/28/18 at 00:36; Status DC Cefepime HCl (Maxipime) 2 gm 1X ONCE IVP Last administered on 08/28/18at 01:28 ; Start 08/28/18 at 00:45; Stop 08/28/18 at 00:46; Status DC Vancomycin HCl (Vanco Per Pharmacy) 1 each PRN DAILY PRN MC SEE COMMENTS Last administered on 08/28/18 01:43; Start 08/28/18 at 00:30 Ondansetron HCl (Zofran) 4 mg PRN Q8HRS PRN IV NAUSEA/VOMITING; Start 08/28/18 at 00:30; Stop 08/29/18 at 00:29 Albuterol/ Ipratropium (Duoneb) 3 ml RTQID NEB Last administered on 08/28/18 08:21; Start 08/28/18 at 08:00; Stop 08/29/18 at 07:59 Furosemide (Lasix) 40 mg BID92 IVP Last administered on 08/28/18 08:35; Start 08/28/18 at 09:00 Methylprednisolone Sodium Succinate (SOLU-Medrol 40MG VIAL) 40 mg Q8HRS IV Last administered on 08/28/18 05:48; Start 08/28/18 at 06:00 Vancomycin HCl 1.25 gm/Sodium Chloride 250 ml @ 166.667 mls/hr 1X ONCE IV Last administered on 08/28/18 01:24; Start 08/28/18 at 01:30; Stop 08/28/18 at 02:59; Status DC Vancomycin HCl 750 mg/Sodium Chloride 250 ml @ 250 mls/hr Q48H IV ; Start 08/30 at 01:30 Vancomycin HCl (Vancomycin Trough Level) 1 each 1X ONCE MC ; Start 09/01/18 at 01:00; Stop 09/01/18 at 01:01 Albuterol Sulfate (Ventolin Neb Soln) 2.5 mg 1X ONCE NEB Last administered on 08/28/18at 02:45; Start 08/28/18 at 02:45; Stop 08/28/18 at 02:46; Status DC Albuterol Sulfate (Ventolin Neb Soln) 2.5 mg PRN Q3HRS PRN NEB SHORTNESS OF BREATH; Start 08/28/18 at 03:00; Stop 08/28/18 at 08:10; Status DC Acetaminophen/ Hydrocodone Bitart (Lortab 5/325) 1 tab PRN Q6HRS PRN PO PAIN Last administered on 08/28/18at 08:34; Start 08/28/18 at 07:15 Cefepime HCl (Maxipime) 1 gm Q24H IVP ; Start 08/29/18 at 07:00 Albuterol Sulfate (Ventolin Neb Soln) 2.5 mg PRN Q6HRS PRN INH SHORTNESS OF BREATH; Start 08/28/18 at 08:15; Status UNV Amlodipine Besylate (Norvasc) 5 mg DAILY PO Last administered on 08/28/18 08: 34; Start 08/28/18 at 09:00 Aspirin (Ecotrin) 325 mg DAILYWBKFT PO Last administered on 08/28/18 08:34; Start 08/28/18 at 09:00 Clopidogrel Bisulfate (Plavix) 75 mg DAILY PO Last administered on 08/28/18 08 :33; Start 08/28/18 at 09:00 Famotidine (Pepcid) 20 mg DAILY PO Last administered on 08/28/18 08:34; Start 08/28/18 at 09:00 Isosorbide Mononitrate (Imdur) 30 mg DAILY PO Last administered on 08/28/18 08 :33; Start 08/28/18 at 09:00 Levothyroxine Sodium (Synthroid) 75 mcg DAILYAC PO Last administered on 08:35; Start 08/28/18 at 09:00 Metoprolol Succinate (Toprol Xl) 50 mg DAILY PO Last administered on 08/28/18 08:34; Start 08/28/18 at 09:00 Nitroglycerin (Nitrostat) 0.4 mg PRN Q5MIN PRN SL CHEST PAIN; Start 08/28/18 at 08:15 Polyethylene Glycol (miraLAX PACKET) 17 gm DAILY PO ; Start 08/28/18 at 09:00 Atorvastatin Calcium (Lipitor) 20 mg QHS PO ; Start 08/28/18 at 21:00 Enoxaparin Sodium (Lovenox 30mg Syringe) 30 mg Q24H SQ Last administered on 08:35; Start 08/28/18 at 09:00 Enoxaparin Sodium (Lovenox 30mg Syringe) 30 mg Q24H SQ ; Start 08/28/18 at 08:15 ; Status UNV Pantoprazole Sodium (Protonix) 40 mg DAILYAC PO Last administered on 08/28/18 08:34; Start 08/28/18 at 09:00 Albuterol Sulfate (Ventolin Neb Soln) 2.5 mg PRN Q3HRS PRN INH SHORTNESS OF BREATH; Start 08/28/18 at 08:10 Active Scripts Active Proair Hfa Inhaler (Albuterol Sulfate) 8.5 Gm Hfa.aer.ad 1 Puff INH PRN Q6HRS PRN 14 Days Aspirin Ec (Aspirin) 325 Mg Tablet.dr 325 Mg PO DAILYWBKFT Reported Miralax (Polyethylene Glycol 3350) 17 Gm Powd.pack 1 Packet PO DAILY Isosorbide Mononitrate Er (Isosorbide Mononitrate) 30 Mg Tab.er.24h 30 Mg PO DAILY Pepcid (Famotidine) 20 Mg Tablet 20 Mg PO DAILY Clopidogrel (Clopidogrel Bisulfate) 75 Mg Tablet 75 Mg PO DAILY Levothyroxine Sodium 75 Mcg Tablet 75 Mcg PO DAILYAC Nitrostat (Nitroglycerin) 0.4 Mg Tab.subl 0.4 Mg SL PRN Q5MIN PRN Hydrocodone-Apap 5-325 (Hydrocodone Bit/Acetaminophen) 1 Each Tablet 1 Tab PO PRN Q6HRS PRN Amlodipine Besylate 5 Mg Tablet 1 Tab PO DAILY Simvastatin 40 Mg Tablet 1 Tab PO QHS Metoprolol Succinate ( Xl ) (Metoprolol Succinate) 25 Mg Tab.er.24h 50 Mg PO DAILY Allergies Allergies: Coded Allergies: diphenhydramine (Verified Allergy, Intermediate, rash, 08/27/18) hydralazine (Verified Allergy, Mild, Nausea and Vomiting, 08/27/18) ROS PSYCHOLOGICAL ROS: No: Hallucinations Eyes: No Loss of vision HEENT: No: Epistaxis Respiratory: YES: Cough, Shortness of breath; No: Hemoptysis, Orthopnea Gastrointestinal: No Vomiting Genitourinary: No Hematuria Neurological: No Seizures Skin: No Rash Physical Exam General: Alert, Oriented X3 HEENT: Atraumatic, PERRLA Lungs: Other (scattered crepitations bilaterally) Heart: Regular rate Abdomen: Soft, No tenderness Extremities: Other (1+ pitting edema) Neuro: Normal speech Psych/Mental Status: Mental status NL Vitals VITALS Vital Signs Date Time Temp Pulse Resp B/P (MAP) Pulse Ox O2 Delivery O2 Flow Rate FiO2 08/28/18 08:34 95 148/70 08/28/18 08:34 98 Nasal Cannula 4.0 08/28/18 03:00 98.0 16 98.0 Labs Labs Laboratory Tests Test 08/27/18 22:35 08/27/18 22:50 08/28/18 03:30 08/28/18 04:45 White Blood Count 15.5 x10^3/uL (4.0-11.0) Red Blood Count 3.71 x10^6/uL (3.50-5.40) Hemoglobin 10.8 g/dL (12.0-15.5) Hematocrit 33.6 % (36.0-47.0) Mean Corpuscular Volume 91 fL (79-100) Mean Corpuscular Hemoglobin 29 pg (25-35) Mean Corpuscular Hemoglobin Concent 32 g/dL (31-37) Red Cell Distribution Width 18.9 % (11.5-14.5) Platelet Count 138 x10^3/uL (140-400) Neutrophils (%) (Auto) 92 % (31-73) Lymphocytes (%) (Auto) 3 % (24-48) Monocytes (%) (Auto) 5 % (0-9) Eosinophils (%) (Auto) 1 % (0-3) Basophils (%) (Auto) 0 % (0-3) Neutrophils # (Auto) 14.3 x10^3uL (1.8-7.7) Lymphocytes # (Auto) 0.4 x10^3/uL (1.0-4.8) Monocytes # (Auto) 0.7 x10^3/uL (0.0-1.1) Eosinophils # (Auto) 0.1 x10^3/uL (0.0-0.7) Basophils # (Auto) 0.1 x10^3/uL (0.0-0.2) Segmented Neutrophils % 75 % (35-66) Band Neutrophils % 21 % (0-9) Lymphocytes % 1 % (24-48) Monocytes % 1 % (0-10) Eosinophils % 1 % (0-5) Basophils % 1 % (0-3) Platelet Estimate Decreased (ADEQUATE) Poikilocytosis Slight Anisocytosis Slight Crenated Cell Present Lactic Acid Level 2.0 mmol/L (0.4-2.0) 0.9 mmol/L (0.4-2.0) Sodium Level 134 mmol/L (136-145) Potassium Level 4.7 mmol/L (3.5-5.1) Chloride Level 99 mmol/L (98-107) Carbon Dioxide Level 27 mmol/L (21-32) Anion Gap 8 (6-14) Blood Urea Nitrogen 39 mg/dL (7-20) 42 mg/dL (7-20) Creatinine 1.4 mg/dL (0.6-1.0) 1.5 mg/dL (0.6-1.0) Estimated GFR (Cockcroft-Gault) 36.0 33.2 BUN/Creatinine Ratio 28 (6-20) Glucose Level 168 mg/dL (70-99) Calcium Level 8.9 mg/dL (8.5-10.1) Total Bilirubin 0.5 mg/dL (0.2-1.0) Aspartate Amino Transf (AST/SGOT) 60 U/L (15-37) Alanine Aminotransferase (ALT/SGPT) 66 U/L (14-59) Alkaline Phosphatase 293 U/L (46-116) Troponin I Quantitative 0.043 ng/mL (0.000-0.055) 0.042 ng/mL (0.000-0.055) MS-Wea-B-Type Natriuretic Peptide 19307 pg/mL (0-449) Total Protein 6.7 g/dL (6.4-8.2) Albumin 2.4 g/dL (3.4-5.0) Albumin/Globulin Ratio 0.6 (1.0-1.7) Influenza Type A Antigen Negative (NEGATIVE) Influenza Type B Antigen Negative (NEGATIVE) Procalcitonin 27.84 ng/mL (0.00-0.10) Laboratory Tests Test 08/27/18 22:35 08/27/18 22:50 08/28/18 03:30 08/28/18 04:45 White Blood Count 15.5 x10^3/uL (4.0-11.0) Red Blood Count 3.71 x10^6/uL (3.50-5.40) Hemoglobin 10.8 g/dL (12.0-15.5) Hematocrit 33.6 % (36.0-47.0) Mean Corpuscular Volume 91 fL (79-100) Mean Corpuscular Hemoglobin 29 pg (25-35) Mean Corpuscular Hemoglobin Concent 32 g/dL (31-37) Red Cell Distribution Width 18.9 % (11.5-14.5) Platelet Count 138 x10^3/uL (140-400) Neutrophils (%) (Auto) 92 % (31-73) Lymphocytes (%) (Auto) 3 % (24-48) Monocytes (%) (Auto) 5 % (0-9) Eosinophils (%) (Auto) 1 % (0-3) Basophils (%) (Auto) 0 % (0-3) Neutrophils # (Auto) 14.3 x10^3uL (1.8-7.7) Lymphocytes # (Auto) 0.4 x10^3/uL (1.0-4.8) Monocytes # (Auto) 0.7 x10^3/uL (0.0-1.1) Eosinophils # (Auto) 0.1 x10^3/uL (0.0-0.7) Basophils # (Auto) 0.1 x10^3/uL (0.0-0.2) Segmented Neutrophils % 75 % (35-66) Band Neutrophils % 21 % (0-9) Lymphocytes % 1 % (24-48) Monocytes % 1 % (0-10) Eosinophils % 1 % (0-5) Basophils % 1 % (0-3) Platelet Estimate Decreased (ADEQUATE) Poikilocytosis Slight Anisocytosis Slight Crenated Cell Present Lactic Acid Level 2.0 mmol/L (0.4-2.0) 0.9 mmol/L (0.4-2.0) Sodium Level 134 mmol/L (136-145) Potassium Level 4.7 mmol/L (3.5-5.1) Chloride Level 99 mmol/L (98-107) Carbon Dioxide Level 27 mmol/L (21-32) Anion Gap 8 (6-14) Blood Urea Nitrogen 39 mg/dL (7-20) 42 mg/dL (7-20) Creatinine 1.4 mg/dL (0.6-1.0) 1.5 mg/dL (0.6-1.0) Estimated GFR (Cockcroft-Gault) 36.0 33.2 BUN/Creatinine Ratio 28 (6-20) Glucose Level 168 mg/dL (70-99) Calcium Level 8.9 mg/dL (8.5-10.1) Total Bilirubin 0.5 mg/dL (0.2-1.0) Aspartate Amino Transf (AST/SGOT) 60 U/L (15-37) Alanine Aminotransferase (ALT/SGPT) 66 U/L (14-59) Alkaline Phosphatase 293 U/L (46-116) Troponin I Quantitative 0.043 ng/mL (0.000-0.055) 0.042 ng/mL (0.000-0.055) PM-Vli-I-Type Natriuretic Peptide 45325 pg/mL (0-449) Total Protein 6.7 g/dL (6.4-8.2) Albumin 2.4 g/dL (3.4-5.0) Albumin/Globulin Ratio 0.6 (1.0-1.7) Influenza Type A Antigen Negative (NEGATIVE) Influenza Type B Antigen Negative (NEGATIVE) Procalcitonin 27.84 ng/mL (0.00-0.10) Assessment/Plan Assessment/Plan 1. Acute respiratory failure secondary to combination of acute COPD exacerbation and acute on chronic diastolic heart failure. 2-D echo in June 2018 showed normal LV function with EF 55-60%. Continue diuresis with Lasix. Continue current treatment of COPD exacerbation per pulmonary team. 2. Coronary artery disease s/p CABG in the past with more recent cardiac catheterization in June 2018 showing patent HANDY to diagonal and patent left subclavian artery stent without any significant lesions needing intervention. Cardiac enzymes negative. She appears to be stable and chest pain- free. Continue current secondary prevention measures. 3. Peripheral vascular disease s/p percutaneous and surgical interventions. Clinically stable. 4. Pneumonia/sepsis: Treat per IM 5. Hyperlipidemia: Continue statin therapy Thank you for your consultation ANGEL SHIELDS MD Aug 28, 2018 10:01
--- NOTE | 2018-08-28 11:07 | EKG ---
[facility] [address] [place] [address] Test Date: 2018-08-27 Test Time: 22:44:26 Pat Name: ZOE KEARNS Department: Room: 536 1 Gender: F Paperboard Box Maker: : 1935 Requested By: KJ ESPITIA Order Number: [id number] Reading MD: Fan Sumner Measurements Intervals [place] Rate: 97 P: NM: QRS: 31 QRSD: 80 T: 95 QT: 310 QTc: 397 Interpretive Statements SINUS RHYTHM NONSPECIFIC ST-T WAVE CHANGES. Electronically Signed On 08-29-2018 11:04:33 PIT SUPERVISOR by Fan Sumner
--- NOTE | 2018-08-28 12:17 | PDOC ---
Infectious Disease Note Vital Sign Vital Signs Vital Signs Date Time Temp Pulse Resp B/P (MAP) Pulse Ox O2 Delivery O2 Flow Rate FiO2 08/28/18 10:53 98 Nasal Cannula 4.0 08/28/18 08:34 95 148/70 08/28/18 07:00 98.7 16 98.7 Labs Lab Laboratory Tests Test 08/27/18 22:35 08/27/18 22:50 08/28/18 03:30 08/28/18 04:45 White Blood Count 15.5 x10^3/uL (4.0-11.0) Red Blood Count 3.71 x10^6/uL (3.50-5.40) Hemoglobin 10.8 g/dL (12.0-15.5) Hematocrit 33.6 % (36.0-47.0) Mean Corpuscular Volume 91 fL (79-100) Mean Corpuscular Hemoglobin 29 pg (25-35) Mean Corpuscular Hemoglobin Concent 32 g/dL (31-37) Red Cell Distribution Width 18.9 % (11.5-14.5) Platelet Count 138 x10^3/uL (140-400) Neutrophils (%) (Auto) 92 % (31-73) Lymphocytes (%) (Auto) 3 % (24-48) Monocytes (%) (Auto) 5 % (0-9) Eosinophils (%) (Auto) 1 % (0-3) Basophils (%) (Auto) 0 % (0-3) Neutrophils # (Auto) 14.3 x10^3uL (1.8-7.7) Lymphocytes # (Auto) 0.4 x10^3/uL (1.0-4.8) Monocytes # (Auto) 0.7 x10^3/uL (0.0-1.1) Eosinophils # (Auto) 0.1 x10^3/uL (0.0-0.7) Basophils # (Auto) 0.1 x10^3/uL (0.0-0.2) Segmented Neutrophils % 75 % (35-66) Band Neutrophils % 21 % (0-9) Lymphocytes % 1 % (24-48) Monocytes % 1 % (0-10) Eosinophils % 1 % (0-5) Basophils % 1 % (0-3) Platelet Estimate Decreased (ADEQUATE) Poikilocytosis Slight Anisocytosis Slight Crenated Cell Present Lactic Acid Level 2.0 mmol/L (0.4-2.0) 0.9 mmol/L (0.4-2.0) Sodium Level 134 mmol/L (136-145) Potassium Level 4.7 mmol/L (3.5-5.1) Chloride Level 99 mmol/L (98-107) Carbon Dioxide Level 27 mmol/L (21-32) Anion Gap 8 (6-14) Blood Urea Nitrogen 39 mg/dL (7-20) 42 mg/dL (7-20) Creatinine 1.4 mg/dL (0.6-1.0) 1.5 mg/dL (0.6-1.0) Estimated GFR (Cockcroft-Gault) 36.0 33.2 BUN/Creatinine Ratio 28 (6-20) Glucose Level 168 mg/dL (70-99) Calcium Level 8.9 mg/dL (8.5-10.1) Total Bilirubin 0.5 mg/dL (0.2-1.0) Aspartate Amino Transf (AST/SGOT) 60 U/L (15-37) Alanine Aminotransferase (ALT/SGPT) 66 U/L (14-59) Alkaline Phosphatase 293 U/L (46-116) Troponin I Quantitative 0.043 ng/mL (0.000-0.055) 0.042 ng/mL (0.000-0.055) AC-Vjl-S-Type Natriuretic Peptide 02180 pg/mL (0-449) Total Protein 6.7 g/dL (6.4-8.2) Albumin 2.4 g/dL (3.4-5.0) Albumin/Globulin Ratio 0.6 (1.0-1.7) Influenza Type A Antigen Negative (NEGATIVE) Influenza Type B Antigen Negative (NEGATIVE) Procalcitonin 27.84 ng/mL (0.00-0.10) Micro IMPRESSION: 1. Mild increase in markings in both lung bases, compatible with mild infiltrate or atelectasis. No dense lobar consolidation. 2. Pleural thickening or effusion on the left is unchanged. Microbiology 08/27/18 Blood Culture - GRAM NEGATIVE RODS SEEN IN 2 OF 2 BOTTLES Objective Assessment GNR sepsis - POA 08/27 Lung CA s/p chemo 08/22 leukocytosis - POA prior to steroids dosing. Uncertain if received Neulasta or neupogen AECOPD Bird exposure - cockatoos at home PAD s/p Right femoral to tibioperoneal trunk bypass graft using ipsilateral greater saphenous vein 05/31/18 Plan Plan of Care Cont Cefepime but increase to q 12 dosing D/c Vanc Levoflox ordered times one UA C and S F/u labs and cults Await Hemeonc F/u Needs to quit tobacco D/c pepcid with protonix written D/w Dr. Hood D/w nursing Thank you # [id number] FER PEARSON MD Aug 28, 2018 12:17
--- NOTE | 2018-08-28 13:55 | EKG ---
[facility] [address] [place] [address] Test Date: 2018-08-28 Test Time: 13:48:24 Pat Name: ZOE KEARNS Department: Room: 536 1 Gender: F Financial Analysis Consultant: KILO : 1935 Requested By: KJ ESPITIA Order Number: [id number] Reading MD: Ryley Jimenez Measurements Intervals [place] Rate: 86 P: 49 [place]: 118 QRS: 19 QRSD: 84 T: 92 QT: 364 QTc: 439 Interpretive Statements SINUS RHYTHM ATRIAL PREMATURE COMPLEX(ES) QRS(T) CONTOUR ABNORMALITY CONSIDER INFERIOR MYOCARDIAL DAMAGE ST & T ABNORMALITY, CONSIDER HIGH LATERAL ISCHEMIA OR LEFT VENTRICULAR STRAIN T ABNORMALITY IN ANTERIOR LEADS ABNORMAL ECG Electronically Signed On 09-06-2018 10:40:11 MARBLE INSTALLATION HELPER by Ryley Jimenez
--- NOTE | 2018-08-28 16:03 | RAD ---
Bilateral lower extremity venous Doppler ultrasound HISTORY: Lung cancer. Leg edema. TECHNIQUE: Grayscale, color Doppler and duplex analysis FINDINGS: The right and left femoral popliteal venous systems appear patent. Normal compressibility and response to augmentation. Normal phasicity is demonstrated. Visualized calf veins are patent. IMPRESSION: No evidence of right or left lower extremity deep venous thrombosis Electronically signed by: Lam Wilkes MD (08/28/2018 4:00 PM) [facility]
[2018-08-28 17:27] LABS: BILIRUBIN,URINE NEGATIVE (NEG); CLARITY,URINE CLEAR; COLOR,URINE YELLOW; NITRITE,URINE NEGATIVE (NEG); PROTEIN,URINE 30 mg/dL (NEG-TRACE); UROBILINOGEN,URINE 0.2 mg/dL (0.2 mg/dL)
[2018-08-28 17:33] LABS: BACTERIA,URINE FEW /HPF (0-FEW); RBC,URINE TNTC /HPF (0-2); SQUAMOUS EPITHELIAL CELL,UR OCC /LPF
[2018-08-28] MEDS: CEFEPIME HCL IV Push 2 GM VIAL. IVP SCH (18:37)
--- NOTE | 2018-08-28 18:52 | EKG ---
[facility] [address] [place] [address] Test Date: 2018-08-28 Test Time: 19:47:28 Pat Name: ZOE KEARNS Department: Room: 536 1 Gender: F Brusher Hand: KILO : 1935 Requested By: KJ ESPITIA Order Number: [id number] Reading MD: Ryley Jimenez Measurements Intervals [place] Rate: 89 P: 55 VT: 122 QRS: 26 QRSD: 92 T: 118 QT: 342 QTc: 417 Interpretive Statements SINUS RHYTHM COMPLEX(ES) WITH ABERRANT INTRAVENTRICULAR CONDUCTION QRS(T) CONTOUR ABNORMALITY CONSIDER ANTEROLATERAL MYOCARDIAL DAMAGE ST & T ABNORMALITY, CONSIDER ANTERIOR ISCHEMIA OR LEFT VENTRICULAR STRAIN ABNORMAL ECG Electronically Signed On 09-06-2018 10:42:42 UROLOGIST by Ryley Jimenez
[2018-08-28] MEDS: ATORVASTATIN CALCIUM 20 MG TABLET PO SCH (21:01)
[2018-08-28] MEDS: ZOLPIDEM 5 MG TABLET. PO PRN (21:01)
--- NOTE | 2018-08-28 22:22 | CONS ---
DATE OF CONSULTATION: 08/28/2018 INFECTIOUS DISEASE CONSULTATION LOCATION: The patient is in room 506. REQUESTING PHYSICIAN: . REASON FOR CONSULTATION: Gram-negative sepsis. HISTORY OF PRESENT ILLNESS: The patient is a pleasant 83-year-old female recently diagnosed with adenocarcinoma of her lung. On 08/22/2018, she states she underwent her first round of chemotherapy. She had an IV placed and it was subsequently removed. She has not received any radiation therapy. She has not been on any antibiotics. Shortly after her chemotherapy, she states she developed a mild cough. Then, on 08/26/2018, she then had fevers in the 99 range. She had shakes and chills. She states that her cough had worsened, but then on 08/27/2018, she felt somewhat better until later in the afternoon, when she again had episodes of fevers, chills, increasing shortness of air, but minimum sputum production. She has not had any sinus issues. No gross chest pain. No nausea, vomiting or diarrhea. No dysuria, frequency or urgency. Does have issues with constipation at times, but none recently. She presented to [facility] Emergency Room on the evening of 08/27/2018 and had a white count of 15.5 with 21% bands. Influenza screen was obtained and it was negative. She was placed on vancomycin, cefepime and Solu-Medrol. This afternoon, her blood cultures returned positive for gram-negative rods. Hence, I have been consulted. A dose of Levaquin has been ordered by the primary. The patient is uncertain if she received Neulasta or Neupogen with her chemotherapy. PAST MEDICAL HISTORY: Positive for coronary artery disease, hypertension, myocardial infarction, hyperlipidemia, COPD and peripheral arterial disease. PAST SURGICAL HISTORY: Positive for CABG procedure; history of left subclavian arterial stenting with complication of a brachial artery dissection, requiring patch angioplasty and underwent right lower extremity bypass grafting. REVIEW OF SYSTEMS: Otherwise negative. ALLERGIES: No antibiotic allergies. BENADRYL IS LISTED WELL HYDRALAZINE. SOCIAL HISTORY: She continues to smoke. She has Cockatoo birds at home. Denies any alcohol. FAMILY HISTORY: Noncontributory. CURRENT MEDICATIONS: Include vancomycin, cefepime a gram q.24h., levofloxacin x 1 IV has been dosed, Norvasc, albuterol, DuoNebs, Lipitor, Plavix, Lovenox, Pepcid, Lasix, Solu-Medrol and pantoprazole. PHYSICAL EXAMINATION: VITAL SIGNS: She has been afebrile since her presentation, temperature 98.7, pulse 95, respirations 16, blood pressure 148/70 and satting 98% on 4 liters. CONSTITUTIONAL: She is cooperative. She appears a little tired. She is an elderly lady. She is in no acute distress. HEENT: Pupils are equal and reactive. She has normal conjunctivae. Oral cavity, pharynx is clear, no thrush. NECK: Supple. No JVD. LUNGS: Decreased in the bases. HEART: S1, S2, without gross murmur. She has a well-healed scar. ABDOMEN: Soft, nontender. No guarding or rebound. EXTREMITIES: No clubbing or cyanosis. She has trace 1+ lower extremity edema. SKIN: Warm to touch, without signs of rash. NEUROLOGIC: She is nonfocal and appropriate. PSYCHIATRIC: Affect is appropriate. SKIN: Peripheral IV is clean. LABORATORY DATA: On arrival, white count 15.5, hemoglobin 10.8, platelets of 138,000 with 75 segs and 21 bands. Creatinine was 1.4, now it is 1.5. Procalcitonin of 27.84. Glucose 168. AST 66, ALT 66 and alkaline phosphatase 293. Influenza was negative. Chest x-ray, mild increased markings in both lung bases, compatible with mild infiltrative atelectasis. No dense lobar consolidations. No pleural thickening or effusion. IMPRESSION: 1. Gram-negative sepsis, present on admission on 08/27/2018. 2. Lung cancer, status post chemotherapy on 08/22/2018. 3. Leukocytosis, present on admission, prior to steroid dosing. Uncertain if she has received Neulasta or Neupogen. 4. Acute exacerbation of chronic obstructive pulmonary disease. 5. Bird exposure as Cockatoos are at home. 6. Peripheral arterial disease, status post right fem-tibioperoneal trunk bypass graft using ipsilateral greater saphenous vein, 05/31/2018. RECOMMENDATIONS: 1. Continue cefepime, but increase to q.12h. dosing. 2. Discontinue the vancomycin. Levofloxacin ordered x 1 already. Obtain U/A C and S and follow up labs and cultures. Await Heme/Onc evaluation followup. Needs to quit tobacco; she has continued to smoke. Discontinue Pepcid as Protonix is written for. This was discussed with Dr. Hood. Thank you for allowing me to participate in this patient's care. Should you have any questions, please do not hesitate to contact me. FER PEARSON MD DR: JAMES/ramila JOB#: [id number] / [id number]
[2018-08-29 03:00] VITALS: BP 105/42
[2018-08-29] MEDS: methylPREDNISolone SOD SUCC PF 40 MG/ML VIAL. IV SCH ×3 (05:32→21:31)
[2018-08-29] MEDS: LEVOTHYROXINE 75 MCG TABLET PO SCH (06:26)
[2018-08-29] MEDS: PANTOPRAZOLE 40 MG TABLET.DR. PO SCH (06:26)
[2018-08-29 07:00] VITALS: BP 132/43
[2018-08-29] MEDS ORDERED: CEFEPIME HCL IV Push 1 GM VIAL. IVP SCH (07:00)
[2018-08-29 07:35] LABS: ALBUMIN/GLOBULIN RATIO 0.5 (1.0-1.7); CALCIUM 8.6 mg/dL (8.5-10.1); CREATININE 1.9 mg/dL (0.6-1.0); GFR 25.3; POTASSIUM 4.1 mmol/L (3.5-5.1); TOTAL BILIRUBIN 0.4 mg/dL (0.2-1.0); TOTAL PROTEIN 6.1 g/dL (6.4-8.2)
[2018-08-29 07:37] LABS: BASO % 0 % (0-3); EOS % 0 % (0-3); HEMATOCRIT 26.1 % (36.0-47.0); HEMOGLOBIN 8.5 g/dL (12.0-15.5); LYMPH # 0.4 x10^3/uL (1.0-4.8); LYMPH % 3 % (24-48); MEAN CORPUSCULAR HEMOGLOBIN 29 pg (25-35); MEAN CORPUSCULAR HGB CONC 33 g/dL (31-37); MEAN CORPUSCULAR VOLUME 89 fL (79-100); MONO # 0.5 x10^3/uL (0.0-1.1); MONO % 4 % (0-9); NEUT # 11.6 x10^3uL (1.8-7.7); NEUT % 93 % (31-73); PLATELET COUNT 120 x10^3/uL (140-400); RED BLOOD COUNT 2.94 x10^6/uL (3.50-5.40); RED CELL DISTRIBUTION WIDTH 18.5 % (11.5-14.5); WHITE BLOOD COUNT 12.4 x10^3/uL (4.0-11.0)
[2018-08-29] MEDS: IPRATRPIUM/ALBUTEROL 0.5/2.5MG 3 ML NEBU. NEB SCH ×2 (07:45→12:05)
[2018-08-29] MEDS: ISOSORBIDE MONONITRATE ER 30 MG TAB.ER.24H PO SCH (08:36)
[2018-08-29] MEDS: amLODIPine BESYLATE 5 MG TABLET PO SCH (08:37)
[2018-08-29] MEDS: ASPIRIN ENTERIC COATED 325 MG TABLET.DR. PO SCH (08:37)
[2018-08-29] MEDS: METOPROLOL SUCC 24HR ER 50 MG TAB.ER.24H. PO SCH (08:37)
[2018-08-29] MEDS: CLOPIDOGREL BISULFATE 75 MG TABLET PO SCH (08:37)
[2018-08-29] MEDS: HYDROcodone/APAP 5/325MG 1 TAB TABLET PO PRN ×2 (08:37→20:36)
[2018-08-29] MEDS: ENOXAPARIN 30 MG/0.3 ML SYRINGE. SQ SCH (08:38)
[2018-08-29] MEDS: POLYETHYLENE GLYCOL 3350 17 GM PACKET. PO SCH (08:38)
[2018-08-29] MEDS: FUROSEMIDE 40 MG/4 ML VIAL. IVP SCH (08:38)
[2018-08-29] MEDS: CEFEPIME HCL IV Push 2 GM VIAL. IVP SCH ×2 (08:47→20:36)
[2018-08-29] MEDS: NITROGLYCERIN SUBLINGUAL 0.4 MG BOTTLE OF 25. SL PRN (09:14)
[2018-08-29] MEDS ORDERED: LORazepam 0.5 MG TABLET PO ONE (10:00)
--- NOTE | 2018-08-29 10:15 | NUR ---
NANCY following pt for anticipated dc needs. Chart reviewed and DW RN. Pt lives at home alone and has home o2 with [employer]. RN to order PT/OT eval and tx to assess dc needs. Will continue to follow.
--- NOTE | 2018-08-29 10:15 | PDOC ---
PROGRESS NOTES History of Present Illness History of Present Illness Images Images CXR - 1. Mild increase in markings in both lung bases, compatible with mild infiltrate or atelectasis. No dense lobar consolidation. 2. Pleural thickening or effusion on the left is unchanged. PET 07/14/18 - 1. Hypermetabolic left upper lobe mass compatible with a primary lung malignancy. 2. Hypermetabolic mediastinal adenopathy most prominent at the AP window level , likely on a metastatic basis. 3. Borderline increased activity at both alvarado which may be on a reactive or metastatic basis. 4. Several smaller hypermetabolic right lung lesions are likely on a metastatic basis. An infectious etiology is less likely. 5. Mildly increased activity at the right groin is probably inflammatory, related to recent intervention or surgery. VTE Prophylaxis Ordered VTE Prophylaxis Devices: Contraindicated VTE Pharmacological Prophylaxi: Yes Assessment/Plan Assessment/Plan A/P: Pneumonia - HCAP - will cover with vancomycin given bilateral early infiltrates , cefepime for HCAP as well. pulmonology FOLLOWING . 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 Consult hematology/oncology CT-guided biopsy of the left upper lobe lung mass in June, which was consistent with adenocarcinoma. DASIA - IVF Sepsis - likely 2/2 pneumonia with tachycardia and leukocytosis, given fluids based on weight and HCAP antibiotic coverage Elevated troponin and elevated BNP - likely related to sepsis, DASIA, chemo. Cardiology FOLLOWING Troponins trended Transaminitis - possibly 2/2 chemotherapy, will monitor trend TOBACCO ABUSE - counseled on cessation need COPD - on O2, with higher requirement. IV steroids +/- nebulizer treatments Severe protein calorie malnutrition - cancer cachexia, nutrition involved, supplements Hypoxia - Severe pneumonia, negative for PE Normocytic anemia - likely chronic disease vs chemo Thrombocytopenia - likely chronic disease vs chemo as well, will watch platelets as she needs lovenox for PPX hematuria with UTI ATN/ DASIA, new issue Acute hypoxic resp failure g neg septicemia/ BACTEREMIA, new pos blood culture d/w DR JOHN GRECO - General diet + supplements PPX - lovenox 30mg daily FULL CODE Inpatient for sepsis/HCAP Nephrology consult emperic HCAP antibiotic coverage repeat blood cultures x 2 oncology consulted 08/29 HAD CHEST PAIN EARLIER / gerd vs anxiety, po ativan helped per my review of records, cultures guarded to poor prognosis, as evidenced by pneumonia, bacteremia, sepsis Vitals Vitals Vital Signs Date Time Temp Pulse Resp B/P (MAP) Pulse Ox O2 Delivery O2 Flow Rate FiO2 08/29/18 09:50 95 Nasal Cannula 2.0 08/29/18 09:14 90 132/43 08/29/18 07:00 98.3 16 98.3 Physical Exam General: Alert, Oriented X3, Cooperative, mild distress Heart: Regular rate Lungs: Other (RLL crackles) Abdomen: Normal bowel sounds, Soft, No tenderness, No hepatosplenomegaly, No masses Extremities: No clubbing, No cyanosis, No edema, Normal pulses, No tenderness/ swelling Skin: No rashes, No breakdown, No significant lesion Labs LABS Bilateral lower extremity venous Doppler ultrasound HISTORY: Lung cancer. Leg edema. TECHNIQUE: Grayscale, color Doppler and duplex analysis FINDINGS: The right and left femoral popliteal venous systems appear patent. Normal compressibility and response to augmentation. Normal phasicity is demonstrated. Visualized calf veins are patent. IMPRESSION: No evidence of right or left lower extremity deep venous thrombosis Electronically signed by: Lam Wilkes MD (08/28/2018 4:00 PM) [facility] DICTATED and SIGNED BY: LAM WILKES MD SPEC #: [id number] FAVIOLA: 08/27/18 STATUS: COMP REQ #: [id number] RECD: 08/27/[address]: KJ ESPITIA DO SOURCE: BLOOD ENTR: 08/27/[address] [facility] [address]: SCOT GOMES MD [facility]: ORDERED: BCULT Procedure Result BLOOD CULTURE Final GRAM NEGATIVE RODS SEEN IN 1 OF 2 BOTTLES; 1 SET WAS DRAWN; RESULTS WERE CALLED TO [facility] ON 5N AT 0858; 08/28/18 BY [email or web address]. THE BLOOD CULTURES HAVE BEEN SENT TO [email or web address] FOR FURTHER WORKUP. AMMENDED REPORT: GRAM NEGATIVE RODS SEEN IN 2 OF 2 BOTTLES; 1 SET WAS DRAWN; RESULTS WERE CALLED TO [facility] ON 5N AT 1135; 08/28/18 BY [employer] AT. THE BLOOD CULTURES HAVE BEEN SENT TO [email or web address] FOR FURTHER WORKUP. THIS IS THE SECOND BOTTLE OF THE SAME SET. * This is a corrected result. * A prior result that was reported as final has been changed. There is a 3.5 cm irregular mass in the posterior aspect of the left upper lobe which is hypermetabolic demonstrating a maximum SUV of approximately 21. There are at least 5 additional smaller hypermetabolic foci in the right lung corresponding to irregular pulmonary opacities. The largest of these lies posteromedially in the right upper lobe adjacent to the superior aspect of the oblique fissure and measures approximately 13 mm with a maximum SUV of 5.7. Similar small hypermetabolic nodules are also present along the lateral aspect of the right hilum and in the superior segment of the right lower lobe. There are enlarged hypermetabolic mediastinal lymph nodes including an 11 x 18 mm AP window lymph node which demonstrates a maximum SUV of 4.4. Similar hypermetabolic foci are present in the right paratracheal and subcarinal regions. Mildly increased activity at both alvarado demonstrates activity only slightly greater than the mediastinal background, with a maximum SUV of 3.5. Normal GI tract and urinary tract activity is present in the abdomen and pelvis. No hypermetabolic intra-abdominal lesion is seen. There is increased activity at the right groin level. This corresponds in location to the inferior insertion of an aortobifemoral graft. There are surgical clips in this region as well as streaky increased density in the adjacent soft tissues. This increased activity is likely on an inflammatory basis due to previous intervention or surgery. Physiologic activity is present in the neck. No hypermetabolic neck lesion is seen. Incidental CT findings include the presence of small gallstones. There is extensive arterial calcifications including the coronary arteries. A trace amount of free fluid is noted in the pelvis. There are moderate multilevel degenerative changes in the spine. IMPRESSION: 1. Hypermetabolic left upper lobe mass compatible with a primary lung malignancy. 2. Hypermetabolic mediastinal adenopathy most prominent at the AP window level, likely on a metastatic basis. 3. Borderline increased activity at both alvarado which may be on a reactive or metastatic basis. 4. Several smaller hypermetabolic right lung lesions are likely on a metastatic basis. An infectious etiology is less likely. 5. Mildly increased activity at the right groin is probably inflammatory, related to recent intervention or surgery. CHEST AP ONLY History: Cough and short of breath Comparison: June 14, 2018 Cardiomediastinal silhouette is unchanged. Left endovascular stent is again identified. No pneumothorax. Density at the left costophrenic angle is unchanged compatible with pleural thickening or effusion. There has increased interstitial markings in both lung bases, compatible infiltrate or atelectasis. No dense lobar consolidation. IMPRESSION: 1. increase in markings in both lung bases, compatible with infiltrate or atelectasis. No dense lobar consolidation. 2. Pleural thickening or effusion on the left is unchanged. Electronically signed by: Lam Wilkes MD (08/28/2018 7:49 AM) [facility] DICTATED and SIGNED BY: LAM WILKES MD DATE: 08/28/18 0743 Laboratory Tests Test 08/28/18 12:40 08/28/18 17:00 08/28/18 17:55 08/29/18 06:13 Troponin I Quantitative < 0.017 ng/mL (0.000-0.055) 0.019 ng/mL (0.000-0.055) Urine Collection Type Unknown Urine Color Yellow Urine Clarity Clear Urine pH 6.0 Urine Specific [place] 1.010 Urine Protein 30 mg/dL (NEG-TRACE) Urine Glucose (UA) Negative mg/dL (NEG) Urine Ketones (Stick) Negative mg/dL (NEG) Urine Blood Large (NEG) Urine Nitrite Negative (NEG) Urine Bilirubin Negative (NEG) Urine Urobilinogen Dipstick 0.2 mg/dL (0.2 mg/dL) Urine Leukocyte Esterase Moderate (NEG) Urine RBC Tntc /HPF (0-2) Urine WBC 11-20 /HPF (0-4) Urine Squamous Epithelial Cells Occ /LPF Urine Bacteria Few /HPF (0-FEW) Sodium Level 134 mmol/L (136-145) Potassium Level 4.1 mmol/L (3.5-5.1) Chloride Level 99 mmol/L (98-107) Carbon Dioxide Level 26 mmol/L (21-32) Anion Gap 9 (6-14) Blood Urea Nitrogen 55 mg/dL (7-20) Creatinine 1.9 mg/dL (0.6-1.0) Estimated GFR (Cockcroft-Gault) 25.3 BUN/Creatinine Ratio 29 (6-20) Glucose Level 182 mg/dL (70-99) Calcium Level 8.6 mg/dL (8.5-10.1) Total Bilirubin 0.4 mg/dL (0.2-1.0) Aspartate Amino Transf (AST/SGOT) 24 U/L (15-37) Alanine Aminotransferase (ALT/SGPT) 42 U/L (14-59) Alkaline Phosphatase 196 U/L (46-116) Total Protein 6.1 g/dL (6.4-8.2) Albumin 2.0 g/dL (3.4-5.0) Albumin/Globulin Ratio 0.5 (1.0-1.7) Test 08/29/18 06:15 White Blood Count 12.4 x10^3/uL (4.0-11.0) Red Blood Count 2.94 x10^6/uL (3.50-5.40) Hemoglobin 8.5 g/dL (12.0-15.5) Hematocrit 26.1 % (36.0-47.0) Mean Corpuscular Volume 89 fL (79-100) Mean Corpuscular Hemoglobin 29 pg (25-35) Mean Corpuscular Hemoglobin Concent 33 g/dL (31-37) Red Cell Distribution Width 18.5 % (11.5-14.5) Platelet Count 120 x10^3/uL (140-400) Neutrophils (%) (Auto) 93 % (31-73) Lymphocytes (%) (Auto) 3 % (24-48) Monocytes (%) (Auto) 4 % (0-9) Eosinophils (%) (Auto) 0 % (0-3) Basophils (%) (Auto) 0 % (0-3) Neutrophils # (Auto) 11.6 x10^3uL (1.8-7.7) Lymphocytes # (Auto) 0.4 x10^3/uL (1.0-4.8) Monocytes # (Auto) 0.5 x10^3/uL (0.0-1.1) Eosinophils # (Auto) 0.0 x10^3/uL (0.0-0.7) Basophils # (Auto) 0.0 x10^3/uL (0.0-0.2) Assessment and Plan Assessmemt and Plan Problems Medical Problems: (1) Acute congestive heart failure Status: Acute (2) Lung cancer Status: Acute (3) Pneumonia Status: Acute 1. Hypermetabolic left upper lobe mass compatible with a primary lung malignancy. 2. Hypermetabolic mediastinal adenopathy most prominent at the AP window level, likely on a metastatic basis. 3. Borderline increased activity at both alvarado which may be on a reactive or metastatic basis. 4. Several smaller hypermetabolic right lung lesions are likely on a metastatic basis. Comment Review of Relevant I have reviewed the following items corwin (where applicable) has been applied. Labs Laboratory Tests Test 08/27/18 22:35 08/27/18 22:50 08/28/18 03:30 08/28/18 04:45 White Blood Count 15.5 x10^3/uL (4.0-11.0) Red Blood Count 3.71 x10^6/uL (3.50-5.40) Hemoglobin 10.8 g/dL (12.0-15.5) Hematocrit 33.6 % (36.0-47.0) Mean Corpuscular Volume 91 fL (79-100) Mean Corpuscular Hemoglobin 29 pg (25-35) Mean Corpuscular Hemoglobin Concent 32 g/dL (31-37) Red Cell Distribution Width 18.9 % (11.5-14.5) Platelet Count 138 x10^3/uL (140-400) Neutrophils (%) (Auto) 92 % (31-73) Lymphocytes (%) (Auto) 3 % (24-48) Monocytes (%) (Auto) 5 % (0-9) Eosinophils (%) (Auto) 1 % (0-3) Basophils (%) (Auto) 0 % (0-3) Neutrophils # (Auto) 14.3 x10^3uL (1.8-7.7) Lymphocytes # (Auto) 0.4 x10^3/uL (1.0-4.8) Monocytes # (Auto) 0.7 x10^3/uL (0.0-1.1) Eosinophils # (Auto) 0.1 x10^3/uL (0.0-0.7) Basophils # (Auto) 0.1 x10^3/uL (0.0-0.2) Segmented Neutrophils % 75 % (35-66) Band Neutrophils % 21 % (0-9) Lymphocytes % 1 % (24-48) Monocytes % 1 % (0-10) Eosinophils % 1 % (0-5) Basophils % 1 % (0-3) Platelet Estimate Decreased (ADEQUATE) Poikilocytosis Slight Anisocytosis Slight Crenated Cell Present Lactic Acid Level 2.0 mmol/L (0.4-2.0) 0.9 mmol/L (0.4-2.0) Sodium Level 134 mmol/L (136-145) Potassium Level 4.7 mmol/L (3.5-5.1) Chloride Level 99 mmol/L (98-107) Carbon Dioxide Level 27 mmol/L (21-32) Anion Gap 8 (6-14) Blood Urea Nitrogen 39 mg/dL (7-20) 42 mg/dL (7-20) Creatinine 1.4 mg/dL (0.6-1.0) 1.5 mg/dL (0.6-1.0) Estimated GFR (Cockcroft-Gault) 36.0 33.2 BUN/Creatinine Ratio 28 (6-20) Glucose Level 168 mg/dL (70-99) Calcium Level 8.9 mg/dL (8.5-10.1) Total Bilirubin 0.5 mg/dL (0.2-1.0) Aspartate Amino Transf (AST/SGOT) 60 U/L (15-37) Alanine Aminotransferase (ALT/SGPT) 66 U/L (14-59) Alkaline Phosphatase 293 U/L (46-116) Troponin I Quantitative 0.043 ng/mL (0.000-0.055) 0.042 ng/mL (0.000-0.055) JX-Vrl-H-Type Natriuretic Peptide 87842 pg/mL (0-449) Total Protein 6.7 g/dL (6.4-8.2) Albumin 2.4 g/dL (3.4-5.0) Albumin/Globulin Ratio 0.6 (1.0-1.7) Influenza Type A Antigen Negative (NEGATIVE) Influenza Type B Antigen Negative (NEGATIVE) Procalcitonin 27.84 ng/mL (0.00-0.10) Test 08/28/18 12:40 08/28/18 17:00 08/28/18 17:55 08/29/18 06:13 Troponin I Quantitative < 0.017 ng/mL (0.000-0.055) 0.019 ng/mL (0.000-0.055) Urine Collection Type Unknown Urine Color Yellow Urine Clarity Clear Urine pH 6.0 Urine Specific [place] 1.010 Urine Protein 30 mg/dL (NEG-TRACE) Urine Glucose (UA) Negative mg/dL (NEG) Urine Ketones (Stick) Negative mg/dL (NEG) Urine Blood Large (NEG) Urine Nitrite Negative (NEG) Urine Bilirubin Negative (NEG) Urine Urobilinogen Dipstick 0.2 mg/dL (0.2 mg/dL) Urine Leukocyte Esterase Moderate (NEG) Urine RBC Tntc /HPF (0-2) Urine WBC 11-20 /HPF (0-4) Urine Squamous Epithelial Cells Occ /LPF Urine Bacteria Few /HPF (0-FEW) Sodium Level 134 mmol/L (136-145) Potassium Level 4.1 mmol/L (3.5-5.1) Chloride Level 99 mmol/L (98-107) Carbon Dioxide Level 26 mmol/L (21-32) Anion Gap 9 (6-14) Blood Urea Nitrogen 55 mg/dL (7-20) Creatinine 1.9 mg/dL (0.6-1.0) Estimated GFR (Cockcroft-Gault) 25.3 BUN/Creatinine Ratio 29 (6-20) Glucose Level 182 mg/dL (70-99) Calcium Level 8.6 mg/dL (8.5-10.1) Total Bilirubin 0.4 mg/dL (0.2-1.0) Aspartate Amino Transf (AST/SGOT) 24 U/L (15-37) Alanine Aminotransferase (ALT/SGPT) 42 U/L (14-59) Alkaline Phosphatase 196 U/L (46-116) Total Protein 6.1 g/dL (6.4-8.2) Albumin 2.0 g/dL (3.4-5.0) Albumin/Globulin Ratio 0.5 (1.0-1.7) Test 08/29/18 06:15 White Blood Count 12.4 x10^3/uL (4.0-11.0) Red Blood Count 2.94 x10^6/uL (3.50-5.40) Hemoglobin 8.5 g/dL (12.0-15.5) Hematocrit 26.1 % (36.0-47.0) Mean Corpuscular Volume 89 fL (79-100) Mean Corpuscular Hemoglobin 29 pg (25-35) Mean Corpuscular Hemoglobin Concent 33 g/dL (31-37) Red Cell Distribution Width 18.5 % (11.5-14.5) Platelet Count 120 x10^3/uL (140-400) Neutrophils (%) (Auto) 93 % (31-73) Lymphocytes (%) (Auto) 3 % (24-48) Monocytes (%) (Auto) 4 % (0-9) Eosinophils (%) (Auto) 0 % (0-3) Basophils (%) (Auto) 0 % (0-3) Neutrophils # (Auto) 11.6 x10^3uL (1.8-7.7) Lymphocytes # (Auto) 0.4 x10^3/uL (1.0-4.8) Monocytes # (Auto) 0.5 x10^3/uL (0.0-1.1) Eosinophils # (Auto) 0.0 x10^3/uL (0.0-0.7) Basophils # (Auto) 0.0 x10^3/uL (0.0-0.2) Laboratory Tests Test 08/28/18 12:40 08/28/18 17:00 08/28/18 17:55 08/29/18 06:13 Troponin I Quantitative < 0.017 ng/mL (0.000-0.055) 0.019 ng/mL (0.000-0.055) Urine Collection Type Unknown Urine Color Yellow Urine Clarity Clear Urine pH 6.0 Urine Specific [place] 1.010 Urine Protein 30 mg/dL (NEG-TRACE) Urine Glucose (UA) Negative mg/dL (NEG) Urine Ketones (Stick) Negative mg/dL (NEG) Urine Blood Large (NEG) Urine Nitrite Negative (NEG) Urine Bilirubin Negative (NEG) Urine Urobilinogen Dipstick 0.2 mg/dL (0.2 mg/dL) Urine Leukocyte Esterase Moderate (NEG) Urine RBC Tntc /HPF (0-2) Urine WBC 11-20 /HPF (0-4) Urine Squamous Epithelial Cells Occ /LPF Urine Bacteria Few /HPF (0-FEW) Sodium Level 134 mmol/L (136-145) Potassium Level 4.1 mmol/L (3.5-5.1) Chloride Level 99 mmol/L (98-107) Carbon Dioxide Level 26 mmol/L (21-32) Anion Gap 9 (6-14) Blood Urea Nitrogen 55 mg/dL (7-20) Creatinine 1.9 mg/dL (0.6-1.0) Estimated GFR (Cockcroft-Gault) 25.3 BUN/Creatinine Ratio 29 (6-20) Glucose Level 182 mg/dL (70-99) Calcium Level 8.6 mg/dL (8.5-10.1) Total Bilirubin 0.4 mg/dL (0.2-1.0) Aspartate Amino Transf (AST/SGOT) 24 U/L (15-37) Alanine Aminotransferase (ALT/SGPT) 42 U/L (14-59) Alkaline Phosphatase 196 U/L (46-116) Total Protein 6.1 g/dL (6.4-8.2) Albumin 2.0 g/dL (3.4-5.0) Albumin/Globulin Ratio 0.5 (1.0-1.7) Test 08/29/18 06:15 White Blood Count 12.4 x10^3/uL (4.0-11.0) Red Blood Count 2.94 x10^6/uL (3.50-5.40) Hemoglobin 8.5 g/dL (12.0-15.5) Hematocrit 26.1 % (36.0-47.0) Mean Corpuscular Volume 89 fL (79-100) Mean Corpuscular Hemoglobin 29 pg (25-35) Mean Corpuscular Hemoglobin Concent 33 g/dL (31-37) Red Cell Distribution Width 18.5 % (11.5-14.5) Platelet Count 120 x10^3/uL (140-400) Neutrophils (%) (Auto) 93 % (31-73) Lymphocytes (%) (Auto) 3 % (24-48) Monocytes (%) (Auto) 4 % (0-9) Eosinophils (%) (Auto) 0 % (0-3) Basophils (%) (Auto) 0 % (0-3) Neutrophils # (Auto) 11.6 x10^3uL (1.8-7.7) Lymphocytes # (Auto) 0.4 x10^3/uL (1.0-4.8) Monocytes # (Auto) 0.5 x10^3/uL (0.0-1.1) Eosinophils # (Auto) 0.0 x10^3/uL (0.0-0.7) Basophils # (Auto) 0.0 x10^3/uL (0.0-0.2) Microbiology 08/27/18 Blood Culture - Final, Complete Medications Current Medications Methylprednisolone Sodium Succinate (SOLU-Medrol 40MG VIAL) 40 mg 1X ONCE IV Last administered on 08/27/18at 23:06; Start 08/27/18 at 23:00; Stop 08/27/18 at 23:01; Status DC Albuterol/ Ipratropium (Duoneb) 3 ml 1X ONCE NEB Last administered on at 23:19; Start 08/27/18 at 23:00; Stop 08/27/18 at 23:01; Status DC Furosemide (Lasix) 40 mg 1X ONCE IVP Last administered on 08/28/18at 01:23; Start 08/28/18 at 00:30; Stop 08/28/18 at 00:36; Status DC Cefepime HCl (Maxipime) 2 gm 1X ONCE IVP Last administered on 08/28/18at 01:28 ; Start 08/28/18 at 00:45; Stop 08/28/18 at 00:46; Status DC Vancomycin HCl (Vanco Per Pharmacy) 1 each PRN DAILY PRN MC SEE COMMENTS Last administered on 08/28/18at 01:43; Start 08/28/18 at 00:30; Stop 08/28/18 at 12:14 ; Status DC Ondansetron HCl (Zofran) 4 mg PRN Q8HRS PRN IV NAUSEA/VOMITING; Start 08/28/18 at 00:30; Stop 08/29/18 at 00:29; Status DC Albuterol/ Ipratropium (Duoneb) 3 ml RTQID NEB Last administered on 08/29/18at 07:45; Start 08/28/18 at 08:00; Stop 08/29/18 at 07:59; Status DC Furosemide (Lasix) 40 mg [id number] IVP Last administered on 08/29/18at 08:38; Start 08/28/18 at 09:00; Stop 08/29/18 at 10:09; Status DC Methylprednisolone Sodium Succinate (SOLU-Medrol 40MG VIAL) 40 mg Q8HRS IV Last administered on 08/29/18at 05:32; Start 08/28/18 at 06:00 Vancomycin HCl 1.25 gm/Sodium Chloride 250 ml @ 166.667 mls/hr 1X ONCE IV Last administered on 08/28/18at 01:24; Start 08/28/18 at 01:30; Stop 08/28/18 at 02:59; Status DC Vancomycin HCl 750 mg/Sodium Chloride 250 ml @ 250 mls/hr Q48H IV ; Start 08/30 at 01:30; Stop 08/30/18 at 01:30; Status DC Vancomycin HCl (Vancomycin Trough Level) 1 each 1X ONCE MC ; Start 09/01/18 at 01:00; Stop 09/01/18 at 01:00; Status DC Albuterol Sulfate (Ventolin Neb Soln) 2.5 mg 1X ONCE NEB Last administered on 08/28/18at 02:45; Start 08/28/18 at 02:45; Stop 08/28/18 at 02:46; Status DC Albuterol Sulfate (Ventolin Neb Soln) 2.5 mg PRN Q3HRS PRN NEB SHORTNESS OF BREATH; Start 08/28/18 at 03:00; Stop 08/28/18 at 08:10; Status DC Acetaminophen/ Hydrocodone Bitart (Lortab 5/325) 1 tab PRN Q6HRS PRN PO PAIN Last administered on 08/29/18 08:37; Start 08/28/18 at 07:15 Cefepime HCl (Maxipime) 1 gm Q24H IVP ; Start 08/29/18 at 07:00; Stop 08/29/18 at 07:00; Status DC Albuterol Sulfate (Ventolin Neb Soln) 2.5 mg PRN Q6HRS PRN INH SHORTNESS OF BREATH; Start 08/28/18 at 08:15; Status UNV Amlodipine Besylate (Norvasc) 5 mg DAILY PO Last administered on 08/29/18 08: 37; Start 08/28/18 at 09:00 Aspirin (Ecotrin) 325 mg DAILYWBKFT PO Last administered on 08/29/18 08:37; Start 08/28/18 at 09:00 Clopidogrel Bisulfate (Plavix) 75 mg DAILY PO Last administered on 08/29/18 08 :37; Start 08/28/18 at 09:00 Famotidine (Pepcid) 20 mg DAILY PO Last administered on 08/28/18 08:34; Start 08/28/18 at 09:00; Stop 08/28/18 at 12:14; Status DC Isosorbide Mononitrate (Imdur) 30 mg DAILY PO Last administered on 08/29/18 08 :36; Start 08/28/18 at 09:00 Levothyroxine Sodium (Synthroid) 75 mcg DAILYAC PO Last administered on 06:26; Start 08/28/18 at 09:00 Metoprolol Succinate (Toprol Xl) 50 mg DAILY PO Last administered on 08/29/18 08:37; Start 08/28/18 at 09:00 Nitroglycerin (Nitrostat) 0.4 mg PRN Q5MIN PRN SL CHEST PAIN Last administered on 08/29/18 09:14; Start 08/28/18 at 08:15 Polyethylene Glycol (miraLAX PACKET) 17 gm DAILY PO Last administered on 08:38; Start 08/28/18 at 09:00 Atorvastatin Calcium (Lipitor) 20 mg QHS PO Last administered on 08/28/18 21: 01; Start 08/28/18 at 21:00 Enoxaparin Sodium (Lovenox 30mg Syringe) 30 mg Q24H SQ Last administered on 08:38; Start 08/28/18 at 09:00 Enoxaparin Sodium (Lovenox 30mg Syringe) 30 mg Q24H SQ ; Start 08/28/18 at 08:15 ; Status UNV Pantoprazole Sodium (Protonix) 40 mg DAILYAC PO Last administered on 08/29/18 06:26; Start 08/28/18 at 09:00 Albuterol Sulfate (Ventolin Neb Soln) 2.5 mg PRN Q3HRS PRN INH SHORTNESS OF BREATH; Start 08/28/18 at 08:10 Levofloxacin/ Dextrose 100 ml @ 100 mls/hr 1X ONCE IV Last administered on 11:55; Start 08/28/18 at 12:00; Stop 08/28/18 at 12:59; Status DC Cefepime HCl (Maxipime) 2 gm Q12HR IVP Last administered on 08/29/18 08:47; Start 08/28/18 at 19:01 Zolpidem Tartrate (Ambien) 5 mg PRN QHS PRN PO INSOMNIA Last administered on 21:01; Start 08/28/18 at 19:00 Lorazepam (Ativan) 0.5 mg 1X ONCE PO Last administered on 08/29/18 10:06; Start 08/29/18 at 10:00; Stop 08/29/18 at 10:01; Status DC Active Scripts Active Proair Hfa Inhaler (Albuterol Sulfate) 8.5 Gm Hfa.aer.ad 1 Puff INH PRN Q6HRS PRN 14 Days Aspirin Ec (Aspirin) 325 Mg Tablet.dr 325 Mg PO DAILYWBKFT Reported Miralax (Polyethylene Glycol 3350) 17 Gm Powd.pack 1 Packet PO DAILY Isosorbide Mononitrate Er (Isosorbide Mononitrate) 30 Mg Tab.er.24h 30 Mg PO DAILY Pepcid (Famotidine) 20 Mg Tablet 20 Mg PO DAILY Clopidogrel (Clopidogrel Bisulfate) 75 Mg Tablet 75 Mg PO DAILY Levothyroxine Sodium 75 Mcg Tablet 75 Mcg PO DAILYAC Nitrostat (Nitroglycerin) 0.4 Mg Tab.subl 0.4 Mg SL PRN Q5MIN PRN Hydrocodone-Apap 5-325 (Hydrocodone Bit/Acetaminophen) 1 Each Tablet 1 Tab PO PRN Q6HRS PRN Amlodipine Besylate 5 Mg Tablet 1 Tab PO DAILY Simvastatin 40 Mg Tablet 1 Tab PO QHS Metoprolol Succinate ( Xl ) (Metoprolol Succinate) 25 Mg Tab.er.24h 50 Mg PO DAILY Vitals/I & O Vital Sign - Last 24 Hours 08/28/18 08/28/18 08/28/18 08/28/18 11:00 12:00 15:00 15:49 Temp 98.2 97.9 98.2 97.9 Pulse 84 82 Resp 16 16 B/P (MAP) 132/51 (78) 116/49 (71) Pulse Ox 95 98 92 92 O2 Delivery Room Air Nasal Cannula Nasal Cannula Nasal Cannula O2 Flow Rate 2.0 2.0 2.0 08/28/18 08/28/18 08/28/18 08/28/18 18:54 19:00 19:45 20:02 Temp 98.3 98.3 Pulse 87 Resp B/P (MAP) 115/51 (72) Pulse Ox 95 O2 Delivery Nasal Cannula Nasal Cannula BiPAP/CPAP Nasal Cannula O2 Flow Rate 2.0 2.0 2.0 2.0 08/28/18 08/28/18 08/29/18 08/29/18 21:18 23:00 03:00 07:00 Temp 98.3 98.2 98.3 98.3 98.2 98.3 Pulse 90 78 90 Resp 16 B/P (MAP) 120/48 (72) 105/42 (63) 132/43 (72) Pulse Ox 99 92 95 O2 Delivery Nasal Cannula Nasal Cannula Nasal Cannula O2 Flow Rate 2.0 2.0 2.0 2/25/19 2/25/19 2/25/19 2/25/19 07:45 08:36 08:37 08:37 Pulse 90 90 B/P (MAP) 132/43 132/43 Pulse Ox 95 95 O2 Delivery Nasal Cannula Nasal Cannula O2 Flow Rate 2.0 2.0 08/29/18 08/29/18 08/29/18 08:37 09:14 09:50 Pulse 90 90 B/P (MAP) 132/43 132/43 Pulse Ox 95 O2 Delivery Nasal Cannula O2 Flow Rate 2.0 Intake and Output 08/28/18 08/28/18 08/29/18 14:59 22:59 06:59 Intake Total 200 ml 220 ml Output Total 250 ml Balance -50 ml 220 ml CHRIS RAY MD Aug 29, 2018 10:15
--- NOTE | 2018-08-29 10:34 | PDOC ---
Infectious Disease Note Subjective Subjective pt is feeling better ROS ROS no n/v/d/sob/fever Vital Sign Vital Signs Vital Signs Date Time Temp Pulse Resp B/P (MAP) Pulse Ox O2 Delivery O2 Flow Rate FiO2 08/29/18 09:50 95 Nasal Cannula 2.0 08/29/18 09:14 90 132/43 08/29/18 07:00 98.3 16 98.3 Physical Exam PHYSICAL EXAM CONSTITUTIONAL: She is cooperative. She appears a little tired. She is an elderly lady. She is in no acute distress. HEENT: Pupils are equal and reactive. She has normal conjunctivae. Oral cavity, pharynx is clear, no thrush. NECK: Supple. No JVD. LUNGS: Decreased in the bases. HEART: S1, S2, without gross murmur. She has a well-healed scar. ABDOMEN: Soft, nontender. No guarding or rebound. EXTREMITIES: No clubbing or cyanosis. She has trace 1+ lower extremity edema. SKIN: Warm to touch, without signs of rash. NEUROLOGIC: She is nonfocal and appropriate. PSYCHIATRIC: Affect is appropriate. SKIN: Peripheral IV is clean. Labs Lab Laboratory Tests Test 08/28/18 12:40 08/28/18 17:00 08/28/18 17:55 08/29/18 06:13 Troponin I Quantitative < 0.017 ng/mL (0.000-0.055) 0.019 ng/mL (0.000-0.055) Urine Collection Type Unknown Urine Color Yellow Urine Clarity Clear Urine pH 6.0 Urine Specific [place] 1.010 Urine Protein 30 mg/dL (NEG-TRACE) Urine Glucose (UA) Negative mg/dL (NEG) Urine Ketones (Stick) Negative mg/dL (NEG) Urine Blood Large (NEG) Urine Nitrite Negative (NEG) Urine Bilirubin Negative (NEG) Urine Urobilinogen Dipstick 0.2 mg/dL (0.2 mg/dL) Urine Leukocyte Esterase Moderate (NEG) Urine RBC Tntc /HPF (0-2) Urine WBC 11-20 /HPF (0-4) Urine Squamous Epithelial Cells Occ /LPF Urine Bacteria Few /HPF (0-FEW) Sodium Level 134 mmol/L (136-145) Potassium Level 4.1 mmol/L (3.5-5.1) Chloride Level 99 mmol/L (98-107) Carbon Dioxide Level 26 mmol/L (21-32) Anion Gap 9 (6-14) Blood Urea Nitrogen 55 mg/dL (7-20) Creatinine 1.9 mg/dL (0.6-1.0) Estimated GFR (Cockcroft-Gault) 25.3 BUN/Creatinine Ratio 29 (6-20) Glucose Level 182 mg/dL (70-99) Calcium Level 8.6 mg/dL (8.5-10.1) Total Bilirubin 0.4 mg/dL (0.2-1.0) Aspartate Amino Transf (AST/SGOT) 24 U/L (15-37) Alanine Aminotransferase (ALT/SGPT) 42 U/L (14-59) Alkaline Phosphatase 196 U/L (46-116) Total Protein 6.1 g/dL (6.4-8.2) Albumin 2.0 g/dL (3.4-5.0) Albumin/Globulin Ratio 0.5 (1.0-1.7) Test 08/29/18 06:15 White Blood Count 12.4 x10^3/uL (4.0-11.0) Red Blood Count 2.94 x10^6/uL (3.50-5.40) Hemoglobin 8.5 g/dL (12.0-15.5) Hematocrit 26.1 % (36.0-47.0) Mean Corpuscular Volume 89 fL (79-100) Mean Corpuscular Hemoglobin 29 pg (25-35) Mean Corpuscular Hemoglobin Concent 33 g/dL (31-37) Red Cell Distribution Width 18.5 % (11.5-14.5) Platelet Count 120 x10^3/uL (140-400) Neutrophils (%) (Auto) 93 % (31-73) Lymphocytes (%) (Auto) 3 % (24-48) Monocytes (%) (Auto) 4 % (0-9) Eosinophils (%) (Auto) 0 % (0-3) Basophils (%) (Auto) 0 % (0-3) Neutrophils # (Auto) 11.6 x10^3uL (1.8-7.7) Lymphocytes # (Auto) 0.4 x10^3/uL (1.0-4.8) Monocytes # (Auto) 0.5 x10^3/uL (0.0-1.1) Eosinophils # (Auto) 0.0 x10^3/uL (0.0-0.7) Basophils # (Auto) 0.0 x10^3/uL (0.0-0.2) Micro Microbiology 08/27/18 Blood Culture - Final, Complete Objective Assessment 1. Gram-negative sepsis, present on admission on 08/27/2018. 2. Lung cancer, status post chemotherapy on 08/22/2018. 3. Leukocytosis, present on admission, prior to steroid dosing. Uncertain if she has received Neulasta or Neupogen. 4. Acute exacerbation of chronic obstructive pulmonary disease. 5. Bird exposure as Cockatoos are at home. 6. Peripheral arterial disease, status post right fem-tibioperoneal trunk bypass graft using ipsilateral greater saphenous vein, 05/31/2018. Plan Plan of Care Cont Cefepime Levoflox ordered times one UA C and S F/u labs and cults Await Hemeonc F/u Needs to quit tobacco D/c pepcid with protonix written D/w EMILY Richey MD Aug 29, 2018 10:34
[2018-08-29] MEDS ORDERED: MAG HYDROX/ALUMINUM HYD/SIMETH 30 ML ORAL.SUSP PO PRN (10:45)
[2018-08-29] MEDS: IV NORMAL SALINE 1000ML BAG 1,000 ML IV SCH ×2 (10:54→23:32)
--- NOTE | 2018-08-29 10:56 | PDOC ---
PULMONARY PROGRESS NOTES Subjective c/o CP, feels mild soa Vitals Vital Signs Date Time Temp Pulse Resp B/P (MAP) Pulse Ox O2 Delivery O2 Flow Rate FiO2 08/29/18 09:50 95 Nasal Cannula 2.0 08/29/18 09:14 90 132/43 08/29/18 07:00 98.3 16 98.3 General: Alert, No acute distress Lungs: Wheezing (faint) Cardiovascular: S1, S2 Abdomen: Soft Neuro Exam: Alert Extremities: No Edema Skin: Warm Labs Laboratory Tests Test 08/27/18 22:35 08/27/18 22:50 08/28/18 03:30 08/28/18 04:45 White Blood Count 15.5 x10^3/uL (4.0-11.0) Red Blood Count 3.71 x10^6/uL (3.50-5.40) Hemoglobin 10.8 g/dL (12.0-15.5) Hematocrit 33.6 % (36.0-47.0) Mean Corpuscular Volume 91 fL (79-100) Mean Corpuscular Hemoglobin 29 pg (25-35) Mean Corpuscular Hemoglobin Concent 32 g/dL (31-37) Red Cell Distribution Width 18.9 % (11.5-14.5) Platelet Count 138 x10^3/uL (140-400) Neutrophils (%) (Auto) 92 % (31-73) Lymphocytes (%) (Auto) 3 % (24-48) Monocytes (%) (Auto) 5 % (0-9) Eosinophils (%) (Auto) 1 % (0-3) Basophils (%) (Auto) 0 % (0-3) Neutrophils # (Auto) 14.3 x10^3uL (1.8-7.7) Lymphocytes # (Auto) 0.4 x10^3/uL (1.0-4.8) Monocytes # (Auto) 0.7 x10^3/uL (0.0-1.1) Eosinophils # (Auto) 0.1 x10^3/uL (0.0-0.7) Basophils # (Auto) 0.1 x10^3/uL (0.0-0.2) Segmented Neutrophils % 75 % (35-66) Band Neutrophils % 21 % (0-9) Lymphocytes % 1 % (24-48) Monocytes % 1 % (0-10) Eosinophils % 1 % (0-5) Basophils % 1 % (0-3) Platelet Estimate Decreased (ADEQUATE) Poikilocytosis Slight Anisocytosis Slight Crenated Cell Present Lactic Acid Level 2.0 mmol/L (0.4-2.0) 0.9 mmol/L (0.4-2.0) Sodium Level 134 mmol/L (136-145) Potassium Level 4.7 mmol/L (3.5-5.1) Chloride Level 99 mmol/L (98-107) Carbon Dioxide Level 27 mmol/L (21-32) Anion Gap 8 (6-14) Blood Urea Nitrogen 39 mg/dL (7-20) 42 mg/dL (7-20) Creatinine 1.4 mg/dL (0.6-1.0) 1.5 mg/dL (0.6-1.0) Estimated GFR (Cockcroft-Gault) 36.0 33.2 BUN/Creatinine Ratio 28 (6-20) Glucose Level 168 mg/dL (70-99) Calcium Level 8.9 mg/dL (8.5-10.1) Total Bilirubin 0.5 mg/dL (0.2-1.0) Aspartate Amino Transf (AST/SGOT) 60 U/L (15-37) Alanine Aminotransferase (ALT/SGPT) 66 U/L (14-59) Alkaline Phosphatase 293 U/L (46-116) Troponin I Quantitative 0.043 ng/mL (0.000-0.055) 0.042 ng/mL (0.000-0.055) OF-Ngj-X-Type Natriuretic Peptide 95346 pg/mL (0-449) Total Protein 6.7 g/dL (6.4-8.2) Albumin 2.4 g/dL (3.4-5.0) Albumin/Globulin Ratio 0.6 (1.0-1.7) Influenza Type A Antigen Negative (NEGATIVE) Influenza Type B Antigen Negative (NEGATIVE) Procalcitonin 27.84 ng/mL (0.00-0.10) Test 08/28/18 12:40 08/28/18 17:00 08/28/18 17:55 08/29/18 06:13 Troponin I Quantitative < 0.017 ng/mL (0.000-0.055) 0.019 ng/mL (0.000-0.055) Urine Collection Type Unknown Urine Color Yellow Urine Clarity Clear Urine pH 6.0 Urine Specific [place] 1.010 Urine Protein 30 mg/dL (NEG-TRACE) Urine Glucose (UA) Negative mg/dL (NEG) Urine Ketones (Stick) Negative mg/dL (NEG) Urine Blood Large (NEG) Urine Nitrite Negative (NEG) Urine Bilirubin Negative (NEG) Urine Urobilinogen Dipstick 0.2 mg/dL (0.2 mg/dL) Urine Leukocyte Esterase Moderate (NEG) Urine RBC Tntc /HPF (0-2) Urine WBC 11-20 /HPF (0-4) Urine Squamous Epithelial Cells Occ /LPF Urine Bacteria Few /HPF (0-FEW) Sodium Level 134 mmol/L (136-145) Potassium Level 4.1 mmol/L (3.5-5.1) Chloride Level 99 mmol/L (98-107) Carbon Dioxide Level 26 mmol/L (21-32) Anion Gap 9 (6-14) Blood Urea Nitrogen 55 mg/dL (7-20) Creatinine 1.9 mg/dL (0.6-1.0) Estimated GFR (Cockcroft-Gault) 25.3 BUN/Creatinine Ratio 29 (6-20) Glucose Level 182 mg/dL (70-99) Calcium Level 8.6 mg/dL (8.5-10.1) Total Bilirubin 0.4 mg/dL (0.2-1.0) Aspartate Amino Transf (AST/SGOT) 24 U/L (15-37) Alanine Aminotransferase (ALT/SGPT) 42 U/L (14-59) Alkaline Phosphatase 196 U/L (46-116) Total Protein 6.1 g/dL (6.4-8.2) Albumin 2.0 g/dL (3.4-5.0) Albumin/Globulin Ratio 0.5 (1.0-1.7) Test 08/29/18 06:15 White Blood Count 12.4 x10^3/uL (4.0-11.0) Red Blood Count 2.94 x10^6/uL (3.50-5.40) Hemoglobin 8.5 g/dL (12.0-15.5) Hematocrit 26.1 % (36.0-47.0) Mean Corpuscular Volume 89 fL (79-100) Mean Corpuscular Hemoglobin 29 pg (25-35) Mean Corpuscular Hemoglobin Concent 33 g/dL (31-37) Red Cell Distribution Width 18.5 % (11.5-14.5) Platelet Count 120 x10^3/uL (140-400) Neutrophils (%) (Auto) 93 % (31-73) Lymphocytes (%) (Auto) 3 % (24-48) Monocytes (%) (Auto) 4 % (0-9) Eosinophils (%) (Auto) 0 % (0-3) Basophils (%) (Auto) 0 % (0-3) Neutrophils # (Auto) 11.6 x10^3uL (1.8-7.7) Lymphocytes # (Auto) 0.4 x10^3/uL (1.0-4.8) Monocytes # (Auto) 0.5 x10^3/uL (0.0-1.1) Eosinophils # (Auto) 0.0 x10^3/uL (0.0-0.7) Basophils # (Auto) 0.0 x10^3/uL (0.0-0.2) Laboratory Tests Test 08/28/18 12:40 08/28/18 17:00 08/28/18 17:55 08/29/18 06:13 Troponin I Quantitative < 0.017 ng/mL (0.000-0.055) 0.019 ng/mL (0.000-0.055) Urine Collection Type Unknown Urine Color Yellow Urine Clarity Clear Urine pH 6.0 Urine Specific [place] 1.010 Urine Protein 30 mg/dL (NEG-TRACE) Urine Glucose (UA) Negative mg/dL (NEG) Urine Ketones (Stick) Negative mg/dL (NEG) Urine Blood Large (NEG) Urine Nitrite Negative (NEG) Urine Bilirubin Negative (NEG) Urine Urobilinogen Dipstick 0.2 mg/dL (0.2 mg/dL) Urine Leukocyte Esterase Moderate (NEG) Urine RBC Tntc /HPF (0-2) Urine WBC 11-20 /HPF (0-4) Urine Squamous Epithelial Cells Occ /LPF Urine Bacteria Few /HPF (0-FEW) Sodium Level 134 mmol/L (136-145) Potassium Level 4.1 mmol/L (3.5-5.1) Chloride Level 99 mmol/L (98-107) Carbon Dioxide Level 26 mmol/L (21-32) Anion Gap 9 (6-14) Blood Urea Nitrogen 55 mg/dL (7-20) Creatinine 1.9 mg/dL (0.6-1.0) Estimated GFR (Cockcroft-Gault) 25.3 BUN/Creatinine Ratio 29 (6-20) Glucose Level 182 mg/dL (70-99) Calcium Level 8.6 mg/dL (8.5-10.1) Total Bilirubin 0.4 mg/dL (0.2-1.0) Aspartate Amino Transf (AST/SGOT) 24 U/L (15-37) Alanine Aminotransferase (ALT/SGPT) 42 U/L (14-59) Alkaline Phosphatase 196 U/L (46-116) Total Protein 6.1 g/dL (6.4-8.2) Albumin 2.0 g/dL (3.4-5.0) Albumin/Globulin Ratio 0.5 (1.0-1.7) Test 08/29/18 06:15 White Blood Count 12.4 x10^3/uL (4.0-11.0) Red Blood Count 2.94 x10^6/uL (3.50-5.40) Hemoglobin 8.5 g/dL (12.0-15.5) Hematocrit 26.1 % (36.0-47.0) Mean Corpuscular Volume 89 fL (79-100) Mean Corpuscular Hemoglobin 29 pg (25-35) Mean Corpuscular Hemoglobin Concent 33 g/dL (31-37) Red Cell Distribution Width 18.5 % (11.5-14.5) Platelet Count 120 x10^3/uL (140-400) Neutrophils (%) (Auto) 93 % (31-73) Lymphocytes (%) (Auto) 3 % (24-48) Monocytes (%) (Auto) 4 % (0-9) Eosinophils (%) (Auto) 0 % (0-3) Basophils (%) (Auto) 0 % (0-3) Neutrophils # (Auto) 11.6 x10^3uL (1.8-7.7) Lymphocytes # (Auto) 0.4 x10^3/uL (1.0-4.8) Monocytes # (Auto) 0.5 x10^3/uL (0.0-1.1) Eosinophils # (Auto) 0.0 x10^3/uL (0.0-0.7) Basophils # (Auto) 0.0 x10^3/uL (0.0-0.2) Medications Active Scripts Medications Dose Route/Sig Max Daily Dose Days Date Category Proair Hfa Inhaler (Albuterol Sulfate) 8.5 Gm Hfa.aer.ad 1 Puff INH PRN Q6HRS PRN 14 06/14/18 Rx Miralax (Polyethylene Glycol 3350) 17 Gm Powd.pack 1 Packet PO DAILY 06/13/18 Reported Isosorbide Mononitrate Er (Isosorbide Mononitrate) 30 Mg Tab.er.24h 30 Mg PO DAILY 06/07/18 Reported Pepcid (Famotidine) 20 Mg Tablet 20 Mg PO DAILY 05/30/18 Reported Clopidogrel (Clopidogrel Bisulfate) 75 Mg Tablet 75 Mg PO DAILY 02/08/17 Reported Levothyroxine Sodium 75 Mcg Tablet 75 Mcg PO DAILYAC 02/08/17 Reported Nitrostat (Nitroglycerin) 0.4 Mg Tab.subl 0.4 Mg SL PRN Q5MIN PRN 04/21/16 Reported Aspirin Ec (Aspirin) 325 Mg Tablet. 325 Mg PO DAILYWBKFT 04/21/16 Rx Hydrocodone-Apap 5-325 (Hydrocodone Bit/Acetaminophen) 1 Each Tablet 1 Tab PO PRN Q6HRS PRN 04/22/15 Reported Amlodipine Besylate 5 Mg Tablet 1 Tab PO DAILY 02/22/15 Reported Simvastatin 40 Mg Tablet 1 Tab PO QHS 02/22/15 Reported Metoprolol Succinate ( Xl ) (Metoprolol Succinate) 25 Mg Tab.er.24h 50 Mg PO DAILY 02/22/15 Reported Impression . 1. Acute on chronic respiratory failure secondary to Interstitial pneumonia vs CHF, acute exacerbation of chronic obstructive pulmonary disease, 2. 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 Acute exacerbation of chronic obstructive pulmonary disease. 5. Acute diastolic congestive heart failure. 6. Acute kidney injury. 7. Lung cancer, status post immunotherapy x 1, immunocompromised 8. Hypertension. 9. Coronary artery disease. 10. Peripheral vascular disease. 11. Tobacco habituation. Plan . 1. Titrate FiO2 to keep the O2 saturation 92%. 2. Bronchodilator. 3. Continue Solu-Medrol 4. Continue antibiotic. 5. Lovenox for DVT prophylaxis. 6. Protonix for stress ulcer prophylaxis. 7. She has lower extremity edema and lung cancer. venous Doppler neg for DVT. 8. Agree with Lasix. monitor k, cr 9. CT of the chest to better assess for CHF vs pneumonia and RODRIGUEZ mass increase 10. The findings and recommendations were discussed with the RN TOBY VU MD Aug 29, 2018 10:55
[2018-08-29 11:00] VITALS: BP 125/47
[2018-08-29 15:00] VITALS: BP 123/48
--- NOTE | 2018-08-29 16:16 | RAD ---
CT study of the chest without contrast Clinical indications: Left upper lobe mass. CHF versus pneumonia. COMPARISON: PET/CT dated July 14, 2018. TECHNIQUE: Noncontrast helical CT scanning of the chest was performed. Without contrast, the sensitivity to detect organ pathology is decreased. PQRS compliance Statement One or more of the following individualized dose reduction techniques were utilized for this study: 1. Automated exposure control 2. Adjustment of the mA and/or kV according to patient size 3. Use of iterative reconstruction technique FINDINGS: Mediastinal lymphadenopathy as not changed significantly. Evaluation for hilar lymphadenopathy is difficult without IV contrast. No axillary lymphadenopathy is seen. No focal aneurysmal dilatation of the thoracic aorta is seen. Old calcified intimal flap of the distal descending thoracic aorta is seen. Diffuse calcified atheromatous disease of the thoracic aorta and the brachiocephalic vessels is seen. Calcified atheromatous disease of the coronary arteries is seen. The heart size is normal. No pericardial effusion is seen. Small bilateral pleural effusions are evident. Again seen is a spiculated mass of the posterior aspect of left upper lobe which has not changed significantly. Mild cavitation is again evident within it. There is a small left apical lung nodule which is stable. Calcified granuloma of the right upper lobe is seen. There is no significant change in size of small groundglass subcentimeter lung nodule within the lateral segment of the right middle lobe or within the inferior aspect of the posterior segment of the right upper lobe. There is no significant change in size of a nodule within the superior segment of the right lower lobe. There is an increase in consolidative infiltrate within the posterior segment of the right upper lobe adjacent to the major fissure. There is a spiculated nodule within the medial aspect of this infiltrate which measures 16 mm. It measured 11 mm on the previous study. No lytic process is seen. No adrenal mass is evident. Radiopaque gallstone is seen within the gallbladder. The stomach is moderately distended with fluid. Renal arterial calcifications are seen. IMPRESSION: Increase in nodule and consolidative infiltrate within the posterior segment right upper lobe adjacent to the major fissure since the previous PET CT dated July 14, 2018. Stable mediastinal lymphadenopathy. Stable spiculated lesion within the posterior segment left upper lobe. The other lung nodules are stable. New finding of small bilateral pleural effusions. Calcified atheromatous disease of the coronary arteries and thoracic aorta and brachiocephalic vessels. Cholelithiasis. Moderate fluid distention of the stomach. Electronically signed by: Daniel Bella MD (08/29/2018 4:13 PM) [facility]
--- NOTE | 2018-08-29 18:32 | PDOC ---
NON[employer] DIEGO CONSULTING GROUP ANALYST 08/29/18 1832: CARDIO Progress Notes Date and Time Date of Service 08/29/18 Time of Evaluation 1310 Subjective Subjective: No Palpitations, Other (had episode of chest pain this am. worse with deep breathing) Vitals Vitals Vital Signs Date Time Temp Pulse Resp B/P (MAP) Pulse Ox O2 Delivery O2 Flow Rate FiO2 08/29/18 15:00 98.6 114 16 123/48 (73) 94 Nasal Cannula 2.0 98.6 Weight Weight [ ] Input and Output Intake and Output Intake and Output 08/29/18 07:00 Intake Total 420 ml Output Total 250 ml Balance 170 ml Intake Oral 420 ml Output Urine Total 250 ml # Voids 4 Laboratory Labs Laboratory Tests Test 08/29/18 06:13 08/29/18 06:15 08/29/18 11:35 Sodium Level 134 mmol/L (136-145) Potassium Level 4.1 mmol/L (3.5-5.1) Chloride Level 99 mmol/L (98-107) Carbon Dioxide Level 26 mmol/L (21-32) Anion Gap 9 (6-14) Blood Urea Nitrogen 55 mg/dL (7-20) Creatinine 1.9 mg/dL (0.6-1.0) Estimated GFR (Cockcroft-Gault) 25.3 BUN/Creatinine Ratio 29 (6-20) Glucose Level 182 mg/dL (70-99) Calcium Level 8.6 mg/dL (8.5-10.1) Total Bilirubin 0.4 mg/dL (0.2-1.0) Aspartate Amino Transf (AST/SGOT) 24 U/L (15-37) Alanine Aminotransferase (ALT/SGPT) 42 U/L (14-59) Alkaline Phosphatase 196 U/L (46-116) Total Protein 6.1 g/dL (6.4-8.2) Albumin 2.0 g/dL (3.4-5.0) Albumin/Globulin Ratio 0.5 (1.0-1.7) White Blood Count 12.4 x10^3/uL (4.0-11.0) Red Blood Count 2.94 x10^6/uL (3.50-5.40) Hemoglobin 8.5 g/dL (12.0-15.5) Hematocrit 26.1 % (36.0-47.0) Mean Corpuscular Volume 89 fL (79-100) Mean Corpuscular Hemoglobin 29 pg (25-35) Mean Corpuscular Hemoglobin Concent 33 g/dL (31-37) Red Cell Distribution Width 18.5 % (11.5-14.5) Platelet Count 120 x10^3/uL (140-400) Neutrophils (%) (Auto) 93 % (31-73) Lymphocytes (%) (Auto) 3 % (24-48) Monocytes (%) (Auto) 4 % (0-9) Eosinophils (%) (Auto) 0 % (0-3) Basophils (%) (Auto) 0 % (0-3) Neutrophils # (Auto) 11.6 x10^3uL (1.8-7.7) Lymphocytes # (Auto) 0.4 x10^3/uL (1.0-4.8) Monocytes # (Auto) 0.5 x10^3/uL (0.0-1.1) Eosinophils # (Auto) 0.0 x10^3/uL (0.0-0.7) Basophils # (Auto) 0.0 x10^3/uL (0.0-0.2) Reticulocyte Count (auto) 1.1 % (0.5-2.5) Lactic Acid Level 3.2 mmol/L (0.4-2.0) Iron Level 19 ug/dL (50-170) Total Iron Binding Capacity 212 ug/dL (250-450) Iron Saturation 9 % (15-34) Ferritin 157 ng/mL (8-252) Microbiology Micro Microbiology 08/27/18 Blood Culture - Final, Complete 08/28/18 - Final, Resulted 08/28/18 - Final, Resulted 08/28/18 - Final, Resulted 08/28/18 Gram Stain Evaluation - Final, Resulted 08/28/18 Sputum Culture, Resulted Pending Physical Exam HEENT: Neck Supple W Full Motion Chest: Symmetric LUNGS: Other (diminished bases) Heart: S1S2, RRR Extremities: No Calf Tenderness Neurology: alert, follow commands Assessment Assessment 1. Acute respiratory failure secondary to AECOPD, a/c diastolic HF, adn possible PNA. 2. Acute on chronic diastolic HF; Echo 06/2018 showed normal LV function with an EF 55-60%. better compensated following diuresis 3. CAD s/p previous CABG. Cardiac catheterization 06/2018 showing patent HANDY to Dx and patent left subclavian artery stent without any significant lesions needing intervention. Troponin series normal- AMI ruled out. Continue current secondary prevention measures. 4. PAD: 05/31/2018 s/p right femoral to tibioperoneal trunk bypass graft. Clinically stable. 5. Pneumonia/sepsis/ gram neg. bacteremia: as per PCP/ID 6. Hyperlipidemia; statin therapy 7. Hypertension; controlled 8. DM,II 9 DASIA 10. Iron def anemia Recommendations Continue with secondary prevention. DAPT. Hold lasix with increasing Cr Continue norvasc, toprol, and imdur. Consider Ranexa if CP recurrent ANGEL SHIELDS MD 08/29/182046: CARDIO Progress Notes Assessment Assessment Patient seen and examined. Agree with HIGH SCHOOL SCIENCE TEACHER's assessment and plan. Acute on chronic diastolic HF better compensated - agree with holding lasix due to prerenal picture CAD and PAD status stable Continue current treatment for AECOPD/pneumonia NONA DIEGO APRN Aug 29, 2018 18:32 ANGEL SHIELDS MD Aug 29, 2018 20:47
[2018-08-29 19:00] VITALS: BP 112/44
[2018-08-29] MEDS: ATORVASTATIN CALCIUM 20 MG TABLET PO SCH (20:36)
[2018-08-29] MEDS: ZOLPIDEM 5 MG TABLET. PO PRN (21:31)
--- NOTE | 2018-08-29 21:45 | CONS ---
DATE OF CONSULTATION: 08/29/2018 MEDICAL ONCOLOGY CONSULTATION REPORT REQUESTING PHYSICIAN: Alden Hood M.D. REASON FOR CONSULTATION: Lung cancer, on immunotherapy with Keytruda, now admitted with COPD exacerbation. HISTORY OF PRESENTING ILLNESS: The patient is an 83-year-old female who was diagnosed with left lung poorly differentiated adenocarcinoma by a biopsy on 06/14/2018, with bilateral pulmonary metastatic disease along with mediastinal lymphadenopathy. PET scan on 07/14/2018 revealed left upper lobe hypermetabolic mass with an SUV of 21, with bilateral pulmonary metastatic disease and mediastinal lymphadenopathy. MRI of the brain was negative for metastasis. Biomarker studies were negative, except for PD-L1, which was positive at 70%. She was started on palliative treatment with Keytruda on 08/22/2018. She tolerated the treatment quite well. She was admitted to [facility] on 08/27/2018 with complaints of increasing cough and shortness of breath, with a temperature of 100.3 that started on 08/27/2018. She had cough that was productive of yellow sputum for a few days and the worsening dyspnea is what prompted her to go to the hospital. She denies any nausea, vomiting or night sweats. No chills. She underwent further workup with a chest x-ray on 08/27/2018 that revealed mild increase in markings in both lungs, compatible with mild infiltrate or atelectasis. Pleural thickening or effusion in the left side is unchanged. She underwent venous Doppler of the lower extremity on 08/28/2018 that was negative for DVT in both the lower extremities. Pulmonary Medicine was consulted and she was diagnosed with [id number] respiratory failure due to interstitial pneumonia versus congestive heart failure in addition to acute exacerbation of COPD. PAST MEDICAL HISTORY: Coronary artery disease, hyperlipidemia, hypertension, hypothyroidism, osteoporosis and peripheral arterial disease. FAMILY HISTORY: Positive for hypertension and heart disease. SOCIAL HISTORY: She has a [id number] smoking history and she continues to smoke a few cigarettes a day. REVIEW OF SYSTEMS: A 12-point review of system was performed. Pertinent positives are mentioned in the history of presenting illness. Rest of the system review is negative. PHYSICAL EXAMINATION: GENERAL APPEARANCE: The patient is an 83-year-old female, who is in no acute cardiorespiratory distress. VITAL SIGNS: Blood pressure 138/43, temperature 98.3. HEAD: Atraumatic, normocephalic. EYES: No icterus. NECK: Supple. CHEST: Bilaterally symmetrical. HEART: S1, S2 normal. ABDOMEN: Soft, nontender. CENTRAL NERVOUS SYSTEM: No focal deficits. LYMPHATICS: No lymphadenopathy. SKIN: No rashes. PSYCHOLOGIC: Mood and affect are appropriate. LABORATORY DATA: WBC 12.4, hemoglobin 8.5 and platelet count 120,000. Creatinine 1.9. Total protein 6.1. Albumin 2.0. IMPRESSION AND PLAN: 1. 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 Biomarker studies revealed PD-L1 positive at 70%. Hence, she was started on palliative immunotherapy with Keytruda on 08/22/2018. She has tolerated the treatments quite well. She is now admitted with dyspnea, which is unlikely to be due to immunotherapy as she does have complaints of cough productive of yellowish sputum, which is suggestive of an underlying infection. I discussed with Pulmonary Medicine with Dr. Evan Roe. 2. Acute exacerbation of chronic obstructive pulmonary disease. I appreciate Pulmonary management. 3. Anemia, worse. Hemoglobin is down to 8.5. No signs of bleeding. I will continue to monitor this. Iron studies on 08/01/2018 revealed normal ferritin of 98. B12 and folic acid levels on 07/01/2018 were unremarkable. Iron studies on 07/01/2018 revealed mild iron deficiency, with an iron saturation of 6% and ferritin normal at 67. I will recheck iron studies today. ARLET WILSON MD DR: DANIEL/ramila JOB#: [id number] / [id number]
[2018-08-29 23:06] VITALS: BP 124/41
[2018-08-30] MEDS: NITROGLYCERIN SUBLINGUAL 0.4 MG BOTTLE OF 25. SL PRN ×3 (00:23→04:32)
[2018-08-30] MEDS ORDERED: VANCOMYCIN 750 MG in IV NORMAL SALINE 250ML 250 ML IV SCH (01:30)
[2018-08-30] MEDS: HYDROcodone/APAP 5/325MG 1 TAB TABLET PO PRN ×2 (02:33→09:25)
[2018-08-30 03:10] VITALS: BP 158/78
[2018-08-30] MEDS: methylPREDNISolone SOD SUCC PF 40 MG/ML VIAL. IV SCH ×3 (05:36→21:24)
[2018-08-30] MEDS: LEVOTHYROXINE 75 MCG TABLET PO SCH (05:36)
[2018-08-30] MEDS: PANTOPRAZOLE 40 MG TABLET.DR. PO SCH (05:36)
[2018-08-30] MEDS: MORPHINE SULFATE 4 MG/ML VIAL. IV PRN ×3 (05:37→13:51)
[2018-08-30 05:58] LABS: BILIRUBIN,URINE NEGATIVE (NEG); CLARITY,URINE CLEAR; COLOR,URINE YELLOW; NITRITE,URINE NEGATIVE (NEG); PROTEIN,URINE 30 mg/dL (NEG-TRACE); UROBILINOGEN,URINE 0.2 mg/dL (0.2 mg/dL)
[2018-08-30 06:50] LABS: BACTERIA,URINE FEW /HPF (0-FEW); RBC,URINE TNTC /HPF (0-2); SQUAMOUS EPITHELIAL CELL,UR OCC /LPF
[2018-08-30 07:00] VITALS: BP 150/72
[2018-08-30 07:13] LABS: BASO % 0 % (0-3); EOS % 0 % (0-3); HEMOGLOBIN 8.3 g/dL (12.0-15.5); LYMPH # 0.4 x10^3/uL (1.0-4.8); LYMPH % 4 % (24-48); MEAN CORPUSCULAR HEMOGLOBIN 29 pg (25-35); MEAN CORPUSCULAR HGB CONC 33 g/dL (31-37); MEAN CORPUSCULAR VOLUME 89 fL (79-100); MONO # 0.4 x10^3/uL (0.0-1.1); MONO % 4 % (0-9); NEUT % 93 % (31-73); PLATELET COUNT 117 x10^3/uL (140-400); RED BLOOD COUNT 2.81 x10^6/uL (3.50-5.40); RED CELL DISTRIBUTION WIDTH 18.8 % (11.5-14.5); WHITE BLOOD COUNT 10.8 x10^3/uL (4.0-11.0)
[2018-08-30 07:47] LABS: CALCIUM 8.2 mg/dL (8.5-10.1); CREATININE 1.9 mg/dL (0.6-1.0); GFR 25.3; PHOSPHORUS 3.8 mg/dL (2.6-4.7); POTASSIUM 3.6 mmol/L (3.5-5.1)
--- NOTE | 2018-08-30 07:47 | EKG ---
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
--- NOTE | 2018-08-30 08:41 | NUR ---
SW following pt. Pt was evaluated by PT/OT and does not have skilled needs. Will continue to assess dc needs.
[2018-08-30] MEDS: POLYETHYLENE GLYCOL 3350 17 GM PACKET. PO SCH (09:00)
--- NOTE | 2018-08-30 09:00 | PDOC ---
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 ROS - has dyspnea Objective Objective Vital Signs Date Time Temp Pulse Resp B/P (MAP) Pulse Ox O2 Delivery O2 Flow Rate FiO2 08/30/18 07:00 98.2 102 20 150/72 (98) 91 Nasal Cannula 2.0 98.2 Intake and Output 08/30/18 07:00 Intake Total 460 ml Balance 460 ml Intake Oral 460 ml # Voids 2 # Bowel Movements 1 Physical Exam Heart: Normal S1, Normal S2 General: Alert, Oriented X3 Lungs: Clear to auscultation Neuro: Normal speech Psych/Mental Status: Mental status NL Assessment Assessment Problems Medical Problems: (1) Acute congestive heart failure Status: Acute (2) Lung cancer Status: Acute (3) Pneumonia Status: Acute IMPRESSION AND PLAN: 1. 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 Biomarker studies revealed PD-L1 positive at 70%. Hence, she was started on palliative immunotherapy with Keytruda on 08/22/2018. She has tolerated the treatments quite well. She is now admitted with dyspnea, which is unlikely to be due to immunotherapy as she does have complaints of cough productive of yellowish sputum, which is suggestive of an underlying infection. I discussed with Pulmonary Medicine with Dr. Evan Roe. 2. Acute exacerbation of chronic obstructive pulmonary disease. I appreciate Pulmonary management. 3. Anemia, worse. Hemoglobin is down to 8.3. No signs of bleeding. I will continue to monitor this. Iron studies on 08/01/2018 revealed normal ferritin of 98. B12 and folic acid levels on 07/01/2018 were unremarkable. Iron studies on 08/29/2018 revealed anemia due to chronic disease. Comment Review of Relevant I have reviewed the following items corwin (where applicable) has been applied. Labs Laboratory Tests Test 08/28/18 12:40 08/28/18 17:00 08/28/18 17:55 08/29/18 06:13 Troponin I Quantitative < 0.017 ng/mL (0.000-0.055) 0.019 ng/mL (0.000-0.055) Urine Collection Type Unknown Urine Color Yellow Urine Clarity Clear Urine pH 6.0 Urine Specific [place] 1.010 Urine Protein 30 mg/dL (NEG-TRACE) Urine Glucose (UA) Negative mg/dL (NEG) Urine Ketones (Stick) Negative mg/dL (NEG) Urine Blood Large (NEG) Urine Nitrite Negative (NEG) Urine Bilirubin Negative (NEG) Urine Urobilinogen Dipstick 0.2 mg/dL (0.2 mg/dL) Urine Leukocyte Esterase Moderate (NEG) Urine RBC Tntc /HPF (0-2) Urine WBC 11-20 /HPF (0-4) Urine Squamous Epithelial Cells Occ /LPF Urine Bacteria Few /HPF (0-FEW) Sodium Level 134 mmol/L (136-145) Potassium Level 4.1 mmol/L (3.5-5.1) Chloride Level 99 mmol/L (98-107) Carbon Dioxide Level 26 mmol/L (21-32) Anion Gap 9 (6-14) Blood Urea Nitrogen 55 mg/dL (7-20) Creatinine 1.9 mg/dL (0.6-1.0) Estimated GFR (Cockcroft-Gault) 25.3 BUN/Creatinine Ratio 29 (6-20) Glucose Level 182 mg/dL (70-99) Calcium Level 8.6 mg/dL (8.5-10.1) Total Bilirubin 0.4 mg/dL (0.2-1.0) Aspartate Amino Transf (AST/SGOT) 24 U/L (15-37) Alanine Aminotransferase (ALT/SGPT) 42 U/L (14-59) Alkaline Phosphatase 196 U/L (46-116) Total Protein 6.1 g/dL (6.4-8.2) Albumin 2.0 g/dL (3.4-5.0) Albumin/Globulin Ratio 0.5 (1.0-1.7) Test 08/29/18 06:15 08/29/18 11:35 08/30/18 04:30 08/30/18 06:00 White Blood Count 12.4 x10^3/uL (4.0-11.0) Red Blood Count 2.94 x10^6/uL (3.50-5.40) Hemoglobin 8.5 g/dL (12.0-15.5) Hematocrit 26.1 % (36.0-47.0) Mean Corpuscular Volume 89 fL (79-100) Mean Corpuscular Hemoglobin 29 pg (25-35) Mean Corpuscular Hemoglobin Concent 33 g/dL (31-37) Red Cell Distribution Width 18.5 % (11.5-14.5) Platelet Count 120 x10^3/uL (140-400) Neutrophils (%) (Auto) 93 % (31-73) Lymphocytes (%) (Auto) 3 % (24-48) Monocytes (%) (Auto) 4 % (0-9) Eosinophils (%) (Auto) 0 % (0-3) Basophils (%) (Auto) 0 % (0-3) Neutrophils # (Auto) 11.6 x10^3uL (1.8-7.7) Lymphocytes # (Auto) 0.4 x10^3/uL (1.0-4.8) Monocytes # (Auto) 0.5 x10^3/uL (0.0-1.1) Eosinophils # (Auto) 0.0 x10^3/uL (0.0-0.7) Basophils # (Auto) 0.0 x10^3/uL (0.0-0.2) Reticulocyte Count (auto) 1.1 % (0.5-2.5) Lactic Acid Level 3.2 mmol/L (0.4-2.0) Iron Level 19 ug/dL (50-170) Total Iron Binding Capacity 212 ug/dL (250-450) Iron Saturation 9 % (15-34) Ferritin 157 ng/mL (8-252) Urine Collection Type Unknown Urine Color Yellow Urine Clarity Clear Urine pH 6.0 Urine Specific [place] 1.010 Urine Protein 30 mg/dL (NEG-TRACE) Urine Glucose (UA) Negative mg/dL (NEG) Urine Ketones (Stick) Negative mg/dL (NEG) Urine Blood Large (NEG) Urine Nitrite Negative (NEG) Urine Bilirubin Negative (NEG) Urine Urobilinogen Dipstick 0.2 mg/dL (0.2 mg/dL) Urine Leukocyte Esterase Small (NEG) Urine RBC Tntc /HPF (0-2) Urine WBC 5-10 /HPF (0-4) Urine Squamous Epithelial Cells Occ /LPF Urine Bacteria Few /HPF (0-FEW) Sodium Level 137 mmol/L (136-145) Potassium Level 3.6 mmol/L (3.5-5.1) Chloride Level 100 mmol/L (98-107) Carbon Dioxide Level 23 mmol/L (21-32) Anion Gap 14 (6-14) Blood Urea Nitrogen 57 mg/dL (7-20) Creatinine 1.9 mg/dL (0.6-1.0) Estimated GFR (Cockcroft-Gault) 25.3 Glucose Level 185 mg/dL (70-99) Calcium Level 8.2 mg/dL (8.5-10.1) Phosphorus Level 3.8 mg/dL (2.6-4.7) Creatine Kinase 13 U/L (26-192) Albumin 2.0 g/dL (3.4-5.0) Amylase Level 35 U/L (25-115) Lipase 47 U/L (73-393) Test 08/30/18 06:10 White Blood Count 10.8 x10^3/uL (4.0-11.0) Red Blood Count 2.81 x10^6/uL (3.50-5.40) Hemoglobin 8.3 g/dL (12.0-15.5) Hematocrit 25.0 % (36.0-47.0) Mean Corpuscular Volume 89 fL (79-100) Mean Corpuscular Hemoglobin 29 pg (25-35) Mean Corpuscular Hemoglobin Concent 33 g/dL (31-37) Red Cell Distribution Width 18.8 % (11.5-14.5) Platelet Count 117 x10^3/uL (140-400) Neutrophils (%) (Auto) 93 % (31-73) Lymphocytes (%) (Auto) 4 % (24-48) Monocytes (%) (Auto) 4 % (0-9) Eosinophils (%) (Auto) 0 % (0-3) Basophils (%) (Auto) 0 % (0-3) Neutrophils # (Auto) 10.0 x10^3uL (1.8-7.7) Lymphocytes # (Auto) 0.4 x10^3/uL (1.0-4.8) Monocytes # (Auto) 0.4 x10^3/uL (0.0-1.1) Eosinophils # (Auto) 0.0 x10^3/uL (0.0-0.7) Basophils # (Auto) 0.0 x10^3/uL (0.0-0.2) Laboratory Tests Test 08/29/18 11:35 08/30/18 04:30 08/30/18 06:00 08/30/18 06:10 Reticulocyte Count (auto) 1.1 % (0.5-2.5) Lactic Acid Level 3.2 mmol/L (0.4-2.0) Iron Level 19 ug/dL (50-170) Total Iron Binding Capacity 212 ug/dL (250-450) Iron Saturation 9 % (15-34) Ferritin 157 ng/mL (8-252) Urine Collection Type Unknown Urine Color Yellow Urine Clarity Clear Urine pH 6.0 Urine Specific [place] 1.010 Urine Protein 30 mg/dL (NEG-TRACE) Urine Glucose (UA) Negative mg/dL (NEG) Urine Ketones (Stick) Negative mg/dL (NEG) Urine Blood Large (NEG) Urine Nitrite Negative (NEG) Urine Bilirubin Negative (NEG) Urine Urobilinogen Dipstick 0.2 mg/dL (0.2 mg/dL) Urine Leukocyte Esterase Small (NEG) Urine RBC Tntc /HPF (0-2) Urine WBC 5-10 /HPF (0-4) Urine Squamous Epithelial Cells Occ /LPF Urine Bacteria Few /HPF (0-FEW) Sodium Level 137 mmol/L (136-145) Potassium Level 3.6 mmol/L (3.5-5.1) Chloride Level 100 mmol/L (98-107) Carbon Dioxide Level 23 mmol/L (21-32) Anion Gap 14 (6-14) Blood Urea Nitrogen 57 mg/dL (7-20) Creatinine 1.9 mg/dL (0.6-1.0) Estimated GFR (Cockcroft-Gault) 25.3 Glucose Level 185 mg/dL (70-99) Calcium Level 8.2 mg/dL (8.5-10.1) Phosphorus Level 3.8 mg/dL (2.6-4.7) Creatine Kinase 13 U/L (26-192) Albumin 2.0 g/dL (3.4-5.0) Amylase Level 35 U/L (25-115) Lipase 47 U/L (73-393) White Blood Count 10.8 x10^3/uL (4.0-11.0) Red Blood Count 2.81 x10^6/uL (3.50-5.40) Hemoglobin 8.3 g/dL (12.0-15.5) Hematocrit 25.0 % (36.0-47.0) Mean Corpuscular Volume 89 fL (79-100) Mean Corpuscular Hemoglobin 29 pg (25-35) Mean Corpuscular Hemoglobin Concent 33 g/dL (31-37) Red Cell Distribution Width 18.8 % (11.5-14.5) Platelet Count 117 x10^3/uL (140-400) Neutrophils (%) (Auto) 93 % (31-73) Lymphocytes (%) (Auto) 4 % (24-48) Monocytes (%) (Auto) 4 % (0-9) Eosinophils (%) (Auto) 0 % (0-3) Basophils (%) (Auto) 0 % (0-3) Neutrophils # (Auto) 10.0 x10^3uL (1.8-7.7) Lymphocytes # (Auto) 0.4 x10^3/uL (1.0-4.8) Monocytes # (Auto) 0.4 x10^3/uL (0.0-1.1) Eosinophils # (Auto) 0.0 x10^3/uL (0.0-0.7) Basophils # (Auto) 0.0 x10^3/uL (0.0-0.2) Microbiology 08/27/18 Blood Culture - Final, Complete 08/28/18 - Final, Resulted 08/28/18 - Final, Resulted 08/28/18 - Final, Resulted 08/28/18 Gram Stain Evaluation - Final, Resulted 08/28/18 Sputum Culture, Resulted Pending Medications Current Medications Methylprednisolone Sodium Succinate (SOLU-Medrol 40MG VIAL) 40 mg 1X ONCE IV Last administered on 08/27/18at 23:06; Start 08/27/18 at 23:00; Stop 08/27/18 at 23:01; Status DC Albuterol/ Ipratropium (Duoneb) 3 ml 1X ONCE NEB Last administered on at 23:19; Start 08/27/18 at 23:00; Stop 08/27/18 at 23:01; Status DC Furosemide (Lasix) 40 mg 1X ONCE IVP Last administered on 08/28/18at 01:23; Start 08/28/18 at 00:30; Stop 08/28/18 at 00:36; Status DC Cefepime HCl (Maxipime) 2 gm 1X ONCE IVP Last administered on 08/28/18at 01:28 ; Start 08/28/18 at 00:45; Stop 08/28/18 at 00:46; Status DC Vancomycin HCl (Vanco Per Pharmacy) 1 each PRN DAILY PRN MC SEE COMMENTS Last administered on 08/28/18at 01:43; Start 08/28/18 at 00:30; Stop 08/28/18 at 12:14 ; Status DC Ondansetron HCl (Zofran) 4 mg PRN Q8HRS PRN IV NAUSEA/VOMITING; Start 08/28/18 at 00:30; Stop 08/29/18 at 00:29; Status DC Albuterol/ Ipratropium (Duoneb) 3 ml RTQID NEB Last administered on 08/29/18at 12:05; Start 08/28/18 at 08:00; Stop 08/29/18 at 07:59; Status DC Furosemide (Lasix) 40 mg [id number] IVP Last administered on 08/29/18at 08:38; Start 08/28/18 at 09:00; Stop 08/29/18 at 10:09; Status DC Methylprednisolone Sodium Succinate (SOLU-Medrol 40MG VIAL) 40 mg Q8HRS IV Last administered on 08/30/18at 05:36; Start 08/28/18 at 06:00 Vancomycin HCl 1.25 gm/Sodium Chloride 250 ml @ 166.667 mls/hr 1X ONCE IV Last administered on 08/28/18at 01:24; Start 08/28/18 at 01:30; Stop 08/28/18 at 02:59; Status DC Vancomycin HCl 750 mg/Sodium Chloride 250 ml @ 250 mls/hr Q48H IV ; Start 08/30 at 01:30; Stop 08/30/18 at 01:30; Status DC Vancomycin HCl (Vancomycin Trough Level) 1 each 1X ONCE MC ; Start 09/01/18 at 01:00; Stop 09/01/18 at 01:00; Status DC Albuterol Sulfate (Ventolin Neb Soln) 2.5 mg 1X ONCE NEB Last administered on 08/28/18at 02:45; Start 08/28/18 at 02:45; Stop 08/28/18 at 02:46; Status DC Albuterol Sulfate (Ventolin Neb Soln) 2.5 mg PRN Q3HRS PRN NEB SHORTNESS OF BREATH; Start 08/28/18 at 03:00; Stop 08/28/18 at 08:10; Status DC Acetaminophen/ Hydrocodone Bitart (Lortab 5/325) 1 tab PRN Q6HRS PRN PO PAIN Last administered on 08/30/18 02:33; Start 08/28/18 at 07:15 Cefepime HCl (Maxipime) 1 gm Q24H IVP ; Start 08/29/18 at 07:00; Stop 08/29/18 at 07:00; Status DC Albuterol Sulfate (Ventolin Neb Soln) 2.5 mg PRN Q6HRS PRN INH SHORTNESS OF BREATH; Start 08/28/18 at 08:15; Status UNV Amlodipine Besylate (Norvasc) 5 mg DAILY PO Last administered on 08/29/18 08: 37; Start 08/28/18 at 09:00 Aspirin (Ecotrin) 325 mg DAILYWBKFT PO Last administered on 08/29/18 08:37; Start 08/28/18 at 09:00 Clopidogrel Bisulfate (Plavix) 75 mg DAILY PO Last administered on 08/29/18 08 :37; Start 08/28/18 at 09:00 Famotidine (Pepcid) 20 mg DAILY PO Last administered on 08/28/18 08:34; Start 08/28/18 at 09:00; Stop 08/28/18 at 12:14; Status DC Isosorbide Mononitrate (Imdur) 30 mg DAILY PO Last administered on 08/29/18at 08 :36; Start 08/28/18 at 09:00 Levothyroxine Sodium (Synthroid) 75 mcg DAILYAC PO Last administered on 05:36; Start 08/28/18 at 09:00 Metoprolol Succinate (Toprol Xl) 50 mg DAILY PO Last administered on 08/29/18 08:37; Start 08/28/18 at 09:00 Nitroglycerin (Nitrostat) 0.4 mg PRN Q5MIN PRN SL CHEST PAIN Last administered on 08/30/18at 04:32; Start 08/28/18 at 08:15 Polyethylene Glycol (miraLAX PACKET) 17 gm DAILY PO Last administered on 08:38; Start 08/28/18 at 09:00 Atorvastatin Calcium (Lipitor) 20 mg QHS PO Last administered on 08/29/18 20: 36; Start 08/28/18 at 21:00 Enoxaparin Sodium (Lovenox 30mg Syringe) 30 mg Q24H SQ Last administered on 08:38; Start 08/28/18 at 09:00 Enoxaparin Sodium (Lovenox 30mg Syringe) 30 mg Q24H SQ ; Start 08/28/18 at 08:15 ; Status UNV Pantoprazole Sodium (Protonix) 40 mg DAILYAC PO Last administered on 08/30/18 05:36; Start 08/28/18 at 09:00 Albuterol Sulfate (Ventolin Neb Soln) 2.5 mg PRN Q3HRS PRN INH SHORTNESS OF BREATH; Start 08/28/18 at 08:10 Levofloxacin/ Dextrose 100 ml @ 100 mls/hr 1X ONCE IV Last administered on 11:55; Start 08/28/18 at 12:00; Stop 08/28/18 at 12:59; Status DC Cefepime HCl (Maxipime) 2 gm Q12HR IVP Last administered on 08/29/18 20:36; Start 08/28/18 at 19:01 Zolpidem Tartrate (Ambien) 5 mg PRN QHS PRN PO INSOMNIA Last administered on 21:31; Start 08/28/18 at 19:00 Lorazepam (Ativan) 0.5 mg 1X ONCE PO Last administered on 08/29/18 10:06; Start 08/29/18 at 10:00; Stop 08/29/18 at 10:01; Status DC Sodium Chloride 1,000 ml @ 75 mls/hr [id number] IV Last administered on 23:32; Start 08/29/18 at 10:45 Al Hydroxide/Mg Hydroxide (Mylanta Plus Xs) 30 ml PRN Q2HR PRN PO HEARTBURN / GAS; Start 08/29/18 at 10:45 Morphine Sulfate (Morphine Sulfate) 1 mg PRN Q4HRS PRN IV PAIN Last administered on 08/30/18at 05:37; Start 08/30/18 at 05:00 Active Scripts Active Proair Hfa Inhaler (Albuterol Sulfate) 8.5 Gm Hfa.aer.ad 1 Puff INH PRN Q6HRS PRN 14 Days Aspirin Ec (Aspirin) 325 Mg Tablet. 325 Mg PO DAILYWBKFT Reported Miralax (Polyethylene Glycol 3350) 17 Gm Powd.pack 1 Packet PO DAILY Isosorbide Mononitrate Er (Isosorbide Mononitrate) 30 Mg Tab.er.24h 30 Mg PO DAILY Pepcid (Famotidine) 20 Mg Tablet 20 Mg PO DAILY Clopidogrel (Clopidogrel Bisulfate) 75 Mg Tablet 75 Mg PO DAILY Levothyroxine Sodium 75 Mcg Tablet 75 Mcg PO DAILYAC Nitrostat (Nitroglycerin) 0.4 Mg Tab.subl 0.4 Mg SL PRN Q5MIN PRN Hydrocodone-Apap 5-325 (Hydrocodone Bit/Acetaminophen) 1 Each Tablet 1 Tab PO PRN Q6HRS PRN Amlodipine Besylate 5 Mg Tablet 1 Tab PO DAILY Simvastatin 40 Mg Tablet 1 Tab PO QHS Metoprolol Succinate ( Xl ) (Metoprolol Succinate) 25 Mg Tab.er.24h 50 Mg PO DAILY Vitals/I & O Vital Sign - Last 24 Hours 08/29/18 08/29/18 08/29/18 08/29/18 09:14 11:00 12:06 15:00 Temp 98.5 98.6 98.5 98.6 Pulse 90 115 114 Resp 18 16 B/P (MAP) 132/43 125/47 (73) 123/48 (73) Pulse Ox 92 94 O2 Delivery Nasal Cannula Nasal Cannula Nasal Cannula O2 Flow Rate 2.0 2.0 2.0 08/29/18 08/29/18 08/29/18 08/29/18 19:00 20:10 20:36 23:06 Temp 98.0 98.2 98.0 98.2 Pulse 80 87 Resp 20 18 20 B/P (MAP) 112/44 (66) 124/41 (68) Pulse Ox 91 91 97 O2 Delivery Nasal Cannula Nasal Cannula Nasal Cannula Nasal Cannula O2 Flow Rate 2.0 2.0 08/30/18 08/30/18 08/30/18 08/30/18 00:23 02:33 02:39 03:10 Temp 98.3 98.3 Pulse 64 118 118 Resp 18 20 B/P (MAP) 131/42 158/78 158/78 (104) Pulse Ox 97 91 O2 Delivery Nasal Cannula Nasal Cannula O2 Flow Rate 2.0 08/30/18 08/30/18 08/30/18 08/30/18 03:45 04:32 05:37 06:10 Pulse 107 Resp 18 18 18 B/P (MAP) 148/74 Pulse Ox 91 91 91 O2 Delivery Nasal Cannula Nasal Cannula Nasal Cannula O2 Flow Rate 2.0 2.5 2.0 08/30/18 07:00 Temp 98.2 98.2 Pulse 102 Resp 20 B/P (MAP) 150/72 (98) Pulse Ox 91 O2 Delivery Nasal Cannula O2 Flow Rate 2.0 Intake and Output 08/29/18 08/29/18 08/30/18 15:00 23:00 07:00 Intake Total 220 ml 240 ml Balance 220 ml 240 ml ARLET WILSON MD Aug 30, 2018 09:00
--- NOTE | 2018-08-30 09:11 | PDOC ---
PULMONARY PROGRESS NOTES Subjective PT MORE SOA EARLIER NOW ON BIPAP APPEARS COMFORTABLE Vitals Vital Signs Date Time Temp Pulse Resp B/P (MAP) Pulse Ox O2 Delivery O2 Flow Rate FiO2 08/30/18 07:00 98.2 102 20 150/72 (98) 91 Nasal Cannula 2.0 98.2 General: Alert, No acute distress Lungs: Wheezing (faint) Cardiovascular: S1, S2 Abdomen: Soft Neuro Exam: Alert Extremities: No Edema Skin: Warm Labs Laboratory Tests Test 08/28/18 12:40 08/28/18 17:00 08/28/18 17:55 08/29/18 06:13 Troponin I Quantitative < 0.017 ng/mL (0.000-0.055) 0.019 ng/mL (0.000-0.055) Urine Collection Type Unknown Urine Color Yellow Urine Clarity Clear Urine pH 6.0 Urine Specific [place] 1.010 Urine Protein 30 mg/dL (NEG-TRACE) Urine Glucose (UA) Negative mg/dL (NEG) Urine Ketones (Stick) Negative mg/dL (NEG) Urine Blood Large (NEG) Urine Nitrite Negative (NEG) Urine Bilirubin Negative (NEG) Urine Urobilinogen Dipstick 0.2 mg/dL (0.2 mg/dL) Urine Leukocyte Esterase Moderate (NEG) Urine RBC Tntc /HPF (0-2) Urine WBC 11-20 /HPF (0-4) Urine Squamous Epithelial Cells Occ /LPF Urine Bacteria Few /HPF (0-FEW) Sodium Level 134 mmol/L (136-145) Potassium Level 4.1 mmol/L (3.5-5.1) Chloride Level 99 mmol/L (98-107) Carbon Dioxide Level 26 mmol/L (21-32) Anion Gap 9 (6-14) Blood Urea Nitrogen 55 mg/dL (7-20) Creatinine 1.9 mg/dL (0.6-1.0) Estimated GFR (Cockcroft-Gault) 25.3 BUN/Creatinine Ratio 29 (6-20) Glucose Level 182 mg/dL (70-99) Calcium Level 8.6 mg/dL (8.5-10.1) Total Bilirubin 0.4 mg/dL (0.2-1.0) Aspartate Amino Transf (AST/SGOT) 24 U/L (15-37) Alanine Aminotransferase (ALT/SGPT) 42 U/L (14-59) Alkaline Phosphatase 196 U/L (46-116) Total Protein 6.1 g/dL (6.4-8.2) Albumin 2.0 g/dL (3.4-5.0) Albumin/Globulin Ratio 0.5 (1.0-1.7) Test 08/29/18 06:15 08/29/18 11:35 08/30/18 04:30 08/30/18 06:00 White Blood Count 12.4 x10^3/uL (4.0-11.0) Red Blood Count 2.94 x10^6/uL (3.50-5.40) Hemoglobin 8.5 g/dL (12.0-15.5) Hematocrit 26.1 % (36.0-47.0) Mean Corpuscular Volume 89 fL (79-100) Mean Corpuscular Hemoglobin 29 pg (25-35) Mean Corpuscular Hemoglobin Concent 33 g/dL (31-37) Red Cell Distribution Width 18.5 % (11.5-14.5) Platelet Count 120 x10^3/uL (140-400) Neutrophils (%) (Auto) 93 % (31-73) Lymphocytes (%) (Auto) 3 % (24-48) Monocytes (%) (Auto) 4 % (0-9) Eosinophils (%) (Auto) 0 % (0-3) Basophils (%) (Auto) 0 % (0-3) Neutrophils # (Auto) 11.6 x10^3uL (1.8-7.7) Lymphocytes # (Auto) 0.4 x10^3/uL (1.0-4.8) Monocytes # (Auto) 0.5 x10^3/uL (0.0-1.1) Eosinophils # (Auto) 0.0 x10^3/uL (0.0-0.7) Basophils # (Auto) 0.0 x10^3/uL (0.0-0.2) Reticulocyte Count (auto) 1.1 % (0.5-2.5) Lactic Acid Level 3.2 mmol/L (0.4-2.0) Iron Level 19 ug/dL (50-170) Total Iron Binding Capacity 212 ug/dL (250-450) Iron Saturation 9 % (15-34) Ferritin 157 ng/mL (8-252) Urine Collection Type Unknown Urine Color Yellow Urine Clarity Clear Urine pH 6.0 Urine Specific [place] 1.010 Urine Protein 30 mg/dL (NEG-TRACE) Urine Glucose (UA) Negative mg/dL (NEG) Urine Ketones (Stick) Negative mg/dL (NEG) Urine Blood Large (NEG) Urine Nitrite Negative (NEG) Urine Bilirubin Negative (NEG) Urine Urobilinogen Dipstick 0.2 mg/dL (0.2 mg/dL) Urine Leukocyte Esterase Small (NEG) Urine RBC Tntc /HPF (0-2) Urine WBC 5-10 /HPF (0-4) Urine Squamous Epithelial Cells Occ /LPF Urine Bacteria Few /HPF (0-FEW) Sodium Level 137 mmol/L (136-145) Potassium Level 3.6 mmol/L (3.5-5.1) Chloride Level 100 mmol/L (98-107) Carbon Dioxide Level 23 mmol/L (21-32) Anion Gap 14 (6-14) Blood Urea Nitrogen 57 mg/dL (7-20) Creatinine 1.9 mg/dL (0.6-1.0) Estimated GFR (Cockcroft-Gault) 25.3 Glucose Level 185 mg/dL (70-99) Calcium Level 8.2 mg/dL (8.5-10.1) Phosphorus Level 3.8 mg/dL (2.6-4.7) Creatine Kinase 13 U/L (26-192) Albumin 2.0 g/dL (3.4-5.0) Amylase Level 35 U/L (25-115) Lipase 47 U/L (73-393) Test 08/30/18 06:10 White Blood Count 10.8 x10^3/uL (4.0-11.0) Red Blood Count 2.81 x10^6/uL (3.50-5.40) Hemoglobin 8.3 g/dL (12.0-15.5) Hematocrit 25.0 % (36.0-47.0) Mean Corpuscular Volume 89 fL (79-100) Mean Corpuscular Hemoglobin 29 pg (25-35) Mean Corpuscular Hemoglobin Concent 33 g/dL (31-37) Red Cell Distribution Width 18.8 % (11.5-14.5) Platelet Count 117 x10^3/uL (140-400) Neutrophils (%) (Auto) 93 % (31-73) Lymphocytes (%) (Auto) 4 % (24-48) Monocytes (%) (Auto) 4 % (0-9) Eosinophils (%) (Auto) 0 % (0-3) Basophils (%) (Auto) 0 % (0-3) Neutrophils # (Auto) 10.0 x10^3uL (1.8-7.7) Lymphocytes # (Auto) 0.4 x10^3/uL (1.0-4.8) Monocytes # (Auto) 0.4 x10^3/uL (0.0-1.1) Eosinophils # (Auto) 0.0 x10^3/uL (0.0-0.7) Basophils # (Auto) 0.0 x10^3/uL (0.0-0.2) Laboratory Tests Test 08/29/18 11:35 08/30/18 04:30 08/30/18 06:00 08/30/18 06:10 Reticulocyte Count (auto) 1.1 % (0.5-2.5) Lactic Acid Level 3.2 mmol/L (0.4-2.0) Iron Level 19 ug/dL (50-170) Total Iron Binding Capacity 212 ug/dL (250-450) Iron Saturation 9 % (15-34) Ferritin 157 ng/mL (8-252) Urine Collection Type Unknown Urine Color Yellow Urine Clarity Clear Urine pH 6.0 Urine Specific [place] 1.010 Urine Protein 30 mg/dL (NEG-TRACE) Urine Glucose (UA) Negative mg/dL (NEG) Urine Ketones (Stick) Negative mg/dL (NEG) Urine Blood Large (NEG) Urine Nitrite Negative (NEG) Urine Bilirubin Negative (NEG) Urine Urobilinogen Dipstick 0.2 mg/dL (0.2 mg/dL) Urine Leukocyte Esterase Small (NEG) Urine RBC Tntc /HPF (0-2) Urine WBC 5-10 /HPF (0-4) Urine Squamous Epithelial Cells Occ /LPF Urine Bacteria Few /HPF (0-FEW) Sodium Level 137 mmol/L (136-145) Potassium Level 3.6 mmol/L (3.5-5.1) Chloride Level 100 mmol/L (98-107) Carbon Dioxide Level 23 mmol/L (21-32) Anion Gap 14 (6-14) Blood Urea Nitrogen 57 mg/dL (7-20) Creatinine 1.9 mg/dL (0.6-1.0) Estimated GFR (Cockcroft-Gault) 25.3 Glucose Level 185 mg/dL (70-99) Calcium Level 8.2 mg/dL (8.5-10.1) Phosphorus Level 3.8 mg/dL (2.6-4.7) Creatine Kinase 13 U/L (26-192) Albumin 2.0 g/dL (3.4-5.0) Amylase Level 35 U/L (25-115) Lipase 47 U/L (73-393) White Blood Count 10.8 x10^3/uL (4.0-11.0) Red Blood Count 2.81 x10^6/uL (3.50-5.40) Hemoglobin 8.3 g/dL (12.0-15.5) Hematocrit 25.0 % (36.0-47.0) Mean Corpuscular Volume 89 fL (79-100) Mean Corpuscular Hemoglobin 29 pg (25-35) Mean Corpuscular Hemoglobin Concent 33 g/dL (31-37) Red Cell Distribution Width 18.8 % (11.5-14.5) Platelet Count 117 x10^3/uL (140-400) Neutrophils (%) (Auto) 93 % (31-73) Lymphocytes (%) (Auto) 4 % (24-48) Monocytes (%) (Auto) 4 % (0-9) Eosinophils (%) (Auto) 0 % (0-3) Basophils (%) (Auto) 0 % (0-3) Neutrophils # (Auto) 10.0 x10^3uL (1.8-7.7) Lymphocytes # (Auto) 0.4 x10^3/uL (1.0-4.8) Monocytes # (Auto) 0.4 x10^3/uL (0.0-1.1) Eosinophils # (Auto) 0.0 x10^3/uL (0.0-0.7) Basophils # (Auto) 0.0 x10^3/uL (0.0-0.2) Medications Active Scripts Medications Dose Route/Sig Max Daily Dose Days Date Category Proair Hfa Inhaler (Albuterol Sulfate) 8.5 Gm Hfa.aer.ad 1 Puff INH PRN Q6HRS PRN 14 06/14/18 Rx Miralax (Polyethylene Glycol 3350) 17 Gm Powd.pack 1 Packet PO DAILY 06/13/18 Reported Isosorbide Mononitrate Er (Isosorbide Mononitrate) 30 Mg Tab.er.24h 30 Mg PO DAILY 06/07/18 Reported Pepcid (Famotidine) 20 Mg Tablet 20 Mg PO DAILY 05/30/18 Reported Clopidogrel (Clopidogrel Bisulfate) 75 Mg Tablet 75 Mg PO DAILY 02/08/17 Reported Levothyroxine Sodium 75 Mcg Tablet 75 Mcg PO DAILYAC 02/08/17 Reported Nitrostat (Nitroglycerin) 0.4 Mg Tab.subl 0.4 Mg SL PRN Q5MIN PRN 04/21/16 Reported Aspirin Ec (Aspirin) 325 Mg Tablet.dr 325 Mg PO DAILYWBKFT 04/21/16 Rx Hydrocodone-Apap 5-325 (Hydrocodone Bit/Acetaminophen) 1 Each Tablet 1 Tab PO PRN Q6HRS PRN 04/22/15 Reported Amlodipine Besylate 5 Mg Tablet 1 Tab PO DAILY 02/22/15 Reported Simvastatin 40 Mg Tablet 1 Tab PO QHS 02/22/15 Reported Metoprolol Succinate ( Xl ) (Metoprolol Succinate) 25 Mg Tab.er.24h 50 Mg PO DAILY 02/22/15 Reported Impression . 1. Acute on chronic respiratory failure secondary to Interstitial pneumonia vs CHF, acute exacerbation of chronic obstructive pulmonary disease, 2. 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 Acute exacerbation of chronic obstructive pulmonary disease. 5. Acute diastolic congestive heart failure. 6. Acute kidney injury. 7. Lung cancer, status post immunotherapy x 1, immunocompromised 8. Hypertension. 9. Coronary artery disease. 10. Peripheral vascular disease. 11. Tobacco habituation. CT CHEST IMPRESSION: Increase in nodule and consolidative infiltrate within the posterior segment right upper lobe adjacent to the major fissure since the previous PET CT dated July 14, 2018. Stable mediastinal lymphadenopathy. Stable spiculated lesion within the posterior segment left upper lobe. The other lung nodules are stable. New finding of small bilateral pleural effusions. Calcified atheromatous disease of the coronary arteries and thoracic aorta and brachiocephalic vessels. Cholelithiasis. Moderate fluid distention of the stomach. Micro LOOD CULTURE Final GRAM NEGATIVE RODS SEEN IN 1 OF 2 BOTTLES; 1 SET WAS DRAWN; RESULTS WERE CALLED TO DURGA WEST ON 5N AT 0858; 08/28/18 BY [facility]. THE BLOOD CULTURES HAVE BEEN SENT TO LAB [email or web address] FOR FURTHER WORKUP. AMMENDED REPORT: GRAM NEGATIVE RODS SEEN IN 2 OF 2 BOTTLES; 1 SET WAS DRAWN; RESULTS WERE CALLED TO DURGA WEST ON 5N AT 1135; 08/28/18 BY [employer] AT. THE BLOOD CULTURES HAVE BEEN SENT TO LAB [email or web address] FOR FURTHER WORKUP. THIS IS THE SECOND BOTTLE OF THE SAME SET. * This is a corrected result. * A prior result that was reported as final has been changed. GRAM STAIN WHITE BLOOD CELLS Final Few GRAM STAIN EPITHELIAL CELLS Final None seen GRAM STAIN RESULT 1 Final Comment Few gram negative rods. GRAM STAIN EVALUATION Final Comment This specimen is of good quality and is acceptable for routine bacterial culture. Performed at: [facility] [address], [place], [place] [id number] Political [employer] Faculty Member: VALORIE Willis MD, Phone: [phone] SPUTUM CULTURE-LC PENDING Plan . BIPAP FOLLOW SAT D/C RN LASIX D/C FLUIDS CT REVIEWED, CXR REVIEWED ALPESH GUTIERRES MD Aug 30, 2018 09:11
[2018-08-30] MEDS: CLOPIDOGREL BISULFATE 75 MG TABLET PO SCH (09:25)
[2018-08-30] MEDS: ENOXAPARIN 30 MG/0.3 ML SYRINGE. SQ SCH (09:25)
[2018-08-30] MEDS: amLODIPine BESYLATE 5 MG TABLET PO SCH (09:25)
[2018-08-30] MEDS: ASPIRIN ENTERIC COATED 325 MG TABLET.DR. PO SCH (09:25)
[2018-08-30] MEDS: ISOSORBIDE MONONITRATE ER 30 MG TAB.ER.24H PO SCH (09:26)
[2018-08-30] MEDS: METOPROLOL SUCC 24HR ER 50 MG TAB.ER.24H. PO SCH (09:26)
[2018-08-30] MEDS: CEFEPIME HCL IV Push 2 GM VIAL. IVP SCH ×2 (09:38→21:24)
[2018-08-30 11:00] VITALS: BP 140/54
--- NOTE | 2018-08-30 11:09 | PDOC ---
Infectious Disease Note Subjective Subjective not feeling well, is sob ROS ROS no n/v/d/fever Vital Sign Vital Signs Vital Signs Date Time Temp Pulse Resp B/P (MAP) Pulse Ox O2 Delivery O2 Flow Rate FiO2 08/30/18 09:33 Nasal Cannula 2.0 08/30/18 09:27 91 08/30/18 09:26 102 150/72 08/30/18 07:00 98.2 20 98.2 Physical Exam PHYSICAL EXAM CONSTITUTIONAL: She is cooperative. She appears a little tired. She is an elderly lady. She is in no acute distress. HEENT: Pupils are equal and reactive. She has normal conjunctivae. Oral cavity, pharynx is clear, no thrush. NECK: Supple. No JVD. LUNGS: Decreased in the bases. HEART: S1, S2, without gross murmur. She has a well-healed scar. ABDOMEN: Soft, nontender. No guarding or rebound. EXTREMITIES: No clubbing or cyanosis. She has trace 1+ lower extremity edema. SKIN: Warm to touch, without signs of rash. NEUROLOGIC: She is nonfocal and appropriate. PSYCHIATRIC: Affect is appropriate. SKIN: Peripheral IV is clean. Labs Lab Laboratory Tests Test 08/29/18 11:35 08/30/18 04:30 08/30/18 06:00 08/30/18 06:10 Reticulocyte Count (auto) 1.1 % (0.5-2.5) Lactic Acid Level 3.2 mmol/L (0.4-2.0) Iron Level 19 ug/dL (50-170) Total Iron Binding Capacity 212 ug/dL (250-450) Iron Saturation 9 % (15-34) Ferritin 157 ng/mL (8-252) Urine Collection Type Unknown Urine Color Yellow Urine Clarity Clear Urine pH 6.0 Urine Specific [place] 1.010 Urine Protein 30 mg/dL (NEG-TRACE) Urine Glucose (UA) Negative mg/dL (NEG) Urine Ketones (Stick) Negative mg/dL (NEG) Urine Blood Large (NEG) Urine Nitrite Negative (NEG) Urine Bilirubin Negative (NEG) Urine Urobilinogen Dipstick 0.2 mg/dL (0.2 mg/dL) Urine Leukocyte Esterase Small (NEG) Urine RBC Tntc /HPF (0-2) Urine WBC 5-10 /HPF (0-4) Urine Squamous Epithelial Cells Occ /LPF Urine Bacteria Few /HPF (0-FEW) Sodium Level 137 mmol/L (136-145) Potassium Level 3.6 mmol/L (3.5-5.1) Chloride Level 100 mmol/L (98-107) Carbon Dioxide Level 23 mmol/L (21-32) Anion Gap 14 (6-14) Blood Urea Nitrogen 57 mg/dL (7-20) Creatinine 1.9 mg/dL (0.6-1.0) Estimated GFR (Cockcroft-Gault) 25.3 Glucose Level 185 mg/dL (70-99) Calcium Level 8.2 mg/dL (8.5-10.1) Phosphorus Level 3.8 mg/dL (2.6-4.7) Creatine Kinase 13 U/L (26-192) Albumin 2.0 g/dL (3.4-5.0) Amylase Level 35 U/L (25-115) Lipase 47 U/L (73-393) White Blood Count 10.8 x10^3/uL (4.0-11.0) Red Blood Count 2.81 x10^6/uL (3.50-5.40) Hemoglobin 8.3 g/dL (12.0-15.5) Hematocrit 25.0 % (36.0-47.0) Mean Corpuscular Volume 89 fL (79-100) Mean Corpuscular Hemoglobin 29 pg (25-35) Mean Corpuscular Hemoglobin Concent 33 g/dL (31-37) Red Cell Distribution Width 18.8 % (11.5-14.5) Platelet Count 117 x10^3/uL (140-400) Neutrophils (%) (Auto) 93 % (31-73) Lymphocytes (%) (Auto) 4 % (24-48) Monocytes (%) (Auto) 4 % (0-9) Eosinophils (%) (Auto) 0 % (0-3) Basophils (%) (Auto) 0 % (0-3) Neutrophils # (Auto) 10.0 x10^3uL (1.8-7.7) Lymphocytes # (Auto) 0.4 x10^3/uL (1.0-4.8) Monocytes # (Auto) 0.4 x10^3/uL (0.0-1.1) Eosinophils # (Auto) 0.0 x10^3/uL (0.0-0.7) Basophils # (Auto) 0.0 x10^3/uL (0.0-0.2) Micro LOOD CULTURE Final GRAM NEGATIVE RODS SEEN IN 1 OF 2 BOTTLES; 1 SET WAS DRAWN; RESULTS WERE CALLED TO DURGA WEST ON 5N AT 0858; 08/28/18 BY [employer]. THE BLOOD CULTURES HAVE BEEN SENT TO LAB [facility] FOR FURTHER WORKUP. AMMENDED REPORT: GRAM NEGATIVE RODS SEEN IN 2 OF 2 BOTTLES; 1 SET WAS DRAWN; RESULTS WERE CALLED TO DURGA WEST ON 5N AT 1135; 08/28/18 BY [email or web address] AT. THE BLOOD CULTURES HAVE BEEN SENT TO LAB [facility] FOR FURTHER WORKUP. THIS IS THE SECOND BOTTLE OF THE SAME SET. * This is a corrected result. * A prior result that was reported as final has been changed. GRAM STAIN WHITE BLOOD CELLS Final Few GRAM STAIN EPITHELIAL CELLS Final None seen GRAM STAIN RESULT 1 Final Comment Few gram negative rods. GRAM STAIN EVALUATION Final Comment This specimen is of good quality and is acceptable for routine bacterial culture. Performed at: [facility] [address], [place], [place] [id number] [employer] Setter: VALORIE Willis MD, Phone: [phone] SPUTUM CULTURE-LC PENDING Objective Assessment 1. Gram-negative sepsis, present on admission on 08/27/2018. 2. Lung cancer, status post chemotherapy on 08/22/2018. 3. Leukocytosis, present on admission, prior to steroid dosing. Uncertain if she has received Neulasta or Neupogen. 4. Acute exacerbation of chronic obstructive pulmonary disease. 5. Bird exposure as Cockatoos are at home. 6. Peripheral arterial disease, status post right fem-tibioperoneal trunk bypass graft using ipsilateral greater saphenous vein, 05/31/2018. Plan Plan of Care Cont Cefepime Levoflox ordered times one UA C and S F/u labs and cults Await Hemeonc F/u Needs to quit tobacco EMILY LOPEZ MD Aug 30, 2018 11:09
--- NOTE | 2018-08-30 12:00 | NUR ---
Nursing Note Due to pts lung sounds coarse upon assessment IVFs have been stopped at this time. Will discuss and obtain further orders from physician upon evaluation. Will continue to monitor.
[2018-08-30] MEDS: IPRATRPIUM/ALBUTEROL 0.5/2.5MG 3 ML NEBU. NEB SCH ×3 (12:29→20:01)
--- NOTE | 2018-08-30 13:27 | PDOC ---
PROGRESS NOTES Chief Complaint Chief Complaint 1. Acute on chronic respiratory failure secondary to Interstitial pneumonia vs CHF, acute exacerbation of chronic obstructive pulmonary disease, 2. 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 Acute exacerbation of chronic obstructive pulmonary disease. 5. Acute diastolic congestive heart failure. 6. Acute kidney injury. 7. Lung cancer, status post immunotherapy x 1, immunocompromised 8. Hypertension. 9. Coronary artery disease. 10. Peripheral vascular disease. 11. Tobacco habituation. History of Present Illness History of Present Illness Coughing and wheezing Pulmo note reviewed Med list reviewed Images Images CXR - 1. Mild increase in markings in both lung bases, compatible with mild infiltrate or atelectasis. No dense lobar consolidation. 2. Pleural thickening or effusion on the left is unchanged. PET 07/14/18 - 1. Hypermetabolic left upper lobe mass compatible with a primary lung malignancy. 2. Hypermetabolic mediastinal adenopathy most prominent at the AP window level , likely on a metastatic basis. 3. Borderline increased activity at both alvarado which may be on a reactive or metastatic basis. 4. Several smaller hypermetabolic right lung lesions are likely on a metastatic basis. An infectious etiology is less likely. 5. Mildly increased activity at the right groin is probably inflammatory, related to recent intervention or surgery. PLAN: NOt Ready to DC wheezing coughing Add cough medicine scheduled Continue PT OT Still smokes-nicotine patch Counseled one-to-one smoking cessation less than 30 minutes Is on home O2 24 7, lives alone at home Vitals Vitals Vital Signs Date Time Temp Pulse Resp B/P (MAP) Pulse Ox O2 Delivery O2 Flow Rate FiO2 08/30/18 12:30 Nasal Cannula 2.0 08/30/18 11:00 97.9 104 22 140/54 (82) 89 97.9 Physical Exam Physical Exam CONSTITUTIONAL: She is cooperative. She appears a little tired. She is an elderly lady. She is in no acute distress. HEENT: Pupils are equal and reactive. She has normal conjunctivae. Oral cavity, pharynx is clear, no thrush. NECK: Supple. No JVD. LUNGS: Decreased in the bases. HEART: S1, S2, without gross murmur. She has a well-healed scar. ABDOMEN: Soft, nontender. No guarding or rebound. EXTREMITIES: No clubbing or cyanosis. She has trace 1+ lower extremity edema. SKIN: Warm to touch, without signs of rash. NEUROLOGIC: She is nonfocal and appropriate. PSYCHIATRIC: Affect is appropriate. SKIN: Peripheral IV is clean. General: Alert, Oriented X3 Heart: Normal S1, Normal S2 Lungs: Wheezing (faint) Abdomen: Normal bowel sounds, Soft, No tenderness, No hepatosplenomegaly, No masses Extremities: No clubbing, No cyanosis, No edema, Normal pulses, No tenderness/ swelling Skin: No rashes, No breakdown, No significant lesion Labs LABS Laboratory Tests Test 08/30/18 04:30 08/30/18 06:00 08/30/18 06:10 Urine Collection Type Unknown Urine Color Yellow Urine Clarity Clear Urine pH 6.0 Urine Specific [place] 1.010 Urine Protein 30 mg/dL (NEG-TRACE) Urine Glucose (UA) Negative mg/dL (NEG) Urine Ketones (Stick) Negative mg/dL (NEG) Urine Blood Large (NEG) Urine Nitrite Negative (NEG) Urine Bilirubin Negative (NEG) Urine Urobilinogen Dipstick 0.2 mg/dL (0.2 mg/dL) Urine Leukocyte Esterase Small (NEG) Urine RBC Tntc /HPF (0-2) Urine WBC 5-10 /HPF (0-4) Urine Squamous Epithelial Cells Occ /LPF Urine Bacteria Few /HPF (0-FEW) Sodium Level 137 mmol/L (136-145) Potassium Level 3.6 mmol/L (3.5-5.1) Chloride Level 100 mmol/L (98-107) Carbon Dioxide Level 23 mmol/L (21-32) Anion Gap 14 (6-14) Blood Urea Nitrogen 57 mg/dL (7-20) Creatinine 1.9 mg/dL (0.6-1.0) Estimated GFR (Cockcroft-Gault) 25.3 Glucose Level 185 mg/dL (70-99) Calcium Level 8.2 mg/dL (8.5-10.1) Phosphorus Level 3.8 mg/dL (2.6-4.7) Creatine Kinase 13 U/L (26-192) Albumin 2.0 g/dL (3.4-5.0) Amylase Level 35 U/L (25-115) Lipase 47 U/L (73-393) White Blood Count 10.8 x10^3/uL (4.0-11.0) Red Blood Count 2.81 x10^6/uL (3.50-5.40) Hemoglobin 8.3 g/dL (12.0-15.5) Hematocrit 25.0 % (36.0-47.0) Mean Corpuscular Volume 89 fL (79-100) Mean Corpuscular Hemoglobin 29 pg (25-35) Mean Corpuscular Hemoglobin Concent 33 g/dL (31-37) Red Cell Distribution Width 18.8 % (11.5-14.5) Platelet Count 117 x10^3/uL (140-400) Neutrophils (%) (Auto) 93 % (31-73) Lymphocytes (%) (Auto) 4 % (24-48) Monocytes (%) (Auto) 4 % (0-9) Eosinophils (%) (Auto) 0 % (0-3) Basophils (%) (Auto) 0 % (0-3) Neutrophils # (Auto) 10.0 x10^3uL (1.8-7.7) Lymphocytes # (Auto) 0.4 x10^3/uL (1.0-4.8) Monocytes # (Auto) 0.4 x10^3/uL (0.0-1.1) Eosinophils # (Auto) 0.0 x10^3/uL (0.0-0.7) Basophils # (Auto) 0.0 x10^3/uL (0.0-0.2) Review of Systems Review of Systems cough, wheezing, no fevers, the rest of ROS 14 point negative Assessment and Plan Assessmemt and Plan Problems Medical Problems: (1) Acute congestive heart failure Status: Acute (2) Lung cancer Status: Acute (3) Pneumonia Status: Acute Comment Review of Relevant I have reviewed the following items corwin (where applicable) has been applied. Labs Laboratory Tests Test 08/28/18 17:00 08/28/18 17:55 08/29/18 06:13 08/29/18 06:15 Urine Collection Type Unknown Urine Color Yellow Urine Clarity Clear Urine pH 6.0 Urine Specific [place] 1.010 Urine Protein 30 mg/dL (NEG-TRACE) Urine Glucose (UA) Negative mg/dL (NEG) Urine Ketones (Stick) Negative mg/dL (NEG) Urine Blood Large (NEG) Urine Nitrite Negative (NEG) Urine Bilirubin Negative (NEG) Urine Urobilinogen Dipstick 0.2 mg/dL (0.2 mg/dL) Urine Leukocyte Esterase Moderate (NEG) Urine RBC Tntc /HPF (0-2) Urine WBC 11-20 /HPF (0-4) Urine Squamous Epithelial Cells Occ /LPF Urine Bacteria Few /HPF (0-FEW) Troponin I Quantitative 0.019 ng/mL (0.000-0.055) Sodium Level 134 mmol/L (136-145) Potassium Level 4.1 mmol/L (3.5-5.1) Chloride Level 99 mmol/L (98-107) Carbon Dioxide Level 26 mmol/L (21-32) Anion Gap 9 (6-14) Blood Urea Nitrogen 55 mg/dL (7-20) Creatinine 1.9 mg/dL (0.6-1.0) Estimated GFR (Cockcroft-Gault) 25.3 BUN/Creatinine Ratio 29 (6-20) Glucose Level 182 mg/dL (70-99) Calcium Level 8.6 mg/dL (8.5-10.1) Total Bilirubin 0.4 mg/dL (0.2-1.0) Aspartate Amino Transf (AST/SGOT) 24 U/L (15-37) Alanine Aminotransferase (ALT/SGPT) 42 U/L (14-59) Alkaline Phosphatase 196 U/L (46-116) Total Protein 6.1 g/dL (6.4-8.2) Albumin 2.0 g/dL (3.4-5.0) Albumin/Globulin Ratio 0.5 (1.0-1.7) White Blood Count 12.4 x10^3/uL (4.0-11.0) Red Blood Count 2.94 x10^6/uL (3.50-5.40) Hemoglobin 8.5 g/dL (12.0-15.5) Hematocrit 26.1 % (36.0-47.0) Mean Corpuscular Volume 89 fL (79-100) Mean Corpuscular Hemoglobin 29 pg (25-35) Mean Corpuscular Hemoglobin Concent 33 g/dL (31-37) Red Cell Distribution Width 18.5 % (11.5-14.5) Platelet Count 120 x10^3/uL (140-400) Neutrophils (%) (Auto) 93 % (31-73) Lymphocytes (%) (Auto) 3 % (24-48) Monocytes (%) (Auto) 4 % (0-9) Eosinophils (%) (Auto) 0 % (0-3) Basophils (%) (Auto) 0 % (0-3) Neutrophils # (Auto) 11.6 x10^3uL (1.8-7.7) Lymphocytes # (Auto) 0.4 x10^3/uL (1.0-4.8) Monocytes # (Auto) 0.5 x10^3/uL (0.0-1.1) Eosinophils # (Auto) 0.0 x10^3/uL (0.0-0.7) Basophils # (Auto) 0.0 x10^3/uL (0.0-0.2) Test 08/29/18 11:35 08/30/18 04:30 08/30/18 06:00 08/30/18 06:10 Reticulocyte Count (auto) 1.1 % (0.5-2.5) Lactic Acid Level 3.2 mmol/L (0.4-2.0) Iron Level 19 ug/dL (50-170) Total Iron Binding Capacity 212 ug/dL (250-450) Iron Saturation 9 % (15-34) Ferritin 157 ng/mL (8-252) Urine Collection Type Unknown Urine Color Yellow Urine Clarity Clear Urine pH 6.0 Urine Specific [place] 1.010 Urine Protein 30 mg/dL (NEG-TRACE) Urine Glucose (UA) Negative mg/dL (NEG) Urine Ketones (Stick) Negative mg/dL (NEG) Urine Blood Large (NEG) Urine Nitrite Negative (NEG) Urine Bilirubin Negative (NEG) Urine Urobilinogen Dipstick 0.2 mg/dL (0.2 mg/dL) Urine Leukocyte Esterase Small (NEG) Urine RBC Tntc /HPF (0-2) Urine WBC 5-10 /HPF (0-4) Urine Squamous Epithelial Cells Occ /LPF Urine Bacteria Few /HPF (0-FEW) Sodium Level 137 mmol/L (136-145) Potassium Level 3.6 mmol/L (3.5-5.1) Chloride Level 100 mmol/L (98-107) Carbon Dioxide Level 23 mmol/L (21-32) Anion Gap 14 (6-14) Blood Urea Nitrogen 57 mg/dL (7-20) Creatinine 1.9 mg/dL (0.6-1.0) Estimated GFR (Cockcroft-Gault) 25.3 Glucose Level 185 mg/dL (70-99) Calcium Level 8.2 mg/dL (8.5-10.1) Phosphorus Level 3.8 mg/dL (2.6-4.7) Creatine Kinase 13 U/L (26-192) Albumin 2.0 g/dL (3.4-5.0) Amylase Level 35 U/L (25-115) Lipase 47 U/L (73-393) White Blood Count 10.8 x10^3/uL (4.0-11.0) Red Blood Count 2.81 x10^6/uL (3.50-5.40) Hemoglobin 8.3 g/dL (12.0-15.5) Hematocrit 25.0 % (36.0-47.0) Mean Corpuscular Volume 89 fL (79-100) Mean Corpuscular Hemoglobin 29 pg (25-35) Mean Corpuscular Hemoglobin Concent 33 g/dL (31-37) Red Cell Distribution Width 18.8 % (11.5-14.5) Platelet Count 117 x10^3/uL (140-400) Neutrophils (%) (Auto) 93 % (31-73) Lymphocytes (%) (Auto) 4 % (24-48) Monocytes (%) (Auto) 4 % (0-9) Eosinophils (%) (Auto) 0 % (0-3) Basophils (%) (Auto) 0 % (0-3) Neutrophils # (Auto) 10.0 x10^3uL (1.8-7.7) Lymphocytes # (Auto) 0.4 x10^3/uL (1.0-4.8) Monocytes # (Auto) 0.4 x10^3/uL (0.0-1.1) Eosinophils # (Auto) 0.0 x10^3/uL (0.0-0.7) Basophils # (Auto) 0.0 x10^3/uL (0.0-0.2) Laboratory Tests Test 08/30/18 04:30 08/30/18 06:00 08/30/18 06:10 Urine Collection Type Unknown Urine Color Yellow Urine Clarity Clear Urine pH 6.0 Urine Specific [place] 1.010 Urine Protein 30 mg/dL (NEG-TRACE) Urine Glucose (UA) Negative mg/dL (NEG) Urine Ketones (Stick) Negative mg/dL (NEG) Urine Blood Large (NEG) Urine Nitrite Negative (NEG) Urine Bilirubin Negative (NEG) Urine Urobilinogen Dipstick 0.2 mg/dL (0.2 mg/dL) Urine Leukocyte Esterase Small (NEG) Urine RBC Tntc /HPF (0-2) Urine WBC 5-10 /HPF (0-4) Urine Squamous Epithelial Cells Occ /LPF Urine Bacteria Few /HPF (0-FEW) Sodium Level 137 mmol/L (136-145) Potassium Level 3.6 mmol/L (3.5-5.1) Chloride Level 100 mmol/L (98-107) Carbon Dioxide Level 23 mmol/L (21-32) Anion Gap 14 (6-14) Blood Urea Nitrogen 57 mg/dL (7-20) Creatinine 1.9 mg/dL (0.6-1.0) Estimated GFR (Cockcroft-Gault) 25.3 Glucose Level 185 mg/dL (70-99) Calcium Level 8.2 mg/dL (8.5-10.1) Phosphorus Level 3.8 mg/dL (2.6-4.7) Creatine Kinase 13 U/L (26-192) Albumin 2.0 g/dL (3.4-5.0) Amylase Level 35 U/L (25-115) Lipase 47 U/L (73-393) White Blood Count 10.8 x10^3/uL (4.0-11.0) Red Blood Count 2.81 x10^6/uL (3.50-5.40) Hemoglobin 8.3 g/dL (12.0-15.5) Hematocrit 25.0 % (36.0-47.0) Mean Corpuscular Volume 89 fL (79-100) Mean Corpuscular Hemoglobin 29 pg (25-35) Mean Corpuscular Hemoglobin Concent 33 g/dL (31-37) Red Cell Distribution Width 18.8 % (11.5-14.5) Platelet Count 117 x10^3/uL (140-400) Neutrophils (%) (Auto) 93 % (31-73) Lymphocytes (%) (Auto) 4 % (24-48) Monocytes (%) (Auto) 4 % (0-9) Eosinophils (%) (Auto) 0 % (0-3) Basophils (%) (Auto) 0 % (0-3) Neutrophils # (Auto) 10.0 x10^3uL (1.8-7.7) Lymphocytes # (Auto) 0.4 x10^3/uL (1.0-4.8) Monocytes # (Auto) 0.4 x10^3/uL (0.0-1.1) Eosinophils # (Auto) 0.0 x10^3/uL (0.0-0.7) Basophils # (Auto) 0.0 x10^3/uL (0.0-0.2) Microbiology 08/29/18 Blood Culture - Preliminary, Resulted NO GROWTH AFTER 1 DAY 08/28/18 - Final, Resulted 08/28/18 - Final, Resulted 08/28/18 - Final, Resulted 08/28/18 Gram Stain Evaluation - Final, Resulted 08/28/18 Sputum Culture, Resulted Pending Medications Current Medications Methylprednisolone Sodium Succinate (SOLU-Medrol 40MG VIAL) 40 mg 1X ONCE IV Last administered on 08/27/18at 23:06; Start 08/27/18 at 23:00; Stop 08/27/18 at 23:01; Status DC Albuterol/ Ipratropium (Duoneb) 3 ml 1X ONCE NEB Last administered on 23:19; Start 08/27/18 at 23:00; Stop 08/27/18 at 23:01; Status DC Furosemide (Lasix) 40 mg 1X ONCE IVP Last administered on 08/28/18 01:23; Start 08/28/18 at 00:30; Stop 08/28/18 at 00:36; Status DC Cefepime HCl (Maxipime) 2 gm 1X ONCE IVP Last administered on 08/28/18 01:28 ; Start 08/28/18 at 00:45; Stop 08/28/18 at 00:46; Status DC Vancomycin HCl (Vanco Per Pharmacy) 1 each PRN DAILY PRN MC SEE COMMENTS Last administered on 08/28/18 01:43; Start 08/28/18 at 00:30; Stop 08/28/18 at 12:14 ; Status DC Ondansetron HCl (Zofran) 4 mg PRN Q8HRS PRN IV NAUSEA/VOMITING; Start 08/28/18 at 00:30; Stop 08/29/18 at 00:29; Status DC Albuterol/ Ipratropium (Duoneb) 3 ml RTQID NEB Last administered on 08/29/18at 12:05; Start 08/28/18 at 08:00; Stop 08/29/18 at 07:59; Status DC Furosemide (Lasix) 40 mg [id number] IVP Last administered on 08/29/18at 08:38; Start 08/28/18 at 09:00; Stop 08/29/18 at 10:09; Status DC Methylprednisolone Sodium Succinate (SOLU-Medrol 40MG VIAL) 40 mg Q8HRS IV Last administered on 08/30/18at 05:36; Start 08/28/18 at 06:00 Vancomycin HCl 1.25 gm/Sodium Chloride 250 ml @ 166.667 mls/hr 1X ONCE IV Last administered on 08/28/18at 01:24; Start 08/28/18 at 01:30; Stop 08/28/18 at 02:59; Status DC Vancomycin HCl 750 mg/Sodium Chloride 250 ml @ 250 mls/hr Q48H IV ; Start 08/30 at 01:30; Stop 08/30/18 at 01:30; Status DC Vancomycin HCl (Vancomycin Trough Level) 1 each 1X ONCE MC ; Start 09/01/18 at 01:00; Stop 09/01/18 at 01:00; Status DC Albuterol Sulfate (Ventolin Neb Soln) 2.5 mg 1X ONCE NEB Last administered on 08/28/18at 02:45; Start 08/28/18 at 02:45; Stop 08/28/18 at 02:46; Status DC Albuterol Sulfate (Ventolin Neb Soln) 2.5 mg PRN Q3HRS PRN NEB SHORTNESS OF BREATH; Start 08/28/18 at 03:00; Stop 08/28/18 at 08:10; Status DC Acetaminophen/ Hydrocodone Bitart (Lortab 5/325) 1 tab PRN Q6HRS PRN PO PAIN Last administered on 08/30/18at 09:25; Start 08/28/18 at 07:15 Cefepime HCl (Maxipime) 1 gm Q24H IVP ; Start 08/29/18 at 07:00; Stop 08/29/18 at 07:00; Status DC Albuterol Sulfate (Ventolin Neb Soln) 2.5 mg PRN Q6HRS PRN INH SHORTNESS OF BREATH; Start 08/28/18 at 08:15; Status UNV Amlodipine Besylate (Norvasc) 5 mg DAILY PO Last administered on 08/30/18 09: 25; Start 08/28/18 at 09:00 Aspirin (Ecotrin) 325 mg [id number] PO Last administered on 08/30/18 09:25; Start 08/28/18 at 09:00 Clopidogrel Bisulfate (Plavix) 75 mg DAILY PO Last administered on 08/30/18 09 :25; Start 08/28/18 at 09:00 Famotidine (Pepcid) 20 mg DAILY PO Last administered on 08/28/18 08:34; Start 08/28/18 at 09:00; Stop 08/28/18 at 12:14; Status DC Isosorbide Mononitrate (Imdur) 30 mg DAILY PO Last administered on 08/30/18 09 :26; Start 08/28/18 at 09:00 Levothyroxine Sodium (Synthroid) 75 mcg DAILYAC PO Last administered on 05:36; Start 08/28/18 at 09:00 Metoprolol Succinate (Toprol Xl) 50 mg DAILY PO Last administered on 08/30/18 09:26; Start 08/28/18 at 09:00 Nitroglycerin (Nitrostat) 0.4 mg PRN Q5MIN PRN SL CHEST PAIN Last administered on 08/30/18 04:32; Start 08/28/18 at 08:15 Polyethylene Glycol (miraLAX PACKET) 17 gm DAILY PO Last administered on 08:38; Start 08/28/18 at 09:00 Atorvastatin Calcium (Lipitor) 20 mg QHS PO Last administered on 08/29/18 20: 36; Start 08/28/18 at 21:00 Enoxaparin Sodium (Lovenox 30mg Syringe) 30 mg Q24H SQ Last administered on 09:25; Start 08/28/18 at 09:00 Enoxaparin Sodium (Lovenox 30mg Syringe) 30 mg Q24H SQ ; Start 08/28/18 at 08:15 ; Status UNV Pantoprazole Sodium (Protonix) 40 mg DAILYAC PO Last administered on 08/30/18 05:36; Start 08/28/18 at 09:00 Albuterol Sulfate (Ventolin Neb Soln) 2.5 mg PRN Q3HRS PRN INH SHORTNESS OF BREATH Last administered on 08/30/18 09:31; Start 08/28/18 at 08:10 Levofloxacin/ Dextrose 100 ml @ 100 mls/hr 1X ONCE IV Last administered on 11:55; Start 08/28/18 at 12:00; Stop 08/28/18 at 12:59; Status DC Cefepime HCl (Maxipime) 2 gm Q12HR IVP Last administered on 08/30/18 09:38; Start 08/28/18 at 19:01 Zolpidem Tartrate (Ambien) 5 mg PRN QHS PRN PO INSOMNIA Last administered on 21:31; Start 08/28/18 at 19:00 Lorazepam (Ativan) 0.5 mg 1X ONCE PO Last administered on 08/29/18 10:06; Start 08/29/18 at 10:00; Stop 08/29/18 at 10:01; Status DC Sodium Chloride 1,000 ml @ 75 mls/hr [id number] IV Last administered on 23:32; Start 08/29/18 at 10:45 Al Hydroxide/Mg Hydroxide (Mylanta Plus Xs) 30 ml PRN Q2HR PRN PO HEARTBURN / GAS; Start 08/29/18 at 10:45 Morphine Sulfate (Morphine Sulfate) 1 mg PRN Q4HRS PRN IV PAIN Last administered on 08/30/18 09:27; Start 08/30/18 at 05:00 Albuterol/ Ipratropium (Duoneb) 3 ml RTQID NEB Last administered on 08/30/18at 12:29; Start 08/30/18 at 12:00 Active Scripts Active Proair Hfa Inhaler (Albuterol Sulfate) 8.5 Gm Hfa.aer.ad 1 Puff INH PRN Q6HRS PRN 14 Days Aspirin Ec (Aspirin) 325 Mg Tablet.dr 325 Mg PO DAILYWBKFT Reported Miralax (Polyethylene Glycol 3350) 17 Gm Powd.pack 1 Packet PO DAILY Isosorbide Mononitrate Er (Isosorbide Mononitrate) 30 Mg Tab.er.24h 30 Mg PO DAILY Pepcid (Famotidine) 20 Mg Tablet 20 Mg PO DAILY Clopidogrel (Clopidogrel Bisulfate) 75 Mg Tablet 75 Mg PO DAILY Levothyroxine Sodium 75 Mcg Tablet 75 Mcg PO DAILYAC Nitrostat (Nitroglycerin) 0.4 Mg Tab.subl 0.4 Mg SL PRN Q5MIN PRN Hydrocodone-Apap 5-325 (Hydrocodone Bit/Acetaminophen) 1 Each Tablet 1 Tab PO PRN Q6HRS PRN Amlodipine Besylate 5 Mg Tablet 1 Tab PO DAILY Simvastatin 40 Mg Tablet 1 Tab PO QHS Metoprolol Succinate ( Xl ) (Metoprolol Succinate) 25 Mg Tab.er.24h 50 Mg PO DAILY Vitals/I & O Vital Sign - Last 24 Hours 08/29/18 08/29/18 08/29/18 08/29/18 15:00 19:00 20:10 20:36 Temp 98.6 98.0 98.6 98.0 Pulse 114 80 Resp 16 20 18 B/P (MAP) 123/48 (73) 112/44 (66) Pulse Ox 94 91 91 O2 Delivery Nasal Cannula Nasal Cannula Nasal Cannula Nasal Cannula O2 Flow Rate 2.0 2.0 2.0 08/29/18 08/30/18 08/30/18 08/30/18 23:06 00:23 02:33 02:39 Temp 98.2 98.2 Pulse 87 64 118 Resp 18 B/P (MAP) 124/41 (68) 131/42 158/78 Pulse Ox 97 97 O2 Delivery Nasal Cannula Nasal Cannula O2 Flow Rate 2.0 08/30/18 08/30/18 08/30/18 08/30/18 03:10 03:45 04:32 05:37 Temp 98.3 98.3 Pulse 118 107 Resp 20 18 18 B/P (MAP) 158/78 (104) 148/74 Pulse Ox 91 91 91 O2 Delivery Nasal Cannula Nasal Cannula Nasal Cannula O2 Flow Rate 2.0 2.5 08/30/18 08/30/18 08/30/18 08/30/18 06:10 07:00 09:25 09:25 Temp 98.2 98.2 Pulse 102 102 Resp 18 20 B/P (MAP) 150/72 (98) 150/72 Pulse Ox 91 91 O2 Delivery Nasal Cannula Nasal Cannula Nasal Cannula O2 Flow Rate 2.0 2.0 2.5 08/30/18 08/30/18 08/30/18 08/30/18 09:26 09:26 09:27 09:33 Pulse 102 102 B/P (MAP) 150/72 150/72 Pulse Ox 91 O2 Delivery Nasal Cannula Nasal Cannula O2 Flow Rate 2.5 2.0 08/30/18 08/30/18 11:00 12:30 Temp 97.9 97.9 Pulse 104 Resp 22 B/P (MAP) 140/54 (82) Pulse Ox 89 O2 Delivery Nasal Cannula Nasal Cannula O2 Flow Rate 3.0 2.0 Intake and Output 08/29/18 08/29/18 08/30/18 15:00 23:00 07:00 Intake Total 220 ml 240 ml Balance 220 ml 240 ml ADINA STILES MD Aug 30, 2018 13:27
[2018-08-30] MEDS ORDERED: NICOTINE 21MG PATCH. TD PRN (13:30)
[2018-08-30 15:23] VITALS: BP 102/60
--- NOTE | 2018-08-30 15:24 | PDOC2 ---
CONSULT Date of Consult Date of Consult DATE: 08/30/18 TIME: 15:15 Reason for Consult Reason for Consult: DASIA Referring Physician Referring Physician: KAYLAH Identification/Chief Complaint Chief Complaint SOB Source Source: Chart review, Patient History of Present Illness Reason for Visit: THIS IS AN 83 YR OLD WITH SOB WITH COPD EXACERBATION AND PROB PNEUMONIA. ALSO NOTED TO HAVE BACTEREMIA. STATES SHE HAS NOT BEEN EATING WELL. HAS HX OF L LUNG CANCER FOR WHICH SHE UNDERWENT IMMUNOTHERAPY ONCE. CR OF 1.9. NO CKD NOTED. NO NEPHROTOXINS NOTED. NO HEMODYNAMIC INSTABILITY NOTED. CURRENTLY ON ABX Past Medical History Cardiovascular: CAD, HTN, [place], Hyperlipidemia Pulmonary: No pertinent hx, COPD CENTRAL NERVOUS SYSTEM: Other GI: No pertinent hx Heme/Onc: No pertinent hx Hepatobiliary: No pertinent hx Psych: No pertinent hx Musculoskeletal: low back pain, Osteoarthritis Rheumatologic: No pertinent hx Infectious disease: No pertinent hx Renal/: No pertinent hx Endocrine: Hypothyroidism Past Surgical History Past Surgical History: CABG, Other Family History Family History: Coronary Artery Disease, High Cholestrol Social History <1 pack per day ALCOHOL: none Drugs: None Lives: with Family Current Problem List Problem List Problems Medical Problems: (1) Acute congestive heart failure Status: Acute (2) Lung cancer Status: Acute (3) Pneumonia Status: Acute Current Medications Current Medications Current Medications Methylprednisolone Sodium Succinate (SOLU-Medrol 40MG VIAL) 40 mg 1X ONCE IV Last administered on 08/27/18at 23:06; Start 08/27/18 at 23:00; Stop 08/27/18 at 23:01; Status DC Albuterol/ Ipratropium (Duoneb) 3 ml 1X ONCE NEB Last administered on at 23:19; Start 08/27/18 at 23:00; Stop 08/27/18 at 23:01; Status DC Furosemide (Lasix) 40 mg 1X ONCE IVP Last administered on 08/28/18at 01:23; Start 08/28/18 at 00:30; Stop 08/28/18 at 00:36; Status DC Cefepime HCl (Maxipime) 2 gm 1X ONCE IVP Last administered on 08/28/18at 01:28 ; Start 08/28/18 at 00:45; Stop 08/28/18 at 00:46; Status DC Vancomycin HCl (Vanco Per Pharmacy) 1 each PRN DAILY PRN MC SEE COMMENTS Last administered on 08/28/18at 01:43; Start 08/28/18 at 00:30; Stop 08/28/18 at 12:14 ; Status DC Ondansetron HCl (Zofran) 4 mg PRN Q8HRS PRN IV NAUSEA/VOMITING; Start 08/28/18 at 00:30; Stop 08/29/18 at 00:29; Status DC Albuterol/ Ipratropium (Duoneb) 3 ml RTQID NEB Last administered on 08/29/18at 12:05; Start 08/28/18 at 08:00; Stop 08/29/18 at 07:59; Status DC Furosemide (Lasix) 40 mg [id number] IVP Last administered on 08/29/18at 08:38; Start 08/28/18 at 09:00; Stop 08/29/18 at 10:09; Status DC Methylprednisolone Sodium Succinate (SOLU-Medrol 40MG VIAL) 40 mg Q8HRS IV Last administered on 08/30/18at 13:49; Start 08/28/18 at 06:00 Vancomycin HCl 1.25 gm/Sodium Chloride 250 ml @ 166.667 mls/hr 1X ONCE IV Last administered on 08/28/18at 01:24; Start 08/28/18 at 01:30; Stop 08/28/18 at 02:59; Status DC Vancomycin HCl 750 mg/Sodium Chloride 250 ml @ 250 mls/hr Q48H IV ; Start 08/30 at 01:30; Stop 08/30/18 at 01:30; Status DC Vancomycin HCl (Vancomycin Trough Level) 1 each 1X ONCE MC ; Start 09/01/18 at 01:00; Stop 09/01/18 at 01:00; Status DC Albuterol Sulfate (Ventolin Neb Soln) 2.5 mg 1X ONCE NEB Last administered on 08/28/18at 02:45; Start 08/28/18 at 02:45; Stop 08/28/18 at 02:46; Status DC Albuterol Sulfate (Ventolin Neb Soln) 2.5 mg PRN Q3HRS PRN NEB SHORTNESS OF BREATH; Start 08/28/18 at 03:00; Stop 08/28/18 at 08:10; Status DC Acetaminophen/ Hydrocodone Bitart (Lortab 5/325) 1 tab PRN Q6HRS PRN PO PAIN Last administered on 08/30/18 09:25; Start 08/28/18 at 07:15 Cefepime HCl (Maxipime) 1 gm Q24H IVP ; Start 08/29/18 at 07:00; Stop 08/29/18 at 07:00; Status DC Albuterol Sulfate (Ventolin Neb Soln) 2.5 mg PRN Q6HRS PRN INH SHORTNESS OF BREATH; Start 08/28/18 at 08:15; Status UNV Amlodipine Besylate (Norvasc) 5 mg DAILY PO Last administered on 08/30/18 09: 25; Start 08/28/18 at 09:00 Aspirin (Ecotrin) 325 mg DAILYWBKFT PO Last administered on 08/30/18 09:25; Start 08/28/18 at 09:00 Clopidogrel Bisulfate (Plavix) 75 mg DAILY PO Last administered on 08/30/18 09 :25; Start 08/28/18 at 09:00 Famotidine (Pepcid) 20 mg DAILY PO Last administered on 08/28/18 08:34; Start 08/28/18 at 09:00; Stop 08/28/18 at 12:14; Status DC Isosorbide Mononitrate (Imdur) 30 mg DAILY PO Last administered on 08/30/18 09 :26; Start 08/28/18 at 09:00 Levothyroxine Sodium (Synthroid) 75 mcg DAILYAC PO Last administered on 05:36; Start 08/28/18 at 09:00 Metoprolol Succinate (Toprol Xl) 50 mg DAILY PO Last administered on 08/30/18 09:26; Start 08/28/18 at 09:00 Nitroglycerin (Nitrostat) 0.4 mg PRN Q5MIN PRN SL CHEST PAIN Last administered on 08/30/18 04:32; Start 08/28/18 at 08:15 Polyethylene Glycol (miraLAX PACKET) 17 gm DAILY PO Last administered on 08:38; Start 08/28/18 at 09:00 Atorvastatin Calcium (Lipitor) 20 mg QHS PO Last administered on 08/29/18 20: 36; Start 08/28/18 at 21:00 Enoxaparin Sodium (Lovenox 30mg Syringe) 30 mg Q24H SQ Last administered on 09:25; Start 08/28/18 at 09:00 Enoxaparin Sodium (Lovenox 30mg Syringe) 30 mg Q24H SQ ; Start 08/28/18 at 08:15 ; Status UNV Pantoprazole Sodium (Protonix) 40 mg DAILYAC PO Last administered on 08/30/18 05:36; Start 08/28/18 at 09:00 Albuterol Sulfate (Ventolin Neb Soln) 2.5 mg PRN Q3HRS PRN INH SHORTNESS OF BREATH Last administered on 08/30/18 09:31; Start 08/28/18 at 08:10 Levofloxacin/ Dextrose 100 ml @ 100 mls/hr 1X ONCE IV Last administered on 11:55; Start 08/28/18 at 12:00; Stop 08/28/18 at 12:59; Status DC Cefepime HCl (Maxipime) 2 gm Q12HR IVP Last administered on 08/30/18 09:38; Start 08/28/18 at 19:01 Zolpidem Tartrate (Ambien) 5 mg PRN QHS PRN PO INSOMNIA Last administered on 21:31; Start 08/28/18 at 19:00 Lorazepam (Ativan) 0.5 mg 1X ONCE PO Last administered on 08/29/18 10:06; Start 08/29/18 at 10:00; Stop 08/29/18 at 10:01; Status DC Sodium Chloride 1,000 ml @ 75 mls/hr [id number] IV Last administered on 23:32; Start 08/29/18 at 10:45 Al Hydroxide/Mg Hydroxide (Mylanta Plus Xs) 30 ml PRN Q2HR PRN PO HEARTBURN / GAS; Start 08/29/18 at 10:45 Morphine Sulfate (Morphine Sulfate) 1 mg PRN Q4HRS PRN IV PAIN Last administered on 08/30/18 13:51; Start 08/30/18 at 05:00 Albuterol/ Ipratropium (Duoneb) 3 ml RTQID NEB Last administered on 08/30/18 12:29; Start 08/30/18 at 12:00 Guaifenesin (Robitussin Dm) 10 ml QID PO ; Start 08/30/18 at 17:00 Nicotine (Nicoderm Cq 21mg) 1 patch PRN DAILY PRN TD SMOKING CESSATION; Start 08/30/18 at 13:30 Active Scripts Active Proair Hfa Inhaler (Albuterol Sulfate) 8.5 Gm Hfa.aer.ad 1 Puff INH PRN Q6HRS PRN 14 Days Aspirin Ec (Aspirin) 325 Mg Tablet.dr 325 Mg PO DAILYWBKFT Reported Miralax (Polyethylene Glycol 3350) 17 Gm Powd.pack 1 Packet PO DAILY Isosorbide Mononitrate Er (Isosorbide Mononitrate) 30 Mg Tab.er.24h 30 Mg PO DAILY Pepcid (Famotidine) 20 Mg Tablet 20 Mg PO DAILY Clopidogrel (Clopidogrel Bisulfate) 75 Mg Tablet 75 Mg PO DAILY Levothyroxine Sodium 75 Mcg Tablet 75 Mcg PO DAILYAC Nitrostat (Nitroglycerin) 0.4 Mg Tab.subl 0.4 Mg SL PRN Q5MIN PRN Hydrocodone-Apap 5-325 (Hydrocodone Bit/Acetaminophen) 1 Each Tablet 1 Tab PO PRN Q6HRS PRN Amlodipine Besylate 5 Mg Tablet 1 Tab PO DAILY Simvastatin 40 Mg Tablet 1 Tab PO QHS Metoprolol Succinate ( Xl ) (Metoprolol Succinate) 25 Mg Tab.er.24h 50 Mg PO DAILY Allergies Allergies: Coded Allergies: diphenhydramine (Verified Allergy, Intermediate, rash, 08/27/18) hydralazine (Verified Allergy, Mild, Nausea and Vomiting, 08/27/18) ROS General: YES: Appetite PSYCHOLOGICAL ROS: YES: Anxiety, Depression Eyes: Yes Decreased vision HEENT: YES: Heacaches Respiratory: YES: Cough, Shortness of breath, Tachypnea Cardiovascular: yes Lt Headedness Gastrointestinal: Yes Constipation Genitourinary: YES Incontinence, YES Other (NOCTURIA) Musculoskeletal: Yes Muscular Weakness Neurological: Yes Weakness Skin: Yes Dry Skin Physical Exam General: Alert, Oriented X3, Cooperative, No acute distress, mild distress HEENT: Atraumatic, PERRLA, EOMI, Mucous membr. moist/pink Lungs: Normal air movement, Other (FEW EXP WHEEZES) Heart: Regular rate, Normal S1, Normal S2 Abdomen: Normal bowel sounds Extremities: No clubbing Skin: No breakdown Neuro: Normal speech, Cranial nerves 3-12 NL Psych/Mental Status: Mental status NL, Mood NL MUSCULOSKELETAL: No joint tenderness, No deformity, No swelling Vitals VITALS Vital Signs Date Time Temp Pulse Resp B/P (MAP) Pulse Ox O2 Delivery O2 Flow Rate FiO2 08/30/18 13:51 Nasal Cannula 3.0 08/30/18 11:00 97.9 104 22 140/54 (82) 89 97.9 Labs Labs Laboratory Tests Test 08/28/18 17:00 08/28/18 17:55 08/29/18 06:13 08/29/18 06:15 Urine Collection Type Unknown Urine Color Yellow Urine Clarity Clear Urine pH 6.0 Urine Specific [place] 1.010 Urine Protein 30 mg/dL (NEG-TRACE) Urine Glucose (UA) Negative mg/dL (NEG) Urine Ketones (Stick) Negative mg/dL (NEG) Urine Blood Large (NEG) Urine Nitrite Negative (NEG) Urine Bilirubin Negative (NEG) Urine Urobilinogen Dipstick 0.2 mg/dL (0.2 mg/dL) Urine Leukocyte Esterase Moderate (NEG) Urine RBC Tntc /HPF (0-2) Urine WBC 11-20 /HPF (0-4) Urine Squamous Epithelial Cells Occ /LPF Urine Bacteria Few /HPF (0-FEW) Troponin I Quantitative 0.019 ng/mL (0.000-0.055) Sodium Level 134 mmol/L (136-145) Potassium Level 4.1 mmol/L (3.5-5.1) Chloride Level 99 mmol/L (98-107) Carbon Dioxide Level 26 mmol/L (21-32) Anion Gap 9 (6-14) Blood Urea Nitrogen 55 mg/dL (7-20) Creatinine 1.9 mg/dL (0.6-1.0) Estimated GFR (Cockcroft-Gault) 25.3 BUN/Creatinine Ratio 29 (6-20) Glucose Level 182 mg/dL (70-99) Calcium Level 8.6 mg/dL (8.5-10.1) Total Bilirubin 0.4 mg/dL (0.2-1.0) Aspartate Amino Transf (AST/SGOT) 24 U/L (15-37) Alanine Aminotransferase (ALT/SGPT) 42 U/L (14-59) Alkaline Phosphatase 196 U/L (46-116) Total Protein 6.1 g/dL (6.4-8.2) Albumin 2.0 g/dL (3.4-5.0) Albumin/Globulin Ratio 0.5 (1.0-1.7) White Blood Count 12.4 x10^3/uL (4.0-11.0) Red Blood Count 2.94 x10^6/uL (3.50-5.40) Hemoglobin 8.5 g/dL (12.0-15.5) Hematocrit 26.1 % (36.0-47.0) Mean Corpuscular Volume 89 fL (79-100) Mean Corpuscular Hemoglobin 29 pg (25-35) Mean Corpuscular Hemoglobin Concent 33 g/dL (31-37) Red Cell Distribution Width 18.5 % (11.5-14.5) Platelet Count 120 x10^3/uL (140-400) Neutrophils (%) (Auto) 93 % (31-73) Lymphocytes (%) (Auto) 3 % (24-48) Monocytes (%) (Auto) 4 % (0-9) Eosinophils (%) (Auto) 0 % (0-3) Basophils (%) (Auto) 0 % (0-3) Neutrophils # (Auto) 11.6 x10^3uL (1.8-7.7) Lymphocytes # (Auto) 0.4 x10^3/uL (1.0-4.8) Monocytes # (Auto) 0.5 x10^3/uL (0.0-1.1) Eosinophils # (Auto) 0.0 x10^3/uL (0.0-0.7) Basophils # (Auto) 0.0 x10^3/uL (0.0-0.2) Test 08/29/18 11:35 08/30/18 04:30 08/30/18 06:00 08/30/18 06:10 Reticulocyte Count (auto) 1.1 % (0.5-2.5) Lactic Acid Level 3.2 mmol/L (0.4-2.0) Iron Level 19 ug/dL (50-170) Total Iron Binding Capacity 212 ug/dL (250-450) Iron Saturation 9 % (15-34) Ferritin 157 ng/mL (8-252) Urine Collection Type Unknown Urine Color Yellow Urine Clarity Clear Urine pH 6.0 Urine Specific [place] 1.010 Urine Protein 30 mg/dL (NEG-TRACE) Urine Glucose (UA) Negative mg/dL (NEG) Urine Ketones (Stick) Negative mg/dL (NEG) Urine Blood Large (NEG) Urine Nitrite Negative (NEG) Urine Bilirubin Negative (NEG) Urine Urobilinogen Dipstick 0.2 mg/dL (0.2 mg/dL) Urine Leukocyte Esterase Small (NEG) Urine RBC Tntc /HPF (0-2) Urine WBC 5-10 /HPF (0-4) Urine Squamous Epithelial Cells Occ /LPF Urine Bacteria Few /HPF (0-FEW) Sodium Level 137 mmol/L (136-145) Potassium Level 3.6 mmol/L (3.5-5.1) Chloride Level 100 mmol/L (98-107) Carbon Dioxide Level 23 mmol/L (21-32) Anion Gap 14 (6-14) Blood Urea Nitrogen 57 mg/dL (7-20) Creatinine 1.9 mg/dL (0.6-1.0) Estimated GFR (Cockcroft-Gault) 25.3 Glucose Level 185 mg/dL (70-99) Calcium Level 8.2 mg/dL (8.5-10.1) Phosphorus Level 3.8 mg/dL (2.6-4.7) Creatine Kinase 13 U/L (26-192) Albumin 2.0 g/dL (3.4-5.0) Amylase Level 35 U/L (25-115) Lipase 47 U/L (73-393) White Blood Count 10.8 x10^3/uL (4.0-11.0) Red Blood Count 2.81 x10^6/uL (3.50-5.40) Hemoglobin 8.3 g/dL (12.0-15.5) Hematocrit 25.0 % (36.0-47.0) Mean Corpuscular Volume 89 fL (79-100) Mean Corpuscular Hemoglobin 29 pg (25-35) Mean Corpuscular Hemoglobin Concent 33 g/dL (31-37) Red Cell Distribution Width 18.8 % (11.5-14.5) Platelet Count 117 x10^3/uL (140-400) Neutrophils (%) (Auto) 93 % (31-73) Lymphocytes (%) (Auto) 4 % (24-48) Monocytes (%) (Auto) 4 % (0-9) Eosinophils (%) (Auto) 0 % (0-3) Basophils (%) (Auto) 0 % (0-3) Neutrophils # (Auto) 10.0 x10^3uL (1.8-7.7) Lymphocytes # (Auto) 0.4 x10^3/uL (1.0-4.8) Monocytes # (Auto) 0.4 x10^3/uL (0.0-1.1) Eosinophils # (Auto) 0.0 x10^3/uL (0.0-0.7) Basophils # (Auto) 0.0 x10^3/uL (0.0-0.2) Laboratory Tests Test 08/30/18 04:30 08/30/18 06:00 08/30/18 06:10 Urine Collection Type Unknown Urine Color Yellow Urine Clarity Clear Urine pH 6.0 Urine Specific [place] 1.010 Urine Protein 30 mg/dL (NEG-TRACE) Urine Glucose (UA) Negative mg/dL (NEG) Urine Ketones (Stick) Negative mg/dL (NEG) Urine Blood Large (NEG) Urine Nitrite Negative (NEG) Urine Bilirubin Negative (NEG) Urine Urobilinogen Dipstick 0.2 mg/dL (0.2 mg/dL) Urine Leukocyte Esterase Small (NEG) Urine RBC Tntc /HPF (0-2) Urine WBC 5-10 /HPF (0-4) Urine Squamous Epithelial Cells Occ /LPF Urine Bacteria Few /HPF (0-FEW) Sodium Level 137 mmol/L (136-145) Potassium Level 3.6 mmol/L (3.5-5.1) Chloride Level 100 mmol/L (98-107) Carbon Dioxide Level 23 mmol/L (21-32) Anion Gap 14 (6-14) Blood Urea Nitrogen 57 mg/dL (7-20) Creatinine 1.9 mg/dL (0.6-1.0) Estimated GFR (Cockcroft-Gault) 25.3 Glucose Level 185 mg/dL (70-99) Calcium Level 8.2 mg/dL (8.5-10.1) Phosphorus Level 3.8 mg/dL (2.6-4.7) Creatine Kinase 13 U/L (26-192) Albumin 2.0 g/dL (3.4-5.0) Amylase Level 35 U/L (25-115) Lipase 47 U/L (73-393) White Blood Count 10.8 x10^3/uL (4.0-11.0) Red Blood Count 2.81 x10^6/uL (3.50-5.40) Hemoglobin 8.3 g/dL (12.0-15.5) Hematocrit 25.0 % (36.0-47.0) Mean Corpuscular Volume 89 fL (79-100) Mean Corpuscular Hemoglobin 29 pg (25-35) Mean Corpuscular Hemoglobin Concent 33 g/dL (31-37) Red Cell Distribution Width 18.8 % (11.5-14.5) Platelet Count 117 x10^3/uL (140-400) Neutrophils (%) (Auto) 93 % (31-73) Lymphocytes (%) (Auto) 4 % (24-48) Monocytes (%) (Auto) 4 % (0-9) Eosinophils (%) (Auto) 0 % (0-3) Basophils (%) (Auto) 0 % (0-3) Neutrophils # (Auto) 10.0 x10^3uL (1.8-7.7) Lymphocytes # (Auto) 0.4 x10^3/uL (1.0-4.8) Monocytes # (Auto) 0.4 x10^3/uL (0.0-1.1) Eosinophils # (Auto) 0.0 x10^3/uL (0.0-0.7) Basophils # (Auto) 0.0 x10^3/uL (0.0-0.2) Images Images IMPRESSION: Increase in nodule and consolidative infiltrate within the posterior segment right upper lobe adjacent to the major fissure since the previous PET CT dated July 14, 2018. Stable mediastinal lymphadenopathy. Stable spiculated lesion within the posterior segment left upper lobe. The other lung nodules are stable. New finding of small bilateral pleural effusions. Calcified atheromatous disease of the coronary arteries and thoracic aorta and brachiocephalic vessels. Cholelithiasis. Moderate fluid distention of the stomach. Assessment/Plan Assessment/Plan IMP DASIA-CR OF 1.9 SEPSIS DEHYDRATION HCAP SEPSIS TOBACCO ABUSE ADENOCA OF THE LEFT LUNG IMMUNOCOMPROMISED COPD ACUTE ON CHRONIC DIASTOLIC CHF PLAN HYDRATE RENAL SONOGRAM ANTIBIOTICS PULM AND ID AND CARDIOLOGY FOLLOWING WESLEY PINA MD Aug 30, 2018 15:24
--- NOTE | 2018-08-30 16:29 | RAD ---
EXAM: Renal sonogram. HISTORY: Renal insufficiency. TECHNIQUE: Sonographic imaging of the kidneys and bladder was performed. COMPARISON: None. FINDINGS: The kidneys are normal in size. No solid or cystic renal lesion is seen. There is no hydronephrosis. The urinary bladder is unremarkable. There are echogenic foci within the liver and spleen, without a clear correlate on the recent CT dated 08/29/2018. IMPRESSION: Sonographically unremarkable kidneys and bladder. Electronically signed by: Heena Mercado MD (08/30/2018 4:25 PM) [email or web address]
[2018-08-30] MEDS ORDERED: FUROSEMIDE 40 MG/4 ML VIAL. IVP ONE (16:30)
[2018-08-30] MEDS: guaiFENesin DM 200MG/20MG 10 ML SYRUP PO SCH ×2 (17:00→21:00)
--- NOTE | 2018-08-30 17:10 | NUR ---
Nursing Note 1600- Pt appears to have an increased work of breathing at this time. Upon auscultation pts lungs sound very coarse. Pt on 3LNC at 90%. Dr. Limon paged at this time. Orders received for Lasix 40mg and administered. 1630- Pt hit call light upon aide entering pt verbalized she can't breathe very well. O2sat reading 68% on 3LNC. Aide reported to this finding to RN. RN at bedside placing pt on non rebreather at 50%. O2Sat reading no greater than 77% on non rebreather. RT paged at this time for ABG and Bipap. Pts o2 declining to 72%. RT at bedside drawing ABG. Bipap placed titrating to keep O2 greater than 90%. Pts O2 at 98% at this time. Dr. Limon paged with critical ABG results. STAT CXR ordered. CXR obtained. Repeat ABG ordered for 1929. Will continue to monitor. Addendum: 08/30/18 at 1906 by DIANE PAL RN Addendum to previous note venti mask at 50% was placed on pt not non rebreather.
[2018-08-30 17:16] LABS: BASE EXCESS ABG -6 mmol/L (-3-3); HCO3 ABG 20 mmol/L (21-28); PCO2 ABG 40 mmHg (35-46)
[2018-08-30 17:19] LABS: FIO2 ABG 50; PO2 ABG 44 mmHg (65-108)
[2018-08-30 19:00] VITALS: BP 131/74
[2018-08-30 20:08] LABS: BASE EXCESS ABG -1 mmol/L (-3-3); HCO3 ABG 25 mmol/L (21-28); PCO2 ABG 44 mmHg (35-46); PO2 ABG 75 mmHg (65-108); SAT O2 ABG 93 % (92-99)
[2018-08-30 20:31] LABS: FIO2 ABG 50
[2018-08-30] MEDS: ATORVASTATIN CALCIUM 20 MG TABLET PO SCH ×2 (21:00→21:24)
[2018-08-30 23:00] VITALS: BP 149/68
[2018-08-31 03:00] VITALS: BP 142/53
[2018-08-31] MEDS: methylPREDNISolone SOD SUCC PF 40 MG/ML VIAL. IV SCH ×3 (06:01→20:34)
[2018-08-31 07:00] VITALS: BP 165/42
[2018-08-31 07:57] LABS: BASO % 0 % (0-3); EOS % 0 % (0-3); HEMATOCRIT 27.7 % (36.0-47.0); LYMPH # 0.4 x10^3/uL (1.0-4.8); LYMPH % 4 % (24-48); MEAN CORPUSCULAR HEMOGLOBIN 29 pg (25-35); MEAN CORPUSCULAR HGB CONC 33 g/dL (31-37); MEAN CORPUSCULAR VOLUME 88 fL (79-100); MONO # 0.6 x10^3/uL (0.0-1.1); MONO % 6 % (0-9); NEUT # 8.9 x10^3uL (1.8-7.7); NEUT % 90 % (31-73); PLATELET COUNT 130 x10^3/uL (140-400); RED BLOOD COUNT 3.15 x10^6/uL (3.50-5.40); RED CELL DISTRIBUTION WIDTH 18.6 % (11.5-14.5); WHITE BLOOD COUNT 9.8 x10^3/uL (4.0-11.0)
[2018-08-31] MEDS: amLODIPine BESYLATE 5 MG TABLET PO SCH (08:10)
[2018-08-31] MEDS: ISOSORBIDE MONONITRATE ER 30 MG TAB.ER.24H PO SCH (08:10)
[2018-08-31] MEDS: CLOPIDOGREL BISULFATE 75 MG TABLET PO SCH (08:10)
--- NOTE | 2018-08-31 08:10 | RAD ---
CHEST AP ONLY History: Shortness of breath Comparison: 08/27/2018 Findings: Single view of the chest is submitted. There is increased airspace and interstitial opacity of of the mid right hemithorax as well as right lung base, persistent airspace and interstitial opacity left lateral lung base. There is now small right pleural effusion, persistent small left pleural effusion similar. There are again left axillary clips. There is no pneumothorax. There again has been median sternotomy, fracture of the second wire when counting from above as seen previously. Heart size is stable. There is stent in the left paracentral superior mediastinal region as seen previously. Impression: 1. There is increased airspace and interstitial opacity on the right which may be due to infiltrate or edema, unchanged infiltrate/edema of the left lateral lung base. There is new small right pleural effusion, unchanged small left pleural effusion. Electronically signed by: Christ Norris MD (08/31/2018 8:07 AM) [email or web address]
[2018-08-31] MEDS: LEVOTHYROXINE 75 MCG TABLET PO SCH (08:11)
[2018-08-31] MEDS: METOPROLOL SUCC 24HR ER 50 MG TAB.ER.24H. PO SCH (08:11)
[2018-08-31] MEDS: ASPIRIN ENTERIC COATED 325 MG TABLET.DR. PO SCH (08:11)
[2018-08-31] MEDS: PANTOPRAZOLE 40 MG TABLET.DR. PO SCH (08:11)
[2018-08-31] MEDS: HYDROcodone/APAP 5/325MG 1 TAB TABLET PO PRN ×2 (08:11→16:08)
[2018-08-31] MEDS: CEFEPIME HCL IV Push 2 GM VIAL. IVP SCH ×2 (08:12→20:35)
[2018-08-31] MEDS: POLYETHYLENE GLYCOL 3350 17 GM PACKET. PO SCH (08:12)
[2018-08-31] MEDS: ENOXAPARIN 30 MG/0.3 ML SYRINGE. SQ SCH (08:13)
[2018-08-31] MEDS: guaiFENesin DM 200MG/20MG 10 ML SYRUP PO SCH ×4 (08:15→20:34)
[2018-08-31 08:21] LABS: ALBUMIN 2.3 g/dL (3.4-5.0); CALCIUM 8.7 mg/dL (8.5-10.1); CREATININE 1.8 mg/dL (0.6-1.0); GFR 26.9; PHOSPHORUS 3.5 mg/dL (2.6-4.7); POTASSIUM 3.8 mmol/L (3.5-5.1)
[2018-08-31] MEDS: IPRATRPIUM/ALBUTEROL 0.5/2.5MG 3 ML NEBU. NEB SCH ×4 (08:22→20:14)
--- NOTE | 2018-08-31 09:48 | PDOC ---
PULMONARY PROGRESS NOTES Subjective PT OFF BIPAP SITTING IN CHAIR Vitals Vital Signs Date Time Temp Pulse Resp B/P (MAP) Pulse Ox O2 Delivery O2 Flow Rate FiO2 08/31/18 08:26 98 Nasal Cannula 3.0 08/31/18 08:11 75 142/53 08/31/18 07:00 97.7 18 97.7 ROS: No Nausea, No Chest Pain, No Abdominal Pain, No Increase Cough General: Alert, No acute distress Lungs: Wheezing (faint) Cardiovascular: S1, S2 Abdomen: Soft Neuro Exam: Alert Extremities: No Edema Skin: Warm Labs Laboratory Tests Test 08/29/18 11:35 08/30/18 04:30 08/30/18 06:00 08/30/18 06:10 Reticulocyte Count (auto) 1.1 % (0.5-2.5) Lactic Acid Level 3.2 mmol/L (0.4-2.0) Iron Level 19 ug/dL (50-170) Total Iron Binding Capacity 212 ug/dL (250-450) Iron Saturation 9 % (15-34) Ferritin 157 ng/mL (8-252) Urine Collection Type Unknown Urine Color Yellow Urine Clarity Clear Urine pH 6.0 Urine Specific [place] 1.010 Urine Protein 30 mg/dL (NEG-TRACE) Urine Glucose (UA) Negative mg/dL (NEG) Urine Ketones (Stick) Negative mg/dL (NEG) Urine Blood Large (NEG) Urine Nitrite Negative (NEG) Urine Bilirubin Negative (NEG) Urine Urobilinogen Dipstick 0.2 mg/dL (0.2 mg/dL) Urine Leukocyte Esterase Small (NEG) Urine RBC Tntc /HPF (0-2) Urine WBC 5-10 /HPF (0-4) Urine Squamous Epithelial Cells Occ /LPF Urine Bacteria Few /HPF (0-FEW) Sodium Level 137 mmol/L (136-145) Potassium Level 3.6 mmol/L (3.5-5.1) Chloride Level 100 mmol/L (98-107) Carbon Dioxide Level 23 mmol/L (21-32) Anion Gap 14 (6-14) Blood Urea Nitrogen 57 mg/dL (7-20) Creatinine 1.9 mg/dL (0.6-1.0) Estimated GFR (Cockcroft-Gault) 25.3 Glucose Level 185 mg/dL (70-99) Calcium Level 8.2 mg/dL (8.5-10.1) Phosphorus Level 3.8 mg/dL (2.6-4.7) Creatine Kinase 13 U/L (26-192) Albumin 2.0 g/dL (3.4-5.0) Amylase Level 35 U/L (25-115) Lipase 47 U/L (73-393) White Blood Count 10.8 x10^3/uL (4.0-11.0) Red Blood Count 2.81 x10^6/uL (3.50-5.40) Hemoglobin 8.3 g/dL (12.0-15.5) Hematocrit 25.0 % (36.0-47.0) Mean Corpuscular Volume 89 fL (79-100) Mean Corpuscular Hemoglobin 29 pg (25-35) Mean Corpuscular Hemoglobin Concent 33 g/dL (31-37) Red Cell Distribution Width 18.8 % (11.5-14.5) Platelet Count 117 x10^3/uL (140-400) Neutrophils (%) (Auto) 93 % (31-73) Lymphocytes (%) (Auto) 4 % (24-48) Monocytes (%) (Auto) 4 % (0-9) Eosinophils (%) (Auto) 0 % (0-3) Basophils (%) (Auto) 0 % (0-3) Neutrophils # (Auto) 10.0 x10^3uL (1.8-7.7) Lymphocytes # (Auto) 0.4 x10^3/uL (1.0-4.8) Monocytes # (Auto) 0.4 x10^3/uL (0.0-1.1) Eosinophils # (Auto) 0.0 x10^3/uL (0.0-0.7) Basophils # (Auto) 0.0 x10^3/uL (0.0-0.2) Test 08/30/18 17:00 08/30/18 17:45 08/31/18 07:27 O2 Saturation % (92-99) 93 % (92-99) Arterial Blood pH 7.32 (7.35-7.45) 7.36 (7.35-7.45) Arterial Blood pCO2 at Patient Temp 40 mmHg (35-46) 44 mmHg (35-46) Arterial Blood pO2 at Patient Temp 44 mmHg (65-108) 75 mmHg (65-108) Arterial Blood HCO3 20 mmol/L (21-28) 25 mmol/L (21-28) Arterial Blood Base Excess -6 mmol/L (-3-3) -1 mmol/L (-3-3) FiO2 50 50 White Blood Count 9.8 x10^3/uL (4.0-11.0) Red Blood Count 3.15 x10^6/uL (3.50-5.40) Hemoglobin 9.0 g/dL (12.0-15.5) Hematocrit 27.7 % (36.0-47.0) Mean Corpuscular Volume 88 fL (79-100) Mean Corpuscular Hemoglobin 29 pg (25-35) Mean Corpuscular Hemoglobin Concent 33 g/dL (31-37) Red Cell Distribution Width 18.6 % (11.5-14.5) Platelet Count 130 x10^3/uL (140-400) Neutrophils (%) (Auto) 90 % (31-73) Lymphocytes (%) (Auto) 4 % (24-48) Monocytes (%) (Auto) 6 % (0-9) Eosinophils (%) (Auto) 0 % (0-3) Basophils (%) (Auto) 0 % (0-3) Neutrophils # (Auto) 8.9 x10^3uL (1.8-7.7) Lymphocytes # (Auto) 0.4 x10^3/uL (1.0-4.8) Monocytes # (Auto) 0.6 x10^3/uL (0.0-1.1) Eosinophils # (Auto) 0.0 x10^3/uL (0.0-0.7) Basophils # (Auto) 0.0 x10^3/uL (0.0-0.2) Sodium Level 138 mmol/L (136-145) Potassium Level 3.8 mmol/L (3.5-5.1) Chloride Level 100 mmol/L (98-107) Carbon Dioxide Level 26 mmol/L (21-32) Anion Gap 12 (6-14) Blood Urea Nitrogen 55 mg/dL (7-20) Creatinine 1.8 mg/dL (0.6-1.0) Estimated GFR (Cockcroft-Gault) 26.9 Glucose Level 172 mg/dL (70-99) Calcium Level 8.7 mg/dL (8.5-10.1) Phosphorus Level 3.5 mg/dL (2.6-4.7) Albumin 2.3 g/dL (3.4-5.0) Laboratory Tests Test 08/30/18 17:00 08/30/18 17:45 08/31/18 07:27 O2 Saturation % (92-99) 93 % (92-99) Arterial Blood pH 7.32 (7.35-7.45) 7.36 (7.35-7.45) Arterial Blood pCO2 at Patient Temp 40 mmHg (35-46) 44 mmHg (35-46) Arterial Blood pO2 at Patient Temp 44 mmHg (65-108) 75 mmHg (65-108) Arterial Blood HCO3 20 mmol/L (21-28) 25 mmol/L (21-28) Arterial Blood Base Excess -6 mmol/L (-3-3) -1 mmol/L (-3-3) FiO2 50 50 White Blood Count 9.8 x10^3/uL (4.0-11.0) Red Blood Count 3.15 x10^6/uL (3.50-5.40) Hemoglobin 9.0 g/dL (12.0-15.5) Hematocrit 27.7 % (36.0-47.0) Mean Corpuscular Volume 88 fL (79-100) Mean Corpuscular Hemoglobin 29 pg (25-35) Mean Corpuscular Hemoglobin Concent 33 g/dL (31-37) Red Cell Distribution Width 18.6 % (11.5-14.5) Platelet Count 130 x10^3/uL (140-400) Neutrophils (%) (Auto) 90 % (31-73) Lymphocytes (%) (Auto) 4 % (24-48) Monocytes (%) (Auto) 6 % (0-9) Eosinophils (%) (Auto) 0 % (0-3) Basophils (%) (Auto) 0 % (0-3) Neutrophils # (Auto) 8.9 x10^3uL (1.8-7.7) Lymphocytes # (Auto) 0.4 x10^3/uL (1.0-4.8) Monocytes # (Auto) 0.6 x10^3/uL (0.0-1.1) Eosinophils # (Auto) 0.0 x10^3/uL (0.0-0.7) Basophils # (Auto) 0.0 x10^3/uL (0.0-0.2) Sodium Level 138 mmol/L (136-145) Potassium Level 3.8 mmol/L (3.5-5.1) Chloride Level 100 mmol/L (98-107) Carbon Dioxide Level 26 mmol/L (21-32) Anion Gap 12 (6-14) Blood Urea Nitrogen 55 mg/dL (7-20) Creatinine 1.8 mg/dL (0.6-1.0) Estimated GFR (Cockcroft-Gault) 26.9 Glucose Level 172 mg/dL (70-99) Calcium Level 8.7 mg/dL (8.5-10.1) Phosphorus Level 3.5 mg/dL (2.6-4.7) Albumin 2.3 g/dL (3.4-5.0) Medications Active Scripts Medications Dose Route/Sig Max Daily Dose Days Date Category Proair Hfa Inhaler (Albuterol Sulfate) 8.5 Gm Hfa.aer.ad 1 Puff INH PRN Q6HRS PRN 14 06/14/18 Rx Miralax (Polyethylene Glycol 3350) 17 Gm Powd.pack 1 Packet PO DAILY 06/13/18 Reported Isosorbide Mononitrate Er (Isosorbide Mononitrate) 30 Mg Tab.er.24h 30 Mg PO DAILY 06/07/18 Reported Pepcid (Famotidine) 20 Mg Tablet 20 Mg PO DAILY 05/30/18 Reported Clopidogrel (Clopidogrel Bisulfate) 75 Mg Tablet 75 Mg PO DAILY 02/08/17 Reported Levothyroxine Sodium 75 Mcg Tablet 75 Mcg PO DAILYAC 02/08/17 Reported Nitrostat (Nitroglycerin) 0.4 Mg Tab.subl 0.4 Mg SL PRN Q5MIN PRN 04/21/16 Reported Aspirin Ec (Aspirin) 325 Mg Tablet. 325 Mg PO DAILYWBKFT 04/21/16 Rx Hydrocodone-Apap 5-325 (Hydrocodone Bit/Acetaminophen) 1 Each Tablet 1 Tab PO PRN Q6HRS PRN 04/22/15 Reported Amlodipine Besylate 5 Mg Tablet 1 Tab PO DAILY 02/22/15 Reported Simvastatin 40 Mg Tablet 1 Tab PO QHS 02/22/15 Reported Metoprolol Succinate ( Xl ) (Metoprolol Succinate) 25 Mg Tab.er.24h 50 Mg PO DAILY 02/22/15 Reported Impression . 1. Acute on chronic respiratory failure secondary to Interstitial pneumonia vs CHF, acute exacerbation of chronic obstructive pulmonary disease, 2. 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 Acute exacerbation of chronic obstructive pulmonary disease. 5. Acute diastolic congestive heart failure. 6. Acute kidney injury. 7. Lung cancer, status post immunotherapy x 1, immunocompromised 8. Hypertension. 9. Coronary artery disease. 10. Peripheral vascular disease. 11. Tobacco habituation. CT CHEST IMPRESSION: Increase in nodule and consolidative infiltrate within the posterior segment right upper lobe adjacent to the major fissure since the previous PET CT dated July 14, 2018. Stable mediastinal lymphadenopathy. Stable spiculated lesion within the posterior segment left upper lobe. The other lung nodules are stable. New finding of small bilateral pleural effusions. Calcified atheromatous disease of the coronary arteries and thoracic aorta and brachiocephalic vessels. Cholelithiasis. Moderate fluid distention of the stomach. Micro LOOD CULTURE Final GRAM NEGATIVE RODS SEEN IN 1 OF 2 BOTTLES; 1 SET WAS DRAWN; RESULTS WERE CALLED TO [facility] ON 5N AT 0858; 08/28/18 BY [facility]. THE BLOOD CULTURES HAVE BEEN SENT TO [facility] FOR FURTHER WORKUP. AMMENDED REPORT: GRAM NEGATIVE RODS SEEN IN 2 OF 2 BOTTLES; 1 SET WAS DRAWN; RESULTS WERE CALLED TO DUR[facility] WEST ON 5N AT 1135; 08/28/18 BY [facility] AT. THE BLOOD CULTURES HAVE BEEN SENT TO [facility] FOR FURTHER WORKUP. THIS IS THE SECOND BOTTLE OF THE SAME SET. * This is a corrected result. * A prior result that was reported as final has been changed. GRAM STAIN WHITE BLOOD CELLS Final Few GRAM STAIN EPITHELIAL CELLS Final None seen GRAM STAIN RESULT 1 Final Comment Few gram negative rods. GRAM STAIN EVALUATION Final Comment This specimen is of good quality and is acceptable for routine bacterial culture. Performed at: - [facility] [address], [place], [place] [id number] Veterinary Science Teacher: VALORIE Willis MD, Phone: [phone] SPUTUM CULTURE-LC PENDING Plan . BIPAP PRN UP TO CHAIR FOLLOW SAT LASIX D/C FLUIDS CT REVIEWED, CXR REVIEWED ALPESH GUTIERRES MD Aug 31, 2018 09:48
--- NOTE | 2018-08-31 10:18 | PDOC ---
Infectious Disease Note Subjective Subjective not feeling well, is sob Vital Sign Vital Signs Vital Signs Date Time Temp Pulse Resp B/P (MAP) Pulse Ox O2 Delivery O2 Flow Rate FiO2 08/31/18 09:11 98 3.0 08/31/18 08:26 Nasal Cannula 08/31/18 08:11 75 142/53 08/31/18 07:00 97.7 18 97.7 Physical Exam PHYSICAL EXAM CONSTITUTIONAL: She is cooperative. She appears a little tired. She is an elderly lady. She is in no acute distress. HEENT: Pupils are equal and reactive. She has normal conjunctivae. Oral cavity, pharynx is clear, no thrush. NECK: Supple. No JVD. LUNGS: Decreased in the bases. HEART: S1, S2, without gross murmur. She has a well-healed scar. ABDOMEN: Soft, nontender. No guarding or rebound. EXTREMITIES: No clubbing or cyanosis. She has trace 1+ lower extremity edema. SKIN: Warm to touch, without signs of rash. NEUROLOGIC: She is nonfocal and appropriate. PSYCHIATRIC: Affect is appropriate. SKIN: Peripheral IV is clean. Labs Lab Laboratory Tests Test 08/30/18 17:00 08/30/18 17:45 08/31/18 07:27 O2 Saturation % (92-99) 93 % (92-99) Arterial Blood pH 7.32 (7.35-7.45) 7.36 (7.35-7.45) Arterial Blood pCO2 at Patient Temp 40 mmHg (35-46) 44 mmHg (35-46) Arterial Blood pO2 at Patient Temp 44 mmHg (65-108) 75 mmHg (65-108) Arterial Blood HCO3 20 mmol/L (21-28) 25 mmol/L (21-28) Arterial Blood Base Excess -6 mmol/L (-3-3) -1 mmol/L (-3-3) FiO2 50 50 White Blood Count 9.8 x10^3/uL (4.0-11.0) Red Blood Count 3.15 x10^6/uL (3.50-5.40) Hemoglobin 9.0 g/dL (12.0-15.5) Hematocrit 27.7 % (36.0-47.0) Mean Corpuscular Volume 88 fL (79-100) Mean Corpuscular Hemoglobin 29 pg (25-35) Mean Corpuscular Hemoglobin Concent 33 g/dL (31-37) Red Cell Distribution Width 18.6 % (11.5-14.5) Platelet Count 130 x10^3/uL (140-400) Neutrophils (%) (Auto) 90 % (31-73) Lymphocytes (%) (Auto) 4 % (24-48) Monocytes (%) (Auto) 6 % (0-9) Eosinophils (%) (Auto) 0 % (0-3) Basophils (%) (Auto) 0 % (0-3) Neutrophils # (Auto) 8.9 x10^3uL (1.8-7.7) Lymphocytes # (Auto) 0.4 x10^3/uL (1.0-4.8) Monocytes # (Auto) 0.6 x10^3/uL (0.0-1.1) Eosinophils # (Auto) 0.0 x10^3/uL (0.0-0.7) Basophils # (Auto) 0.0 x10^3/uL (0.0-0.2) Sodium Level 138 mmol/L (136-145) Potassium Level 3.8 mmol/L (3.5-5.1) Chloride Level 100 mmol/L (98-107) Carbon Dioxide Level 26 mmol/L (21-32) Anion Gap 12 (6-14) Blood Urea Nitrogen 55 mg/dL (7-20) Creatinine 1.8 mg/dL (0.6-1.0) Estimated GFR (Cockcroft-Gault) 26.9 Glucose Level 172 mg/dL (70-99) Calcium Level 8.7 mg/dL (8.5-10.1) Phosphorus Level 3.5 mg/dL (2.6-4.7) Albumin 2.3 g/dL (3.4-5.0) Micro BLOOD CULTURE LC Preliminary Preliminary report BLD CULT RESULT 1 Preliminary Gram negative rods Performed at: DA - [facility] [id number] [facility] [address], [place], [place] [id number] Can Filling Room Sweeper: VALORIE Willis MD, Phone: [phone] Sputum also G neg honey, id pending Objective Assessment 1. Gram-negative sepsis, present on admission on 08/27/2018. 2. Lung cancer, status post chemotherapy on 08/22/2018. 3. Leukocytosis, present on admission, prior to steroid dosing. Uncertain if she has received Neulasta or Neupogen. 4. Acute exacerbation of chronic obstructive pulmonary disease. 5. Bird exposure as Cockatoos are at home. 6. Peripheral arterial disease, status post right fem-tibioperoneal trunk bypass graft using ipsilateral greater saphenous vein, 05/31/2018. Plan Plan of Care Cont Cefepime Levoflox ordered times one UA C and S F/u labs and cults Await Hemeon F/u Needs to quit tobacco ID of organism still pending EMILY LOPEZ MD Aug 31, 2018 10:18
[2018-08-31 11:00] VITALS: BP 135/56
[2018-08-31 15:00] VITALS: BP 143/48
--- NOTE | 2018-08-31 16:38 | NUR ---
VSS-AFEBRILE. LUNGS CLEAR/DIMINISHED IN ALL ADAMES BILATERALLY. OCCASIONAL C/O GENERALIZED PAIN, PARTIAL RELIEF WITH PO PAIN MEDICATION. SLIGHTLY CONFUSED THIS AM, INCONTINENT OF BLADDER. OOB TO CHAIR FOR MOST OF SHIFT. VERY POOR APPETITE, BARELY ATE ANY FOOD, DID HAVE A NUTRITION SHAKE. PARTIAL BATH WHEN INCONTINENT, LINEN CHANGE. CHECK PAPER MAR FOR SOME MEDICATION ADMINISTRATION [employer] HAD LONG DOWNTIME HOURS THIS SHIFT. CALLS APPORIATELY FOR ANY NEEDED ASSISTANCE.
[2018-08-31 19:00] VITALS: BP 134/64
[2018-08-31] MEDS: ATORVASTATIN CALCIUM 20 MG TABLET PO SCH (20:34)
[2018-08-31 23:04] VITALS: BP 111/49
--- NOTE | 2018-09-01 00:32 | PN ---
DATE: 08/31/2018 SUBJECTIVE: About the same. She is on face mask or having a breathing treatment. She continues to smoke. She is on O2 p.r.n. at home. She does not want to go to rehab, she is very frail and very weak, but is agreeable to home health. She was still very wheezy yesterday when I auscultated her. Otherwise, she has no further complaints. OBJECTIVE: GENERAL: Awake, alert, oriented x 3, cachectic looking, minimal subcutaneous tissue. HEENT: She has smoker's lines around her mouth. LUNGS AND CHEST: Wheezing bilaterally. Symmetrical chest expansion. Diminished breath sounds, but no crackles or rhonchi. Positive wheezing. HEART: Normal rate and rhythm. No murmurs, rubs or gallops. ABDOMEN: Scaphoid, nontender, normoactive bowel sounds. GENITALIA: Appropriate for age. EXTREMITIES: Negative edema. Pulses full and equal. No pallor or cyanosis of nailbeds. ASSESSMENT AND PLAN: 1. Chronic obstructive pulmonary disease exacerbation/acute bronchitis. 2. Current smoker. 3. Smoker's cachexia. 4. Moderate to severe protein-calorie malnutrition. 5. Anemia of chronic disease. 6. Home O2 dependent. PLAN: 1. Not ready to discontinue, still wheezy, continue steroids, cough medicine, nebs, etc. Follow up Pulmonary recommendations. 2. Home health of discharge -- she is refusing SNU. ADINA STILES MD DR: /nts JOB#: [id number] / [id number]
[2018-09-01] MEDS: HYDROcodone/APAP 5/325MG 1 TAB TABLET PO PRN ×3 (02:51→15:06)
[2018-09-01 03:25] VITALS: BP 134/44
[2018-09-01 03:53] LABS: BASO % 0 % (0-3); EOS % 0 % (0-3); HEMATOCRIT 28.4 % (36.0-47.0); HEMOGLOBIN 9.1 g/dL (12.0-15.5); LYMPH # 0.4 x10^3/uL (1.0-4.8); LYMPH % 3 % (24-48); MEAN CORPUSCULAR HEMOGLOBIN 29 pg (25-35); MEAN CORPUSCULAR HGB CONC 32 g/dL (31-37); MEAN CORPUSCULAR VOLUME 89 fL (79-100); MONO # 0.8 x10^3/uL (0.0-1.1); MONO % 6 % (0-9); NEUT % 91 % (31-73); PLATELET COUNT 154 x10^3/uL (140-400); RED BLOOD COUNT 3.18 x10^6/uL (3.50-5.40); RED CELL DISTRIBUTION WIDTH 18.5 % (11.5-14.5); WHITE BLOOD COUNT 13.2 x10^3/uL (4.0-11.0)
[2018-09-01 04:10] LABS: ALBUMIN 2.4 g/dL (3.4-5.0); CALCIUM 8.8 mg/dL (8.5-10.1); CREATININE 1.7 mg/dL (0.6-1.0); GFR 28.8; PHOSPHORUS 2.3 mg/dL (2.6-4.7); POTASSIUM 3.7 mmol/L (3.5-5.1)
[2018-09-01] MEDS: methylPREDNISolone SOD SUCC PF 40 MG/ML VIAL. IV SCH ×2 (05:28→13:41)
[2018-09-01 07:00] VITALS: BP 138/45
[2018-09-01] MEDS: IPRATRPIUM/ALBUTEROL 0.5/2.5MG 3 ML NEBU. NEB SCH ×3 (07:26→15:19)
[2018-09-01] MEDS: LEVOTHYROXINE 75 MCG TABLET PO SCH (07:32)
[2018-09-01] MEDS: PANTOPRAZOLE 40 MG TABLET.DR. PO SCH (07:32)
[2018-09-01] MEDS: ENOXAPARIN 30 MG/0.3 ML SYRINGE. SQ SCH (08:37)
[2018-09-01] MEDS: ASPIRIN ENTERIC COATED 325 MG TABLET.DR. PO SCH (08:38)
[2018-09-01] MEDS: ISOSORBIDE MONONITRATE ER 30 MG TAB.ER.24H PO SCH (08:38)
[2018-09-01] MEDS: amLODIPine BESYLATE 5 MG TABLET PO SCH (08:38)
[2018-09-01] MEDS: CLOPIDOGREL BISULFATE 75 MG TABLET PO SCH (08:38)
[2018-09-01] MEDS: POLYETHYLENE GLYCOL 3350 17 GM PACKET. PO SCH (08:39)
[2018-09-01] MEDS: METOPROLOL SUCC 24HR ER 50 MG TAB.ER.24H. PO SCH (08:39)
[2018-09-01] MEDS: guaiFENesin DM 200MG/20MG 10 ML SYRUP PO SCH ×3 (08:39→16:43)
[2018-09-01] MEDS: CEFEPIME HCL IV Push 2 GM VIAL. IVP SCH (08:39)
--- NOTE | 2018-09-01 08:54 | RAD ---
EXAM: Chest, single view. HISTORY: Congestive heart failure. COMPARISON: 08/30/2018 FINDINGS: A frontal view of the chest is obtained. There is stable diffuse interstitial infiltrate due to congestion. There is stable small pleural effusions with superimposed bilateral lower lobe atelectasis or infiltrate. There is stable left superhilar mass. There is mild cardiomegaly and evidence of prior CABG. There are vascular clips within the proximal left upper extremity. No pneumothorax is seen. There is a left subclavian artery stent. IMPRESSION: 1. Stable pulmonary congestion likely superimposed on emphysema. 2. Stable small pleural effusions and bilateral lower lobe infiltrate or atelectasis. 3. Left superhilar mass. This is better characterized on the CT dated 08/29/2018. Note is made that a nodular opacity adjacent partial consolidation within the right lower lobe demonstrated on the prior CT is not well seen radiographically. 4. Cardiomegaly. Electronically signed by: Heena Mercado MD (09/01/2018 8:51 AM) [id number]
--- NOTE | 2018-09-01 09:00 | PDOC ---
PULMONARY PROGRESS NOTES Subjective PT OFF BIPAP SITTING IN CHAIR Vitals Vital Signs Date Time Temp Pulse Resp B/P (MAP) Pulse Ox O2 Delivery O2 Flow Rate FiO2 09/01/18 08:48 50 Venturi Mask 15.0 09/01/18 08:39 108 138/45 09/01/18 07:00 98.4 18 98.4 ROS: No Nausea, No Chest Pain, No Abdominal Pain, No Increase Cough General: Alert, No acute distress Lungs: Wheezing (faint) Cardiovascular: S1, S2 Abdomen: Soft Neuro Exam: Alert Extremities: No Edema Skin: Warm Labs Laboratory Tests Test 08/30/18 17:00 08/30/18 17:45 08/31/18 07:27 09/01/18 03:30 O2 Saturation % (92-99) 93 % (92-99) Arterial Blood pH 7.32 (7.35-7.45) 7.36 (7.35-7.45) Arterial Blood pCO2 at Patient Temp 40 mmHg (35-46) 44 mmHg (35-46) Arterial Blood pO2 at Patient Temp 44 mmHg (65-108) 75 mmHg (65-108) Arterial Blood HCO3 20 mmol/L (21-28) 25 mmol/L (21-28) Arterial Blood Base Excess -6 mmol/L (-3-3) -1 mmol/L (-3-3) FiO2 50 50 White Blood Count 9.8 x10^3/uL (4.0-11.0) 13.2 x10^3/uL (4.0-11.0) Red Blood Count 3.15 x10^6/uL (3.50-5.40) 3.18 x10^6/uL (3.50-5.40) Hemoglobin 9.0 g/dL (12.0-15.5) 9.1 g/dL (12.0-15.5) Hematocrit 27.7 % (36.0-47.0) 28.4 % (36.0-47.0) Mean Corpuscular Volume 88 fL (79-100) 89 fL (79-100) Mean Corpuscular Hemoglobin 29 pg (25-35) 29 pg (25-35) Mean Corpuscular Hemoglobin Concent 33 g/dL (31-37) 32 g/dL (31-37) Red Cell Distribution Width 18.6 % (11.5-14.5) 18.5 % (11.5-14.5) Platelet Count 130 x10^3/uL (140-400) 154 x10^3/uL (140-400) Neutrophils (%) (Auto) 90 % (31-73) 91 % (31-73) Lymphocytes (%) (Auto) 4 % (24-48) 3 % (24-48) Monocytes (%) (Auto) 6 % (0-9) 6 % (0-9) Eosinophils (%) (Auto) 0 % (0-3) 0 % (0-3) Basophils (%) (Auto) 0 % (0-3) 0 % (0-3) Neutrophils # (Auto) 8.9 x10^3uL (1.8-7.7) 12.0 x10^3uL (1.8-7.7) Lymphocytes # (Auto) 0.4 x10^3/uL (1.0-4.8) 0.4 x10^3/uL (1.0-4.8) Monocytes # (Auto) 0.6 x10^3/uL (0.0-1.1) 0.8 x10^3/uL (0.0-1.1) Eosinophils # (Auto) 0.0 x10^3/uL (0.0-0.7) 0.0 x10^3/uL (0.0-0.7) Basophils # (Auto) 0.0 x10^3/uL (0.0-0.2) 0.0 x10^3/uL (0.0-0.2) Sodium Level 138 mmol/L (136-145) 139 mmol/L (136-145) Potassium Level 3.8 mmol/L (3.5-5.1) 3.7 mmol/L (3.5-5.1) Chloride Level 100 mmol/L (98-107) 100 mmol/L (98-107) Carbon Dioxide Level 26 mmol/L (21-32) 26 mmol/L (21-32) Anion Gap 12 (6-14) 13 (6-14) Blood Urea Nitrogen 55 mg/dL (7-20) 61 mg/dL (7-20) Creatinine 1.8 mg/dL (0.6-1.0) 1.7 mg/dL (0.6-1.0) Estimated GFR (Cockcroft-Gault) 26.9 28.8 Glucose Level 172 mg/dL (70-99) 221 mg/dL (70-99) Calcium Level 8.7 mg/dL (8.5-10.1) 8.8 mg/dL (8.5-10.1) Phosphorus Level 3.5 mg/dL (2.6-4.7) 2.3 mg/dL (2.6-4.7) Albumin 2.3 g/dL (3.4-5.0) 2.4 g/dL (3.4-5.0) Laboratory Tests Test 09/01/18 03:30 White Blood Count 13.2 x10^3/uL (4.0-11.0) Red Blood Count 3.18 x10^6/uL (3.50-5.40) Hemoglobin 9.1 g/dL (12.0-15.5) Hematocrit 28.4 % (36.0-47.0) Mean Corpuscular Volume 89 fL (79-100) Mean Corpuscular Hemoglobin 29 pg (25-35) Mean Corpuscular Hemoglobin Concent 32 g/dL (31-37) Red Cell Distribution Width 18.5 % (11.5-14.5) Platelet Count 154 x10^3/uL (140-400) Neutrophils (%) (Auto) 91 % (31-73) Lymphocytes (%) (Auto) 3 % (24-48) Monocytes (%) (Auto) 6 % (0-9) Eosinophils (%) (Auto) 0 % (0-3) Basophils (%) (Auto) 0 % (0-3) Neutrophils # (Auto) 12.0 x10^3uL (1.8-7.7) Lymphocytes # (Auto) 0.4 x10^3/uL (1.0-4.8) Monocytes # (Auto) 0.8 x10^3/uL (0.0-1.1) Eosinophils # (Auto) 0.0 x10^3/uL (0.0-0.7) Basophils # (Auto) 0.0 x10^3/uL (0.0-0.2) Sodium Level 139 mmol/L (136-145) Potassium Level 3.7 mmol/L (3.5-5.1) Chloride Level 100 mmol/L (98-107) Carbon Dioxide Level 26 mmol/L (21-32) Anion Gap 13 (6-14) Blood Urea Nitrogen 61 mg/dL (7-20) Creatinine 1.7 mg/dL (0.6-1.0) Estimated GFR (Cockcroft-Gault) 28.8 Glucose Level 221 mg/dL (70-99) Calcium Level 8.8 mg/dL (8.5-10.1) Phosphorus Level 2.3 mg/dL (2.6-4.7) Albumin 2.4 g/dL (3.4-5.0) Medications Active Scripts Medications Dose Route/Sig Max Daily Dose Days Date Category Proair Hfa Inhaler (Albuterol Sulfate) 8.5 Gm Hfa.aer.ad 1 Puff INH PRN Q6HRS PRN 14 06/14/18 Rx Miralax (Polyethylene Glycol 3350) 17 Gm Powd.pack 1 Packet PO DAILY 06/13/18 Reported Isosorbide Mononitrate Er (Isosorbide Mononitrate) 30 Mg Tab.er.24h 30 Mg PO DAILY 06/07/18 Reported Pepcid (Famotidine) 20 Mg Tablet 20 Mg PO DAILY 05/30/18 Reported Clopidogrel (Clopidogrel Bisulfate) 75 Mg Tablet 75 Mg PO DAILY 02/08/17 Reported Levothyroxine Sodium 75 Mcg Tablet 75 Mcg PO DAILYAC 02/08/17 Reported Nitrostat (Nitroglycerin) 0.4 Mg Tab.subl 0.4 Mg SL PRN Q5MIN PRN 04/21/16 Reported Aspirin Ec (Aspirin) 325 Mg Tablet.dr 325 Mg PO DAILYWBKFT 04/21/16 Rx Hydrocodone-Apap 5-325 (Hydrocodone Bit/Acetaminophen) 1 Each Tablet 1 Tab PO PRN Q6HRS PRN 04/22/15 Reported Amlodipine Besylate 5 Mg Tablet 1 Tab PO DAILY 02/22/15 Reported Simvastatin 40 Mg Tablet 1 Tab PO QHS 02/22/15 Reported Metoprolol Succinate ( Xl ) (Metoprolol Succinate) 25 Mg Tab.er.24h 50 Mg PO DAILY 02/22/15 Reported Impression . 1. Acute on chronic respiratory failure secondary to Interstitial pneumonia vs CHF, acute exacerbation of chronic obstructive pulmonary disease, 2. 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 Acute exacerbation of chronic obstructive pulmonary disease. 5. Acute diastolic congestive heart failure. 6. Acute kidney injury. 7. Lung cancer, status post immunotherapy x 1, immunocompromised 8. Hypertension. 9. Coronary artery disease. 10. Peripheral vascular disease. 11. Tobacco habituation. CT CHEST IMPRESSION: Increase in nodule and consolidative infiltrate within the posterior segment right upper lobe adjacent to the major fissure since the previous PET CT dated July 14, 2018. Stable mediastinal lymphadenopathy. Stable spiculated lesion within the posterior segment left upper lobe. The other lung nodules are stable. New finding of small bilateral pleural effusions. Calcified atheromatous disease of the coronary arteries and thoracic aorta and brachiocephalic vessels. Cholelithiasis. Moderate fluid distention of the stomach. Micro LOOD CULTURE Final GRAM NEGATIVE RODS SEEN IN 1 OF 2 BOTTLES; 1 SET WAS DRAWN; RESULTS WERE CALLED TO [facility]ST ON 5N AT 0858; 08/28/18 BY [employer]. THE BLOOD CULTURES HAVE BEEN SENT TO [facility] FOR FURTHER WORKUP. AMMENDED REPORT: GRAM NEGATIVE RODS SEEN IN 2 OF 2 BOTTLES; 1 SET WAS DRAWN; RESULTS WERE CALLED TO [facility] ON 5N AT 1135; 08/28/18 BY [employer] AT. THE BLOOD CULTURES HAVE BEEN SENT TO [facility] FOR FURTHER WORKUP. THIS IS THE SECOND BOTTLE OF THE SAME SET. * This is a corrected result. * A prior result that was reported as final has been changed. GRAM STAIN WHITE BLOOD CELLS Final Few GRAM STAIN EPITHELIAL CELLS Final None seen GRAM STAIN RESULT 1 Final Comment Few gram negative rods. GRAM STAIN EVALUATION Final Comment This specimen is of good quality and is acceptable for routine bacterial culture. Performed at: - [facility] [address] [facility] [address], [place], [place] [id number] Heating Unit Installer: VALORIE Willis MD, Phone: [phone] SPUTUM CULTURE-LC PENDING Plan . OK TO DC NEEDS A 6 MIN WALK FOLLOW SAT LASIX D/C FLUIDS CT REVIEWED, CXR REVIEWED ALPESH GUTIERRES MD Sep 01, 2018 09:00
--- NOTE | 2018-09-01 09:36 | PDOC ---
Infectious Disease Note Subjective Subjective feeling better, up in chair ROS ROS no n/v/d/sob Vital Sign Vital Signs Vital Signs Date Time Temp Pulse Resp B/P (MAP) Pulse Ox O2 Delivery O2 Flow Rate FiO2 09/01/18 08:48 50 Venturi Mask 15.0 09/01/18 08:39 108 138/45 09/01/18 07:00 98.4 18 98.4 Physical Exam PHYSICAL EXAM CONSTITUTIONAL: She is cooperative. She appears a little tired. She is an elderly lady. She is in no acute distress. HEENT: Pupils are equal and reactive. She has normal conjunctivae. Oral cavity, pharynx is clear, no thrush. NECK: Supple. No JVD. LUNGS: Decreased in the bases. HEART: S1, S2, without gross murmur. She has a well-healed scar. ABDOMEN: Soft, nontender. No guarding or rebound. EXTREMITIES: No clubbing or cyanosis. She has trace 1+ lower extremity edema. SKIN: Warm to touch, without signs of rash. NEUROLOGIC: She is nonfocal and appropriate. PSYCHIATRIC: Affect is appropriate. SKIN: Peripheral IV is clean. Labs Lab Laboratory Tests Test 09/01/18 03:30 White Blood Count 13.2 x10^3/uL (4.0-11.0) Red Blood Count 3.18 x10^6/uL (3.50-5.40) Hemoglobin 9.1 g/dL (12.0-15.5) Hematocrit 28.4 % (36.0-47.0) Mean Corpuscular Volume 89 fL (79-100) Mean Corpuscular Hemoglobin 29 pg (25-35) Mean Corpuscular Hemoglobin Concent 32 g/dL (31-37) Red Cell Distribution Width 18.5 % (11.5-14.5) Platelet Count 154 x10^3/uL (140-400) Neutrophils (%) (Auto) 91 % (31-73) Lymphocytes (%) (Auto) 3 % (24-48) Monocytes (%) (Auto) 6 % (0-9) Eosinophils (%) (Auto) 0 % (0-3) Basophils (%) (Auto) 0 % (0-3) Neutrophils # (Auto) 12.0 x10^3uL (1.8-7.7) Lymphocytes # (Auto) 0.4 x10^3/uL (1.0-4.8) Monocytes # (Auto) 0.8 x10^3/uL (0.0-1.1) Eosinophils # (Auto) 0.0 x10^3/uL (0.0-0.7) Basophils # (Auto) 0.0 x10^3/uL (0.0-0.2) Sodium Level 139 mmol/L (136-145) Potassium Level 3.7 mmol/L (3.5-5.1) Chloride Level 100 mmol/L (98-107) Carbon Dioxide Level 26 mmol/L (21-32) Anion Gap 13 (6-14) Blood Urea Nitrogen 61 mg/dL (7-20) Creatinine 1.7 mg/dL (0.6-1.0) Estimated GFR (Cockcroft-Gault) 28.8 Glucose Level 221 mg/dL (70-99) Calcium Level 8.8 mg/dL (8.5-10.1) Phosphorus Level 2.3 mg/dL (2.6-4.7) Albumin 2.4 g/dL (3.4-5.0) Micro BLOOD CULTURE LC Final Final report BLD CULT RESULT 1 Final Escherichia coli ANTIMICROBIAL SUSCEPTIBILITY Final Comment S = Susceptible; I = Intermediate; R = Resistant P = Positive; N = Negative MICS are expressed in micrograms per mL Antibiotic RSLT#1 RSLT#2 RSLT#3 RSLT#4 Amoxicillin/Clavulanic Acid S =8 Ampicillin R>=32 Cefepime S<=0.12 Ceftriaxone S<=0.25 Cefuroxime S =4 Ciprofloxacin S<=0.25 Ertapenem S<=0.12 Gentamicin S<=1 Imipenem S<=0.25 Levofloxacin S<=0.12 Meropenem S<=0.25 Nitrofurantoin S<=16 Piperacillin/Tazobactam S<=4 Tetracycline S<=1 Tobramycin S<=1 Trimethoprim/Sulfa R>=320 Performed at: [facility], [place], [place] [id number] Bulk Loader: VALORIE Willis MD, Phone: [phone] Objective Assessment 1. Gram-negative sepsis, present on admission on 08/27/2018. 2. Lung cancer, status post chemotherapy on 08/22/2018. 3. Leukocytosis, present on admission, prior to steroid dosing. Uncertain if she has received Neulasta or Neupogen. 4. Acute exacerbation of chronic obstructive pulmonary disease. 5. Bird exposure as Cockatoos are at home. 6. Peripheral arterial disease, status post right fem-tibioperoneal trunk bypass graft using ipsilateral greater saphenous vein, 05/31/2018. Plan Plan of Care change cefepime to po omnicef F/u labs and cults Needs to quit tobacco EMILY LOPEZ MD Sep 01, 2018 09:36
[2018-09-01 11:00] VITALS: BP 144/51
--- NOTE | 2018-09-01 11:29 | PDOC ---
Renal-Progress Notes Subjective Notes Notes NONE History of Present Illness Hx of present illness STABLE Vitals Vitals Vital Signs Date Time Temp Pulse Resp B/P (MAP) Pulse Ox O2 Delivery O2 Flow Rate FiO2 09/01/18 11:11 94 Venturi Mask 15.0 09/01/18 08:39 108 138/45 09/01/18 07:00 98.4 18 98.4 Weight Weight [ ] I.O. Intake and Output Intake and Output 09/01/18 06:59 Output Total 1650 ml Balance -1650 ml Output Urine Total 1650 ml # Voids 1 # Bowel Movements 1 Labs Labs Laboratory Tests Test 09/01/18 03:30 White Blood Count 13.2 x10^3/uL (4.0-11.0) Red Blood Count 3.18 x10^6/uL (3.50-5.40) Hemoglobin 9.1 g/dL (12.0-15.5) Hematocrit 28.4 % (36.0-47.0) Mean Corpuscular Volume 89 fL (79-100) Mean Corpuscular Hemoglobin 29 pg (25-35) Mean Corpuscular Hemoglobin Concent 32 g/dL (31-37) Red Cell Distribution Width 18.5 % (11.5-14.5) Platelet Count 154 x10^3/uL (140-400) Neutrophils (%) (Auto) 91 % (31-73) Lymphocytes (%) (Auto) 3 % (24-48) Monocytes (%) (Auto) 6 % (0-9) Eosinophils (%) (Auto) 0 % (0-3) Basophils (%) (Auto) 0 % (0-3) Neutrophils # (Auto) 12.0 x10^3uL (1.8-7.7) Lymphocytes # (Auto) 0.4 x10^3/uL (1.0-4.8) Monocytes # (Auto) 0.8 x10^3/uL (0.0-1.1) Eosinophils # (Auto) 0.0 x10^3/uL (0.0-0.7) Basophils # (Auto) 0.0 x10^3/uL (0.0-0.2) Sodium Level 139 mmol/L (136-145) Potassium Level 3.7 mmol/L (3.5-5.1) Chloride Level 100 mmol/L (98-107) Carbon Dioxide Level 26 mmol/L (21-32) Anion Gap 13 (6-14) Blood Urea Nitrogen 61 mg/dL (7-20) Creatinine 1.7 mg/dL (0.6-1.0) Estimated GFR (Cockcroft-Gault) 28.8 Glucose Level 221 mg/dL (70-99) Calcium Level 8.8 mg/dL (8.5-10.1) Phosphorus Level 2.3 mg/dL (2.6-4.7) Albumin 2.4 g/dL (3.4-5.0) Micro Micro Microbiology 08/29/18 Blood Culture - Preliminary, Resulted NO GROWTH AFTER 2 DAYS 08/28/18 - Final, Complete 08/28/18 - Final, Complete 08/28/18 - Final, Complete 08/28/18 Gram Stain Evaluation - Final, Complete 08/28/18 Sputum Culture - Final, Complete 08/28/18 Sputum Result 1 - Final, Complete 08/30/18 Urine Culture - Final, Complete 08/30/18 Urine Culture Result 1 (PACO) - Final, Complete Review of Systems Constitutional: yes: alert, oriented Ears/Nose/Throat: Yes: no symptom reported Eyes: Yes: no symptom reported Pulmonary: Yes no symptom reported Cardiovascular: Yes no symptom reported Gastrointestional: Yes: no symptom reported Genitourinary: Yes: no symptom reported Musculoskeletal: Yes: no symptom reported Skin: Yes no symptom reported Psychiatric/Neurological: Yes: no symptom reported Endocrine: Yes: no symptom reported Physical Exam General Appearance: no apparent distress Skin: warm Respiratory: decreased breath sounds Heart: S1S2 Abdomen: soft, bowel sounds present Genitourinary: bladder flat Neurology: alert, follow commands Assessment Assessment MP DASIA-CR DOWN TO 1.7 SEPSIS DEHYDRATION HCAP SEPSIS TOBACCO ABUSE ADENOCA OF THE LEFT LUNG IMMUNOCOMPROMISED COPD ACUTE ON CHRONIC DIASTOLIC CHF PLAN HYDRATE RENAL SONOGRAM NEG ANTIBIOTICS PULM AND ID AND CARDIOLOGY FOLLOWING WESLEY PINA MD Sep 01, 2018 11:29
[2018-09-01] MEDS ORDERED: CEFD300C PO (12:22)
--- NOTE | 2018-09-01 12:38 | PDOC3 ---
Discharge Summary Visit Information Date of Admission: Aug 27, 2018 Date of Discharge: Sep 01, 2018 Admitting Diagnosis Comment: 1. Chronic obstructive pulmonary disease exacerbation/acute bronchitis. 2. Current smoker. 3. Smoker's cachexia. 4. Moderate to severe protein-calorie malnutrition. 5. Anemia of chronic disease. 6. Home O2 dependent. Final Diagnosis Problems Medical Problems: (1) Acute congestive heart failure Status: Acute (2) Lung cancer Status: Acute (3) Pneumonia Status: Acute Brief Hospital Course Allergies Allergies Coded Allergies Type Severity Reaction Last Updated Verified diphenhydramine Allergy Intermediate rash 08/27/18 Yes hydralazine Allergy Mild Nausea and Vomiting 08/27/18 Yes Vital Signs Vital Signs Date Time Temp Pulse Resp B/P (MAP) Pulse Ox O2 Delivery O2 Flow Rate FiO2 09/01/18 11:11 94 Venturi Mask 15.0 09/01/18 11:00 97.9 82 18 144/51 (82) 97.9 Lab Results Laboratory Tests Test 08/30/18 17:00 08/30/18 17:45 08/31/18 07:27 09/01/18 03:30 O2 Saturation % (92-99) 93 % (92-99) Arterial Blood pH 7.32 (7.35-7.45) 7.36 (7.35-7.45) Arterial Blood pCO2 at Patient Temp 40 mmHg (35-46) 44 mmHg (35-46) Arterial Blood pO2 at Patient Temp 44 mmHg (65-108) 75 mmHg (65-108) Arterial Blood HCO3 20 mmol/L (21-28) 25 mmol/L (21-28) Arterial Blood Base Excess -6 mmol/L (-3-3) -1 mmol/L (-3-3) FiO2 50 50 White Blood Count 9.8 x10^3/uL (4.0-11.0) 13.2 x10^3/uL (4.0-11.0) Red Blood Count 3.15 x10^6/uL (3.50-5.40) 3.18 x10^6/uL (3.50-5.40) Hemoglobin 9.0 g/dL (12.0-15.5) 9.1 g/dL (12.0-15.5) Hematocrit 27.7 % (36.0-47.0) 28.4 % (36.0-47.0) Mean Corpuscular Volume 88 fL (79-100) 89 fL (79-100) Mean Corpuscular Hemoglobin 29 pg (25-35) 29 pg (25-35) Mean Corpuscular Hemoglobin Concent 33 g/dL (31-37) 32 g/dL (31-37) Red Cell Distribution Width 18.6 % (11.5-14.5) 18.5 % (11.5-14.5) Platelet Count 130 x10^3/uL (140-400) 154 x10^3/uL (140-400) Neutrophils (%) (Auto) 90 % (31-73) 91 % (31-73) Lymphocytes (%) (Auto) 4 % (24-48) 3 % (24-48) Monocytes (%) (Auto) 6 % (0-9) 6 % (0-9) Eosinophils (%) (Auto) 0 % (0-3) 0 % (0-3) Basophils (%) (Auto) 0 % (0-3) 0 % (0-3) Neutrophils # (Auto) 8.9 x10^3uL (1.8-7.7) 12.0 x10^3uL (1.8-7.7) Lymphocytes # (Auto) 0.4 x10^3/uL (1.0-4.8) 0.4 x10^3/uL (1.0-4.8) Monocytes # (Auto) 0.6 x10^3/uL (0.0-1.1) 0.8 x10^3/uL (0.0-1.1) Eosinophils # (Auto) 0.0 x10^3/uL (0.0-0.7) 0.0 x10^3/uL (0.0-0.7) Basophils # (Auto) 0.0 x10^3/uL (0.0-0.2) 0.0 x10^3/uL (0.0-0.2) Sodium Level 138 mmol/L (136-145) 139 mmol/L (136-145) Potassium Level 3.8 mmol/L (3.5-5.1) 3.7 mmol/L (3.5-5.1) Chloride Level 100 mmol/L (98-107) 100 mmol/L (98-107) Carbon Dioxide Level 26 mmol/L (21-32) 26 mmol/L (21-32) Anion Gap 12 (6-14) 13 (6-14) Blood Urea Nitrogen 55 mg/dL (7-20) 61 mg/dL (7-20) Creatinine 1.8 mg/dL (0.6-1.0) 1.7 mg/dL (0.6-1.0) Estimated GFR (Cockcroft-Gault) 26.9 28.8 Glucose Level 172 mg/dL (70-99) 221 mg/dL (70-99) Calcium Level 8.7 mg/dL (8.5-10.1) 8.8 mg/dL (8.5-10.1) Phosphorus Level 3.5 mg/dL (2.6-4.7) 2.3 mg/dL (2.6-4.7) Albumin 2.3 g/dL (3.4-5.0) 2.4 g/dL (3.4-5.0) Laboratory Tests Test 09/01/18 03:30 White Blood Count 13.2 x10^3/uL (4.0-11.0) Red Blood Count 3.18 x10^6/uL (3.50-5.40) Hemoglobin 9.1 g/dL (12.0-15.5) Hematocrit 28.4 % (36.0-47.0) Mean Corpuscular Volume 89 fL (79-100) Mean Corpuscular Hemoglobin 29 pg (25-35) Mean Corpuscular Hemoglobin Concent 32 g/dL (31-37) Red Cell Distribution Width 18.5 % (11.5-14.5) Platelet Count 154 x10^3/uL (140-400) Neutrophils (%) (Auto) 91 % (31-73) Lymphocytes (%) (Auto) 3 % (24-48) Monocytes (%) (Auto) 6 % (0-9) Eosinophils (%) (Auto) 0 % (0-3) Basophils (%) (Auto) 0 % (0-3) Neutrophils # (Auto) 12.0 x10^3uL (1.8-7.7) Lymphocytes # (Auto) 0.4 x10^3/uL (1.0-4.8) Monocytes # (Auto) 0.8 x10^3/uL (0.0-1.1) Eosinophils # (Auto) 0.0 x10^3/uL (0.0-0.7) Basophils # (Auto) 0.0 x10^3/uL (0.0-0.2) Sodium Level 139 mmol/L (136-145) Potassium Level 3.7 mmol/L (3.5-5.1) Chloride Level 100 mmol/L (98-107) Carbon Dioxide Level 26 mmol/L (21-32) Anion Gap 13 (6-14) Blood Urea Nitrogen 61 mg/dL (7-20) Creatinine 1.7 mg/dL (0.6-1.0) Estimated GFR (Cockcroft-Gault) 28.8 Glucose Level 221 mg/dL (70-99) Calcium Level 8.8 mg/dL (8.5-10.1) Phosphorus Level 2.3 mg/dL (2.6-4.7) Albumin 2.4 g/dL (3.4-5.0) Brief Hospital Course Ms. Guallpa is a 83 old white female who continues to smoke, very cachectic looking with a smoker's body habitus, very wheezy hence it took about 7 days before we can entry control her wheezing. Comanage with pulmonary Actually no pneumonia on chest x-ray. I am Rxing tapering steroids, by mouth Cefdinir per ID and inhalers etc. We're doing a 6 minute walk, she takes O2 when necessary only at home Consults performed by ID, pulmonary Procedures performed 6 minute walk Discharge Information Condition at Discharge: Improved, Stable Disposition/Orders: D/C to Home w/ HH Scheduled Amlodipine Besylate (Amlodipine Besylate) 5 Mg Tablet, 1 TAB PO DAILY, #30 Ref 5 (Reported) Entered as Reported by: FARRAH UW on 02/22/15 0939 Last Action: Continued on 08/28/18805 by MARINA ADRIAN MD Aspirin (Aspirin Ec) 325 Mg Tablet., 325 MG PO DAILYWBKFT for stent, #30 Ref 0 Prescribed by: STEPHY DHILLON on 04/21/16 1226 Last Action: Continued on 08/28/18805 by MARINA ADRIAN MD Cefdinir (Cefdinir) 300 Mg Capsule, 300 MG PO BID for bronchitsi MDD 1 for 7 Days, #14 Prescribed by: ADINA STILES on 09/01/18 1222 Clopidogrel Bisulfate (Clopidogrel) 75 Mg Tablet, 75 MG PO DAILY for TO PREVENT BLOOD CLOTS, #30 Ref 0 (Reported) Entered as Reported by: WENDY MAI on 02/08/17657 Last Action: Continued on 08/28/18805 by MARINA ADRIAN MD Famotidine (Pepcid) 20 Mg Tablet, 20 MG PO DAILY for GERD, (Reported) Entered as Reported by: DANIELA ELIAS on 05/30/18 1143 Last Action: Continued on 08/28/18806 by MARINA ADRIAN MD Isosorbide Mononitrate (Isosorbide Mononitrate Er) 30 Mg Tab.er.24h, 30 MG PO DAILY for ANGINA, (Reported) Entered as Reported by: Valeria Sanford on 06/07/18 1522 Last Action: Continued on 08/28/18806 by MARINA ADRIAN MD Levothyroxine Sodium (Levothyroxine Sodium) 75 Mcg Tablet, 75 MCG PO DAILYAC for THYROID SUPPLEMENT, #30 Ref 0 (Reported) Entered as Reported by: WENDY MAI on 02/08/17657 Last Action: Continued on 08/28/18806 by MARINA ADRIAN MD Metoprolol Succinate (Metoprolol Succinate ( Xl )) 25 Mg Tab.er.24h, 50 MG PO DAILY for FOR HYPERTENSION, #30 Ref 0 (Reported) Entered as Reported by: FARRAH WU on 02/22/15937 Last Action: Continued on 08/28/18806 by MARINA ADRIAN MD Polyethylene Glycol 3350 (Miralax) 17 Gm Powd.pack, 1 PACKET PO DAILY for constipation, #30 Ref 3 (Reported) Entered as Reported by: Jaime Krishna on 06/13/18 0957 Last Action: Converted on 08/28/18806 by MARINA ADRIAN MD Simvastatin (Simvastatin) 40 Mg Tablet, 1 TAB PO QHS, #30 Ref 5 (Reported) Entered as Reported by: FARRAH WU on 8/21/15 0938 Last Action: Converted on 08/28/18806 by MARINA ADRIAN MD Scheduled PRN Albuterol Sulfate (Proair Hfa Inhaler) 8.5 Gm Hfa.aer.ad, 1 PUFF INH PRN Q6HRS PRN for SHORTNESS OF BREATH for 14 Days, Ref 0 Prescribed by: ADINA STILES on 06/14/18 1116 Last Action: Continued on 08/28/18805 by MARINA ADRIAN MD Hydrocodone Bit/Acetaminophen (Hydrocodone-Apap 5-325 ) 1 Each Tablet, 1 TAB PO PRN Q6HRS PRN for PAIN, Ref 0 (Reported) Entered as Reported by: LORIN WALLIS on 04/22/15 0820 Last Action: Continued on 08/28/18 07 by JOSEPH ORTEZ RN Nitroglycerin (Nitrostat) 0.4 Mg Tab.subl, 0.4 MG SL PRN Q5MIN PRN for CHEST PAIN, (Reported) Entered as Reported by: DAWOOD BARBOSA on 04/21/16 1520 Last Action: Continued on 08/28/18 08 by MD GO WARD CHERRIE Y MD Sep 01, 2018 12:38
--- NOTE | 2018-09-01 12:39 | PDOC ---
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 ROS - dyspnea Objective Objective Vital Signs Date Time Temp Pulse Resp B/P (MAP) Pulse Ox O2 Delivery O2 Flow Rate FiO2 09/01/18 11:11 94 Venturi Mask 15.0 09/01/18 11:00 97.9 82 18 144/51 (82) 97.9 Intake and Output 09/01/18 07:00 Output Total 1650 ml Balance -1650 ml Output Urine Total 1650 ml # Voids 1 # Bowel Movements 1 Physical Exam Heart: Normal S1, Normal S2 General: Alert, Oriented X3 Lungs: Clear to auscultation Neuro: Normal speech Psych/Mental Status: Mental status NL Assessment Assessment Problems Medical Problems: (1) Acute congestive heart failure Status: Acute (2) Lung cancer Status: Acute (3) Pneumonia Status: Acute IMPRESSION AND PLAN: 1. 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 Biomarker studies revealed PD-L1 positive at 70%. Hence, she was started on palliative immunotherapy with Keytruda on 08/22/2018. She has tolerated the treatments quite well. She is now admitted with dyspnea, which is unlikely to be due to immunotherapy as she does have complaints of cough productive of yellowish sputum, which is suggestive of an underlying infection. I discussed with Pulmonary Medicine with Dr. Evan Roe. 2. Acute exacerbation of chronic obstructive pulmonary disease. I appreciate Pulmonary management. 3. Anemia, worse. Hemoglobin is down to 9.1. No signs of bleeding. I will continue to monitor this. Iron studies on 08/01/2018 revealed normal ferritin of 98. B12 and folic acid levels on 07/01/2018 were unremarkable. Iron studies on 08/29/2018 revealed anemia due to chronic disease. Comment Review of Relevant I have reviewed the following items corwin (where applicable) has been applied. Labs Laboratory Tests Test 08/30/18 17:00 08/30/18 17:45 08/31/18 07:27 09/01/18 03:30 O2 Saturation % (92-99) 93 % (92-99) Arterial Blood pH 7.32 (7.35-7.45) 7.36 (7.35-7.45) Arterial Blood pCO2 at Patient Temp 40 mmHg (35-46) 44 mmHg (35-46) Arterial Blood pO2 at Patient Temp 44 mmHg (65-108) 75 mmHg (65-108) Arterial Blood HCO3 20 mmol/L (21-28) 25 mmol/L (21-28) Arterial Blood Base Excess -6 mmol/L (-3-3) -1 mmol/L (-3-3) FiO2 50 50 White Blood Count 9.8 x10^3/uL (4.0-11.0) 13.2 x10^3/uL (4.0-11.0) Red Blood Count 3.15 x10^6/uL (3.50-5.40) 3.18 x10^6/uL (3.50-5.40) Hemoglobin 9.0 g/dL (12.0-15.5) 9.1 g/dL (12.0-15.5) Hematocrit 27.7 % (36.0-47.0) 28.4 % (36.0-47.0) Mean Corpuscular Volume 88 fL (79-100) 89 fL (79-100) Mean Corpuscular Hemoglobin 29 pg (25-35) 29 pg (25-35) Mean Corpuscular Hemoglobin Concent 33 g/dL (31-37) 32 g/dL (31-37) Red Cell Distribution Width 18.6 % (11.5-14.5) 18.5 % (11.5-14.5) Platelet Count 130 x10^3/uL (140-400) 154 x10^3/uL (140-400) Neutrophils (%) (Auto) 90 % (31-73) 91 % (31-73) Lymphocytes (%) (Auto) 4 % (24-48) 3 % (24-48) Monocytes (%) (Auto) 6 % (0-9) 6 % (0-9) Eosinophils (%) (Auto) 0 % (0-3) 0 % (0-3) Basophils (%) (Auto) 0 % (0-3) 0 % (0-3) Neutrophils # (Auto) 8.9 x10^3uL (1.8-7.7) 12.0 x10^3uL (1.8-7.7) Lymphocytes # (Auto) 0.4 x10^3/uL (1.0-4.8) 0.4 x10^3/uL (1.0-4.8) Monocytes # (Auto) 0.6 x10^3/uL (0.0-1.1) 0.8 x10^3/uL (0.0-1.1) Eosinophils # (Auto) 0.0 x10^3/uL (0.0-0.7) 0.0 x10^3/uL (0.0-0.7) Basophils # (Auto) 0.0 x10^3/uL (0.0-0.2) 0.0 x10^3/uL (0.0-0.2) Sodium Level 138 mmol/L (136-145) 139 mmol/L (136-145) Potassium Level 3.8 mmol/L (3.5-5.1) 3.7 mmol/L (3.5-5.1) Chloride Level 100 mmol/L (98-107) 100 mmol/L (98-107) Carbon Dioxide Level 26 mmol/L (21-32) 26 mmol/L (21-32) Anion Gap 12 (6-14) 13 (6-14) Blood Urea Nitrogen 55 mg/dL (7-20) 61 mg/dL (7-20) Creatinine 1.8 mg/dL (0.6-1.0) 1.7 mg/dL (0.6-1.0) Estimated GFR (Cockcroft-Gault) 26.9 28.8 Glucose Level 172 mg/dL (70-99) 221 mg/dL (70-99) Calcium Level 8.7 mg/dL (8.5-10.1) 8.8 mg/dL (8.5-10.1) Phosphorus Level 3.5 mg/dL (2.6-4.7) 2.3 mg/dL (2.6-4.7) Albumin 2.3 g/dL (3.4-5.0) 2.4 g/dL (3.4-5.0) Laboratory Tests Test 09/01/18 03:30 White Blood Count 13.2 x10^3/uL (4.0-11.0) Red Blood Count 3.18 x10^6/uL (3.50-5.40) Hemoglobin 9.1 g/dL (12.0-15.5) Hematocrit 28.4 % (36.0-47.0) Mean Corpuscular Volume 89 fL (79-100) Mean Corpuscular Hemoglobin 29 pg (25-35) Mean Corpuscular Hemoglobin Concent 32 g/dL (31-37) Red Cell Distribution Width 18.5 % (11.5-14.5) Platelet Count 154 x10^3/uL (140-400) Neutrophils (%) (Auto) 91 % (31-73) Lymphocytes (%) (Auto) 3 % (24-48) Monocytes (%) (Auto) 6 % (0-9) Eosinophils (%) (Auto) 0 % (0-3) Basophils (%) (Auto) 0 % (0-3) Neutrophils # (Auto) 12.0 x10^3uL (1.8-7.7) Lymphocytes # (Auto) 0.4 x10^3/uL (1.0-4.8) Monocytes # (Auto) 0.8 x10^3/uL (0.0-1.1) Eosinophils # (Auto) 0.0 x10^3/uL (0.0-0.7) Basophils # (Auto) 0.0 x10^3/uL (0.0-0.2) Sodium Level 139 mmol/L (136-145) Potassium Level 3.7 mmol/L (3.5-5.1) Chloride Level 100 mmol/L (98-107) Carbon Dioxide Level 26 mmol/L (21-32) Anion Gap 13 (6-14) Blood Urea Nitrogen 61 mg/dL (7-20) Creatinine 1.7 mg/dL (0.6-1.0) Estimated GFR (Cockcroft-Gault) 28.8 Glucose Level 221 mg/dL (70-99) Calcium Level 8.8 mg/dL (8.5-10.1) Phosphorus Level 2.3 mg/dL (2.6-4.7) Albumin 2.4 g/dL (3.4-5.0) Microbiology 08/29/18 Blood Culture - Preliminary, Resulted NO GROWTH AFTER 3 DAYS 08/28/18 - Final, Complete 08/28/18 - Final, Complete 08/28/18 - Final, Complete 08/28/18 Gram Stain Evaluation - Final, Complete 08/28/18 Sputum Culture - Final, Complete 08/28/18 Sputum Result 1 - Final, Complete 08/30/18 Urine Culture - Final, Complete 08/30/18 Urine Culture Result 1 (PACO) - Final, Complete Medications Current Medications Methylprednisolone Sodium Succinate (SOLU-Medrol 40MG VIAL) 40 mg 1X ONCE IV Last administered on 08/27/18at 23:06; Start 08/27/18 at 23:00; Stop 08/27/18 at 23:01; Status DC Albuterol/ Ipratropium (Duoneb) 3 ml 1X ONCE NEB Last administered on at 23:19; Start 08/27/18 at 23:00; Stop 08/27/18 at 23:01; Status DC Furosemide (Lasix) 40 mg 1X ONCE IVP Last administered on 08/28/18at 01:23; Start 08/28/18 at 00:30; Stop 08/28/18 at 00:36; Status DC Cefepime HCl (Maxipime) 2 gm 1X ONCE IVP Last administered on 08/28/18at 01:28 ; Start 08/28/18 at 00:45; Stop 08/28/18 at 00:46; Status DC Vancomycin HCl (Vanco Per Pharmacy) 1 each PRN DAILY PRN MC SEE COMMENTS Last administered on 08/28/18at 01:43; Start 08/28/18 at 00:30; Stop 08/28/18 at 12:14 ; Status DC Ondansetron HCl (Zofran) 4 mg PRN Q8HRS PRN IV NAUSEA/VOMITING; Start 08/28/18 at 00:30; Stop 08/29/18 at 00:29; Status DC Albuterol/ Ipratropium (Duoneb) 3 ml RTQID NEB Last administered on 08/29/18at 12:05; Start 08/28/18 at 08:00; Stop 08/29/18 at 07:59; Status DC Furosemide (Lasix) 40 mg [id number] IVP Last administered on 08/29/18at 08:38; Start 08/28/18 at 09:00; Stop 08/29/18 at 10:09; Status DC Methylprednisolone Sodium Succinate (SOLU-Medrol 40MG VIAL) 40 mg Q8HRS IV Last administered on 09/01/18at 05:28; Start 08/28/18 at 06:00 Vancomycin HCl 1.25 gm/Sodium Chloride 250 ml @ 166.667 mls/hr 1X ONCE IV Last administered on 08/28/18at 01:24; Start 08/28/18 at 01:30; Stop 08/28/18 at 02:59; Status DC Vancomycin HCl 750 mg/Sodium Chloride 250 ml @ 250 mls/hr Q48H IV ; Start 08/30 at 01:30; Stop 08/30/18 at 01:30; Status DC Vancomycin HCl (Vancomycin Trough Level) 1 each 1X ONCE MC ; Start 09/01/18 at 01:00; Stop 09/01/18 at 01:00; Status DC Albuterol Sulfate (Ventolin Neb Soln) 2.5 mg 1X ONCE NEB Last administered on 08/28/18at 02:45; Start 08/28/18 at 02:45; Stop 08/28/18 at 02:46; Status DC Albuterol Sulfate (Ventolin Neb Soln) 2.5 mg PRN Q3HRS PRN NEB SHORTNESS OF BREATH; Start 08/28/18 at 03:00; Stop 08/28/18 at 08:10; Status DC Acetaminophen/ Hydrocodone Bitart (Lortab 5/325) 1 tab PRN Q6HRS PRN PO PAIN Last administered on 09/01/18at 08:48; Start 08/28/18 at 07:15 Cefepime HCl (Maxipime) 1 gm Q24H IVP ; Start 08/29/18 at 07:00; Stop 08/29/18 at 07:00; Status DC Albuterol Sulfate (Ventolin Neb Soln) 2.5 mg PRN Q6HRS PRN INH SHORTNESS OF BREATH; Start 08/28/18 at 08:15; Status UNV Amlodipine Besylate (Norvasc) 5 mg DAILY PO Last administered on 09/01/18at 08: 38; Start 08/28/18 at 09:00 Aspirin (Ecotrin) 325 mg DAILYWBKFT PO Last administered on 09/01/18at 08:38; Start 08/28/18 at 09:00 Clopidogrel Bisulfate (Plavix) 75 mg DAILY PO Last administered on 09/01/18 08 :38; Start 08/28/18 at 09:00 Famotidine (Pepcid) 20 mg DAILY PO Last administered on 08/28/18 08:34; Start 08/28/18 at 09:00; Stop 08/28/18 at 12:14; Status DC Isosorbide Mononitrate (Imdur) 30 mg DAILY PO Last administered on 09/01/18 08 :38; Start 08/28/18 at 09:00 Levothyroxine Sodium (Synthroid) 75 mcg DAILYAC PO Last administered on 07:32; Start 08/28/18 at 09:00 Metoprolol Succinate (Toprol Xl) 50 mg DAILY PO Last administered on 09/01/18 08:39; Start 08/28/18 at 09:00 Nitroglycerin (Nitrostat) 0.4 mg PRN Q5MIN PRN SL CHEST PAIN Last administered on 08/30/18 04:32; Start 08/28/18 at 08:15 Polyethylene Glycol (miraLAX PACKET) 17 gm DAILY PO Last administered on 08:38; Start 08/28/18 at 09:00 Atorvastatin Calcium (Lipitor) 20 mg QHS PO Last administered on 08/31/18 20: 34; Start 08/28/18 at 21:00 Enoxaparin Sodium (Lovenox 30mg Syringe) 30 mg Q24H SQ Last administered on 08:37; Start 08/28/18 at 09:00 Enoxaparin Sodium (Lovenox 30mg Syringe) 30 mg Q24H SQ ; Start 08/28/18 at 08:15 ; Status UNV Pantoprazole Sodium (Protonix) 40 mg DAILYAC PO Last administered on 09/01/18 07:32; Start 08/28/18 at 09:00 Albuterol Sulfate (Ventolin Neb Soln) 2.5 mg PRN Q3HRS PRN INH SHORTNESS OF BREATH Last administered on 08/30/18 09:31; Start 08/28/18 at 08:10 Levofloxacin/ Dextrose 100 ml @ 100 mls/hr 1X ONCE IV Last administered on 11:55; Start 08/28/18 at 12:00; Stop 08/28/18 at 12:59; Status DC Cefepime HCl (Maxipime) 2 gm Q12HR IVP Last administered on 09/01/18at 08:39; Start 08/28/18 at 19:01; Stop 09/01/18 at 10:12; Status DC Zolpidem Tartrate (Ambien) 5 mg PRN QHS PRN PO INSOMNIA Last administered on at 21:31; Start 08/28/18 at 19:00 Lorazepam (Ativan) 0.5 mg 1X ONCE PO Last administered on 08/29/18at 10:06; Start 08/29/18 at 10:00; Stop 08/29/18 at 10:01; Status DC Sodium Chloride 1,000 ml @ 75 mls/hr [id number] IV Last administered on at 23:32; Start 08/29/18 at 10:45; Stop 08/30/18 at 16:05; Status DC Al Hydroxide/Mg Hydroxide (Mylanta Plus Xs) 30 ml PRN Q2HR PRN PO HEARTBURN / GAS; Start 08/29/18 at 10:45 Morphine Sulfate (Morphine Sulfate) 1 mg PRN Q4HRS PRN IV PAIN Last administered on 08/30/18at 13:51; Start 08/30/18 at 05:00 Albuterol/ Ipratropium (Duoneb) 3 ml RTQID NEB Last administered on 09/01/18at 11:10; Start 08/30/18 at 12:00 Guaifenesin (Robitussin Dm) 10 ml QID PO Last administered on 09/01/18at 08:39; Start 08/30/18 at 17:00 Nicotine (Nicoderm Cq 21mg) 1 patch PRN DAILY PRN TD SMOKING CESSATION; Start 08/30/18 at 13:30 Furosemide (Lasix) 40 mg 1X ONCE IVP Last administered on 08/30/18at 16:30; Start 08/30/18 at 16:30; Stop 08/30/18 at 16:31; Status DC Cefdinir (Omnicef) 300 mg BID PO ; Start 09/01/18 at 21:00 Active Scripts Active Cefdinir 300 Mg Capsule 300 Mg PO BID MDD 1 7 Days Proair Hfa Inhaler (Albuterol Sulfate) 8.5 Gm Hfa.aer.ad 1 Puff INH PRN Q6HRS PRN 14 Days Aspirin Ec (Aspirin) 325 Mg Tablet. 325 Mg PO DAILYWBKFT Reported Miralax (Polyethylene Glycol 3350) 17 Gm Powd.pack 1 Packet PO DAILY Isosorbide Mononitrate Er (Isosorbide Mononitrate) 30 Mg Tab.er.24h 30 Mg PO DAILY Pepcid (Famotidine) 20 Mg Tablet 20 Mg PO DAILY Clopidogrel (Clopidogrel Bisulfate) 75 Mg Tablet 75 Mg PO DAILY Levothyroxine Sodium 75 Mcg Tablet 75 Mcg PO DAILYAC Nitrostat (Nitroglycerin) 0.4 Mg Tab.subl 0.4 Mg SL PRN Q5MIN PRN Hydrocodone-Apap 5-325 (Hydrocodone Bit/Acetaminophen) 1 Each Tablet 1 Tab PO PRN Q6HRS PRN Amlodipine Besylate 5 Mg Tablet 1 Tab PO DAILY Simvastatin 40 Mg Tablet 1 Tab PO QHS Metoprolol Succinate ( Xl ) (Metoprolol Succinate) 25 Mg Tab.er.24h 50 Mg PO DAILY Vitals/I & O Vital Sign - Last 24 Hours 08/31/18 08/31/18 08/31/18 08/31/18 15:00 15:29 16:08 19:00 Temp 97.9 97.6 97.9 97.6 Pulse 79 77 Resp 20 20 B/P (MAP) 143/48 (79) 134/64 (87) Pulse Ox 98 98 98 96 O2 Delivery Venturi Mask Venturi Mask Venturi Mask O2 Flow Rate 15.0 15.0 08/31/18 08/31/18 08/31/18 09/01/18 19:34 20:15 23:04 02:51 Temp 98.3 98.3 Pulse 88 Resp 20 B/P (MAP) 111/49 (69) Pulse Ox 93 94 94 O2 Delivery Bi-pap Venturi Mask Venturi Mask O2 Flow Rate 15.0 15.0 15.0 09/01/18 09/01/18 09/01/18 09/01/18 03:25 03:35 05:47 07:00 Temp 98.4 98.4 98.4 98.4 Pulse 95 108 Resp 20 18 B/P (MAP) 134/44 (74) 138/45 (76) Pulse Ox 93 95 95 93 O2 Delivery Venturi Mask BiPAP/CPAP BiPAP/CPAP Venturi Mask 09/01/18 09/01/18 09/01/18 09/01/18 07:27 07:30 08:38 08:38 Pulse 108 108 B/P (MAP) 138/45 138/45 Pulse Ox 94 O2 Delivery Venturi Mask Venturi Mask O2 Flow Rate 15.0 15.0 09/01/18 09/01/18 09/01/18 09/01/18 08:39 08:48 09:59 11:00 Temp 97.9 97.9 Pulse 108 82 Resp 18 B/P (MAP) 138/45 144/51 (82) Pulse Ox 50 50 96 O2 Delivery Venturi Mask Venturi Mask Venturi Mask O2 Flow Rate 15.0 15.0 09/01/18 11:11 Pulse Ox 94 O2 Delivery Venturi Mask O2 Flow Rate 15.0 Intake and Output 08/31/18 08/31/18 09/01/18 15:00 23:00 07:00 Output Total 1150 ml 200 ml 300 ml Balance -1150 ml -200 ml -300 ml ARLET WILSON MD Sep 01, 2018 12:39
[2018-09-01 15:00] VITALS: BP 122/59
--- NOTE | 2018-09-01 16:05 | NUR ---
SW notified pt has increased home 02 needs. NANCY confirmed pt has home 02 with [facility]. NANCY phoned and faxed new Rx to [facility]. NANCY notified Lyle from [facility] regarding increased 02 needs. ASHLEY RN.
[2018-09-01 16:39] VITALS: BP 151/46
[2018-09-01] MEDS: NITROGLYCERIN SUBLINGUAL 0.4 MG BOTTLE OF 25. SL PRN (16:39)
[2018-09-01] MEDS ORDERED: CEFDINIR 300 MG CAPSULE PO SCH (21:00)
== END 2018-09-01 17:52 | disposition home or self-care (01) | DRG 871 ==
LOC: ER 22:19 → 5 NORTH 23:30
PROVIDERS: ADMIT Internal Medicine; ATTEND Internal Medicine
PROC: 5A09357 Assistance with Respiratory Ventilation, Less than 24 Consecutive Hours, Continuous Positive Airway Pressure (ICD-10-PCS; principal; 2018-08-28)
DX: A41.50 Gram-negative sepsis, unspecified (principal); J96.21 Acute and chronic respiratory failure with hypoxia; E43 Unspecified severe protein-calorie malnutrition; I50.33 Acute on chronic diastolic (congestive) heart failure; J18.9 Pneumonia, unspecified organism; J44.1 Chronic obstructive pulmonary disease with (acute) exacerbation; C34.90 Malignant neoplasm of unspecified part of unspecified bronchus or lung; J44.0 Chronic obstructive pulmonary disease with (acute) lower respiratory infection; C34.92 Malignant neoplasm of unspecified part of left bronchus or lung; C78.01 Secondary malignant neoplasm of right lung; C78.02 Secondary malignant neoplasm of left lung; J98.11 Atelectasis; N17.9 Acute kidney failure, unspecified; N39.0 Urinary tract infection, site not specified; R64 Cachexia; I11.0 Hypertensive heart disease with heart failure; D50.9 Iron deficiency anemia, unspecified; D63.8 Anemia in other chronic diseases classified elsewhere; D69.6 Thrombocytopenia, unspecified; E03.9 Hypothyroidism, unspecified; E11.51 Type 2 diabetes mellitus with diabetic peripheral angiopathy without gangrene; E86.0 Dehydration; E78.5 Hyperlipidemia, unspecified; F17.210 Nicotine dependence, cigarettes, uncomplicated; I25.119 Atherosclerotic heart disease of native coronary artery with unspecified angina pectoris; I25.2 Old myocardial infarction; J20.9 Acute bronchitis, unspecified; K21.9 Gastro-esophageal reflux disease without esophagitis; K59.00 Constipation, unspecified; K80.20 Calculus of gallbladder without cholecystitis without obstruction; M81.0 Age-related osteoporosis without current pathological fracture; T45.1X5A Adverse effect of antineoplastic and immunosuppressive drugs, initial encounter; Z79.02 Long term (current) use of antithrombotics/antiplatelets; Z79.899 Other long term (current) drug therapy; Z82.49 Family history of ischemic heart disease and other diseases of the circulatory system; Z85.118 Personal history of other malignant neoplasm of bronchus and lung; Z95.1 Presence of aortocoronary bypass graft; Y95 Nosocomial condition; Z95.5 Presence of coronary angioplasty implant and graft; Z99.81 Dependence on supplemental oxygen
CPT/HCPCS: 36415; 36600; 71045; 71250; 76770; 80053; 80069; 81001; 82150; 82550; 82565; 82728; 82805; 83540; 83550; 83605; 83690; 83880; 84145; 84484; 84520; 85007; 85025; 85045; 87040; 87070; 87077; 87086; 87205; 87804; 93005; 93925; 94618; 94640; 94660; 94760; 96374; J0692; J1650; J1940; J1956; J2270; J2920; J3370; J7030; J7050; J7613; J7620; 97110; 97530; 97535; 99285-25